=== PATIENT | female | born 1950 ===

== ENCOUNTER 2017-03-12 06:38 | Day surgery (SDC) | payer MEDICARE, MEDICAID ==
[2016-10-13 14:06] VITALS: BMI 306488.7
[2017-03-12 07:22] LABS: BASO # 0.05 K/mm3 (0.0-2.0); BASO % 0.6 % (0.0-3.0); EOS # 0.8 (0.0-0.7); EOS % 9.9 % (1.5-5.0); GRAN # 4.36 (1.4-6.5); GRAN % 56.7 % (50.0-68.0); HEMOGLOBIN 12.5 gm/dL (12.0-16.0); LYMPH # 2.1 (1.2-3.4); LYMPH % 26.6 % (22.0-35.0); MEAN CELL VOLUME 103.6 fL (80.0-105.0); MEAN CORPUSCULAR HEMOGLOBIN 32.1 pg (25.0-35.0); MEAN CORPUSCULAR HGB CONC 30.9 g/dl (31.0-37.0); MEAN PLATELET VOLUME 9.7 fl (7.0-11.0); MONO # 0.5 (0.1-0.6); MONO % 6.2 % (1.0-6.0); PLATELET COUNT 165 10^3/uL (120.0-450.0); RED CELL DISTRIBUTION WIDTH 14.5 % (11.5-14.5); WHITE BLOOD COUNT 7.7 10^3/ul (4.5-11.0)
[2017-03-12 07:32] LABS: INR 0.94 (0.93-1.08); PROTHROMBIN TIME 10.1 Seconds (9.9-11.8)
[2017-03-12 07:37] LABS: CALCIUM 9.8 mg/dL (8.4-10.5)
[2017-03-12] MEDS ORDERED: Midazolam 2 MG/2 ML VIAL ONE ×2 (08:19→08:53)
[2017-03-12] MEDS ORDERED: Lidocaine 2% Inj (20ml) ONE (08:19)
--- NOTE | 2017-03-12 08:28 | CP.SDSHP ---
Same Day Surgery H & P - History Proposed Procedure: Fistulogram Pre-Op Diagnosis: ESRD - Previous Medical/Surgical History Cardiac: Hypertension Pulmonary: Emphysema/COPD Endocrine/Metabolic: Diabetes, Renal Disease (On HD) Neuro: TIA/CVA (CVA resulted in residual R leg weakness) Misc: Other (has numbness of both feet,,anxiety,hyperlipidemia,arthritis) Pain: 0. No Pain Comments: AV fistula in L arm is not working well Previous Surgical History: Permacath placement in R side of the neck and removal of the same. Creation of L arm AV shunt. Fistulogram. Colonoscopy. Excision R breast cyst - Allergies Allergies: Allergies No Known Allergies Allergy (Verified 12/05/14 21:35) - Physical Exam General Appearance: Well nourished female Mental Status: Alert & Oriented x3 Neuro: Other (Minimal weakness of the R lower extremity noted.) Heart: WNL Lungs: Other (Breath sounds appear distant) - {Optional Preform as Required} Abdomen: Other (abdomen is obese) Other Pertinent Findings: AV shunt noted on the L arm.Bruit+,Thrill felt but diminished. - Impression Impression: ESRD - Date & Time Date: 03/12/17 Time: 08:28 Short Stay Discharge - Short Stay Discharge Admitting Diagnosis/Reason for Visit: ESRD N18.6 Disposition: HOME/ ROUTINE Referrals: Yeison Mancuso MD [Primary Care Provider] -
[2017-03-12] MEDS ORDERED: Iodixanol 320 MG/ML 100 ML BOTTLE IV ONE (09:18)
[2017-03-12 10:54] VITALS: PULSE 59; RESP 18; TEMP 97.7
[2017-03-12 11:43] VITALS: BP 140/71; O2SAT 96
--- NOTE | 2017-03-12 19:17 | VASCULAR ---
PROCEDURE: 1. Left upper extremity AV graft angiogram 2. Left basilic vein angioplasty HISTORY: End-stage renal disease. Malfunctioning AV access PHYSICIAN(S): Alexandr Ayala MD. TECHNIQUE: The relative risks and indications of the procedure were explained to the patient and consent obtained. The patient was placed supine on the angiography table and the left arm prepped and draped in usual sterile fashion. Conscious sedation and monitoring provided throughout the procedure by a nurse. The left arm AV graft was punctured on the arterial side of the loop graft with ultrasound guidance and with a micropuncture set. A 5 Slovak catheter was placed. An overlapping left upper extremity AV graft angiogram was performed. Central venous imaging was obtained. Critical stenosis of the left median antecubital vein was crossed with 5 Slovak catheter and angled Glidewire. A 0.035 support wire was placed in the IVC. A 7 Slovak sheath was placed. The left median antecubital vein was dilated with 8 and 9 mm balloons. An excellent angiographic result was obtained with brisk flow. Unfortunately, the web-like stenoses in the left innominate vein could not be reached with 80 cm balloon catheters. The stenoses will be addressed with a future procedure. The AV graft was patent with strong diastolic flow. The catheter was removed and hemostasis obtained with a purse-string suture. FINDINGS: The loop graft in the left forearm is patent. There is a self expanding stent at the venous anastomosis. There is a critical stenosis of the left median antecubital vein. This was successfully dilated with 8 and 9 mm balloons. The left basilic vein is well developed. The left axillary and subclavian veins are patent. The left innominate vein demonstrates web-like severe stenoses with collateral vessels seen. The superior vena cava appears patent. IMPRESSION: 1. 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 This was successfully dilated with 8 and 9 mm balloons. 2. Patent left forearm AV loop graft 3. Web-like stenoses in the left innominate vein. These will be dilated on a separate procedure.
== END 2017-03-12 11:35 | disposition home or self-care (01) ==
LOC: SDSVAS 06:38
PROVIDERS: ATTEND Radiology Vascular & Interventional Radiology
DX: T82.858A Stenosis of other vascular prosthetic devices, implants and grafts, initial encounter (principal); I12.0 Hypertensive chronic kidney disease with stage 5 chronic kidney disease or end stage renal disease; N18.6 End stage renal disease; E11.22 Type 2 diabetes mellitus with diabetic chronic kidney disease; I69.351 Hemiplegia and hemiparesis following cerebral infarction affecting right dominant side; E78.5 Hyperlipidemia, unspecified; J44.9 Chronic obstructive pulmonary disease, unspecified; Y83.2 Surgical operation with anastomosis, bypass or graft as the cause of abnormal reaction of the patient, or of later complication, without mention of misadventure at the time of the procedure
CPT/HCPCS: 36415; 36902; 80048; 85025; 85610; 85730; 99152; C1725 ×3; C1760; C1769 ×2; C1894 ×2; J1644; J2250; J3010; Q9967

== ENCOUNTER 2017-03-28 06:17 | Day surgery (SDC) | payer MEDICARE, MEDICAID ==
[2017-03-15 11:55] VITALS: BMI 32.2
[2017-03-28] MEDS ORDERED: Lidocaine 2% Inj (20ml) ONE (06:59)
[2017-03-28] MEDS ORDERED: Iodixanol 320 mg/ml 150 ml Bottle IV ONE (06:59)
[2017-03-28 07:10] LABS: BASO # 0.05 K/mm3 (0.0-2.0); BASO % 0.5 % (0.0-3.0); EOS # 0.8 (0.0-0.7); EOS % 8.5 % (1.5-5.0); GRAN # 5.41 (1.4-6.5); GRAN % 58.3 % (50.0-68.0); HEMATOCRIT 38.2 % (36.0-48.0); LYMPH # 2.5 (1.2-3.4); LYMPH % 27.4 % (22.0-35.0); MEAN CORPUSCULAR HEMOGLOBIN 31.5 pg (25.0-35.0); MEAN CORPUSCULAR HGB CONC 30.6 g/dl (31.0-37.0); MEAN PLATELET VOLUME 10.1 fl (7.0-11.0); MONO # 0.5 (0.1-0.6); MONO % 5.3 % (1.0-6.0); RED CELL DISTRIBUTION WIDTH 13.5 % (11.5-14.5); WHITE BLOOD COUNT 9.3 10^3/ul (4.5-11.0)
[2017-03-28 07:16] LABS: INR 0.93 (0.93-1.08); PARTIAL THROMBOPLASTIN TIME 26.6 Seconds (23.7-30.8)
[2017-03-28 07:26] LABS: CALCIUM 9.8 mg/dL (8.4-10.5); POTASSIUM 4.7 mmol/L (3.6-5.0)
[2017-03-28] MEDS ORDERED: Midazolam 2 MG/2 ML VIAL ONE (07:58)
[2017-03-28 09:39] VITALS: TEMP 98.6; O2SAT 98
[2017-03-28 10:16] VITALS: BP 132/77; PULSE 83; RESP 18
--- NOTE | 2017-03-28 15:09 | VASCULAR ---
PROCEDURE: 1. Left upper extremity AV graft angiogram 2. Left innominate vein angioplasty 3. Left median antecubital vein angioplasty HISTORY: End-stage renal disease. Recent venous intervention. Critical left innominate vein stenosis which was not treated. PHYSICIAN(S): Alexandr Ayala MD. TECHNIQUE: The relative risks and indications of the procedure were explained to the patient and consent obtained. The patient was placed supine on the angiography table and the left arm prepped and draped in usual sterile fashion. Conscious sedation and monitoring provided throughout the procedure by a nurse. The left arm AV graft was punctured in the venous limb in an antegrade direction with a micropuncture set. A 5 Arabic catheter was placed. An overlapping left upper extremity the graft angiogram was performed. Central venous imaging was obtained. 65 cm catheter was placed at the left innominate vein. Imaging of the left innominate vein stenosis was performed. Eft innominate vein stenosis was crossed with the glidewire. A 0.035 support wire was placed the IVC. A 7 Arabic sheath was placed at the puncture site. The left innominate vein was dilated with 12 and 14 mm balloon. A much improved angiographic result was obtained. The stenosis at the distal end of the stent in the left median antecubital vein was dilated with an 8 mm balloon. A good angiographic result was obtained. The sheath was removed and hemostasis obtained with a purse string suture. FINDINGS: The patient's left upper extremity loop graft is patent. Overlapping stents are seen at the venous anastomosis. A moderate residual stenosis at the distal end of the stent. This was successfully dilated with an 8 mm balloon. There is a critical stenosis of the left innominate vein. This was successfully dilated with 12 and 14 mm balloons. IMPRESSION: 1. Critical left innominate vein stenosis. 2. Successful left innominate vein angioplasty with 12 and 14 mm balloons. 3. Left median antecubital vein angioplasty with an 8 mm balloon. 4. Patent loop graft in the left forearm
== END 2017-03-28 10:10 | disposition home or self-care (01) ==
LOC: SDSVAS 06:17
PROVIDERS: ATTEND Radiology Vascular & Interventional Radiology
DX: T82.858A Stenosis of other vascular prosthetic devices, implants and grafts, initial encounter (principal); N18.6 End stage renal disease; I12.0 Hypertensive chronic kidney disease with stage 5 chronic kidney disease or end stage renal disease; E11.22 Type 2 diabetes mellitus with diabetic chronic kidney disease; E78.5 Hyperlipidemia, unspecified; Z99.2 Dependence on renal dialysis; Z79.4 Long term (current) use of insulin; J44.9 Chronic obstructive pulmonary disease, unspecified; Y83.8 Other surgical procedures as the cause of abnormal reaction of the patient, or of later complication, without mention of misadventure at the time of the procedure
CPT/HCPCS: 36415; 36902; 36907; 80048; 85025; 85610; 85730; 99152; C1725 ×3; C1769 ×2; C1887; C1894; J1644; J2250; J2405; J3010

== ENCOUNTER 2017-11-16 01:44 | Inpatient (IN) | payer MEDICARE, MEDICAID ==
[2017-11-16] MEDS ORDERED: Sodium Chloride 0.9% 1,000 ML IV STA ×3 (03:00→06:14)
--- NOTE | 2017-11-16 03:00 | ED PDOC ---
Arrival/HPI - General Chief Complaint: Medical Clearance Time Seen by Provider: 11/16/17 01:51 Historian: Patient, Family (Son) - History of Present Illness Narrative History of Present Illness (Text): 11/16/17 02:57 A 67 year old female, whose past medical history includes diabetes, asthma, and End Stage Renal Disease on Hemodialysis (MWF), presents to the emergency department complaining of bleeding from dialysis arm fistula.. Patient is scheduled for declotting/ revision tomorrow. The son notes that she accidentally hit her arm causing it to bleed. As per the son, it appeared to be excessive bleeding at time which has been controlled now with pressure applied by ambulance crew. Pressure dressing was also applied by ambulance crew. The patient states she does not feel well. She denies any chest pain or shortness of breath. Patient notes that she ate a large meal late this evening. Patient vomited once in the emergency department. Patient denies fevers, chills , headache, dizziness, chest pain, shortness of breath, dyspnea on exertion, cough, abdominal pain, diarrhea, back pain, neck pain, urinary/bowel changes, or any other complaint. PMD: Dr. Mancuso Time/Duration: Prior to Arrival Symptom Onset: Sudden Symptom Course: Unchanged Activities at Onset: Rest, Light Context: Home Past Medical History - Provider Review Nursing Documentation Reviewed: Yes - Infectious Disease Hx of Infectious Diseases: None - Tetanus Immunization Tetanus Immunization: Up to Date - Reproductive Menopause: Yes - Cardiac Hx Pacemaker: No - Pulmonary Hx Asthma: Yes - Neurological HX Cerebrovascular Accident: Yes Hx Paralysis: No Other/Comment: jacqueline lower limbs weak uses walker - HEENT Hx HEENT Disorder: No - Renal Hx Renal Disorder: Yes Hx Dialysis: Yes (Sun) Hx Renal Failure: Yes - Endocrine/Metabolic Hx Diabetes Mellitus Type 2: Yes (uses insulin) Hx Hypothyroidism: Yes - Hematological/Oncological Hx Blood Transfusions: Yes (2010) Hx Blood Transfusion Reaction: No - Integumentary Hx Dermatological Disorder: No - Musculoskeletal/Rheumatological Hx Musculoskeletal Disorders: Yes - Gastrointestinal Hx Gastrointestinal Disorders: Yes Other/Comment: diverticulosis/hemorroids - Genitourinary/Gynecological Hx Genitourinary Disorders: Yes (voids "a little") Other/Comment: dialysis patient. left limb alert - Psychiatric Hx Psychophysiologic Disorder: No Hx Emotional Abuse: No Hx Physical Abuse: No Hx Substance Use: No - Surgical History Other/Comment: shunt left arm - Anesthesia Hx Anesthesia Reactions: No Hx Malignant Hyperthermia: No - Suicidal Assessment Feels Threatened In Home Enviroment: No Family/Social History - Physician Review Nursing Documentation Reviewed: Yes Family/Social History: No Known Family HX Smoking Status: Never Smoked Hx Alcohol Use: No Hx Substance Use: No Hx Substance Use Treatment: No Allergies/Home Meds Allergies/Adverse Reactions: Allergies No Known Allergies Allergy (Verified 11/16/17 01:56) Home Medications: Home Meds Medication Instructions Recorded Confirmed Montelukast [Singulair] 10 mg PO DAILY 01/21/12 11/14/17 Cinacalcet [Sensipar] 30 mg PO ACL 03/20/16 11/14/17 Gabapentin [Neurontin] 100 mg PO BID 03/20/16 11/14/17 Sevelamer Carbonate [Renvela] 2 tab PO TID 03/20/16 11/14/17 Simvastatin 20 mg PO HS 03/20/16 11/14/17 Insulin Aspart [Novolog FLEXPEN] 2 units SC BID 03/08/17 11/14/17 Midodrine [Proamatine] 5 mg PO MWF PRN 03/08/17 11/14/17 Aspirin [Ecotrin] 81 mg PO DAILY 06/14/17 11/14/17 amLODIPine [Norvasc] 2.5 mg PO DAILY 06/14/17 11/14/17 Review of Systems - Physician Review All systems were reviewed & negative as marked: Yes - Review of Systems Constitutional: absent: Fevers, Night Sweats Respiratory: absent: SOB, Cough Cardiovascular: absent: Chest Pain, MENDOSA Gastrointestinal: absent: Abdominal Pain, Stool Changes, Diarrhea, Nausea, Vomiting Genitourinary Female: absent: Urine Output Changes Musculoskeletal: Other (Bleeding from av fistula site on left forearm.). absent : Back Pain, Neck Pain Neurological: absent: Headache, Dizziness Physical Exam Vital Signs Reviewed: Yes Vital Signs Temp Pulse Resp BP Pulse Ox 11/16/17 07:49 116 H 16 93/51 L 11/16/17 07:23 110 H 16 108/63 100 11/16/17 05:50 98.3 F 109 H 18 108/63 95 11/16/17 04:15 74 20 100 11/16/17 02:02 97.7 F 98 H 20 149/66 100 Temperature: Afebrile Blood Pressure: Normal Pulse: Tachycardic Respiratory Rate: Normal Appearance: Positive for: Well-Appearing, Non-Toxic Pain Distress: None Mental Status: Positive for: Alert and Oriented X 3 - Systems Exam Head: Present: Atraumatic, Normocephalic Pupils: Present: PERRL Extroacular Muscles: Present: EOMI Conjunctiva: Present: Normal Mouth: Present: Moist Mucous Membranes Neck: Present: Normal Range of Motion Respiratory/Chest: Present: Clear to Auscultation, Good Air Exchange. No: Respiratory Distress, Accessory Muscle Use Cardiovascular: Present: Regular Rate and Rhythm, Normal S1, S2. No: Murmurs Abdomen: No: Tenderness, Distention, Peritoneal Signs Back: Present: Normal Inspection Upper Extremity: Present: Other (Slight minimal ooze of blood noted at av fistula site of left forearm. No excessive bleeding. ) Lower Extremity: Present: Normal Inspection. No: Edema Neurological: Present: GCS=15, CN II-XII Intact, Speech Normal Skin: Present: Warm, Dry, Normal Color. No: Rashes Psychiatric: Present: Alert, Oriented x 3, Normal Insight, Normal Concentration Medical Decision Making ED Course and Treatment: 11/16/17 03:02 Impression: A 67 year old female presents to the emergency department complaining of bleeding from her av fistula. Plan: -- EKG -- Chest X-ray -- Labs -- Reassess and disposition Progress Notes: 11/16/17 03:05: Treatment here in emergency department. Patient had labs drawn. Surgicel was applied for hemostat control to affected site with dressing applied with good results. 11/16/17 04:40: Patient began to rebleed.Pressure dressing reapplied.Bleeding controlled.president & founder paged to the emergency department to evaluate patient. 11/16/17 04:57: Patient noted to have low hemoglobin 7.5 Pt. previously T & S.Blood was ordered for transfusion. 11/16/17 05:16: Case discussed in detail with Dr. Rosas. Patient placed on dopamine drip. 11/16/17 05:23: Case discussed in detail with Dr. De Leon. 11/16/17 05:39: president & founder placed central line. EKG: Ordered, reviewed, and independently interpreted the EKG. Rate : 82 BPM Rhythm : NSR 11/16/17 05:40: Case discussed with Java Software Engineer, Dr. Rosas, who states he will come evaluate patient and determine need for ICU. 11/16/17 06:25 Pt. admitted to ICU.Currently being transfused.Meds ordered to stabilize.Case had been d/w who accepted to his service. - Lab Interpretations Lab Results: 11/16/17 03:55 11/16/17 03:55 Lab Results 11/16/17 06:00: Procalcitonin 0.22 11/16/17 05:55: pCO2 38, pO2 139.0 H, HCO3 18.7 L, ABG pH 7.30 L, ABG Total CO2 19.9 L, ABG O2 Saturation 98.4 H, ABG Base Excess -7.1 L, ABG Potassium 4.6, Glucose 252 H, Lactate 8.3 H*, FiO2 28.0, Sodium 139.0, Chloride 105.0, Arterial Blood Potassium 4.6 11/16/17 03:55: Blood Type O POSITIVE, Antibody Screen Negative, Crossmatch See Detail, BBK History Checked Patient has bt 11/16/17 03:55: WBC 16.2 H D, RBC 2.47 L, Hgb 7.5 L D, Hct 24.2 L, MCV 98.0 D, MCH 30.4, MCHC 31.0, RDW 13.8, Plt Count 173, MPV 9.9 11/16/17 03:55: Sodium 140, Potassium 4.9, Chloride 101, Carbon Dioxide 20 L, Anion Gap 24 H, BUN 49 H, Creatinine 7.4 H*, Est GFR ( Amer) 7, Est GFR ( Non-Af Amer) 5, Random Glucose 172 H, Calcium 9.1, Total Bilirubin 0.2, AST 40 H , ALT 38, Alkaline Phosphatase 90, Lactate Dehydrogenase 582, Total Creatine Kinase 156, Troponin I 0.09, Total Protein 5.6 L, Albumin 3.1, Globulin 2.5, Albumin/Globulin Ratio 1.2, Lipase 586 H 11/16/17 03:55: PT 10.8, INR 0.95, APTT 26.1 I have reviewed the lab results: Yes - RAD Interpretation Radiology Orders: 11/16/17 02:32 CHEST PORTABLE [RAD] Stat - EKG Interpretation Interpreted by ED Physician: Yes Type: 12 lead EKG - Medication Orders Current Medication Orders: NOREPINEPHRINE BIT/0.9 % NACL (Levophed 4 Mg/ 250 Ml Ns Premixed) 4 mg in 250 mls @ 15 mls/hr IV .I40R33T PRN; Protocol; 4 MCG/MIN PRN Reason: TITRATE PER MD ORDER Last Admin: 11/16/17 18:30 Dose: 24 mcg/min, 90 mls/hr eMAR Start Stop Document 11/16/17 18:30 RAMOM (Rec: 11/16/17 19:40 RAMOM [id number] ) Intravenous Solution Start Date 11/16/17 Start Time 18:30 Titration Intervention Document 11/16/17 18:30 RAMOM (Rec: 11/16/17 19:40 RAMOM [id number] ) Titration Intake Cumulative Intake (Rx) 750 Waste Amount 0 Container Volume 250 Titration Dosing Titration Dose 24 IV Rate 90 Intake/Decrease Started/Running Cumulative Dose 12 Phenylephrine HCl 40 mg/ (Sodium Chloride) 254 mls @ 38.1 mls/hr IV .Q6H40M PRN ; Protocol; 100 MCG/MIN PRN Reason: TITRATE PER MD ORDER Vasopressin 20 units/ Sodium (Chloride) 101 mls @ 9.09 mls/hr IV .Q11H7M WILIAN; 0.03 U/MIN PRN Reason: Protocol Last Admin: 11/16/17 10:20 Dose: 9.09 mls/hr eMAR Start Stop Document 11/16/17 10:20 RAMOM (Rec: 11/16/17 10:28 [place] [place] [facility] [facility] Intravenous Solution Start Date 11/16/17 Start Time 10:20 End Date 11/16/17 End time 11:30 Total Infusion Time 70 MAR Blood Pressure Document 11/16/17 10:20 RAMOM (Rec: 11/16/17 10:28 RAMOM [facility]) Blood Pressure Blood Pressure (100/60-150/90 mm Hg) 85/45 Meropenem 500 mg/ Sodium (Chloride) 50 mls @ 100 mls/hr IVPB 1400 WILIAN PRN Reason: Protocol Stop: 11/23/17 14:01 Dextrose (Dextrose 10% In Water) 500 mls @ 60 mls/hr IV .Q8H20M [facility] Last Admin: 11/16/17 19:15 Dose: 60 mls/hr eMAR Start Stop Document 11/16/17 19:15 RAMOM (Rec: 11/16/17 19:38 RAMOM [id number] ) Intravenous Solution Start Date 11/16/17 Start Time 19:15 Insulin Human Regular (Humulin R Low) 0 units SC Q6H WILIAN PRN Reason: Protocol Last Admin: 11/16/17 13:00 Dose: Not Given Non-Admin Reason: NPO MAR Blood Glucose Document 11/16/17 13:00 RAMOM (Rec: 11/16/17 14:49 RAMOM [facility] [place] [facility] Blood Glucose Finger Stick Blood Glucose (70-120) 182 Pantoprazole Sodium (Protonix Inj) 40 mg IVP Q12 [facility] Last Admin: 11/16/17 09:31 Dose: 40 mg IVP Administration Document 11/16/17 09:31 RAMOM (Rec: 11/16/17 09:31 RAMOM [facility] [place] [facility] Charges for Administration # of IVP Administrations 1 Discontinued Medications Dextrose (Dextrose 50% Inj) 50 ml IVP ONCE STA Stop: 11/16/17 10:59 Last Admin: 11/16/17 11:00 Dose: 50 ml IVP Administration Document 11/16/17 11:00 RAMOM (Rec: 11/16/17 11:14 RAMOM [facility] [place] [facility] Charges for Administration # of IVP Administrations 1 Dextrose (Dextrose 50% Inj) 50 ml IVP ONCE STA Stop: 11/16/17 11:20 Last Admin: 11/16/17 11:24 Dose: 50 ml IVP Administration Document 11/16/17 11:24 RAMOM (Rec: 11/16/17 11:24 RAMOM [facility] [place] [facility] Charges for Administration # of IVP Administrations 1 Dopamine HCl/Dextrose (Dopamine 400mg/250ml D5w) 400 mg in 250 mls @ 15.638 mls /hr IV .Q16H PRN; Protocol; 5 MCG/KG/MIN PRN Reason: TITRATE PER MD ORDER Last Admin: 11/16/17 05:01 Dose: 5 mcg/kg/min, 15.638 mls/hr eMAR Start Stop Document 11/16/17 05:01 RG (Rec: 11/16/17 07:18 [id number]) Intravenous Solution Start Date 11/16/17 Start Time 05:01 End Date 11/16/17 End time 06:20 Total Infusion Time 79 Titration Intervention Document 11/16/17 05:01 RG (Rec: 11/16/17 07:18 [id number]) Titration Intake Waste Amount 0 Container Volume 250 Titration Dosing Titration Dose 5 IV Rate 15.638 Intake/Decrease Started Sodium Chloride (Sodium Chloride 0.9%) 1,000 mls @ 999 mls/hr IV .Q1H1M STA Stop: 11/16/17 04:00 Last Admin: 11/16/17 06:33 Dose: 999 mls/hr eMAR Start Stop Document 11/16/17 06:33 RG (Rec: 11/16/17 06:33 [id number] Intravenous Solution Start Date 11/16/17 Start Time 03:00 Sodium Chloride (Sodium Chloride 0.9%) 1,000 mls @ 999 mls/hr IV .Q1H1M STA Stop: 11/16/17 07:13 Last Admin: 11/16/17 06:13 Dose: 999 mls/hr eMAR Start Stop Document 11/16/17 06:13 RG (Rec: 11/16/17 06:51 [id number]) Intravenous Solution Start Date 11/16/17 Start Time 06:13 Sodium Chloride (Sodium Chloride 0.9%) 1,000 mls @ 999 mls/hr IV .Q1H1M STA Stop: 11/16/17 07:14 Last Admin: 11/16/17 06:15 Dose: 999 mls/hr eMAR Start Stop Document 11/16/17 06:15 RG (Rec: 11/16/17 07:09 [id number]) Intravenous Solution Start Date 11/16/17 Start Time 06:15 Cefepime HCl (Maxipime 2gm) 2 gm in 100 mls @ 100 mls/hr IVPB DAILY WILIAN PRN Reason: Protocol Stop: 11/21/17 10:01 Vancomycin HCl 2 gm/ Sodium (Chloride) 500 mls @ 170 mls/hr IVPB ONCE ONE PRN Reason: Protocol Stop: 11/16/17 11:25 Last Admin: 11/16/17 09:30 Dose: 170 mls/hr eMAR Start Stop Document 11/16/17 09:30 RAMOM (Rec: 11/16/17 09:31 [facility] [place] [facility] Intravenous Solution Start Date 11/16/17 Start Time 09:30 End Date 11/16/17 End time 12:30 Total Infusion Time 180 Cefepime HCl (Maxipime 1gm) 1 gm in 100 mls @ 100 mls/hr IVPB DAILY WILIAN PRN Reason: Protocol Stop: 11/21/17 10:01 Last Admin: 11/16/17 10:10 Dose: 100 mls/hr eMAR Start Stop Document 11/16/17 10:10 RAMOM (Rec: 11/16/17 10:29 [facility]OM [facility] [place] [facility] Intravenous Solution Start Date 11/16/17 Start Time 10:10 End Date 11/16/17 End time 11:10 Total Infusion Time 60 Meropenem 500 mg/ Sodium (Chloride) 50 mls @ 100 mls/hr IVPB Q12 WILIAN PRN Reason: Protocol Stop: 11/23/17 11:01 Last Admin: 11/16/17 11:16 Dose: 100 mls/hr eMAR Start Stop Document 11/16/17 11:16 RAMOM (Rec: 11/16/17 11:17 [facility]OM [facility] [place] [facility] Intravenous Solution Start Date 11/16/17 Start Time 11:15 End Date 11/16/17 End time 11:45 Total Infusion Time 30 Dextrose (Dextrose 10% In Water) 500 mls @ 60 mls/hr IV .Q8H20M [facility] Last Admin: 11/16/17 11:37 Dose: 60 mls/hr eMAR Start Stop Document 11/16/17 11:37 RAMOM (Rec: 11/16/17 11:37 RAMOM [facility] [place] [facility] Intravenous Solution Start Date 11/16/17 Start Time 11:35 Ondansetron HCl (Zofran Inj) 4 mg IVP STAT STA Stop: 11/16/17 02:41 Last Admin: 11/16/17 02:41 Dose: 4 mg IVP Administration Document 11/16/17 02:41 RG (Rec: 11/16/17 07:09 RG [facility] [id number] Charges for Administration # of IVP Administrations 1 - Scribe Statement The provider has reviewed the documentation as recorded by the Scribe Jenna Guzman Provider Scribe Attestation: All medical record entries made by the Scribe were at my direction and personally dictated by me. I have reviewed the chart and agree that the record accurately reflects my personal performance of the history, physical exam, medical decision making, and the department course for this patient. I have also personally directed, reviewed, and agree with the discharge instructions and disposition. Disposition/Present on Arrival - Present on Arrival Any Indicators Present on Arrival: No History of DVT/PE: No History of Uncontrolled Diabetes: Yes Urinary Catheter: No History of Decub. Ulcer: No History Surgical Site Infection Following: None - Disposition Have Diagnosis and Disposition been Completed?: Yes Diagnosis: Hemorrhage of arteriovenous fistula, Hemorrhagic shock Disposition: HOSPITALIZED Disposition Time: 06:30 Patient Plan: Admission Patient Problems: Current Active Problems Problem Status Onset Hemorrhage of arteriovenous fistula Acute Hemorrhagic shock Acute Condition: GUARDED
[2017-11-16 04:16] LABS: MEAN CORPUSCULAR HEMOGLOBIN 30.4 pg (25.0-35.0); MEAN PLATELET VOLUME 9.9 fl (7.0-11.0); RBC 2.47 10^6/uL (3.5-6.1); RED CELL DISTRIBUTION WIDTH 13.8 % (11.5-14.5); WHITE BLOOD COUNT 16.2 10^3/ul (4.5-11.0)
[2017-11-16 04:18] LABS: ALB/GLOB RATIO 1.2 (1.1-1.8); ALBUMIN 3.1 g/dL (3.0-4.8); CALCIUM 9.1 mg/dL (8.4-10.5)
[2017-11-16 04:28] LABS: TROPONIN I 0.09 ng/mL
[2017-11-16 04:39] LABS: HEMOGLOBIN 7.5 g/dL (12.0-16.0)
[2017-11-16 04:47] LABS: INR 0.95 (0.93-1.08); PARTIAL THROMBOPLASTIN TIME 26.1 Seconds (25.1-36.5); PROTHROMBIN TIME 10.8 SECONDS (9.4-12.5)
[2017-11-16] MEDS ORDERED: DOPamine 400mg/250ml D5W 400 MG/250 ML BAG IV ONE (04:52)
[2017-11-16] MEDS ORDERED: DOPamine 400mg/250ml D5W 400 MG/250 ML BAG IV PRN (04:59)
--- NOTE | 2017-11-16 05:59 | PCM.PROC ---
Procedures Attestation:: I certify that I have explained the specified Operation(s) or Procedure(s), risks, benefits and reasonable alternatives to the Patient and/or other person responsible. The opportunity was given to ask questions and all questions answered - Central Line Placement Right Femoral Triple Lumen Catheter Aseptic technique was employed throughout the procedure: Hand Hygiene done prior to procedure, Full sterile barriers (mask, hair cover, sterile gown, sterile gloves), Full body sterile drape, Chloraprep Antiseptic: 2 minute prep for Femoral CVP Time Out Performed: Yes Pt. Placed on Pulse Ox Monitor: Yes Central Line Prep: Chlorhexidine-Alcohol Combination Local Anesthesia Used: Lidocaine 1% Amount of Anesthesia Used (mls): 5 Ultrasound Used for Placement: Yes Central Line Lumen Inserted: triple Central Line Length: 16 cm Post Procedure: Sutured in Place, Good Blood Return, All Ports Aspirated, Flushed, Capped, Sterile Dressing Applied Secured by: Suture Post procedure dressing: Clear vapor permeable, Chlorhexidine disc (Biopatch) Post Procedure X-Ray: No Patient Tolerated Procedure: Well, No Complications Immediate Complications: None Additional Comments: Informed consent obtained from daughter at bedside. Risk, benefits and indications were discussed briefly due to acuity of the situation. Procedure: Right femoral TLC insertion Indication: hypotension, refractory due to severe acute blood loss. poor access , need for rapid transfusion and possible initiation of vasopressors Procedure in detail: right femoral vein was identified with ultrasound prior to procedure. Patient supine and Right leg placed in frog-legged position. After identification of the right femoral vein via ultrasound the right groin was prepped x2 with chlorahexadine then draped in the usual sterile fashion. Under ultrasound guidance the femoral vein was accessed with the guidance needle successfully with dark venous blood return. Guide-wire was advanced smoothly into vein. Seldinger technique was used to place triple lumen catheter. Guide- wire was removed and all three ports were aspirated and flushed without difficulty. Bio-patch placed at insertion site and two tegaderms were used as sterile dressing. No evidence of hematoma immediately post procedure. Patient tolerated procedure well. Complications: none Blood loss: 5 cc Ok to use catheter further recs per Dr. Haley [id number]
[2017-11-16 06:08] LABS: ARTERIAL BLOOD GAS HCO3 18.7 mmol/L (21-28); ARTERIAL BLOOD GAS O2 SAT 98.4 % (95-98); ARTERIAL BLOOD GAS PCO2 38 mm/Hg (35-45); ARTERIAL BLOOD GAS TCO2 19.9 mmol.L (22-28)
[2017-11-16] MEDS: NOREPINEPHRINE BIT/0.9 % NACL 4 MG/250 ML BAG IV PRN ×5 (06:22→20:00)
--- NOTE | 2017-11-16 06:24 | CP.PCM.CON ---
<Kimberly Miller - Last Filed: 11/16/17 07:45> History of Present Illness - History of Present Illness History of Present Illness: ICU Consult Note, Eric Miller PGY2 This is a 67yo female with past medical history of ESRD on HD (MWF), DM, CVA, HTN, asthma who came to ED for bleeding AV fistula. As per family, patient accidentally hit her arm onto a doorknob and her fistula started bleeding profusely. Family tried to control the bleeding and hold pressure, but her fistula continued to bleed and they brought her to the ED. In ED, patient was awake and alert upon arrival. Patient was also nauseous and threw up a large amount. According to family, she did have a large dinner. Her bleeding from the AV fistula was stabilized, but was found to be anemic and hypotensive. Central line was placed as per surgery. 4U PRBC were ordered and patient was given IV fluid bolus. Upon examination, patient is lethargic and agitated but arousable. Family is at bedside. ROS could not be obtained. Patient noted to have large BM mixed with blood as well. Patient is on ASA 81mg at home. Past medical history: ESRD on HD (MWF), DM, CVA, HTN, asthma Past surgical history: AV fistula Home meds: As per MAR Allergies: NKDA SH: Denies EtOH, drug or tobacco use. Lives with family. Hx of CVA- has chronic leg weakness PMD: Dr. Bartolome Talbert: Dr. Felton Review of Systems - Review of Systems Systems not reviewed;Unavailable: Altered Mental Status Past Patient History - Infectious Disease Hx of Infectious Diseases: None - Tetanus Immunizations Tetanus Immunization: Up to Date - Past Social History Smoking Status: Never Smoked Alcohol: None Drugs: Denies Home Situation {Lives}: With Family - CARDIAC Hx Pacemaker: No - PULMONARY Hx Asthma: Yes - NEUROLOGICAL HX Cerebrovascular Accident: Yes Hx Paralysis: No Other/Comment: jacqueline lower limbs weak uses walker - HEENT Hx HEENT Problems: No - RENAL Hx Chronic Kidney Disease: Yes Hx Dialysis: Yes (Sun) Hx Renal Failure: Yes - ENDOCRINE/METABOLIC Hx Diabetes Mellitus Type 2: Yes (uses insulin) Hx Hypothyroidism: Yes - HEMATOLOGICAL/ONCOLOGICAL Hx Blood Transfusions: Yes (2010) Hx Blood Transfusion Reaction: No - INTEGUMENTARY Hx Dermatological Problems: No - MUSCULOSKELETAL/RHEUMATOLOGICAL Hx Musculoskeletal Disorders: Yes - GASTROINTESTINAL Hx Gastrointestinal Disorders: Yes Other/Comment: diverticulosis/hemorroids - GENITOURINARY/GYNECOLOGICAL Hx Genitourinary Disorders: Yes (voids "a little") Other/Comment: dialysis patient. left limb alert - PSYCHIATRIC Hx Psychophysiologic Disorder: No Hx Emotional Abuse: No Hx Physical Abuse: No Hx Substance Use: No - SURGICAL HISTORY Other/Comment: shunt left arm - ANESTHESIA Hx Anesthesia Reactions: No Hx Malignant Hyperthermia: No Meds Allergies/Adverse Reactions: Allergies Allergy/AdvReac Type Severity Reaction Status Date / Time No Known Allergies Allergy Verified 11/16/17 01:56 - Medications Medications: Current Medications Dopamine HCl/Dextrose (Dopamine 400mg/250ml D5w) 400 mg in 250 mls @ 14.368 mls /hr IV .[id number] PRN; Protocol; 5 MCG/KG/MIN PRN Reason: TITRATE PER MD ORDER NOREPINEPHRINE BIT/0.9 % NACL (Levophed 4 Mg/ 250 Ml Ns Premixed) 4 mg in 250 mls @ 15 mls/hr IV .[id number] PRN; Protocol; 4 MCG/MIN PRN Reason: TITRATE PER MD ORDER Sodium Chloride (Sodium Chloride 0.9%) 1,000 mls @ 999 mls/hr IV .Q1H1M STA Stop: 11/16/17 07:13 Sodium Chloride (Sodium Chloride 0.9%) 1,000 mls @ 999 mls/hr IV .Q1H1M STA Stop: 11/16/17 07:14 Physical Exam - Constitutional Appears: Agitated, Confused - Head Exam Head Exam: ATRAUMATIC, NORMAL INSPECTION, NORMOCEPHALIC - Eye Exam Eye Exam: EOMI Additional comments: pupils are sluggish bilaterally - Respiratory Exam Respiratory Exam: Rhonchi, NORMAL BREATHING PATTERN. absent: Rales, Wheezes - Cardiovascular Exam Cardiovascular Exam: Tachycardia, REGULAR RHYTHM, +S1, +S2. absent: Gallop, Rubs, Systolic Murmur - GI/Abdominal Exam GI & Abdominal Exam: Normal Bowel Sounds, Soft. absent: Mass, Rebound, Rigid, Tenderness - Extremities Exam Extremities exam: Positive for: normal inspection. Negative for: calf tenderness, pedal edema - Neurological Exam Neurological exam: Altered, CN II-XII Intact Additional comments: Moving all 4 extremities- withdraws to pain - Expanded Neurological Exam Expanded Coma Scale Eye Opening: To Voice Coma Scale Motor Response: Withdraws to Pain Coma Scale Verbal: Confused Coma Scale Total: 11 - Skin Skin Exam: Dry Additional comments: Cold extremities Results - Vital Signs Recent Vital Signs: Last Vital Signs Temp 97.7 F 11/16/17 02:02 Pulse 74 11/16/17 04:15 Resp 20 11/16/17 04:15 BP 149/66 11/16/17 02:02 Pulse Ox 100 11/16/17 04:15 - Labs Result Diagrams: 11/16/17 03:55 11/16/17 03:55 Labs: Laboratory Results - last 24 hr 11/16/17 11/16/17 11/16/17 03:55 03:55 03:55 WBC 16.2 H D RBC 2.47 L Hgb 7.5 L D Hct 24.2 L MCV 98.0 D MCH 30.4 MCHC 31.0 RDW 13.8 Plt Count 173 MPV 9.9 PT 10.8 INR 0.95 APTT 26.1 pCO2 pO2 HCO3 ABG pH ABG Total CO2 ABG O2 Saturation ABG Base Excess ABG Potassium Glucose Lactate FiO2 Sodium 140 Potassium 4.9 Chloride 101 Carbon Dioxide 20 L Anion Gap 24 H BUN 49 H Creatinine 7.4 H* Est GFR ( Amer) 7 Est GFR (Non-Af Amer) 5 Random Glucose 172 H Calcium 9.1 Total Bilirubin 0.2 AST 40 H ALT 38 Alkaline Phosphatase 90 Lactate Dehydrogenase 582 Total Creatine Kinase 156 Troponin I 0.09 Total Protein 5.6 L Albumin 3.1 Globulin 2.5 Albumin/Globulin Ratio 1.2 Lipase 586 H Arterial Blood Potassium Blood Type Antibody Screen Crossmatch BBK History Checked 11/16/17 11/16/17 03:55 05:55 WBC RBC Hgb Hct MCV MCH MCHC RDW Plt Count MPV PT INR APTT pCO2 38 pO2 139.0 H HCO3 18.7 L ABG pH 7.30 L ABG Total CO2 19.9 L ABG O2 Saturation 98.4 H ABG Base Excess -7.1 L ABG Potassium 4.6 Glucose 252 H Lactate 8.3 H* FiO2 28.0 Sodium 139.0 Potassium Chloride 105.0 Carbon Dioxide Anion Gap BUN Creatinine Est GFR ( Amer) Est GFR (Non-Af Amer) Random Glucose Calcium Total Bilirubin AST ALT Alkaline Phosphatase Lactate Dehydrogenase Total Creatine Kinase Troponin I Total Protein Albumin Globulin Albumin/Globulin Ratio Lipase Arterial Blood Potassium 4.6 Blood Type O POSITIVE Antibody Screen Negative Crossmatch See Detail BBK History Checked Patient has bt Assessment & Plan - Assessment and Plan (Free Text) Assessment: This is a 67yo female with past medical history of ESRD on HD (MWF), DM, CVA, HTN, asthma who is admitted to ICU for hemorrhagic shock secondary to bleeding AV fistula. Plan: Neuro: Hx of CVA Lethargic, GCS: 11 Neuro check Will obtain head CT once stabilized Maintain normothermia CV: Hemorrhagic shock Tachycardic, hypotensive Lactate 8 4U PRBC ordered- 1U transfusing now NS 3L bolus Levophed Maintain MAP>65 Monitor I&O Pulm: ABG done. pH: 7.3. Anion gap Metabolic acidosis- secondary to shock Pt will need intubtation for airway protection after stabilization Maintain spO2>90% CXR preliminary was negative for pneumonia GI: 1 episode on hemotochezia NPO Protonix 40q12 Gi consulted Heme: Hemorrhagic shock secondary to fistula bleed with possible GI bleed Transfuse 4U PRBC Hold anticoagulants Surgery consulted for bleeding fistula Nephro: ESRD on HD M, W,F Nephrology, Dr. Felton consulted Pt does not make urine Maintain euvolemia ID: Leukocytosis, afebrile Lactate elevated- can be secondary to shock Aspiration pneumonia possibility since patient vomited a large amount CXR after emesis did not show overt sign of pneumonia Consider empiric antibiotics Septic work up pending Endo: Hx of DM Will put pt on ISS Maintain euglycemia 140-180s GI ppx: Protonix DVT: Hold anticoagulants due to active bleeding Case seen, discussed and reviewed with attending. Eric Miller PGY2 - Date & Time Date: 11/16/17 Time: 06:46 <Teodoro Walker - Last Filed: 11/16/17 10:08> Meds - Medications Medications: Current Medications NOREPINEPHRINE BIT/0.9 % NACL (Levophed 4 Mg/ 250 Ml Ns Premixed) 4 mg in 250 mls @ 15 mls/hr IV .[id number] PRN; Protocol; 4 MCG/MIN PRN Reason: TITRATE PER MD ORDER Last Titration: 11/16/17 09:46 Dose: 30 mcg/min, 112.5 mls/hr Vancomycin HCl 2 gm/ Sodium (Chloride) 500 mls @ 170 mls/hr IVPB ONCE ONE PRN Reason: Protocol Stop: 11/16/17 11:25 Last Admin: 11/16/17 09:30 Dose: 170 mls/hr Cefepime HCl (Maxipime 1gm) 1 gm in 100 mls @ 100 mls/hr IVPB DAILY WILIAN PRN Reason: Protocol Stop: 11/21/17 10:01 Phenylephrine HCl 40 mg/ (Sodium Chloride) 254 mls @ 38.1 mls/hr IV .Q6H40M PRN ; Protocol; 100 MCG/MIN PRN Reason: TITRATE PER MD ORDER Vasopressin 20 units/ Sodium (Chloride) 101 mls @ 9.09 mls/hr IV .Q11H7M WILIAN; 0.03 U/MIN PRN Reason: Protocol Insulin Human Regular (Humulin R Low) 0 units SC Q6H WILIAN PRN Reason: Protocol Last Admin: 11/16/17 07:35 Dose: Not Given Pantoprazole Sodium (Protonix Inj) 40 mg IVP Q12 WILIAN Last Admin: 11/16/17 09:31 Dose: 40 mg Results - Vital Signs Recent Vital Signs: Last Vital Signs Temp 99.3 F 11/16/17 09:18 Pulse 112 H 11/16/17 09:18 Resp 24 11/16/17 09:18 BP 69/40 L 11/16/17 09:18 Pulse Ox 100 11/16/17 08:01 - Labs Result Diagrams: 11/16/17 03:55 11/16/17 03:55 Labs: Laboratory Results - last 24 hr 11/16/17 07:32 POC Glucose (mg/dL) 88 Attending/Attestation - Attestation I have personally seen and examined this patient.: Yes I have fully participated in the care of the patient.: Yes I have reviewed all pertinent clinical information: Yes Notes (Text): 11/16/17 10:02 The patient was seen and examined at the bedside. Patient care was discussed with resident Medical records, lab studies, and imaging were reviewed and management issues were discussed and formulated. Agree with above treatment plans as outlined in 's note with addition of the following: Hypovolemic hemorrhagic shock \\ Blood Loss Anemia \\ AVF bleed \\ GI Bleed \\ ESRD on HD \\ Sepsis \\ -hemodynamic monitoring to maintain MAP>65; continue vasopressor support with levophed and add phenylephrine and vasopressin -o2 supplementation to maintain Spo2>90 Pao2>60; currently comfortable on NC -monitor airway closely for intubation; at this time pt is able to protect her airway -CXR and ABG reviewed -continue broad spectrum empiric ABX, f\\u cultures; ID team eval appreciated -f\\u Bun\\Cr and U\\o; HD as per renal team when pt is more stable -s\\p Surgical and IR team eval for AVf bleed -GI team eval -continue PPi IV -f\\u serial H\\H; transfuse 3 PRBC at this time -f\\u Bleeding scan when stable -CT A\\P for ro Pancreatitis when more stable -NPO diet and aspiration precautions -DVT prophylaxis with SCD CCM time 42min
--- NOTE | 2017-11-16 06:46 | CP.PCM.PN ---
Subjective - Date & Time of Evaluation Date of Evaluation: 11/16/17 Time of Evaluation: 06:45 - Subjective Subjective: # 22 angiocath was inserted in right hand dorsum. Dx: Poor venous access. Objective - Vital Signs/Intake and Output Vital Signs (last 24 hours): Temp Pulse Resp BP Pulse Ox 97.7 F 100 H 20 51/32 L 100 11/16/17 02:02 11/16/17 06:23 11/16/17 04:15 11/16/17 06:23 11/16/17 04:15 - Medications Medications: Current Medications Dopamine HCl/Dextrose (Dopamine 400mg/250ml D5w) 400 mg in 250 mls @ 14.368 mls /hr IV .[id number] PRN; Protocol; 5 MCG/KG/MIN PRN Reason: TITRATE PER MD ORDER Last Admin: 11/16/17 06:23 Dose: 14.368 mls/hr NOREPINEPHRINE BIT/0.9 % NACL (Levophed 4 Mg/ 250 Ml Ns Premixed) 4 mg in 250 mls @ 15 mls/hr IV .[id number] PRN; Protocol; 4 MCG/MIN PRN Reason: TITRATE PER MD ORDER Sodium Chloride (Sodium Chloride 0.9%) 1,000 mls @ 999 mls/hr IV .Q1H1M STA Stop: 11/16/17 07:13 Sodium Chloride (Sodium Chloride 0.9%) 1,000 mls @ 999 mls/hr IV .Q1H1M STA Stop: 11/16/17 07:14 Pantoprazole Sodium (Protonix Inj) 40 mg IVP Q12 WILIAN - Labs Labs: PT 10.8 SECONDS (9.4-12.5) 11/16/17 03:55 INR 0.95 (0.93-1.08) 11/16/17 03:55 APTT 26.1 Seconds (25.1-36.5) 11/16/17 03:55
[2017-11-16] MEDS: Insulin Reg-LOW-Coverage SC SCH ×2 (07:35→13:00)
--- NOTE | 2017-11-16 07:36 | CP.PCM.CON ---
History of Present Illness - History of Present Illness History of Present Illness: Surgery Consult: Dr. 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 History obtained from family at bedside due to patient's lethargy and confusion. They states she accidentally hit her arm at home and immediately the graft started bleeding. Amount of blood was not able to be determined however the family reports significant blood loss. EMS arrived to seen and placed pressure dressing around AV graft which stopped the bleeding. Patient was then brought to ER where she became hypotensive and lethargic. Patient also started vomiting and has had 2 episodes of bilious emesis. Patient unable to answer any questioning at this time due to acuity of situation and overall mental status. Per family, patient was actually schedule for AV graft revision today with IR, Dr. Ayala and last revision, angioplasty was in June 2017. PMH: ESRD MWF, DMII, HTN, COPD, hemorrhoids, diverticulosis/itis, CVA PSH: left arm av graft, lumpectomy, multiple IR attempts at venoplasty for CV stenosis for malfunctioning AV graft Social: no history of tobacco, ETOH, or drug abuse. Lives with family Family: noncontributory Review of Systems - Review of Systems Systems not reviewed;Unavailable: Unstable Vital Signs, Altered Mental Status, Uncooperative Review of Systems: secondary to acuity of situation 12 point ROS unable to be obtained Past Patient History - Infectious Disease Hx of Infectious Diseases: None - Tetanus Immunizations Tetanus Immunization: Up to Date - Past Social History Smoking Status: Never Smoked Alcohol: None Drugs: Denies Home Situation {Lives}: With Family - CARDIAC Hx Pacemaker: No - PULMONARY Hx Asthma: Yes - NEUROLOGICAL HX Cerebrovascular Accident: Yes Hx Paralysis: No Other/Comment: jacqueline lower limbs weak uses walker - HEENT Hx HEENT Problems: No - RENAL Hx Chronic Kidney Disease: Yes Hx Dialysis: Yes (Sun) Hx Renal Failure: Yes - ENDOCRINE/METABOLIC Hx Diabetes Mellitus Type 2: Yes (uses insulin) Hx Hypothyroidism: Yes - HEMATOLOGICAL/ONCOLOGICAL Hx Blood Transfusions: Yes (2010) Hx Blood Transfusion Reaction: No - INTEGUMENTARY Hx Dermatological Problems: No - MUSCULOSKELETAL/RHEUMATOLOGICAL Hx Musculoskeletal Disorders: Yes - GASTROINTESTINAL Hx Gastrointestinal Disorders: Yes Other/Comment: diverticulosis/hemorroids - GENITOURINARY/GYNECOLOGICAL Hx Genitourinary Disorders: Yes (voids "a little") Other/Comment: dialysis patient. left limb alert - PSYCHIATRIC Hx Psychophysiologic Disorder: No Hx Emotional Abuse: No Hx Physical Abuse: No Hx Substance Use: No - SURGICAL HISTORY Other/Comment: shunt left arm - ANESTHESIA Hx Anesthesia Reactions: No Hx Malignant Hyperthermia: No Meds Allergies/Adverse Reactions: Allergies Allergy/AdvReac Type Severity Reaction Status Date / Time No Known Allergies Allergy Verified 11/16/17 01:56 - Medications Medications: Current Medications Dopamine HCl/Dextrose (Dopamine 400mg/250ml D5w) 400 mg in 250 mls @ 14.368 mls /hr IV .[id number] PRN; Protocol; 5 MCG/KG/MIN PRN Reason: TITRATE PER MD ORDER NOREPINEPHRINE BIT/0.9 % NACL (Levophed 4 Mg/ 250 Ml Ns Premixed) 4 mg in 250 mls @ 15 mls/hr IV .[id number] PRN; Protocol; 4 MCG/MIN PRN Reason: TITRATE PER MD ORDER Insulin Human Regular (Humulin R Low) 0 units SC Q6H WILIAN PRN Reason: Protocol Pantoprazole Sodium (Protonix Inj) 40 mg IVP Q12 WILIAN Physical Exam - Constitutional Appears: Toxic, Agitated, Confused - Head Exam Head Exam: ATRAUMATIC, NORMOCEPHALIC - Eye Exam Eye Exam: Normal appearance - ENT Exam ENT Exam: Mucous Membranes Dry - Respiratory Exam Respiratory Exam: Respiratory Distress Additional comments: on ventimask - Cardiovascular Exam Cardiovascular Exam: Tachycardia Additional comments: hypotensive - GI/Abdominal Exam GI & Abdominal Exam: Soft. absent: Distended, Guarding, Tenderness - Extremities Exam Extremities exam: Negative for: calf tenderness, pedal edema Additional comments: Left arm AV graft site wrapped with gauze and PIERRE wrap. No bleeding noted through dressing. Distal pulses palpable. - Neurological Exam Neurological exam: Altered Additional comments: lethargic, occasionally combative - Psychiatric Exam Psychiatric exam: Agitated - Skin Skin Exam: Normal Color, Pallor, Warm Results - Vital Signs Recent Vital Signs: Last Vital Signs Temp 98.3 F 11/16/17 05:50 Pulse 109 H 11/16/17 05:50 Resp 18 11/16/17 05:50 BP 108/63 11/16/17 05:50 Pulse Ox 95 11/16/17 05:50 - Labs Result Diagrams: 11/16/17 03:55 11/16/17 03:55 Labs: Laboratory Results - last 24 hr 11/16/17 11/16/17 11/16/17 03:55 03:55 03:55 WBC 16.2 H D RBC 2.47 L Hgb 7.5 L D Hct 24.2 L MCV 98.0 D MCH 30.4 MCHC 31.0 RDW 13.8 Plt Count 173 MPV 9.9 PT 10.8 INR 0.95 APTT 26.1 pCO2 pO2 HCO3 ABG pH ABG Total CO2 ABG O2 Saturation ABG Base Excess ABG Potassium Glucose Lactate FiO2 Sodium 140 Potassium 4.9 Chloride 101 Carbon Dioxide 20 L Anion Gap 24 H BUN 49 H Creatinine 7.4 H* Est GFR ( Amer) 7 Est GFR (Non-Af Amer) 5 Random Glucose 172 H Calcium 9.1 Total Bilirubin 0.2 AST 40 H ALT 38 Alkaline Phosphatase 90 Lactate Dehydrogenase 582 Total Creatine Kinase 156 Troponin I 0.09 Total Protein 5.6 L Albumin 3.1 Globulin 2.5 Albumin/Globulin Ratio 1.2 Lipase 586 H Arterial Blood Potassium Blood Type Antibody Screen Crossmatch BBK History Checked 11/16/17 11/16/17 03:55 05:55 WBC RBC Hgb Hct MCV MCH MCHC RDW Plt Count MPV PT INR APTT pCO2 38 pO2 139.0 H HCO3 18.7 L ABG pH 7.30 L ABG Total CO2 19.9 L ABG O2 Saturation 98.4 H ABG Base Excess -7.1 L ABG Potassium 4.6 Glucose 252 H Lactate 8.3 H* FiO2 28.0 Sodium 139.0 Potassium Chloride 105.0 Carbon Dioxide Anion Gap BUN Creatinine Est GFR ( Amer) Est GFR (Non-Af Amer) Random Glucose Calcium Total Bilirubin AST ALT Alkaline Phosphatase Lactate Dehydrogenase Total Creatine Kinase Troponin I Total Protein Albumin Globulin Albumin/Globulin Ratio Lipase Arterial Blood Potassium 4.6 Blood Type O POSITIVE Antibody Screen Negative Crossmatch See Detail BBK History Checked Patient has bt Assessment & Plan - Assessment and Plan (Free Text) Assessment: 67 y/o female with bleeding from left arm AV graft Plan: -patient unstable, recommend ICU care -leave occlusive dressing in place, once patient more stable will evaluate damage to graft -transfuse PRBC to hct/hgb of 30/10 -NPO -gentle IVF hydration -nephrology consult -central line placement to right groin/femoral vein for access and hemodynamic instability- preserve right neck veins for possible need of HD access. see full procedure note -IR consult for AV graft evaluation -may need surgical revision/new AVF/graft placement in near future -d/w Dr. De Leon [facility] PGY3 - Date & Time Date: 11/16/17 Time: 05:00
[2017-11-16] MEDS ORDERED: Vancomycin 2 GM in Sodium Chloride 0.9% 500 ML IVPB ONE (08:29)
--- NOTE | 2017-11-16 09:16 | CT ---
PROCEDURE: CT HEAD WITHOUT CONTRAST. HISTORY: AMS COMPARISON: 03/20/2016 TECHNIQUE: Axial computed tomography images were obtained through the head/brain without intravenous contrast. Radiation dose: Total exam DLP = 818 mGy-cm. This CT exam was performed using one or more of the following dose reduction techniques: Automated exposure control, adjustment of the mA and/or kV according to patient size, and/or use of iterative reconstruction technique. FINDINGS: HEMORRHAGE: No intracranial hemorrhage. BRAIN: No mass effect or edema. Chronic encephalomalacia is seen in the left frontal lobe. There are no acute findings VENTRICLES: Unremarkable. No hydrocephalus. CALVARIUM: Unremarkable. PARANASAL SINUSES: Unremarkable as visualized. No significant inflammatory changes. MASTOID AIR CELLS: Unremarkable as visualized. No inflammatory changes. OTHER FINDINGS: None. IMPRESSION: No acute findings
--- NOTE | 2017-11-16 09:22 | RAD ---
HISTORY: medical clearance COMPARISON: 08/09/2016 FINDINGS: LUNGS: No active pulmonary disease. PLEURA: No significant pleural effusion identified, no pneumothorax apparent. CARDIOVASCULAR: Mild cardiomegaly OSSEOUS STRUCTURES: No significant abnormalities. VISUALIZED UPPER ABDOMEN: Normal. OTHER FINDINGS: None. IMPRESSION: No active disease.
--- NOTE | 2017-11-16 09:45 | CARD ---
APPROVED REPORT EKG Measurement Heart [id number] <Conclusion> Normal sinus rhythm Normal ECG
[2017-11-16] MEDS ORDERED: Cefepime IV 2 gm in NS 2 GM/100 ML BAG IVPB SCH (10:00)
[2017-11-16] MEDS ORDERED: Cefepime 1gm in NS 100ml 1 GM/100 ML BAG IVPB SCH (10:00)
[2017-11-16 10:08] LABS: VENOUS BLOOD GAS BASE EXCESS -9.5 mmol/L (0.0-2.0); VENOUS BLOOD GAS PO2 39 mm/Hg (30-55)
--- NOTE | 2017-11-16 10:12 | CP.PCM.CON ---
History of Present Illness - History of Present Illness History of Present Illness: 67 year old female with PMH of ESRD on HD, DM, HTN, obesity with BMI 30, asthma , history of CVA was brought in to [facility] because of bleeding left arm fistula. She was already having problems with the AV fistula the day prior to admission and was told that she will need AV fistula revision. She went home and accidently banged her left arm on a hard surface and she started having bleeding from the AV fistula. This happened in the afternoon and they were trying to control the bleeding. In the evening the patient ate dinner (nothing out of the ordinary, ate chicken in soup) but the patient was already starting to get weaker. She then vomited and was then brought to the ED. She continued to have episodes of bilious vomiting, and also having loose bowel movements with possible blood mixed with the stool. There was no note of fever, no SOB at rest initially but the patient progressively became weaker and was found to be hypotensive. She is now in the ICU for closer observation and monitoring. Infectious Diseases consult is requested to further evaluate and manage. Review of Systems - Review of Systems All systems: reviewed and no additional remarkable complaints except (as per HPI ) Past Patient History - Infectious Disease Hx of Infectious Diseases: None - Tetanus Immunizations Tetanus Immunization: Up to Date - Past Social History Smoking Status: Never Smoked Alcohol: None Drugs: Denies Home Situation {Lives}: With Family - CARDIAC Hx Pacemaker: No - PULMONARY Hx Asthma: Yes - NEUROLOGICAL HX Cerebrovascular Accident: Yes Hx Paralysis: No Other/Comment: jacqueline lower limbs weak uses walker - HEENT Hx HEENT Problems: No - RENAL Hx Chronic Kidney Disease: Yes Hx Dialysis: Yes (Sun) Hx Renal Failure: Yes - ENDOCRINE/METABOLIC Hx Diabetes Mellitus Type 2: Yes (uses insulin) Hx Hypothyroidism: Yes - HEMATOLOGICAL/ONCOLOGICAL Hx Blood Transfusions: Yes (2010) Hx Blood Transfusion Reaction: No - INTEGUMENTARY Hx Dermatological Problems: No - MUSCULOSKELETAL/RHEUMATOLOGICAL Hx Musculoskeletal Disorders: Yes - GASTROINTESTINAL Hx Gastrointestinal Disorders: Yes Other/Comment: diverticulosis/hemorroids - GENITOURINARY/GYNECOLOGICAL Hx Genitourinary Disorders: Yes (voids "a little") Other/Comment: dialysis patient. left limb alert - PSYCHIATRIC Hx Psychophysiologic Disorder: No Hx Emotional Abuse: No Hx Physical Abuse: No Hx Substance Use: No - SURGICAL HISTORY Other/Comment: shunt left arm - ANESTHESIA Hx Anesthesia Reactions: No Hx Malignant Hyperthermia: No Meds Allergies/Adverse Reactions: Allergies Allergy/AdvReac Type Severity Reaction Status Date / Time No Known Allergies Allergy Verified 11/16/17 01:56 - Medications Medications: Current Medications NOREPINEPHRINE BIT/0.9 % NACL (Levophed 4 Mg/ 250 Ml Ns Premixed) 4 mg in 250 mls @ 15 mls/hr IV .[id number] PRN; Protocol; 4 MCG/MIN PRN Reason: TITRATE PER MD ORDER Last Admin: 11/16/17 06:22 Dose: 4 mcg/min, 15 mls/hr Insulin Human Regular (Humulin R Low) 0 units SC Q6H WILIAN PRN Reason: Protocol Last Admin: 11/16/17 07:35 Dose: Not Given Pantoprazole Sodium (Protonix Inj) 40 mg IVP Q12 WILIAN Physical Exam - Constitutional Appears: Chronically Ill, Other (lethargic but arousable) - Head Exam Head Exam: NORMAL INSPECTION - Neck Exam Neck exam: Negative for: Lymphadenopathy, Meningismus - Respiratory Exam Respiratory Exam: Decreased Breath Sounds, Rales (some crackles noted) - Cardiovascular Exam Cardiovascular Exam: +S1, +S2 - GI/Abdominal Exam GI & Abdominal Exam: Soft. absent: Distended, Firm, Rigid, Tenderness - Extremities Exam Extremities exam: Positive for: pedal edema Results - Vital Signs Recent Vital Signs: Last Vital Signs Temp 98.3 F 11/16/17 05:50 Pulse 112 H 11/16/17 08:01 Resp 20 11/16/17 08:01 BP 94/35 L 11/16/17 08:01 Pulse Ox 100 11/16/17 08:01 - Labs Result Diagrams: 11/16/17 03:55 11/16/17 03:55 Labs: Laboratory Results - last 24 hr 11/16/17 07:32 POC Glucose (mg/dL) 88 Assessment & Plan - Assessment and Plan (Free Text) Plan: Assessment systemic inflammatory response syndrome probably from hypovolemic shock from AV fistula bleeding R/O sepsis R/O intra-abdominal infection in this patient also with GI bleeding and diarrhea ESRD on HD DM HTN obesity with BMI 30 asthma history of CVA Plan Started with a STAT dose of IV Vancomycin, has been started on Cefepime but will change to Merrem pending blood cx; will also check stool cx, stool for fecal leukocytes, stool for C. diff.; patient is supposed to get CT A/P but patient is unstable currently - will order ultrasound of the abdomen will monitor clinically patient is on vasopressor support and getting blood transfusions overall prognosis is guarded at best
--- NOTE | 2017-11-16 10:20 | CP.PCM.CON ---
History of Present Illness - History of Present Illness History of Present Illness: Seen and examined at the bedside earlier today, chart reviewed. Request for GI consult is for hematochezia. HPI: This is a 67-year-old female with a past medical history of end-stage renal disease on dialysis, 3 days a week, CVA, hypertension was brought to the emergency room by her family for bleeding, the patient incidentally hit her arm on the doorknob and her AV fistula started bleeding. The family applied pressure but her arm continuously bleeding. In the ER the patient was awake and alert. Patient did have an episode of nausea and vomited a large amount but no reports of hematemesis. The family is currently at the bedside and history obtained from daughter, medical chart and nursing staff. The patient is lethargic and currently hypotensive. The patient was reported to have a large bowel movement mixed with blood. The patient denies any episodes of melena or bright red blood per rectum prior to this. The patient does experience constipation. No reports of nausea, vomiting, or abdominal pain at home occasional dyspepsia as per daughter when the patient consumes her foods quickly. Patient came hypotensive and was reported to be anemic in the ER and currently has central line. In review of her records the patient had a colonoscopy in September 2014 found to have diverticula in cecal tics and hemorrhoids. Ct scan of the head is negative for infarct or bleeding. Past medical history: End-stage renal disease on dialysis 3 days a week, Diverticulosis, CVA, hypertension, asthma Past surgical history: AV fistula, colonoscopy 09/10/2014 Allergies: No known drug allergies. Family history: Noncontributory this time Social history: No history of tobacco use, EtOH or illicit drugs Medications: Reviewed as per MAR ROS: Unable to use with patient is lethargic, see HPI Past Patient History - Infectious Disease Hx of Infectious Diseases: None - Tetanus Immunizations Tetanus Immunization: Up to Date - Past Social History Smoking Status: Never Smoked Alcohol: None Drugs: Denies Home Situation {Lives}: With Family - CARDIAC Hx Pacemaker: No - PULMONARY Hx Asthma: Yes - NEUROLOGICAL HX Cerebrovascular Accident: Yes Hx Paralysis: No Other/Comment: jacqueline lower limbs weak uses walker - HEENT Hx HEENT Problems: No - RENAL Hx Chronic Kidney Disease: Yes Hx Dialysis: Yes (Sun Wed Sun) Hx Renal Failure: Yes - ENDOCRINE/METABOLIC Hx Diabetes Mellitus Type 2: Yes (uses insulin) Hx Hypothyroidism: Yes - HEMATOLOGICAL/ONCOLOGICAL Hx Blood Transfusions: Yes (2010) Hx Blood Transfusion Reaction: No - INTEGUMENTARY Hx Dermatological Problems: No - MUSCULOSKELETAL/RHEUMATOLOGICAL Hx Musculoskeletal Disorders: Yes - GASTROINTESTINAL Hx Gastrointestinal Disorders: Yes Other/Comment: diverticulosis/hemorroids - GENITOURINARY/GYNECOLOGICAL Hx Genitourinary Disorders: Yes (voids "a little") Other/Comment: dialysis patient. left limb alert - PSYCHIATRIC Hx Psychophysiologic Disorder: No Hx Emotional Abuse: No Hx Physical Abuse: No Hx Substance Use: No - SURGICAL HISTORY Other/Comment: shunt left arm - ANESTHESIA Hx Anesthesia Reactions: No Hx Malignant Hyperthermia: No Meds Allergies/Adverse Reactions: Allergies Allergy/AdvReac Type Severity Reaction Status Date / Time No Known Allergies Allergy Verified 11/16/17 01:56 - Medications Medications: Current Medications NOREPINEPHRINE BIT/0.9 % NACL (Levophed 4 Mg/ 250 Ml Ns Premixed) 4 mg in 250 mls @ 15 mls/hr IV .[id number] PRN; Protocol; 4 MCG/MIN PRN Reason: TITRATE PER MD ORDER Last Titration: 11/16/17 09:40 Dose: 18 mcg/min, 67.5 mls/hr Vancomycin HCl 2 gm/ Sodium (Chloride) 500 mls @ 170 mls/hr IVPB ONCE ONE PRN Reason: Protocol Stop: 11/16/17 11:25 Last Admin: 11/16/17 09:30 Dose: 170 mls/hr Cefepime HCl (Maxipime 1gm) 1 gm in 100 mls @ 100 mls/hr IVPB DAILY WILIAN PRN Reason: Protocol Stop: 11/21/17 10:01 Insulin Human Regular (Humulin R Low) 0 units SC Q6H WILIAN PRN Reason: Protocol Last Admin: 11/16/17 07:35 Dose: Not Given Pantoprazole Sodium (Protonix Inj) 40 mg IVP Q12 WILIAN Last Admin: 11/16/17 09:31 Dose: 40 mg Physical Exam - Constitutional Appears: Other (lethargic) - Head Exam Head Exam: NORMOCEPHALIC - Eye Exam Eye Exam: Normal appearance. absent: Scleral icterus - ENT Exam ENT Exam: Mucous Membranes Moist - Neck Exam Neck exam: Positive for: Normal Inspection - Respiratory Exam Respiratory Exam: Decreased Breath Sounds, Rhonchi, NORMAL BREATHING PATTERN. absent: Rales, Wheezes, Respiratory Distress - Cardiovascular Exam Cardiovascular Exam: +S1, +S2 - GI/Abdominal Exam GI & Abdominal Exam: Normal Bowel Sounds, Soft. absent: Guarding, Organomegaly , Rebound, Tenderness - Extremities Exam Extremities exam: Positive for: pedal pulses present. Negative for: pedal edema Additional comments: left arm pressure dressing in place no blood noted right femoral-TLC - Neurological Exam Neurological exam: Altered (lethargic) - Skin Skin Exam: Dry, Pallor, Warm Results - Vital Signs Recent Vital Signs: Last Vital Signs Temp 99.3 F 11/16/17 09:18 Pulse 112 H 11/16/17 09:18 Resp 24 11/16/17 09:18 BP 69/40 L 11/16/17 09:18 Pulse Ox 100 11/16/17 08:01 - Labs Result Diagrams: 11/16/17 03:55 11/16/17 03:55 Labs: Laboratory Results - last 24 hr 11/16/17 07:32 POC Glucose (mg/dL) 88 Assessment & Plan - Assessment and Plan (Free Text) Assessment: Assessment: GI bleed, rule out diverticular bleed, angiodysplasia, Ulcer disease Hypotension, hemorrahgic shock Left arm AV fistula bleeding End-stage renal disease on dialysis Leukocytosis, CXR negative H/O CVA H/O Diverticulosis PLAN: NPO Protonix 40 mg BOD On Levophed Monitor h/h and monitor overt GI bleed/transfuse as needed pending blood transfusion due for dialysis today obtained STAT Bleeding scan on IV antibiotics Thank you for this consult and follow to participate in your patient's care, further recommendations based upon clinical course. Seen and discussed with Dr. Romero.
[2017-11-16 10:24] LABS: VENOUS BLOOD PH 7.18 (7.32-7.43)
[2017-11-16] MEDS ORDERED: Dextrose 50% SYRINGE Inj (50 ml) IVP STA ×2 (10:58→11:19)
[2017-11-16] MEDS ORDERED: Meropenem 500 MG in Sodium Chloride 0.9% 50 ML IVPB SCH (11:00)
--- NOTE | 2017-11-16 11:32 | US ---
HISTORY: rule out biliary tract disease COMPARISON: None. TECHNIQUE: Sonographic evaluation of the abdomen. FINDINGS: LIVER: Measures 13.4 cm. Patent portal vein. Portal venous flow: Hepatopetal. Unremarkable echogenicity of the liver parenchyma. No mass. No intrahepatic bile duct dilatation. GALLBLADDER: Cholelithiasis. Negative study for gallbladder wall thickening, or sonographic Saxena's sign. Pericholecystic fluid identified. COMMON BILE DUCT: Measures 4.2 mm. No stones. No dilatation. PANCREAS: Unremarkable as visualized. No mass. No ductal dilatation. RIGHT KIDNEY: Measures 2.7 x 5.5cm. Normal echogenicity. No calculus, mass, or hydronephrosis. LEFT KIDNEY: Measures 2.2 x 5 0cm. Normal echogenicity. No calculus, mass, or hydronephrosis. SPLEEN: Normal in size and contour. No mass. AORTA: No aneurysmal dilatation. IVC: Obscured by overlying bowel gas. Non diagnostic assessment of the IVC OTHER FINDINGS: None. IMPRESSION: Cholelithiasis pericholecystic fluid. Bilateral renal atrophy.
[2017-11-16] MEDS ORDERED: Lidocaine 2% Inj (20ml) ONE (13:35)
[2017-11-16 15:21] LABS: MEAN CELL VOLUME 86.7 fl (80.0-105.0); MEAN CORPUSCULAR HEMOGLOBIN 28.6 pg (25.0-35.0); MEAN CORPUSCULAR HGB CONC 32.9 g/dl (31.0-37.0); MEAN PLATELET VOLUME 9.1 fl (7.0-11.0); RBC 3.99 10^6/uL (3.5-6.1); RED CELL DISTRIBUTION WIDTH 20.4 % (11.5-14.5); WHITE BLOOD COUNT 15.5 10^3/ul (4.5-11.0)
[2017-11-16 15:32] LABS: HEMOGLOBIN 11.4 g/dL (12.0-16.0)
--- NOTE | 2017-11-16 15:33 | VASCULAR ---
PROCEDURE: Ultrasound and fluoroscopic tunneled right IJ dialysis catheter. CLINICAL HISTORY: End-stage renal disease. Recent left graft hemorrhage, now occluded. Needs dialysis CT PHYSICIAN(S): Alexandr Ayala M.D. TECHNIQUE: The relative risks and indications for the procedure were explained to the patient and informed written consent obtained. The patient was placed supine on the arteriography table and the right neck/chest was prepped and draped in the usual sterile fashion. 1% Xylocaine was used to anesthetize the skin and soft tissues at the puncture site. Under direct ultrasound guidance, the rightinternal jugular vein was punctured with a micropuncture set. A 0.035 Glidewire was advanced into the IVC. Sequential dilatation was performed with subsequent placement of a 24 cmCannon II catheter with its tip in the right atrium. A retrograde tunnel below the right clavicle was performed. The catheter was trimmed and the hub attached. Both ports aspirate and inject easily. The catheter was secured and a dressing applied. The patient tolerated the procedure well. IMPRESSION: 1. Ultrasound and fluoroscopically placed right IJ tunneled dialysis catheter.
--- NOTE | 2017-11-16 15:49 | CON ---
DATE: 11/16/2017 REASON FOR CONSULTATION: Severe anemia, injury to AV fistula, ESRD. HISTORY OF PRESENTING ILLNESS: A 67-year-old lady, known to me from outpatient hemodialysis. The patient was brought in this morning. According to the patient and nursing staff, she hit her arm on the doorknob. This was her access arm and suddenly started to bleed profusely. Was brought to the emergency room. Was found to have a hemoglobin of 7.5. Currently, the patient is seen in the ICU. She has received 4 units of PRBC. At present, she seems to be having some melanotic stools also. The patient is arousable. She is complaining of pain in her lower abdomen. She denies any chest pain. She denies any palpitations. She denies any shortness of breath at present. PAST MEDICAL AND SURGICAL HISTORY: NIDDM, hypertension, ESRD, chronic anemia, secondary hyperparathyroidism, clotted AV fistula for which she was supposed to go for declotting today. FAMILY HISTORY: Noncontributory. SOCIAL HISTORY: No smoking, no alcohol use, no IV drug abuse. ALLERGIES: NO KNOWN DRUG ALLERGIES. MEDICATIONS AT HOME: Included amlodipine 2.5 mg daily, simvastatin 20, Renvela 2 tablets three times a day, Singulair, ProAmatine, insulin, gabapentin, Cinacalcet 30, aspirin. REVIEW OF SYSTEMS: All systems are reviewed, pertinent positives as mentioned in the history of presenting illness, rest unremarkable. PHYSICAL EXAMINATION: GENERAL: Elderly lady, lying in bed in the ICU, groggy, but arousable. VITAL SIGNS: Blood pressure 85/45, heart rate 112, respiratory rate 24, temperature 99.3, T-max is 99.3. HEENT: Normocephalic, atraumatic, positive pallor. NECK: Supple, no JVD. LUNGS: Bilateral equal air entry, bilateral equal expansion, no rales appreciated anteriorly. CARDIAC: S1 and S2, regular rate and rhythm, no murmur, no rub. ABDOMEN: Obese, distended, soft, tenderness in the lower abdomen, bowel sounds present. EXTREMITIES: No lower extremity edema. INTAKE AND OUTPUT: Not charted. LABORATORY DATA: WBC 16, hemoglobin 7.5, hematocrit 24, platelets 173. Sodium 140, potassium 4.9, chloride 101, CO2 of 20, BUN 49, creatinine 7.4, glucose 172, calcium 9.1, AST 40, ALT 38, albumin 3.1, lipase 586. ABDOMINAL ULTRASOUND: Cholelithiasis with pericholecystic fluid, bilateral renal atrophy. CURRENT MEDICATIONS: D10 at 60 mL per hour, Levophed at 4 mcg per minute, meropenem 500 daily, vasopressin 20 units, 1 unit of PRBC given this morning. ASSESSMENT: 1. Severe anemia, secondary to injury to left arm arteriovenous fistula, bleeding. 2. Gastrointestinal bleed? 3. Circulatory shock, hypotension. 4. Ooh-jezlutr-gnjpairwc diabetes mellitus. 5. History of hypertension. 6. End-stage renal disease. 7. Secondary hyperparathyroidism. 8. ? pancreatitis. PLAN: 1. Repeat CBC. Monitor H&H closely. 2. Check stool occults. 3. Panculture. 4. Agree with placement of PermCath. 5. Dialysis dated today. 6. Check amylase and lipase again. 7. Close monitoring in the ICU. 8. Continue inotropic support. 9. Case discussed with ICU staff at bedside at length. 10. Case discussed with the patient at length. 11. Case discussed with dialysis staff. More than 35 minutes was spent in the care of this critically ill patient. Gabbi Felton MD
--- NOTE | 2017-11-16 19:49 | HP ---
CHIEF COMPLAINT AND HISTORY OF PRESENT ILLNESS: This is a 67-year-old female who is coming into the hospital with the past medical history of hypertension, diabetes type 2, CVA, asthma, and end-stage renal disease, on hemodialysis, with a bleeding left AV fistula. The patient's family stated that she had hit her fistula against a door knob and started bleeding. She called her son who called 911 to bring them to the ER. In the ER, the patient was actively bleeding from the fistula. She was also having vomiting. She also has been having rectal bleeding according to family. The patient was in the ER and was found to be hypotensive. Surgery was called to help control the bleeding. The patient also was started on IV fluids and was given a transfusion. The patient's blood pressure was low but has improved. The patient's family is at the bedside. I did speak to them to get information. The patient is not able to give information. REVIEW OF SYSTEMS: Limited. ALLERGIES: NO KNOWN DRUG ALLERGIES. PAST MEDICAL HISTORY: As above. PAST SURGICAL HISTORY: AV fistula. HOME MEDICATIONS: Have been reviewed on the [facility]. She is on Singulair, Sensipar, Neurontin, Renvela, NovoLog, ProAmatine, aspirin, Norvasc. SOCIAL HISTORY: She does not smoke or drink. She lives with her family. She is . PHYSICAL EXAMINATION: VITAL SIGNS: She has a temperature of 98.3, pulse of 109, blood pressure 108/63, respirations 18, O2 saturation 95%. GENERAL: The patient lying in bed, uncomfortable, and in no acute distress. HEENT: Atraumatic and normocephalic. Anicteric sclerae. Moist mucosa. [place] conjunctivae. No oral lesions. NECK: No JVD, anterior and posterior adenopathy, thyromegaly, or bruits. CARDIOVASCULAR: S1 and S2 regular. No murmur, rubs, or gallop. LUNGS: Clear to auscultation bilaterally. No wheezes, rales, or rhonchi. ABDOMEN: Bowel sounds are positive. Soft, nontender and nondistended. No hepatosplenomegaly. No rebound and no guarding EXTREMITIES: No cyanosis, clubbing, or edema. In the left arm, there is AV fistula that is wrapped with no bleeding that can be seen. NEUROLOGIC: Unable to assess. PSYCHIATRIC: Unable to assess. GENITOURINARY: No CVA tenderness. VASCULAR: 2+ pulses in the carotid pulses and pedal pulses. SKIN: No erythema or nodules. SPINE: Shows normal curvature. LABORATORY DATA: White count of 16.2, hemoglobin 7.5, platelet count is 173. Chemistry shows sodium is 140, creatinine is 7.4. ABG done shows pH of 7.3 with pCO2 of 38. INR is 0.95. Chest x-ray done shows no infiltrates. EKG shows sinus rhythm at 82, nonspecific ST changes. ASSESSMENT: 1. Left arteriovenous fistula bleeding. 2. Acute anemia secondary to blood loss. 3. Rectal bleeding. 4. End-stage renal disease, on hemodialysis. 5. Diabetes type 2. 6. Secondary hyperparathyroidism. 7. History of hypertension. PLAN: The patient is admitted to the hospital. She is going to be in the ICU. She was seen by Surgery and the patient's bleeding is under better control. She just started on Levophed for blood pressure control. She was given 1 unit of transfusion. She will most likely need further transfusions. She is awaiting to get 3 more units of blood. The patient is full code. The patient had a CT scan of the head that has been ordered. She is going to be seen by Dr. Felton from Nephrology who is her hydraulic rockbreaker operator. The patient's left fistula cannot be used at this point. There is a central line that was placed in the right groin. She will most likely need a dialysis catheter placed if she is going to need dialysis. She is due for dialysis today. We will defer dialysis management to the patient's hydraulic rockbreaker operator. The patient's white count is elevated. The patient may have aspirated. We will get Infectious Disease to follow the patient. The patient remains critically ill. Melchor Jordan MD
[2017-11-16] MEDS ORDERED: Propofol 10 mg/ml 1,000 MG/100 ML VIAL ONE (20:13)
[2017-11-16] MEDS ORDERED: Etomidate 20 mg/10ml Inj IV ONE (20:18)
[2017-11-16] MEDS ORDERED: Propofol 10 mg/ml Inj (20 ML) IVP ONE (20:23)
[2017-11-16] MEDS ORDERED: Propofol 10 mg/ml 1,000 MG/100 ML VIAL IV PRN (20:24)
[2017-11-16 20:37] LABS: BASO # 0.02 K/mm3 (0.0-2.0); BASO % 0.1 % (0.0-3.0); EOS % 0.2 % (1.5-5.0); GRAN # 15.75 (1.4-6.5); GRAN % 84.6 % (50.0-68.0); LYMPH # 2.6 (1.2-3.4); MEAN CELL VOLUME 87.1 fl (80.0-105.0); MEAN CORPUSCULAR HGB CONC 33.3 g/dl (31.0-37.0); MEAN PLATELET VOLUME 10.1 fl (7.0-11.0); MONO # 0.2 (0.1-0.6); MONO % 1.1 % (1.0-6.0); RBC 3.1 10^6/uL (3.5-6.1); RED CELL DISTRIBUTION WIDTH 21.1 % (11.5-14.5); WHITE BLOOD COUNT 18.6 10^3/ul (4.5-11.0)
[2017-11-16 20:54] LABS: ALBUMIN 1.7 g/dL (3.0-4.8); CALCIUM 6.6 mg/dL (8.4-10.5)
[2017-11-16 20:55] LABS: INR 1.44 (0.93-1.08); PARTIAL THROMBOPLASTIN TIME 42.5 Seconds (25.1-36.5); PROTHROMBIN TIME 16.5 SECONDS (9.4-12.5)
--- NOTE | 2017-11-16 20:56 | PCM.RRT ---
<Radha Barba - Last Filed: 11/16/17 21:29> DIRECTOR ACUTE Nurse Assessment - Situation Date: 11/16/17 Time DIRECTOR ACUTE was called: 20:00 (Code Blue) DIRECTOR ACUTE Responder Arrival Time: 20:02 DIRECTOR ACUTE Location:: Critical Care Unit Room Number: 129-01 - Respiratory Oxygen Delivery Method: Intubated Was the Patient Ventilated with Bag/Mask 100% O2?: Yes Secretions Suctioned?: Yes Was the Patient Intubated?: Yes Was the Patient Placed on a Ventilator?: Yes - Ventilator Settings Mode: PRVC Ventilator Respiratory Rate Settin Ventilator Tidal Volume Settin PEEP: 5 Fraction of Inspired Oxygen (FIO2): 100 - Medication Medications Administered During DIRECTOR ACUTE: epinephrine with chest compressions as per ACLS protocol - Diagnostic Test Ordered Chest X-Ray: Yes Other Diagnostic Test Ordered: GI bleeding scan, CBC, CMP trops, coags, mg, phosph - Stat Labs Ordered DIRECTOR ACUTE Stat Labs Ordered: CBC, BMP, PT/PTT, TROPONIN, ABG (with lactate) CPR started during DIRECTOR ACUTE?: Yes - Vital Signs Vital Sign: HR 30 ROSC: HR 99, BP 106/47, RR 21, 100% - Finger Stick Blood Glucose Finger Stick Blood Glucose: 47 (D50 amp given) - [place] Coma Scale Coma Scale Eye Opening: To pain Coma Scale Motor: Withdraw response to pain - Time DIRECTOR ACUTE Ended Time DIRECTOR ACUTE Ended: 20:04 - Vital Signs at end of DIRECTOR ACUTE Vital Signs at end of DIRECTOR ACUTE: See ROSC data - Recommendations 5) DIRECTOR ACUTE Level of Care Recommendations: Remain in current setting Notifications: Consultations I.Reason for DIRECTOR ACUTE - A) Acute Change in Patient: (Select all that apply): Acute change in heart rate less than 50 or greater than 120 (and no palpable pulse) - Constitutional Appears: Toxic, In Acute Distress - Head Head Exam: ATRAUMATIC, NORMOCEPHALIC - Eyes Eye Exam: absent: Nystagmus, Scleral icterus - GI/Abdominal Exam Additional comments: + jojo melena noted Plan - Assessment of Findings&Treatment Plan 67 year old female with PMH ESRD, GI bleed, found to have HR 30s with no palpable pulse during dialysis session. BS 47, 1 amp D50 give and epinephrine given once. Pt intubated for airway protection. Pt ROSC after 4 minutes, found to have melena: - Scot Blue called, ACLS protocol started lasting 4 minutes - CBC, cmp, mg, phosph, coags, trops - OGT placed. - CXR - GI bleeding scan -Stress dose steroid 125 mg IV given. started 80 mg q8h tomorrow - protonix drip started - notified Dr Romero and family - Will notify PMD <Jesús Rosas Q - Last Filed: 11/16/17 23:31> Attending/Attestation - Attestation I have personally seen and examined this patient.: Yes I have fully participated in the care of the patient.: Yes I have reviewed all pertinent clinical information, including history, physical exam and plan: Yes Notes (Text): 11/16/17 23:28 I agree with the above mentioned note with the addition of the followin67 y/o female underwent ACLS protocol due to loss of pulse during HD; less than 4 minutes until ROSC; patient was alert and moving her extremities upon ROSC so therapeutic hypothermia was not indicated. Patient also intubated to protect her airway; 1 episode of melana noted. Patient is on levophed, vasopressin and phenylephrine. Also started a protonix drip and discussed the case with Dr. Romero at bedside. No EGD planned at this time; will continue to provide supportive care and transfuse additional 2 units of PRBC due to the patient's drop. Once stabilized, she will be sent to nuclear medicine for a stat Bleeding Scan. Surgery has been consulted as well.
[2017-11-16 20:57] LABS: CK MB% 3.9 % (2.5-3.0); CK-MB 15.8 ng/mL (0.0-3.6)
[2017-11-16 20:58] LABS: ARTERIAL BLOOD GAS HCO3 17.1 mmol/L (21-28); ARTERIAL BLOOD GAS O2 SAT 98.3 % (95-98); ARTERIAL BLOOD GAS PCO2 47 mm/Hg (35-45); ARTERIAL BLOOD GAS TCO2 18.5 mmol.L (22-28)
[2017-11-16 21:00] LABS: ARTERIAL BLOOD GAS PH 7.17 (7.35-7.45)
--- NOTE | 2017-11-16 21:00 | CP.PCM.PN ---
Subjective - Date & Time of Evaluation Date of Evaluation: 11/16/17 Time of Evaluation: 20:59 - Subjective Subjective: Code Blue at 8:06 pm Patient was receiving Hemodialysis when she became bradicardic with heart rate in the 30s, she then became pulseless. Chest compressions were started. Patient received 1 mg epi. Patient was on levophed before starting dialysis, it was titrated up. Patient was give second epi. Pulse return Objective - Vital Signs/Intake and Output Vital Signs (last 24 hours): Temp Pulse Resp BP Pulse Ox 99.3 F 106 H 14 81/60 L 100 11/16/17 09:18 11/16/17 18:00 11/16/17 15:15 11/16/17 15:15 11/16/17 15:15 Intake and Output: 11/16/17 11/17/17 18:59 06:59 Intake Total 3500 Output Total 500 Balance 3000 - Medications Medications: Current Medications NOREPINEPHRINE BIT/0.9 % NACL (Levophed 4 Mg/ 250 Ml Ns Premixed) 4 mg in 250 mls @ 15 mls/hr IV .[id number] PRN; Protocol; 4 MCG/MIN PRN Reason: TITRATE PER MD ORDER Last Admin: 11/16/17 18:30 Dose: 24 mcg/min, 90 mls/hr Phenylephrine HCl 40 mg/ (Sodium Chloride) 254 mls @ 38.1 mls/hr IV .Q6H40M PRN ; Protocol; 100 MCG/MIN PRN Reason: TITRATE PER MD ORDER Vasopressin 20 units/ Sodium (Chloride) 101 mls @ 9.09 mls/hr IV .Q11H7M [facility]; 0.03 U/MIN PRN Reason: Protocol Last Admin: 11/16/17 10:20 Dose: 9.09 mls/hr Meropenem 500 mg/ Sodium (Chloride) 50 mls @ 100 mls/hr IVPB 1400 [facility] PRN Reason: Protocol Stop: 11/23/17 14:01 Dextrose (Dextrose 10% In Water) 500 mls @ 60 mls/hr IV .Q8H20M [facility] Last Admin: 11/16/17 19:15 Dose: 60 mls/hr Propofol (Diprivan) 1,000 mg in 100 mls @ 2.299 mls/hr IV .Q24H PRN; Protocol; 5 MCG/KG/MIN PRN Reason: TITRATE PER MD ORDER Pantoprazole Sodium (Protonix 40mg Ivpb) 40 mg in 100 mls @ 20 mls/hr IVPB .Q5H [facility] Potassium Chloride (Potassium Chloride 20 Meq/100 Ml) 20 meq in 100 mls @ 50 mls/hr IVPB ONCE ONE Stop: 11/16/17 22:55 Insulin Human Regular (Humulin R Low) 0 units SC Q6H [facility] PRN Reason: Protocol Last Admin: 11/16/17 13:00 Dose: Not Given Methylprednisolone (Solu-Medrol) 80 mg IVP Q8 [facility] Pantoprazole Sodium (Protonix Inj) 40 mg IVP Q12 [facility] Last Admin: 11/16/17 09:31 Dose: 40 mg - Labs Labs: 11/16/17 20:19 11/16/17 20:19 PT 16.5 SECONDS (9.4-12.5) H 11/16/17 20:19 INR 1.44 (0.93-1.08) H 11/16/17 20:19 APTT 42.5 Seconds (25.1-36.5) H 11/16/17 20:19
[2017-11-16 21:14] LABS: TROPONIN I 4.81 ng/mL
[2017-11-16] MEDS: Pantoprazole 40mg/100mL NS 40 MG/100 ML BAG IVPB SCH (21:30)
[2017-11-16] MEDS ORDERED: Sodium Bicarbonate (8.4%) 50 Meq Syringe IVP ONE (21:49)
[2017-11-16 22:04] LABS: ARTERIAL BLOOD GAS HCO3 19.2 mmol/L (21-28); ARTERIAL BLOOD GAS HEMOGLOBIN 10.8 g/dL (11.7-17.4); ARTERIAL BLOOD GAS O2 CAPACITY 15.1 mL/dl (16-24); ARTERIAL BLOOD GAS O2 CONTENT 14.8 ML/dl (15-23); ARTERIAL BLOOD GAS O2 SAT 97.9 % (95-98); ARTERIAL BLOOD GAS PCO2 47 mm/Hg (35-45); ARTERIAL BLOOD GAS PH 7.22 (7.35-7.45); ARTERIAL BLOOD GAS TCO2 20.6 mmol.L (22-28)
--- NOTE | 2017-11-16 23:06 | PCM.PROC ---
Procedures Attestation:: I certify that I have explained the specified Operation(s) or Procedure(s), risks, benefits and reasonable alternatives to the Patient and/or other person responsible. The opportunity was given to ask questions and all questions answered - Arterial Line Right Radial Aseptic technique was employed throughout the procedure: Hand Hygiene done prior to procedure, Full sterile barriers (mask, hair cover, sterile gown, sterile gloves), Chloraprep Antiseptic: 30 second prep for IJ or SC sites Time Out Performed: Yes Pt. placed on Pulse Ox Monitor: Yes Ultrasound Used for Placement: Yes Gauge (Size): 20 gauge Technique Used: Guide Wire Technique Patient Tolerated Procedure: other (multiple attempts utilizing U/S guidance were unsucessful) Additional Comments: 67F w. hemorrhagic shock 2/2 GI bleed and bleed from LUE AVF s/p code blue on pressors x3
[2017-11-17 00:51] LABS: BASO # 0.04 K/mm3 (0.0-2.0); BASO % 0.2 % (0.0-3.0); EOS % 0.2 % (1.5-5.0); GRAN # 18.16 (1.4-6.5); GRAN % 91.4 % (50.0-68.0); HEMOGLOBIN 12.2 g/dL (12.0-16.0); LYMPH # 1.3 (1.2-3.4); LYMPH % 6.3 % (22.0-35.0); MEAN CELL VOLUME 85.3 fl (80.0-105.0); MEAN CORPUSCULAR HEMOGLOBIN 28.4 pg (25.0-35.0); MEAN CORPUSCULAR HGB CONC 33.2 g/dl (31.0-37.0); MEAN PLATELET VOLUME 9.7 fl (7.0-11.0); MONO # 0.4 (0.1-0.6); MONO % 1.9 % (1.0-6.0); PLATELET COUNT 51 10^3/uL (120.0-450.0); WHITE BLOOD COUNT 19.9 10^3/ul (4.5-11.0)
[2017-11-17 01:22] LABS: VENOUS BLOOD GAS BASE EXCESS -2.8 mmol/L (0.0-2.0); VENOUS BLOOD GAS PO2 38 mm/Hg (30-55); VENOUS BLOOD PH 7.24 (7.32-7.43)
[2017-11-17] MEDS: Pantoprazole 40mg/100mL NS 40 MG/100 ML BAG IVPB SCH ×5 (01:55→22:30)
--- NOTE | 2017-11-17 02:25 | CT ---
EXAM: CT Abdomen and Pelvis Without Intravenous Contrast CLINICAL HISTORY: 67 years old, female; Pain; Abdominal pain; Generalized; Additional info: Melena, abdominal pain x few weeks TECHNIQUE: Axial computed tomography images of the abdomen and pelvis without intravenous contrast. All CT scans at this facility use one or more dose reduction techniques, viz.: automated exposure control; ma/kV adjustment per patient size (including targeted exams where dose is matched to indication; i.e. head); or iterative reconstruction technique. Coronal and sagittal reformatted images were created and reviewed. COMPARISON: CT - CHEST,ABDOMEN,PELVIS W/O CONT 2012-01-24 15:56 FINDINGS: Lung bases: Unremarkable. No mass. No consolidation. Heart: Mild cardiomegaly. Coronary artery calcifications. ABDOMEN: Liver: Unremarkable. Gallbladder and bile ducts: Cholelithiasis. No ductal dilation. Pancreas: Unremarkable. No ductal dilation. Spleen: Unremarkable. No splenomegaly. Adrenals: Unremarkable. No mass. Kidneys and ureters: Small [place] kidneys. Left renal cysts. Largest projects from the lower pole and measures 4.2 CM. No obstructing stones. Stomach and bowel: Mildly distended small bowel loops with air-fluid levels. Fluid in the left colon and fluid in rectum. Left-sided colonic diverticulosis. Appendix: No findings to suggest acute appendicitis. PELVIS: Bladder: Unremarkable. No stones. Reproductive: Unremarkable as visualized. ABDOMEN and PELVIS: Intraperitoneal space: Unremarkable. No free air. No significant fluid collection. Bones/joints: No acute fracture. No dislocation. Soft tissues: Unremarkable. Vasculature: Atherosclerotic vascular disease. No abdominal aortic aneurysm. Lymph nodes: Unremarkable. No enlarged lymph nodes. Tubes, lines and devices: Nasogastric tube in place. Tip in stomach. Hemodialysis catheter at cavoatrial junction. IMPRESSION: 1. Nasogastric tube in stomach. 2. Small bowel ileus versus enteritis type pattern. 3. Fluid-filled rectum, consistent with GI bleed/melena. 4. Cholelithiasis. 5. Remainder of findings as above.
[2017-11-17 03:14] LABS: NEUTROPHIL 50 % (50.0-70.0)
[2017-11-17 03:15] LABS: BAND 31 % (0-2); LYMPHOCYTE 9 % (22.0-35.0); METAMYELOCYTE 7 %; MONOCYTE 0 % (1.0-6.0); MYELOCYTE 3 %; PLATELET ESTIMATE LOW (NORMAL)
[2017-11-17 06:14] LABS: BASO # 0.02 K/mm3 (0.0-2.0); BASO % 0.1 % (0.0-3.0); GRAN # 16.54 (1.4-6.5); GRAN % 93.1 % (50.0-68.0); HEMOGLOBIN 10.5 g/dL (12.0-16.0); LYMPH # 0.8 (1.2-3.4); LYMPH % 4.7 % (22.0-35.0); MEAN CELL VOLUME 84.6 fl (80.0-105.0); MEAN CORPUSCULAR HEMOGLOBIN 28.5 pg (25.0-35.0); MEAN CORPUSCULAR HGB CONC 33.7 g/dl (31.0-37.0); MEAN PLATELET VOLUME 10.9 fl (7.0-11.0); MONO # 0.4 (0.1-0.6); MONO % 2.1 % (1.0-6.0); RBC 3.69 10^6/uL (3.5-6.1); RED CELL DISTRIBUTION WIDTH 19.3 % (11.5-14.5); WHITE BLOOD COUNT 17.8 10^3/ul (4.5-11.0)
[2017-11-17 06:22] LABS: INR 1.26 (0.93-1.08); PARTIAL THROMBOPLASTIN TIME 32.4 Seconds (25.1-36.5); PROTHROMBIN TIME 14.6 SECONDS (9.4-12.5)
[2017-11-17 06:32] LABS: ARTERIAL BLOOD GAS HCO3 23.2 mmol/L (21-28); ARTERIAL BLOOD GAS O2 SAT 97.9 % (95-98); ARTERIAL BLOOD GAS PCO2 44 mm/Hg (35-45); ARTERIAL BLOOD GAS PH 7.33 (7.35-7.45); ARTERIAL BLOOD GAS TCO2 24.6 mmol.L (22-28)
[2017-11-17 07:02] LABS: ALB/GLOB RATIO 1.1 (1.1-1.8); ALBUMIN 2.6 g/dL (3.0-4.8); CALCIUM 7.3 mg/dL (8.4-10.5)
[2017-11-17 07:40] LABS: CK MB% 4.5 % (2.5-3.0); CK-MB 53.5 ng/mL (0.0-3.6)
--- NOTE | 2017-11-17 08:02 | PN ---
DATE: 11/17/2017 SUBJECTIVE: The patient is seen earlier this morning. The patient is in room 129, bed 1. Last night events were noted and the rapid response report is reviewed. The patient is intubated, on a ventilator, unresponsive and the patient did have fevers. OBJECTIVE VITAL SIGNS: On exam, temperature is 100.4; pulse of 89; respiratory rate, on a vent and blood pressure is 88/59. HEENT: Examination reveals ET tube to be in place. NECK: Supple. LUNGS: Have decreased breath sounds. HEART: Normal S1, S2. ABDOMEN: Soft, nontender. No rebound. DATA: Laboratory examination reveals the patient's white count of 17,000, hemoglobin of 10, platelets of 61. Chemistries: BUN of 20, creatinine of 2.9, procalcitonin of 0.22 on the , which was yesterday. Stool occult blood is positive. Microbiology is pending. Chest x-ray from this morning is pending. The patient had a CT scan of the abdomen yesterday; had a GI bleed scan yesterday. ASSESSMENT AND PLAN: This is a 67-year-old female seen earlier this morning in room 129, bed 1 with a history of end-stage renal disease, on hemodialysis; diabetes; hypertension; obesity; asthma; history of cerebrovascular accident. The patient has a bleeding left arm fistula and had a rapid response yesterday and with SIRS, systemic inflammatory response syndrome with hypovolemic shock from gastrointestinal bleed and an arteriovenous fistula bleeding with end-stage renal disease, on hemodialysis; diabetes; hypertension; obesity, currently on vancomycin and meropenem pending panculture results and clinical response. Overall prognosis quite poor for this patient. We will follow closely with you. Kevin Rome MD
[2017-11-17] MEDS: NOREPINEPHRINE BIT/0.9 % NACL 4 MG/250 ML BAG IV PRN ×2 (08:29)
--- NOTE | 2017-11-17 08:30 | CP.PCM.PN ---
Subjective - Date & Time of Evaluation Date of Evaluation: 11/17/17 Time of Evaluation: 08:26 - Subjective Subjective: Surgery: Dr. De Leon Pt seen and examined. S/P code blue overnight. Currently intubated on pressors x3. Pt has received 2U PRBC 2u FFP and 1U Plts since code, and is ordered for an additional unit of plts. Pt is arousable to painful stimuli. She had gastric lavage done last night which was negative, and she went for CT A/P and had bleeding scan done, the results are pending. She continue to have bloody BM. Objective - Vital Signs/Intake and Output Vital Signs (last 24 hours): Temp Pulse Resp BP Pulse Ox 100.8 F H 85 16 149/72 98 11/17/17 08:03 11/17/17 08:03 11/17/17 08:03 11/17/17 08:03 11/17/17 06:15 Intake and Output: 11/17/17 11/17/17 06:59 18:59 Intake Total 4293.7 38 Output Total 0 Balance 4293.7 38 - Medications Medications: Current Medications NOREPINEPHRINE BIT/0.9 % NACL (Levophed 4 Mg/ 250 Ml Ns Premixed) 4 mg in 250 mls @ 15 mls/hr IV .[id number] PRN; Protocol; 4 MCG/MIN PRN Reason: TITRATE PER MD ORDER Last Titration: 11/17/17 00:00 Dose: 15 mcg/min, 56.25 mls/hr Phenylephrine HCl 40 mg/ (Sodium Chloride) 254 mls @ 38.1 mls/hr IV .Q6H40M PRN ; Protocol; 100 MCG/MIN PRN Reason: TITRATE PER MD ORDER Last Titration: 11/17/17 08:22 Dose: 30 mcg/min, 11.43 mls/hr Vasopressin 20 units/ Sodium (Chloride) 101 mls @ 9.09 mls/hr IV .Q11H7M [facility]; 0.03 U/MIN PRN Reason: Protocol Last Admin: 11/16/17 21:15 Dose: 9.09 mls/hr Meropenem 500 mg/ Sodium (Chloride) 50 mls @ 100 mls/hr IVPB 1400 [facility]IAN PRN Reason: Protocol Stop: 11/23/17 14:01 Dextrose (Dextrose 10% In Water) 500 mls @ 60 mls/hr IV .Q8H20M [facility] Last Admin: 11/17/17 04:45 Dose: 60 mls/hr Propofol (Diprivan) 1,000 mg in 100 mls @ 2.299 mls/hr IV .Q24H PRN; Protocol; 5 MCG/KG/MIN PRN Reason: TITRATE PER MD ORDER Pantoprazole Sodium (Protonix 40mg Ivpb) 40 mg in 100 mls @ 20 mls/hr IVPB .Q5H [facility] Last Admin: 11/17/17 06:34 Dose: 20 mls/hr Insulin Human Regular (Humulin R Low) 0 units SC Q6H [facility] PRN Reason: Protocol Last Admin: 11/16/17 13:00 Dose: Not Given Methylprednisolone (Solu-Medrol) 80 mg IVP Q8 [facility] Last Admin: 11/17/17 05:52 Dose: 80 mg - Labs Labs: 11/17/17 06:00 11/17/17 06:00 PT 14.6 SECONDS (9.4-12.5) H 11/17/17 06:00 INR 1.26 (0.93-1.08) H 11/17/17 06:00 APTT 32.4 Seconds (25.1-36.5) 11/17/17 06:00 - Constitutional Appears: No Acute Distress, Chronically Ill - ENT Exam ENT Exam: Mucous Membranes Moist - Respiratory Exam Additional comments: intubated - GI/Abdominal Exam GI & Abdominal Exam: Soft. absent: Distended, Firm, Guarding, Rigid, Tenderness , Rebound - Rectal Exam Rectal Exam: Bloody Stool - Extremities Exam Extremities Exam: absent: Calf Tenderness, Pedal Edema Additional comments: LUE, dressing in place, C/D/I - Neurological Exam Neurological Exam: absent: Alert, Awake, Oriented x3 Assessment and Plan - Assessment and Plan (Free Text) Assessment: 67F w. hemorrhagic shock 2/2 bleeding AVF and lower GI bleed, s/p code blue Plan: -continue to resuscitate w. blood products, keep hgb>9 -Serial H/H q4h -Wean pressors, target MAP>65 -F/U official read of bleeding scan -recommend colonoscopy -will follow closely -d/w attending Pascualitis PGY3
--- NOTE | 2017-11-17 08:37 | PCM.PROC ---
Procedures Attestation:: I certify that I have explained the specified Operation(s) or Procedure(s), risks, benefits and reasonable alternatives to the Patient and/or other person responsible. The opportunity was given to ask questions and all questions answered - Arterial Line Left Femoral Aseptic technique was employed throughout the procedure: Hand Hygiene done prior to procedure, Full sterile barriers (mask, hair cover, sterile gown, sterile gloves), Full body sterile drape, Chloraprep Antiseptic: 2 minute prep for Femoral Time Out Performed: Yes Pt. placed on Pulse Ox Monitor: Yes Local Anesthesia Used: Lidocaine 1% Amount of Anesthesia Used (mls): 5 Ultrasound Used for Placement: No Gauge (Size): 20 gauge Technique Used: Direct Puncture Technique Secured by: Suture Post procedure dressing: Clear vapor permeable Patient Tolerated Procedure: no complications Immediate Complications: none
[2017-11-17] MEDS: Dextrose 5%/0.9% NS 1,000 ML IV SCH ×2 (08:44→21:30)
--- NOTE | 2017-11-17 08:49 | RAD ---
HISTORY: Intubated COMPARISON: 11/16/2017 FINDINGS: LUNGS: No active pulmonary disease. PLEURA: No significant pleural effusion identified, no pneumothorax apparent. CARDIOVASCULAR: Normal heart size. Central venous dialysis catheter unchanged. ET tube and NG tube noted. NG tube is new since prior examination extends to left mid abdomen. OSSEOUS STRUCTURES: No significant abnormalities. VISUALIZED UPPER ABDOMEN: Normal. OTHER FINDINGS: None. IMPRESSION: New NG tube. No infiltrate.
--- NOTE | 2017-11-17 09:08 | CP.CCUPN ---
<Gabe Torres - Last Filed: 11/17/17 10:40> CCU Subjective - Physician Review Subjective (Free Text): Critical care progress note: Pt seen and examine at bedside. Pt had a cardiac arrest with 4 minutes of CPR and 2 rounds of epinephrine. Patient is currently intubated and not sedated. She is off of levophed, vasopressin, and phenylephrine. 12 Point ROS limited due to intubation 11/17/17 10:40 CCU Objective - Vital Signs / Intake & Output Vital Signs (Last 4 hours): Vital Signs Temp Pulse Resp BP Pulse Ox 11/17/17 08:03 100.8 F H 85 16 149/72 11/17/17 06:15 100.4 F H 89 88/59 L 98 11/17/17 06:10 100.4 F H 89 98 11/17/17 06:05 100.4 F H 89 99 11/17/17 06:00 100.4 F H 89 106/46 L 99 11/17/17 05:55 100.4 F H 90 99 11/17/17 05:50 100.4 F H 90 99 11/17/17 05:45 100.4 F H 88 99 11/17/17 05:40 100.6 F H 90 99 11/17/17 05:38 100.6 F H 88 97/45 L 99 11/17/17 05:35 100.6 F H 89 99 11/17/17 05:30 100.6 F H 89 93/48 L 99 11/17/17 05:25 100.6 F H 89 99 11/17/17 05:20 100.6 F H 87 98 11/17/17 05:15 100.6 F H 87 99 11/17/17 05:10 100.6 F H 89 98 11/17/17 05:05 100.6 F H 87 98 Intake and Output (Last 8hrs): Intake & Output 11/16/17 11/17/17 11/17/17 22:59 06:59 14:59 Intake Total 3320 4043.7 301 Output Total 500 0 Balance 2820 4043.7 301 Weight 182 lb 9 oz Intake: IV 2019 2682.7 301 D10 600 Right Femoral 750 Right Hand 200 Right Wrist 500 levophed 750 clementina 600 protonix 200 Blood Product 1300 1361 0 Apheresis Plts Acda Lr 0 Irr Unit [id number] Output: Urine 0 Urine, Voided 0 Stool 500 Other: # Bowel Movements 5 1 - Physical Exam Head: Positive for: Atraumatic, Normocephalic Pupils: Positive for: PERRL Extroacular Muscles: Positive for: EOMI Conjunctiva: Positive for: Normal Mouth: Positive for: Moist Mucous Membranes Neck: Positive for: Normal Range of Motion Respiratory/Chest: Positive for: Clear to Auscultation, Good Air Exchange. Negative for: Respiratory Distress, Accessory Muscle Use Cardiovascular: Positive for: Regular Rate and Rhythm, Normal S1, S2. Negative for: Murmurs Abdomen: Negative for: Tenderness, Distention, Peritoneal Signs Back: Positive for: Normal Inspection Upper Extremity: Positive for: Other (Slight minimal ooze of blood noted at av fistula site of left forearm. No excessive bleeding. ) Lower Extremity: Positive for: Normal Inspection. Negative for: Edema Neurological: Positive for: GCS=15, CN II-XII Intact, Speech Normal Skin: Positive for: Warm, Dry, Normal Color. Negative for: Rashes Psychiatric: Positive for: Alert, Oriented x 3, Normal Insight, Normal Concentration - Medications Active Medications: Active Medications Generic Name Dose Route Start Last Admin Trade Name Freq PRN Reason Stop Dose Admin NOREPINEPHRINE BIT/0.9 % NACL 4 mg in 250 mls @ 15 mls/hr 11/16/17 06:13 08:50 Levophed 4 Mg/ 250 Ml Ns Premixed IV 7 mcg/min .[id number] PRN 26.25 mls/hr TITRATE PER MD ORDER Titration Protocol 4 MCG/MIN Phenylephrine HCl 40 mg/ 254 mls @ 38.1 mls/hr 11/16/17 09:49 11/17/17 08:30 Sodium Chloride IV 0 mcg/min .[id number] PRN 0 mls/hr TITRATE PER MD ORDER Titration Protocol 100 MCG/MIN Vasopressin 20 units/ Sodium 101 mls @ 9.09 mls/hr 11/16/17 10:00 11/16/17 21 :15 Chloride IV 9.09 mls/hr .[id number] WILIAN Administration Protocol 0.03 U/MIN Meropenem 500 mg/ Sodium 50 mls @ 100 mls/hr 11/17/17 14:00 Chloride IVPB 11/23/17 14:01 1400 WILIAN Protocol Propofol 1,000 mg in 100 mls @ 2.299 mls/hr 11/16/17 20:24 Diprivan IV .Q24H PRN TITRATE PER MD ORDER Protocol 5 MCG/KG/MIN Pantoprazole Sodium 40 mg in 100 mls @ 20 mls/hr 11/16/17 20:30 11/17/17 06: 34 Protonix 40mg Ivpb IVPB 20 mls/hr .Q5H WILIAN Administration Dextrose/Sodium Chloride 1,000 mls @ 75 mls/hr 11/17/17 08:45 11/17/17 08:44 Dextrose 5%/0.9% Ns 1000 Ml IV 75 mls/hr .[id number] WILIAN Administration Insulin Human Regular 0 units 11/16/17 07:00 11/16/17 13:00 Humulin R Low SC Not Given Q6H WILIAN Protocol Methylprednisolone 80 mg 11/16/17 22:00 11/17/17 05:52 Solu-Medrol IVP 80 mg Q8 WILIAN Administration - Patient Studies Lab Studies: Lab Studies 11/17/17 11/17/17 11/17/17 Range/Units 08:05 06:00 06:00 WBC (4.5-11.0) 10^3/ul RBC (3.5-6.1) 10^6/uL Hgb (12.0-16.0) g/dL Hct (36.0-48.0) % MCV (80.0-105.0) fl MCH (25.0-35.0) pg MCHC (31.0-37.0) g/dl RDW (11.5-14.5) % Plt Count (120.0-450.0) 10^3/uL MPV (7.0-11.0) fl Gran % (50.0-68.0) % Lymph % (Auto) (22.0-35.0) % [place] % (Auto) (1.0-6.0) % Eos % (Auto) (1.5-5.0) % Baso % (Auto) (0.0-3.0) % Gran # (1.4-6.5) Lymph # (Auto) (1.2-3.4) [place] # (Auto) (0.1-0.6) Eos # (Auto) (0.0-0.7) Baso # (Auto) (0.0-2.0) K/mm3 Neutrophils % (Manual) (50.0-70.0) % Band Neutrophils % (0-2) % Lymphocytes % (Manual) (22.0-35.0) % Monocytes % (Manual) (1.0-6.0) % Metamyelocytes % % Myelocytes % % Platelet Evaluation (NORMAL) PT 14.6 H (9.4-12.5) SECONDS INR 1.26 H (0.93-1.08) APTT 32.4 (25.1-36.5) Seconds pCO2 44 (35-45) mm/Hg pO2 102.0 H (30-55) mm/Hg HCO3 23.2 (21-28) mmol/L ABG pH 7.33 L (7.35-7.45) ABG Total CO2 24.6 (22-28) mmol.L ABG O2 Saturation 97.9 (95-98) % ABG O2 Content (15-23) ML/dl ABG Base Excess -2.8 L (-2.0-3.0) mmol/L ABG Hemoglobin (11.7-17.4) g/dL ABG Carboxyhemoglobin (0.5-1.5) % POC ABG HHb (Measured) (0-5) % ABG Methemoglobin (0.0-3.0) % ABG O2 Capacity (16-24) mL/dl ABG Potassium 3.7 (3.6-5.2) mmol/L VBG pH (7.32-7.43) VBG pCO2 (40-60) VBG HCO3 (21-28) mmol/l VBG Total CO2 (22-28) mmol.L VBG O2 Sat (Calc) (40-65) % VBG Base Excess (0.0-2.0) mmol/L VBG Potassium (3.6-5.2) mmol/L Hgb O2 Saturation (95.0-98.0) % Sodium 137.0 (132-148) mmol/L Chloride 105.0 (98-107) mmol/L Glucose 180 H (65-105) mg/dl Lactate 3.5 H (0.7-2.1) mmol/L FiO2 50.0 % Potassium (3.6-5.0) mmol/L Carbon Dioxide (21-33) mmol/L Anion Gap (10-20) BUN (7-21) mg/dL Creatinine (0.7-1.2) mg/dl Est GFR ( Amer) Est GFR (Non-Af Amer) POC Glucose (mg/dL) 191 H (65-110) mg/dL Random Glucose (70-110) mg/dL Calcium (8.4-10.5) mg/dL Phosphorus (2.5-4.5) mg/dL Magnesium (1.7-2.2) mg/dL Total Bilirubin (0.2-1.3) mg/dL AST (14-36) U/L ALT (7-56) U/L Alkaline Phosphatase (38-126) U/L Lactate Dehydrogenase (333-699) U/L Total Creatine Kinase (35-230) U/L CK-MB (CK-2) (0.0-3.6) ng/mL CK-MB (CK-2) % (2.5-3.0) % Troponin I ng/mL Total Protein (5.8-8.3) g/dL Albumin (3.0-4.8) g/dL Globulin gm/dL Albumin/Globulin Ratio (1.1-1.8) Arterial Blood Potassium 3.7 (3.6-5.2) mmol/L Venous Blood Potassium (3.6-5.2) mmol/L Stool Occult Blood (NEGATIVE) 11/17/17 11/17/17 11/17/17 Range/Units 06:00 06:00 05:49 WBC 17.8 H (4.5-11.0) 10^3/ul RBC 3.69 (3.5-6.1) 10^6/uL Hgb 10.5 L (12.0-16.0) g/dL Hct 31.2 L (36.0-48.0) % MCV 84.6 (80.0-105.0) fl MCH 28.5 (25.0-35.0) pg MCHC 33.7 (31.0-37.0) g/dl RDW 19.3 H (11.5-14.5) % Plt Count 61 L (120.0-450.0) 10^3/uL MPV 10.9 (7.0-11.0) fl Gran % 93.1 H (50.0-68.0) % Lymph % (Auto) 4.7 L (22.0-35.0) % [place] % (Auto) 2.1 (1.0-6.0) % Eos % (Auto) 0.0 L (1.5-5.0) % Baso % (Auto) 0.1 (0.0-3.0) % Gran # 16.54 H (1.4-6.5) Lymph # (Auto) 0.8 L (1.2-3.4) [place] # (Auto) 0.4 (0.1-0.6) Eos # (Auto) 0.0 (0.0-0.7) Baso # (Auto) 0.02 (0.0-2.0) K/mm3 Neutrophils % (Manual) (50.0-70.0) % Band Neutrophils % (0-2) % Lymphocytes % (Manual) (22.0-35.0) % Monocytes % (Manual) (1.0-6.0) % Metamyelocytes % % Myelocytes % % Platelet Evaluation (NORMAL) PT (9.4-12.5) SECONDS INR (0.93-1.08) APTT (25.1-36.5) Seconds pCO2 (35-45) mm/Hg pO2 (30-55) mm/Hg HCO3 (21-28) mmol/L ABG pH (7.35-7.45) ABG Total CO2 (22-28) mmol.L ABG O2 Saturation (95-98) % ABG O2 Content (15-23) ML/dl ABG Base Excess (-2.0-3.0) mmol/L ABG Hemoglobin (11.7-17.4) g/dL ABG Carboxyhemoglobin (0.5-1.5) % POC ABG HHb (Measured) (0-5) % ABG Methemoglobin (0.0-3.0) % ABG O2 Capacity (16-24) mL/dl ABG Potassium (3.6-5.2) mmol/L VBG pH (7.32-7.43) VBG pCO2 (40-60) VBG HCO3 (21-28) mmol/l VBG Total CO2 (22-28) mmol.L VBG O2 Sat (Calc) (40-65) % VBG Base Excess (0.0-2.0) mmol/L VBG Potassium (3.6-5.2) mmol/L Hgb O2 Saturation (95.0-98.0) % Sodium 137 (132-148) mmol/L Chloride 100 (98-107) mmol/L Glucose (65-105) mg/dl Lactate (0.7-2.1) mmol/L FiO2 % Potassium 4.1 (3.6-5.0) mmol/L Carbon Dioxide 25 (21-33) mmol/L Anion Gap 16 (10-20) BUN 30 H (7-21) mg/dL Creatinine 4.4 H (0.7-1.2) mg/dl Est GFR ( Amer) 12 Est GFR (Non-Af Amer) 10 POC Glucose (mg/dL) 167 H (65-110) mg/dL Random Glucose 188 H (70-110) mg/dL Calcium 7.3 L (8.4-10.5) mg/dL Phosphorus (2.5-4.5) mg/dL Magnesium (1.7-2.2) mg/dL Total Bilirubin 0.5 (0.2-1.3) mg/dL AST 1118 H (14-36) U/L ALT 849 H (7-56) U/L Alkaline Phosphatase 64 (38-126) U/L Lactate Dehydrogenase 3559 H (333-699) U/L Total Creatine Kinase 1176 H (35-230) U/L CK-MB (CK-2) 53.5 H (0.0-3.6) ng/mL CK-MB (CK-2) % 4.5 H (2.5-3.0) % Troponin I 12.00 H* D ng/mL Total Protein 4.9 L (5.8-8.3) g/dL Albumin 2.6 L (3.0-4.8) g/dL Globulin 2.3 gm/dL Albumin/Globulin Ratio 1.1 (1.1-1.8) Arterial Blood Potassium (3.6-5.2) mmol/L Venous Blood Potassium (3.6-5.2) mmol/L Stool Occult Blood (NEGATIVE) 11/17/17 11/17/17 11/17/17 Range/Units 03:55 01:48 00:35 WBC 19.9 H (4.5-11.0) 10^3/ul RBC 4.30 (3.5-6.1) 10^6/uL Hgb 12.2 D (12.0-16.0) g/dL Hct 36.7 (36.0-48.0) % MCV 85.3 (80.0-105.0) fl MCH 28.4 (25.0-35.0) pg MCHC 33.2 (31.0-37.0) g/dl RDW 19.0 H (11.5-14.5) % Plt Count 51 L (120.0-450.0) 10^3/uL MPV 9.7 (7.0-11.0) fl Gran % 91.4 H (50.0-68.0) % Lymph % (Auto) 6.3 L (22.0-35.0) % [place] % (Auto) 1.9 (1.0-6.0) % Eos % (Auto) 0.2 L (1.5-5.0) % Baso % (Auto) 0.2 (0.0-3.0) % Gran # 18.16 H (1.4-6.5) Lymph # (Auto) 1.3 (1.2-3.4) [place] # (Auto) 0.4 (0.1-0.6) Eos # (Auto) 0.0 (0.0-0.7) Baso # (Auto) 0.04 (0.0-2.0) K/mm3 Neutrophils % (Manual) 50 (50.0-70.0) % Band Neutrophils % 31 H* (0-2) % Lymphocytes % (Manual) 9 L (22.0-35.0) % Monocytes % (Manual) 0 L (1.0-6.0) % Metamyelocytes % 7 % Myelocytes % 3 % Platelet Evaluation Low (NORMAL) PT (9.4-12.5) SECONDS INR (0.93-1.08) APTT (25.1-36.5) Seconds pCO2 (35-45) mm/Hg pO2 (30-55) mm/Hg HCO3 (21-28) mmol/L ABG pH (7.35-7.45) ABG Total CO2 (22-28) mmol.L ABG O2 Saturation (95-98) % ABG O2 Content (15-23) ML/dl ABG Base Excess (-2.0-3.0) mmol/L ABG Hemoglobin (11.7-17.4) g/dL ABG Carboxyhemoglobin (0.5-1.5) % POC ABG HHb (Measured) (0-5) % ABG Methemoglobin (0.0-3.0) % ABG O2 Capacity (16-24) mL/dl ABG Potassium (3.6-5.2) mmol/L VBG pH (7.32-7.43) VBG pCO2 (40-60) VBG HCO3 (21-28) mmol/l VBG Total CO2 (22-28) mmol.L VBG O2 Sat (Calc) (40-65) % VBG Base Excess (0.0-2.0) mmol/L VBG Potassium (3.6-5.2) mmol/L Hgb O2 Saturation (95.0-98.0) % Sodium (132-148) mmol/L Chloride (98-107) mmol/L Glucose (65-105) mg/dl Lactate (0.7-2.1) mmol/L FiO2 % Potassium (3.6-5.0) mmol/L Carbon Dioxide (21-33) mmol/L Anion Gap (10-20) BUN (7-21) mg/dL Creatinine (0.7-1.2) mg/dl Est GFR ( Amer) Est GFR (Non-Af Amer) POC Glucose (mg/dL) 163 H 162 H (65-110) mg/dL Random Glucose (70-110) mg/dL Calcium (8.4-10.5) mg/dL Phosphorus (2.5-4.5) mg/dL Magnesium (1.7-2.2) mg/dL Total Bilirubin (0.2-1.3) mg/dL AST (14-36) U/L ALT (7-56) U/L Alkaline Phosphatase (38-126) U/L Lactate Dehydrogenase (333-699) U/L Total Creatine Kinase (35-230) U/L CK-MB (CK-2) (0.0-3.6) ng/mL CK-MB (CK-2) % (2.5-3.0) % Troponin I ng/mL Total Protein (5.8-8.3) g/dL Albumin (3.0-4.8) g/dL Globulin gm/dL Albumin/Globulin Ratio (1.1-1.8) Arterial Blood Potassium (3.6-5.2) mmol/L Venous Blood Potassium (3.6-5.2) mmol/L Stool Occult Blood (NEGATIVE) 11/17/17 11/16/17 11/16/17 Range/Units 00:35 23:10 22:00 WBC (4.5-11.0) 10^3/ul RBC (3.5-6.1) 10^6/uL Hgb (12.0-16.0) g/dL Hct (36.0-48.0) % MCV (80.0-105.0) fl MCH (25.0-35.0) pg MCHC (31.0-37.0) g/dl RDW (11.5-14.5) % Plt Count (120.0-450.0) 10^3/uL MPV (7.0-11.0) fl Gran % (50.0-68.0) % Lymph % (Auto) (22.0-35.0) % [place] % (Auto) (1.0-6.0) % Eos % (Auto) (1.5-5.0) % Baso % (Auto) (0.0-3.0) % Gran # (1.4-6.5) Lymph # (Auto) (1.2-3.4) [place] # (Auto) (0.1-0.6) Eos # (Auto) (0.0-0.7) Baso # (Auto) (0.0-2.0) K/mm3 Neutrophils % (Manual) (50.0-70.0) % Band Neutrophils % (0-2) % Lymphocytes % (Manual) (22.0-35.0) % Monocytes % (Manual) (1.0-6.0) % Metamyelocytes % % Myelocytes % % Platelet Evaluation (NORMAL) PT (9.4-12.5) SECONDS INR (0.93-1.08) APTT (25.1-36.5) Seconds pCO2 47 H (35-45) mm/Hg pO2 38 156.0 H (30-55) mm/Hg HCO3 19.2 L (21-28) mmol/L ABG pH 7.22 L (7.35-7.45) ABG Total CO2 20.6 L (22-28) mmol.L ABG O2 Saturation 97.9 (95-98) % ABG O2 Content 14.8 L (15-23) ML/dl ABG Base Excess -8.3 L (-2.0-3.0) mmol/L ABG Hemoglobin 10.8 L (11.7-17.4) g/dL ABG Carboxyhemoglobin 0.5 (0.5-1.5) % POC ABG HHb (Measured) 2.1 (0-5) % ABG Methemoglobin 1.9 (0.0-3.0) % ABG O2 Capacity 15.1 L (16-24) mL/dl ABG Potassium (3.6-5.2) mmol/L VBG pH 7.24 L (7.32-7.43) VBG pCO2 60.0 (40-60) VBG HCO3 25.7 (21-28) mmol/l VBG Total CO2 27.5 (22-28) mmol.L VBG O2 Sat (Calc) 77.4 H (40-65) % VBG Base Excess -2.8 L (0.0-2.0) mmol/L VBG Potassium 3.9 (3.6-5.2) mmol/L Hgb O2 Saturation 95.6 (95.0-98.0) % Sodium 136.0 (132-148) mmol/L Chloride 103.0 (98-107) mmol/L Glucose 175 H (65-105) mg/dl Lactate 4.1 H* (0.7-2.1) mmol/L FiO2 21.0 50.0 % Potassium (3.6-5.0) mmol/L Carbon Dioxide (21-33) mmol/L Anion Gap (10-20) BUN (7-21) mg/dL Creatinine (0.7-1.2) mg/dl Est GFR ( Amer) Est GFR (Non-Af Amer) POC Glucose (mg/dL) 152 H (65-110) mg/dL Random Glucose (70-110) mg/dL Calcium (8.4-10.5) mg/dL Phosphorus (2.5-4.5) mg/dL Magnesium (1.7-2.2) mg/dL Total Bilirubin (0.2-1.3) mg/dL AST (14-36) U/L ALT (7-56) U/L Alkaline Phosphatase (38-126) U/L Lactate Dehydrogenase (333-699) U/L Total Creatine Kinase (35-230) U/L CK-MB (CK-2) (0.0-3.6) ng/mL CK-MB (CK-2) % (2.5-3.0) % Troponin I ng/mL Total Protein (5.8-8.3) g/dL Albumin (3.0-4.8) g/dL Globulin gm/dL Albumin/Globulin Ratio (1.1-1.8) Arterial Blood Potassium (3.6-5.2) mmol/L Venous Blood Potassium 3.9 (3.6-5.2) mmol/L Stool Occult Blood (NEGATIVE) 11/16/17 11/16/17 11/16/17 Range/Units 20:50 20:43 20:19 WBC (4.5-11.0) 10^3/ul RBC (3.5-6.1) 10^6/uL Hgb (12.0-16.0) g/dL Hct (36.0-48.0) % MCV (80.0-105.0) fl MCH (25.0-35.0) pg MCHC (31.0-37.0) g/dl RDW (11.5-14.5) % Plt Count (120.0-450.0) 10^3/uL MPV (7.0-11.0) fl Gran % (50.0-68.0) % Lymph % (Auto) (22.0-35.0) % [place] % (Auto) (1.0-6.0) % Eos % (Auto) (1.5-5.0) % Baso % (Auto) (0.0-3.0) % Gran # (1.4-6.5) Lymph # (Auto) (1.2-3.4) [place] # (Auto) (0.1-0.6) Eos # (Auto) (0.0-0.7) Baso # (Auto) (0.0-2.0) K/mm3 Neutrophils % (Manual) (50.0-70.0) % Band Neutrophils % (0-2) % Lymphocytes % (Manual) (22.0-35.0) % Monocytes % (Manual) (1.0-6.0) % Metamyelocytes % % Myelocytes % % Platelet Evaluation (NORMAL) PT (9.4-12.5) SECONDS INR (0.93-1.08) APTT (25.1-36.5) Seconds pCO2 47 H (35-45) mm/Hg pO2 366.0 H (30-55) mm/Hg HCO3 17.1 L (21-28) mmol/L ABG pH 7.17 L* (7.35-7.45) ABG Total CO2 18.5 L (22-28) mmol.L ABG O2 Saturation 98.3 H (95-98) % ABG O2 Content (15-23) ML/dl ABG Base Excess -11.3 L (-2.0-3.0) mmol/L ABG Hemoglobin (11.7-17.4) g/dL ABG Carboxyhemoglobin (0.5-1.5) % POC ABG HHb (Measured) (0-5) % ABG Methemoglobin (0.0-3.0) % ABG O2 Capacity (16-24) mL/dl ABG Potassium 3.0 L (3.6-5.2) mmol/L VBG pH (7.32-7.43) VBG pCO2 (40-60) VBG HCO3 (21-28) mmol/l VBG Total CO2 (22-28) mmol.L VBG O2 Sat (Calc) (40-65) % VBG Base Excess (0.0-2.0) mmol/L VBG Potassium (3.6-5.2) mmol/L Hgb O2 Saturation (95.0-98.0) % Sodium 137.0 134 (132-148) mmol/L Chloride 104.0 102 (98-107) mmol/L Glucose 193 H (65-105) mg/dl Lactate 8.3 H* (0.7-2.1) mmol/L FiO2 100.0 % Potassium 3.2 L (3.6-5.0) mmol/L Carbon Dioxide 20 L (21-33) mmol/L Anion Gap 15 (10-20) BUN 20 (7-21) mg/dL Creatinine 2.9 H (0.7-1.2) mg/dl Est GFR ( Amer) 19 Est GFR (Non-Af Amer) 16 POC Glucose (mg/dL) 166 H (65-110) mg/dL Random Glucose 262 H (70-110) mg/dL Calcium 6.6 L* (8.4-10.5) mg/dL Phosphorus 4.8 H (2.5-4.5) mg/dL Magnesium 1.9 (1.7-2.2) mg/dL Total Bilirubin 0.3 (0.2-1.3) mg/dL AST 314 H D (14-36) U/L ALT 372 H (7-56) U/L Alkaline Phosphatase 61 (38-126) U/L Lactate Dehydrogenase 2087 H (333-699) U/L Total Creatine Kinase 407 H (35-230) U/L CK-MB (CK-2) 15.8 H (0.0-3.6) ng/mL CK-MB (CK-2) % 3.9 H (2.5-3.0) % Troponin I 4.81 H* D ng/mL Total Protein 3.4 L (5.8-8.3) g/dL Albumin 1.7 L (3.0-4.8) g/dL Globulin 1.8 gm/dL Albumin/Globulin Ratio 1.0 L (1.1-1.8) Arterial Blood Potassium 3.0 L (3.6-5.2) mmol/L Venous Blood Potassium (3.6-5.2) mmol/L Stool Occult Blood (NEGATIVE) 11/16/17 11/16/17 11/16/17 Range/Units 20:19 20:19 20:10 WBC 18.6 H (4.5-11.0) 10^3/ul RBC 3.10 L (3.5-6.1) 10^6/uL Hgb 9.0 L D (12.0-16.0) g/dL Hct 27.0 L (36.0-48.0) % MCV 87.1 (80.0-105.0) fl MCH 29.0 (25.0-35.0) pg MCHC 33.3 (31.0-37.0) g/dl RDW 21.1 H (11.5-14.5) % Plt Count 58 L (120.0-450.0) 10^3/uL MPV 10.1 (7.0-11.0) fl Gran % 84.6 H (50.0-68.0) % Lymph % (Auto) 14.0 L (22.0-35.0) % [place] % (Auto) 1.1 (1.0-6.0) % Eos % (Auto) 0.2 L (1.5-5.0) % Baso % (Auto) 0.1 (0.0-3.0) % Gran # 15.75 H (1.4-6.5) Lymph # (Auto) 2.6 (1.2-3.4) [place] # (Auto) 0.2 (0.1-0.6) Eos # (Auto) 0.0 (0.0-0.7) Baso # (Auto) 0.02 (0.0-2.0) K/mm3 Neutrophils % (Manual) (50.0-70.0) % Band Neutrophils % (0-2) % Lymphocytes % (Manual) (22.0-35.0) % Monocytes % (Manual) (1.0-6.0) % Metamyelocytes % % Myelocytes % % Platelet Evaluation (NORMAL) PT 16.5 H (9.4-12.5) SECONDS INR 1.44 H (0.93-1.08) APTT 42.5 H (25.1-36.5) Seconds pCO2 (35-45) mm/Hg pO2 (30-55) mm/Hg HCO3 (21-28) mmol/L ABG pH (7.35-7.45) ABG Total CO2 (22-28) mmol.L ABG O2 Saturation (95-98) % ABG O2 Content (15-23) ML/dl ABG Base Excess (-2.0-3.0) mmol/L ABG Hemoglobin (11.7-17.4) g/dL ABG Carboxyhemoglobin (0.5-1.5) % POC ABG HHb (Measured) (0-5) % ABG Methemoglobin (0.0-3.0) % ABG O2 Capacity (16-24) mL/dl ABG Potassium (3.6-5.2) mmol/L VBG pH (7.32-7.43) VBG pCO2 (40-60) VBG HCO3 (21-28) mmol/l VBG Total CO2 (22-28) mmol.L VBG O2 Sat (Calc) (40-65) % VBG Base Excess (0.0-2.0) mmol/L VBG Potassium (3.6-5.2) mmol/L Hgb O2 Saturation (95.0-98.0) % Sodium (132-148) mmol/L Chloride (98-107) mmol/L Glucose (65-105) mg/dl Lactate (0.7-2.1) mmol/L FiO2 % Potassium (3.6-5.0) mmol/L Carbon Dioxide (21-33) mmol/L Anion Gap (10-20) BUN (7-21) mg/dL Creatinine (0.7-1.2) mg/dl Est GFR ( Amer) Est GFR (Non-Af Amer) POC Glucose (mg/dL) 47 L (65-110) mg/dL Random Glucose (70-110) mg/dL Calcium (8.4-10.5) mg/dL Phosphorus (2.5-4.5) mg/dL Magnesium (1.7-2.2) mg/dL Total Bilirubin (0.2-1.3) mg/dL AST (14-36) U/L ALT (7-56) U/L Alkaline Phosphatase (38-126) U/L Lactate Dehydrogenase (333-699) U/L Total Creatine Kinase (35-230) U/L CK-MB (CK-2) (0.0-3.6) ng/mL CK-MB (CK-2) % (2.5-3.0) % Troponin I ng/mL Total Protein (5.8-8.3) g/dL Albumin (3.0-4.8) g/dL Globulin gm/dL Albumin/Globulin Ratio (1.1-1.8) Arterial Blood Potassium (3.6-5.2) mmol/L Venous Blood Potassium (3.6-5.2) mmol/L Stool Occult Blood (NEGATIVE) 11/16/17 11/16/17 11/16/17 Range/Units 19:15 18:51 18:08 WBC (4.5-11.0) 10^3/ul RBC (3.5-6.1) 10^6/uL Hgb (12.0-16.0) g/dL Hct (36.0-48.0) % MCV (80.0-105.0) fl MCH (25.0-35.0) pg MCHC (31.0-37.0) g/dl RDW (11.5-14.5) % Plt Count (120.0-450.0) 10^3/uL MPV (7.0-11.0) fl Gran % (50.0-68.0) % Lymph % (Auto) (22.0-35.0) % [place] % (Auto) (1.0-6.0) % Eos % (Auto) (1.5-5.0) % Baso % (Auto) (0.0-3.0) % Gran # (1.4-6.5) Lymph # (Auto) (1.2-3.4) [place] # (Auto) (0.1-0.6) Eos # (Auto) (0.0-0.7) Baso # (Auto) (0.0-2.0) K/mm3 Neutrophils % (Manual) (50.0-70.0) % Band Neutrophils % (0-2) % Lymphocytes % (Manual) (22.0-35.0) % Monocytes % (Manual) (1.0-6.0) % Metamyelocytes % % Myelocytes % % Platelet Evaluation (NORMAL) PT (9.4-12.5) SECONDS INR (0.93-1.08) APTT (25.1-36.5) Seconds pCO2 (35-45) mm/Hg pO2 (30-55) mm/Hg HCO3 (21-28) mmol/L ABG pH (7.35-7.45) ABG Total CO2 (22-28) mmol.L ABG O2 Saturation (95-98) % ABG O2 Content (15-23) ML/dl ABG Base Excess (-2.0-3.0) mmol/L ABG Hemoglobin (11.7-17.4) g/dL ABG Carboxyhemoglobin (0.5-1.5) % POC ABG HHb (Measured) (0-5) % ABG Methemoglobin (0.0-3.0) % ABG O2 Capacity (16-24) mL/dl ABG Potassium (3.6-5.2) mmol/L VBG pH (7.32-7.43) VBG pCO2 (40-60) VBG HCO3 (21-28) mmol/l VBG Total CO2 (22-28) mmol.L VBG O2 Sat (Calc) (40-65) % VBG Base Excess (0.0-2.0) mmol/L VBG Potassium (3.6-5.2) mmol/L Hgb O2 Saturation (95.0-98.0) % Sodium (132-148) mmol/L Chloride (98-107) mmol/L Glucose (65-105) mg/dl Lactate (0.7-2.1) mmol/L FiO2 % Potassium (3.6-5.0) mmol/L Carbon Dioxide (21-33) mmol/L Anion Gap (10-20) BUN (7-21) mg/dL Creatinine (0.7-1.2) mg/dl Est GFR ( Amer) Est GFR (Non-Af Amer) POC Glucose (mg/dL) 58 L 80 (65-110) mg/dL Random Glucose (70-110) mg/dL Calcium (8.4-10.5) mg/dL Phosphorus (2.5-4.5) mg/dL Magnesium (1.7-2.2) mg/dL Total Bilirubin (0.2-1.3) mg/dL AST (14-36) U/L ALT (7-56) U/L Alkaline Phosphatase (38-126) U/L Lactate Dehydrogenase (333-699) U/L Total Creatine Kinase (35-230) U/L CK-MB (CK-2) (0.0-3.6) ng/mL CK-MB (CK-2) % (2.5-3.0) % Troponin I ng/mL Total Protein (5.8-8.3) g/dL Albumin (3.0-4.8) g/dL Globulin gm/dL Albumin/Globulin Ratio (1.1-1.8) Arterial Blood Potassium (3.6-5.2) mmol/L Venous Blood Potassium (3.6-5.2) mmol/L Stool Occult Blood Positive H (NEGATIVE) 11/16/17 11/16/17 11/16/17 Range/Units 16:56 16:11 15:12 WBC 15.5 H (4.5-11.0) 10^3/ul RBC 3.99 (3.5-6.1) 10^6/uL Hgb 11.4 L D (12.0-16.0) g/dL Hct 34.6 L (36.0-48.0) % MCV 86.7 D (80.0-105.0) fl MCH 28.6 (25.0-35.0) pg MCHC 32.9 (31.0-37.0) g/dl RDW 20.4 H (11.5-14.5) % Plt Count 79 L (120.0-450.0) 10^3/uL MPV 9.1 (7.0-11.0) fl Gran % (50.0-68.0) % Lymph % (Auto) (22.0-35.0) % [place] % (Auto) (1.0-6.0) % Eos % (Auto) (1.5-5.0) % Baso % (Auto) (0.0-3.0) % Gran # (1.4-6.5) Lymph # (Auto) (1.2-3.4) [place] # (Auto) (0.1-0.6) Eos # (Auto) (0.0-0.7) Baso # (Auto) (0.0-2.0) K/mm3 Neutrophils % (Manual) (50.0-70.0) % Band Neutrophils % (0-2) % Lymphocytes % (Manual) (22.0-35.0) % Monocytes % (Manual) (1.0-6.0) % Metamyelocytes % % Myelocytes % % Platelet Evaluation (NORMAL) PT (9.4-12.5) SECONDS INR (0.93-1.08) APTT (25.1-36.5) Seconds pCO2 (35-45) mm/Hg pO2 (30-55) mm/Hg HCO3 (21-28) mmol/L ABG pH (7.35-7.45) ABG Total CO2 (22-28) mmol.L ABG O2 Saturation (95-98) % ABG O2 Content (15-23) ML/dl ABG Base Excess (-2.0-3.0) mmol/L ABG Hemoglobin (11.7-17.4) g/dL ABG Carboxyhemoglobin (0.5-1.5) % POC ABG HHb (Measured) (0-5) % ABG Methemoglobin (0.0-3.0) % ABG O2 Capacity (16-24) mL/dl ABG Potassium (3.6-5.2) mmol/L VBG pH (7.32-7.43) VBG pCO2 (40-60) VBG HCO3 (21-28) mmol/l VBG Total CO2 (22-28) mmol.L VBG O2 Sat (Calc) (40-65) % VBG Base Excess (0.0-2.0) mmol/L VBG Potassium (3.6-5.2) mmol/L Hgb O2 Saturation (95.0-98.0) % Sodium (132-148) mmol/L Chloride (98-107) mmol/L Glucose (65-105) mg/dl Lactate (0.7-2.1) mmol/L FiO2 % Potassium (3.6-5.0) mmol/L Carbon Dioxide (21-33) mmol/L Anion Gap (10-20) BUN (7-21) mg/dL Creatinine (0.7-1.2) mg/dl Est GFR ( Amer) Est GFR (Non-Af Amer) POC Glucose (mg/dL) 119 H 133 H (65-110) mg/dL Random Glucose (70-110) mg/dL Calcium (8.4-10.5) mg/dL Phosphorus (2.5-4.5) mg/dL Magnesium (1.7-2.2) mg/dL Total Bilirubin (0.2-1.3) mg/dL AST (14-36) U/L ALT (7-56) U/L Alkaline Phosphatase (38-126) U/L Lactate Dehydrogenase (333-699) U/L Total Creatine Kinase (35-230) U/L CK-MB (CK-2) (0.0-3.6) ng/mL CK-MB (CK-2) % (2.5-3.0) % Troponin I ng/mL Total Protein (5.8-8.3) g/dL Albumin (3.0-4.8) g/dL Globulin gm/dL Albumin/Globulin Ratio (1.1-1.8) Arterial Blood Potassium (3.6-5.2) mmol/L Venous Blood Potassium (3.6-5.2) mmol/L Stool Occult Blood (NEGATIVE) 11/16/17 11/16/17 11/16/17 Range/Units 15:00 13:10 13:00 WBC (4.5-11.0) 10^3/ul RBC (3.5-6.1) 10^6/uL Hgb (12.0-16.0) g/dL Hct (36.0-48.0) % MCV (80.0-105.0) fl MCH (25.0-35.0) pg MCHC (31.0-37.0) g/dl RDW (11.5-14.5) % Plt Count (120.0-450.0) 10^3/uL MPV (7.0-11.0) fl Gran % (50.0-68.0) % Lymph % (Auto) (22.0-35.0) % [place] % (Auto) (1.0-6.0) % Eos % (Auto) (1.5-5.0) % Baso % (Auto) (0.0-3.0) % Gran # (1.4-6.5) Lymph # (Auto) (1.2-3.4) [place] # (Auto) (0.1-0.6) Eos # (Auto) (0.0-0.7) Baso # (Auto) (0.0-2.0) K/mm3 Neutrophils % (Manual) (50.0-70.0) % Band Neutrophils % (0-2) % Lymphocytes % (Manual) (22.0-35.0) % Monocytes % (Manual) (1.0-6.0) % Metamyelocytes % % Myelocytes % % Platelet Evaluation (NORMAL) PT (9.4-12.5) SECONDS INR (0.93-1.08) APTT (25.1-36.5) Seconds pCO2 (35-45) mm/Hg pO2 (30-55) mm/Hg HCO3 (21-28) mmol/L ABG pH (7.35-7.45) ABG Total CO2 (22-28) mmol.L ABG O2 Saturation (95-98) % ABG O2 Content (15-23) ML/dl ABG Base Excess (-2.0-3.0) mmol/L ABG Hemoglobin (11.7-17.4) g/dL ABG Carboxyhemoglobin (0.5-1.5) % POC ABG HHb (Measured) (0-5) % ABG Methemoglobin (0.0-3.0) % ABG O2 Capacity (16-24) mL/dl ABG Potassium (3.6-5.2) mmol/L VBG pH (7.32-7.43) VBG pCO2 (40-60) VBG HCO3 (21-28) mmol/l VBG Total CO2 (22-28) mmol.L VBG O2 Sat (Calc) (40-65) % VBG Base Excess (0.0-2.0) mmol/L VBG Potassium (3.6-5.2) mmol/L Hgb O2 Saturation (95.0-98.0) % Sodium (132-148) mmol/L Chloride (98-107) mmol/L Glucose (65-105) mg/dl Lactate (0.7-2.1) mmol/L FiO2 % Potassium (3.6-5.0) mmol/L Carbon Dioxide (21-33) mmol/L Anion Gap (10-20) BUN (7-21) mg/dL Creatinine (0.7-1.2) mg/dl Est GFR ( Amer) Est GFR (Non-Af Amer) POC Glucose (mg/dL) 167 H 205 H 182 H (65-110) mg/dL Random Glucose (70-110) mg/dL Calcium (8.4-10.5) mg/dL Phosphorus (2.5-4.5) mg/dL Magnesium (1.7-2.2) mg/dL Total Bilirubin (0.2-1.3) mg/dL AST (14-36) U/L ALT (7-56) U/L Alkaline Phosphatase (38-126) U/L Lactate Dehydrogenase (333-699) U/L Total Creatine Kinase (35-230) U/L CK-MB (CK-2) (0.0-3.6) ng/mL CK-MB (CK-2) % (2.5-3.0) % Troponin I ng/mL Total Protein (5.8-8.3) g/dL Albumin (3.0-4.8) g/dL Globulin gm/dL Albumin/Globulin Ratio (1.1-1.8) Arterial Blood Potassium (3.6-5.2) mmol/L Venous Blood Potassium (3.6-5.2) mmol/L Stool Occult Blood (NEGATIVE) 11/16/17 11/16/17 11/16/17 Range/Units 12:15 11:01 10:57 WBC (4.5-11.0) 10^3/ul RBC (3.5-6.1) 10^6/uL Hgb (12.0-16.0) g/dL Hct (36.0-48.0) % MCV (80.0-105.0) fl MCH (25.0-35.0) pg MCHC (31.0-37.0) g/dl RDW (11.5-14.5) % Plt Count (120.0-450.0) 10^3/uL MPV (7.0-11.0) fl Gran % (50.0-68.0) % Lymph % (Auto) (22.0-35.0) % [place] % (Auto) (1.0-6.0) % Eos % (Auto) (1.5-5.0) % Baso % (Auto) (0.0-3.0) % Gran # (1.4-6.5) Lymph # (Auto) (1.2-3.4) [place] # (Auto) (0.1-0.6) Eos # (Auto) (0.0-0.7) Baso # (Auto) (0.0-2.0) K/mm3 Neutrophils % (Manual) (50.0-70.0) % Band Neutrophils % (0-2) % Lymphocytes % (Manual) (22.0-35.0) % Monocytes % (Manual) (1.0-6.0) % Metamyelocytes % % Myelocytes % % Platelet Evaluation (NORMAL) PT (9.4-12.5) SECONDS INR (0.93-1.08) APTT (25.1-36.5) Seconds pCO2 (35-45) mm/Hg pO2 (30-55) mm/Hg HCO3 (21-28) mmol/L ABG pH (7.35-7.45) ABG Total CO2 (22-28) mmol.L ABG O2 Saturation (95-98) % ABG O2 Content (15-23) ML/dl ABG Base Excess (-2.0-3.0) mmol/L ABG Hemoglobin (11.7-17.4) g/dL ABG Carboxyhemoglobin (0.5-1.5) % POC ABG HHb (Measured) (0-5) % ABG Methemoglobin (0.0-3.0) % ABG O2 Capacity (16-24) mL/dl ABG Potassium (3.6-5.2) mmol/L VBG pH (7.32-7.43) VBG pCO2 (40-60) VBG HCO3 (21-28) mmol/l VBG Total CO2 (22-28) mmol.L VBG O2 Sat (Calc) (40-65) % VBG Base Excess (0.0-2.0) mmol/L VBG Potassium (3.6-5.2) mmol/L Hgb O2 Saturation (95.0-98.0) % Sodium (132-148) mmol/L Chloride (98-107) mmol/L Glucose (65-105) mg/dl Lactate (0.7-2.1) mmol/L FiO2 % Potassium (3.6-5.0) mmol/L Carbon Dioxide (21-33) mmol/L Anion Gap (10-20) BUN (7-21) mg/dL Creatinine (0.7-1.2) mg/dl Est GFR ( Amer) Est GFR (Non-Af Amer) POC Glucose (mg/dL) 250 H 44 L 46 L (65-110) mg/dL Random Glucose (70-110) mg/dL Calcium (8.4-10.5) mg/dL Phosphorus (2.5-4.5) mg/dL Magnesium (1.7-2.2) mg/dL Total Bilirubin (0.2-1.3) mg/dL AST (14-36) U/L ALT (7-56) U/L Alkaline Phosphatase (38-126) U/L Lactate Dehydrogenase (333-699) U/L Total Creatine Kinase (35-230) U/L CK-MB (CK-2) (0.0-3.6) ng/mL CK-MB (CK-2) % (2.5-3.0) % Troponin I ng/mL Total Protein (5.8-8.3) g/dL Albumin (3.0-4.8) g/dL Globulin gm/dL Albumin/Globulin Ratio (1.1-1.8) Arterial Blood Potassium (3.6-5.2) mmol/L Venous Blood Potassium (3.6-5.2) mmol/L Stool Occult Blood (NEGATIVE) 11/16/17 Range/Units 09:30 WBC (4.5-11.0) 10^3/ul RBC (3.5-6.1) 10^6/uL Hgb (12.0-16.0) g/dL Hct (36.0-48.0) % MCV (80.0-105.0) fl MCH (25.0-35.0) pg MCHC (31.0-37.0) g/dl RDW (11.5-14.5) % Plt Count (120.0-450.0) 10^3/uL MPV (7.0-11.0) fl Gran % (50.0-68.0) % Lymph % (Auto) (22.0-35.0) % [place] % (Auto) (1.0-6.0) % Eos % (Auto) (1.5-5.0) % Baso % (Auto) (0.0-3.0) % Gran # (1.4-6.5) Lymph # (Auto) (1.2-3.4) [place] # (Auto) (0.1-0.6) Eos # (Auto) (0.0-0.7) Baso # (Auto) (0.0-2.0) K/mm3 Neutrophils % (Manual) (50.0-70.0) % Band Neutrophils % (0-2) % Lymphocytes % (Manual) (22.0-35.0) % Monocytes % (Manual) (1.0-6.0) % Metamyelocytes % % Myelocytes % % Platelet Evaluation (NORMAL) PT (9.4-12.5) SECONDS INR (0.93-1.08) APTT (25.1-36.5) Seconds pCO2 (35-45) mm/Hg pO2 39 (30-55) mm/Hg HCO3 (21-28) mmol/L ABG pH (7.35-7.45) ABG Total CO2 (22-28) mmol.L ABG O2 Saturation (95-98) % ABG O2 Content (15-23) ML/dl ABG Base Excess (-2.0-3.0) mmol/L ABG Hemoglobin (11.7-17.4) g/dL ABG Carboxyhemoglobin (0.5-1.5) % POC ABG HHb (Measured) (0-5) % ABG Methemoglobin (0.0-3.0) % ABG O2 Capacity (16-24) mL/dl ABG Potassium (3.6-5.2) mmol/L VBG pH 7.18 L* (7.32-7.43) VBG pCO2 51.0 (40-60) VBG HCO3 19.0 L (21-28) mmol/l VBG Total CO2 20.6 L (22-28) mmol.L VBG O2 Sat (Calc) 70.5 H (40-65) % VBG Base Excess -9.5 L (0.0-2.0) mmol/L VBG Potassium 3.1 L (3.6-5.2) mmol/L Hgb O2 Saturation (95.0-98.0) % Sodium 141.0 (132-148) mmol/L Chloride 112.0 H (98-107) mmol/L Glucose 41 L (65-105) mg/dl Lactate 5.3 H* (0.7-2.1) mmol/L FiO2 21.0 % Potassium (3.6-5.0) mmol/L Carbon Dioxide (21-33) mmol/L Anion Gap (10-20) BUN (7-21) mg/dL Creatinine (0.7-1.2) mg/dl Est GFR ( Amer) Est GFR (Non-Af Amer) POC Glucose (mg/dL) (65-110) mg/dL Random Glucose (70-110) mg/dL Calcium (8.4-10.5) mg/dL Phosphorus (2.5-4.5) mg/dL Magnesium (1.7-2.2) mg/dL Total Bilirubin (0.2-1.3) mg/dL AST (14-36) U/L ALT (7-56) U/L Alkaline Phosphatase (38-126) U/L Lactate Dehydrogenase (333-699) U/L Total Creatine Kinase (35-230) U/L CK-MB (CK-2) (0.0-3.6) ng/mL CK-MB (CK-2) % (2.5-3.0) % Troponin I ng/mL Total Protein (5.8-8.3) g/dL Albumin (3.0-4.8) g/dL Globulin gm/dL Albumin/Globulin Ratio (1.1-1.8) Arterial Blood Potassium (3.6-5.2) mmol/L Venous Blood Potassium 3.1 L (3.6-5.2) mmol/L Stool Occult Blood (NEGATIVE) Laboratory Results - last 24 hr 11/16/17 11/16/17 11/16/17 09:30 10:57 11:01 WBC RBC Hgb Hct MCV MCH MCHC RDW Plt Count MPV Gran % Lymph % (Auto) [place] % (Auto) Eos % (Auto) Baso % (Auto) Gran # Lymph # (Auto) [place] # (Auto) Eos # (Auto) Baso # (Auto) Neutrophils % (Manual) Band Neutrophils % Lymphocytes % (Manual) Monocytes % (Manual) Metamyelocytes % Myelocytes % Platelet Evaluation PT INR APTT pCO2 pO2 39 HCO3 ABG pH ABG Total CO2 ABG O2 Saturation ABG O2 Content ABG Base Excess ABG Hemoglobin ABG Carboxyhemoglobin POC ABG HHb (Measured) ABG Methemoglobin ABG O2 Capacity ABG Potassium VBG pH 7.18 L* VBG pCO2 51.0 VBG HCO3 19.0 L VBG Total CO2 20.6 L VBG O2 Sat (Calc) 70.5 H VBG Base Excess -9.5 L VBG Potassium 3.1 L Hgb O2 Saturation Sodium 141.0 Chloride 112.0 H Glucose 41 L Lactate 5.3 H* FiO2 21.0 Potassium Carbon Dioxide Anion Gap BUN Creatinine Est GFR ( Amer) Est GFR (Non-Af Amer) POC Glucose (mg/dL) 46 L 44 L Random Glucose Calcium Phosphorus Magnesium Total Bilirubin AST ALT Alkaline Phosphatase Lactate Dehydrogenase Total Creatine Kinase CK-MB (CK-2) CK-MB (CK-2) % Troponin I Total Protein Albumin Globulin Albumin/Globulin Ratio Arterial Blood Potassium Venous Blood Potassium 3.1 L Stool Occult Blood 11/16/17 11/16/17 11/16/17 12:15 13:00 13:10 WBC RBC Hgb Hct MCV MCH MCHC RDW Plt Count MPV Gran % Lymph % (Auto) [place] % (Auto) Eos % (Auto) Baso % (Auto) Gran # Lymph # (Auto) [place] # (Auto) Eos # (Auto) Baso # (Auto) Neutrophils % (Manual) Band Neutrophils % Lymphocytes % (Manual) Monocytes % (Manual) Metamyelocytes % Myelocytes % Platelet Evaluation PT INR APTT pCO2 pO2 HCO3 ABG pH ABG Total CO2 ABG O2 Saturation ABG O2 Content ABG Base Excess ABG Hemoglobin ABG Carboxyhemoglobin POC ABG HHb (Measured) ABG Methemoglobin ABG O2 Capacity ABG Potassium VBG pH VBG pCO2 VBG HCO3 VBG Total CO2 VBG O2 Sat (Calc) VBG Base Excess VBG Potassium Hgb O2 Saturation Sodium Chloride Glucose Lactate FiO2 Potassium Carbon Dioxide Anion Gap BUN Creatinine Est GFR ( Amer) Est GFR (Non-Af Amer) POC Glucose (mg/dL) 250 H 182 H 205 H Random Glucose Calcium Phosphorus Magnesium Total Bilirubin AST ALT Alkaline Phosphatase Lactate Dehydrogenase Total Creatine Kinase CK-MB (CK-2) CK-MB (CK-2) % Troponin I Total Protein Albumin Globulin Albumin/Globulin Ratio Arterial Blood Potassium Venous Blood Potassium Stool Occult Blood 11/16/17 11/16/17 11/16/17 15:00 15:12 16:11 WBC 15.5 H RBC 3.99 Hgb 11.4 L D Hct 34.6 L MCV 86.7 D MCH 28.6 MCHC 32.9 RDW 20.4 H Plt Count 79 L MPV 9.1 Gran % Lymph % (Auto) [place] % (Auto) Eos % (Auto) Baso % (Auto) Gran # Lymph # (Auto) [place] # (Auto) Eos # (Auto) Baso # (Auto) Neutrophils % (Manual) Band Neutrophils % Lymphocytes % (Manual) Monocytes % (Manual) Metamyelocytes % Myelocytes % Platelet Evaluation PT INR APTT pCO2 pO2 HCO3 ABG pH ABG Total CO2 ABG O2 Saturation ABG O2 Content ABG Base Excess ABG Hemoglobin ABG Carboxyhemoglobin POC ABG HHb (Measured) ABG Methemoglobin ABG O2 Capacity ABG Potassium VBG pH VBG pCO2 VBG HCO3 VBG Total CO2 VBG O2 Sat (Calc) VBG Base Excess VBG Potassium Hgb O2 Saturation Sodium Chloride Glucose Lactate FiO2 Potassium Carbon Dioxide Anion Gap BUN Creatinine Est GFR ( Amer) Est GFR (Non-Af Amer) POC Glucose (mg/dL) 167 H 133 H Random Glucose Calcium Phosphorus Magnesium Total Bilirubin AST ALT Alkaline Phosphatase Lactate Dehydrogenase Total Creatine Kinase CK-MB (CK-2) CK-MB (CK-2) % Troponin I Total Protein Albumin Globulin Albumin/Globulin Ratio Arterial Blood Potassium Venous Blood Potassium Stool Occult Blood 11/16/17 11/16/17 11/16/17 16:56 18:08 18:51 WBC RBC Hgb Hct MCV MCH MCHC RDW Plt Count MPV Gran % Lymph % (Auto) [place] % (Auto) Eos % (Auto) Baso % (Auto) Gran # Lymph # (Auto) [place] # (Auto) Eos # (Auto) Baso # (Auto) Neutrophils % (Manual) Band Neutrophils % Lymphocytes % (Manual) Monocytes % (Manual) Metamyelocytes % Myelocytes % Platelet Evaluation PT INR APTT pCO2 pO2 HCO3 ABG pH ABG Total CO2 ABG O2 Saturation ABG O2 Content ABG Base Excess ABG Hemoglobin ABG Carboxyhemoglobin POC ABG HHb (Measured) ABG Methemoglobin ABG O2 Capacity ABG Potassium VBG pH VBG pCO2 VBG HCO3 VBG Total CO2 VBG O2 Sat (Calc) VBG Base Excess VBG Potassium Hgb O2 Saturation Sodium Chloride Glucose Lactate FiO2 Potassium Carbon Dioxide Anion Gap BUN Creatinine Est GFR ( Amer) Est GFR (Non-Af Amer) POC Glucose (mg/dL) 119 H 80 Random Glucose Calcium Phosphorus Magnesium Total Bilirubin AST ALT Alkaline Phosphatase Lactate Dehydrogenase Total Creatine Kinase CK-MB (CK-2) CK-MB (CK-2) % Troponin I Total Protein Albumin Globulin Albumin/Globulin Ratio Arterial Blood Potassium Venous Blood Potassium Stool Occult Blood Positive H 11/16/17 11/16/17 11/16/17 19:15 20:10 20:19 WBC 18.6 H RBC 3.10 L Hgb 9.0 L D Hct 27.0 L MCV 87.1 MCH 29.0 MCHC 33.3 RDW 21.1 H Plt Count 58 L MPV 10.1 Gran % 84.6 H Lymph % (Auto) 14.0 L [place] % (Auto) 1.1 Eos % (Auto) 0.2 L Baso % (Auto) 0.1 Gran # 15.75 H Lymph # (Auto) 2.6 [place] # (Auto) 0.2 Eos # (Auto) 0.0 Baso # (Auto) 0.02 Neutrophils % (Manual) Band Neutrophils % Lymphocytes % (Manual) Monocytes % (Manual) Metamyelocytes % Myelocytes % Platelet Evaluation PT INR APTT pCO2 pO2 HCO3 ABG pH ABG Total CO2 ABG O2 Saturation ABG O2 Content ABG Base Excess ABG Hemoglobin ABG Carboxyhemoglobin POC ABG HHb (Measured) ABG Methemoglobin ABG O2 Capacity ABG Potassium VBG pH VBG pCO2 VBG HCO3 VBG Total CO2 VBG O2 Sat (Calc) VBG Base Excess VBG Potassium Hgb O2 Saturation Sodium Chloride Glucose Lactate FiO2 Potassium Carbon Dioxide Anion Gap BUN Creatinine Est GFR ( Amer) Est GFR (Non-Af Amer) POC Glucose (mg/dL) 58 L 47 L Random Glucose Calcium Phosphorus Magnesium Total Bilirubin AST ALT Alkaline Phosphatase Lactate Dehydrogenase Total Creatine Kinase CK-MB (CK-2) CK-MB (CK-2) % Troponin I Total Protein Albumin Globulin Albumin/Globulin Ratio Arterial Blood Potassium Venous Blood Potassium Stool Occult Blood 11/16/17 11/16/17 11/16/17 20:19 20:19 20:43 WBC RBC Hgb Hct MCV MCH MCHC RDW Plt Count MPV Gran % Lymph % (Auto) [place] % (Auto) Eos % (Auto) Baso % (Auto) Gran # Lymph # (Auto) [place] # (Auto) Eos # (Auto) Baso # (Auto) Neutrophils % (Manual) Band Neutrophils % Lymphocytes % (Manual) Monocytes % (Manual) Metamyelocytes % Myelocytes % Platelet Evaluation PT 16.5 H INR 1.44 H APTT 42.5 H pCO2 pO2 HCO3 ABG pH ABG Total CO2 ABG O2 Saturation ABG O2 Content ABG Base Excess ABG Hemoglobin ABG Carboxyhemoglobin POC ABG HHb (Measured) ABG Methemoglobin ABG O2 Capacity ABG Potassium VBG pH VBG pCO2 VBG HCO3 VBG Total CO2 VBG O2 Sat (Calc) VBG Base Excess VBG Potassium Hgb O2 Saturation Sodium 134 Chloride 102 Glucose Lactate FiO2 Potassium 3.2 L Carbon Dioxide 20 L Anion Gap 15 BUN 20 Creatinine 2.9 H Est GFR ( Amer) 19 Est GFR (Non-Af Amer) 16 POC Glucose (mg/dL) 166 H Random Glucose 262 H Calcium 6.6 L* Phosphorus 4.8 H Magnesium 1.9 Total Bilirubin 0.3 AST 314 H D ALT 372 H Alkaline Phosphatase 61 Lactate Dehydrogenase 2087 H Total Creatine Kinase 407 H CK-MB (CK-2) 15.8 H CK-MB (CK-2) % 3.9 H Troponin I 4.81 H* D Total Protein 3.4 L Albumin 1.7 L Globulin 1.8 Albumin/Globulin Ratio 1.0 L Arterial Blood Potassium Venous Blood Potassium Stool Occult Blood 11/16/17 11/16/17 11/16/17 20:50 22:00 23:10 WBC RBC Hgb Hct MCV MCH MCHC RDW Plt Count MPV Gran % Lymph % (Auto) [place] % (Auto) Eos % (Auto) Baso % (Auto) Gran # Lymph # (Auto) [place] # (Auto) Eos # (Auto) Baso # (Auto) Neutrophils % (Manual) Band Neutrophils % Lymphocytes % (Manual) Monocytes % (Manual) Metamyelocytes % Myelocytes % Platelet Evaluation PT INR APTT pCO2 47 H 47 H pO2 366.0 H 156.0 H HCO3 17.1 L 19.2 L ABG pH 7.17 L* 7.22 L ABG Total CO2 18.5 L 20.6 L ABG O2 Saturation 98.3 H 97.9 ABG O2 Content 14.8 L ABG Base Excess -11.3 L -8.3 L ABG Hemoglobin 10.8 L ABG Carboxyhemoglobin 0.5 POC ABG HHb (Measured) 2.1 ABG Methemoglobin 1.9 ABG O2 Capacity 15.1 L ABG Potassium 3.0 L VBG pH VBG pCO2 VBG HCO3 VBG Total CO2 VBG O2 Sat (Calc) VBG Base Excess VBG Potassium Hgb O2 Saturation 95.6 Sodium 137.0 Chloride 104.0 Glucose 193 H Lactate 8.3 H* FiO2 100.0 50.0 Potassium Carbon Dioxide Anion Gap BUN Creatinine Est GFR ( Amer) Est GFR (Non-Af Amer) POC Glucose (mg/dL) 152 H Random Glucose Calcium Phosphorus Magnesium Total Bilirubin AST ALT Alkaline Phosphatase Lactate Dehydrogenase Total Creatine Kinase CK-MB (CK-2) CK-MB (CK-2) % Troponin I Total Protein Albumin Globulin Albumin/Globulin Ratio Arterial Blood Potassium 3.0 L Venous Blood Potassium Stool Occult Blood 11/17/17 11/17/17 11/17/17 00:35 00:35 01:48 WBC 19.9 H RBC 4.30 Hgb 12.2 D Hct 36.7 MCV 85.3 MCH 28.4 MCHC 33.2 RDW 19.0 H Plt Count 51 L MPV 9.7 Gran % 91.4 H Lymph % (Auto) 6.3 L [place] % (Auto) 1.9 Eos % (Auto) 0.2 L Baso % (Auto) 0.2 Gran # 18.16 H Lymph # (Auto) 1.3 [place] # (Auto) 0.4 Eos # (Auto) 0.0 Baso # (Auto) 0.04 Neutrophils % (Manual) 50 Band Neutrophils % 31 H* Lymphocytes % (Manual) 9 L Monocytes % (Manual) 0 L Metamyelocytes % 7 Myelocytes % 3 Platelet Evaluation Low PT INR APTT pCO2 pO2 38 HCO3 ABG pH ABG Total CO2 ABG O2 Saturation ABG O2 Content ABG Base Excess ABG Hemoglobin ABG Carboxyhemoglobin POC ABG HHb (Measured) ABG Methemoglobin ABG O2 Capacity ABG Potassium VBG pH 7.24 L VBG pCO2 60.0 VBG HCO3 25.7 VBG Total CO2 27.5 VBG O2 Sat (Calc) 77.4 H VBG Base Excess -2.8 L VBG Potassium 3.9 Hgb O2 Saturation Sodium 136.0 Chloride 103.0 Glucose 175 H Lactate 4.1 H* FiO2 21.0 Potassium Carbon Dioxide Anion Gap BUN Creatinine Est GFR ( Amer) Est GFR (Non-Af Amer) POC Glucose (mg/dL) 162 H Random Glucose Calcium Phosphorus Magnesium Total Bilirubin AST ALT Alkaline Phosphatase Lactate Dehydrogenase Total Creatine Kinase CK-MB (CK-2) CK-MB (CK-2) % Troponin I Total Protein Albumin Globulin Albumin/Globulin Ratio Arterial Blood Potassium Venous Blood Potassium 3.9 Stool Occult Blood 11/17/17 11/17/17 11/17/17 03:55 05:49 06:00 WBC 17.8 H RBC 3.69 Hgb 10.5 L Hct 31.2 L MCV 84.6 MCH 28.5 MCHC 33.7 RDW 19.3 H Plt Count 61 L MPV 10.9 Gran % 93.1 H Lymph % (Auto) 4.7 L [place] % (Auto) 2.1 Eos % (Auto) 0.0 L Baso % (Auto) 0.1 Gran # 16.54 H Lymph # (Auto) 0.8 L [place] # (Auto) 0.4 Eos # (Auto) 0.0 Baso # (Auto) 0.02 Neutrophils % (Manual) Band Neutrophils % Lymphocytes % (Manual) Monocytes % (Manual) Metamyelocytes % Myelocytes % Platelet Evaluation PT INR APTT pCO2 pO2 HCO3 ABG pH ABG Total CO2 ABG O2 Saturation ABG O2 Content ABG Base Excess ABG Hemoglobin ABG Carboxyhemoglobin POC ABG HHb (Measured) ABG Methemoglobin ABG O2 Capacity ABG Potassium VBG pH VBG pCO2 VBG HCO3 VBG Total CO2 VBG O2 Sat (Calc) VBG Base Excess VBG Potassium Hgb O2 Saturation Sodium Chloride Glucose Lactate FiO2 Potassium Carbon Dioxide Anion Gap BUN Creatinine Est GFR ( Amer) Est GFR (Non-Af Amer) POC Glucose (mg/dL) 163 H 167 H Random Glucose Calcium Phosphorus Magnesium Total Bilirubin AST ALT Alkaline Phosphatase Lactate Dehydrogenase Total Creatine Kinase CK-MB (CK-2) CK-MB (CK-2) % Troponin I Total Protein Albumin Globulin Albumin/Globulin Ratio Arterial Blood Potassium Venous Blood Potassium Stool Occult Blood 11/17/17 11/17/17 11/17/17 06:00 06:00 06:00 WBC RBC Hgb Hct MCV MCH MCHC RDW Plt Count MPV Gran % Lymph % (Auto) [place] % (Auto) Eos % (Auto) Baso % (Auto) Gran # Lymph # (Auto) [place] # (Auto) Eos # (Auto) Baso # (Auto) Neutrophils % (Manual) Band Neutrophils % Lymphocytes % (Manual) Monocytes % (Manual) Metamyelocytes % Myelocytes % Platelet Evaluation PT 14.6 H INR 1.26 H APTT 32.4 pCO2 44 pO2 102.0 H HCO3 23.2 ABG pH 7.33 L ABG Total CO2 24.6 ABG O2 Saturation 97.9 ABG O2 Content ABG Base Excess -2.8 L ABG Hemoglobin ABG Carboxyhemoglobin POC ABG HHb (Measured) ABG Methemoglobin ABG O2 Capacity ABG Potassium 3.7 VBG pH VBG pCO2 VBG HCO3 VBG Total CO2 VBG O2 Sat (Calc) VBG Base Excess VBG Potassium Hgb O2 Saturation Sodium 137 137.0 Chloride 100 105.0 Glucose 180 H Lactate 3.5 H FiO2 50.0 Potassium 4.1 Carbon Dioxide 25 Anion Gap 16 BUN 30 H Creatinine 4.4 H Est GFR ( Amer) 12 Est GFR (Non-Af Amer) 10 POC Glucose (mg/dL) Random Glucose 188 H Calcium 7.3 L Phosphorus Magnesium Total Bilirubin 0.5 AST 1118 H ALT 849 H Alkaline Phosphatase 64 Lactate Dehydrogenase 3559 H Total Creatine Kinase 1176 H CK-MB (CK-2) 53.5 H CK-MB (CK-2) % 4.5 H Troponin I 12.00 H* D Total Protein 4.9 L Albumin 2.6 L Globulin 2.3 Albumin/Globulin Ratio 1.1 Arterial Blood Potassium 3.7 Venous Blood Potassium Stool Occult Blood 11/17/17 08:05 WBC RBC Hgb Hct MCV MCH MCHC RDW Plt Count MPV Gran % Lymph % (Auto) [place] % (Auto) Eos % (Auto) Baso % (Auto) Gran # Lymph # (Auto) [place] # (Auto) Eos # (Auto) Baso # (Auto) Neutrophils % (Manual) Band Neutrophils % Lymphocytes % (Manual) Monocytes % (Manual) Metamyelocytes % Myelocytes % Platelet Evaluation PT INR APTT pCO2 pO2 HCO3 ABG pH ABG Total CO2 ABG O2 Saturation ABG O2 Content ABG Base Excess ABG Hemoglobin ABG Carboxyhemoglobin POC ABG HHb (Measured) ABG Methemoglobin ABG O2 Capacity ABG Potassium VBG pH VBG pCO2 VBG HCO3 VBG Total CO2 VBG O2 Sat (Calc) VBG Base Excess VBG Potassium Hgb O2 Saturation Sodium Chloride Glucose Lactate FiO2 Potassium Carbon Dioxide Anion Gap BUN Creatinine Est GFR ( Amer) Est GFR (Non-Af Amer) POC Glucose (mg/dL) 191 H Random Glucose Calcium Phosphorus Magnesium Total Bilirubin AST ALT Alkaline Phosphatase Lactate Dehydrogenase Total Creatine Kinase CK-MB (CK-2) CK-MB (CK-2) % Troponin I Total Protein Albumin Globulin Albumin/Globulin Ratio Arterial Blood Potassium Venous Blood Potassium Stool Occult Blood Fingerstick Blood Sugar Results: 167 Review of Systems - Review of Systems Systems not reviewed;Unavailable: Intubated Critical Care Progress Note - Nutrition Nutrition: Nutrition Category Date Time Status NPO Diet [DIET] Diets 11/16/17 Breakfast Ordered Assessment/Plan - Assessment and Plan (Free Text) Assessment: This is a 67yo female with past medical history of ESRD on HD (MWF), DM, CVA, HTN, asthma who is admitted to ICU for hemorrhagic shock secondary to bleeding AV fistula. s/p 4 unit PRBC. S/p cardiac arrest yesterday (ROSC achieved after 4 min of CPR and 2 rounds of epi), currently intubated and not sedated. Patient currently off of Levophed, phenylephrine, and vasopressin. Neuro: - Lethargic - Neuro check - Maintain normothermia CV: - Currently hemodynamically stable - Currently off of Levophed, phenylephrine, and vasopressin - Maintain MAP>65 - Echo ordered - Started on solucortef 50mg Q6 Pulm: - Currently Intubated on PRVC - Maintain SPO2 >92 - Pulmonary toilet - Protective lung ventilation strategy GI: - NPO - Protonix ggt - Gi consulted for recs - s/p 4 unit PRBC - Surg consulted for recs - f/u bleeding scan pending report - CT abd showed small bowel ileus vs enteritis; fluid filled rectum / gi bleed - serial CBC Heme: - s/p 1 unit platelets and currently receiving second unit - S/p 4U PRBC - Hold anticoagulants - Surgery consulted for bleeding fistula Nephro: - ESRD on HD M, W,F - Nephrology, Dr. Felton consulted - Maintain euvolemia - Will replete electrolytes as needed ID: - Leukocytosis, afebrile - Cont deirdre - F/u ID recs - Septic work up pending - procal ordered Endo: - ISS - Maintain euglycemia 140-180s Case and plan was reviewed and discussed in detail with Dr Zuñiga. <Iglesia Zuñiag - Last Filed: 11/17/17 13:29> CCU Objective - Vital Signs / Intake & Output Vital Signs (Last 4 hours): Vital Signs Temp Pulse BP Pulse Ox 11/17/17 10:37 100.8 F H 11/17/17 10:30 100.4 F H 89 113/68 99 11/17/17 10:15 100.4 F H 90 151/56 H 100 11/17/17 10:00 100.4 F H 91 H 124/53 L 99 11/17/17 09:45 100.6 F H 92 H 132/69 100 11/17/17 09:30 100.6 F H 84 130/66 99 Intake and Output (Last 8hrs): Intake & Output 11/16/17 11/17/17 11/17/17 22:59 06:59 14:59 Intake Total 3320 4043.7 314 Output Total 500 0 Balance 2820 4043.7 314 Weight 182 lb 9 oz 182 lb 9 oz Intake: IV 2020 2682.7 314 D10 600 Right Femoral 750 Right Hand 200 Right Wrist 500 levophed 750 clementina 600 protonix 200 Blood Product 1300 1361 0 Apheresis Plts Acda Lr 0 Irr Unit [id number] Output: Urine 0 Urine, Voided 0 Stool 500 Other: # Bowel Movements 5 1 - Medications Active Medications: Active Medications Generic Name Dose Route Start Last Admin Trade Name Freq PRN Reason Stop Dose Admin Hydrocortisone Sodium Succinate 50 mg 11/17/17 12:00 11/17/17 11:30 Solu-Cortef IVP 50 mg Q6 WILIAN Administration NOREPINEPHRINE BIT/0.9 % NACL 4 mg in 250 mls @ 15 mls/hr 11/16/17 06:13 09:46 Levophed 4 Mg/ 250 Ml Ns Premixed IV 0 mcg/min .[id number] PRN 0 mls/hr TITRATE PER MD ORDER Titration Protocol 4 MCG/MIN Phenylephrine HCl 40 mg/ 254 mls @ 38.1 mls/hr 11/16/17 09:49 11/17/17 08:30 Sodium Chloride IV 0 mcg/min .[id number] PRN 0 mls/hr TITRATE PER MD ORDER Titration Protocol 100 MCG/MIN Vasopressin 20 units/ Sodium 101 mls @ 9.09 mls/hr 11/16/17 10:00 11/16/17 21 :15 Chloride IV 9.09 mls/hr .[id number] WILIAN Administration Protocol 0.03 U/MIN Meropenem 500 mg/ Sodium 50 mls @ 100 mls/hr 11/17/17 14:00 Chloride IVPB 11/23/17 14:01 1400 WILIAN Protocol Propofol 1,000 mg in 100 mls @ 2.299 mls/hr 11/16/17 20:24 Diprivan IV .Q24H PRN TITRATE PER MD ORDER Protocol 5 MCG/KG/MIN Pantoprazole Sodium 40 mg in 100 mls @ 20 mls/hr 11/16/17 20:30 11/17/17 11: 32 Protonix 40mg Ivpb IVPB 20 mls/hr .Q5H WILIAN Administration Dextrose/Sodium Chloride 1,000 mls @ 75 mls/hr 11/17/17 08:45 11/17/17 08:44 Dextrose 5%/0.9% Ns 1000 Ml IV 75 mls/hr .[id number] WILIAN Administration Insulin Human Regular 0 units 11/16/17 07:00 11/16/17 13:00 Humulin R Low SC Not Given Q6H WILIAN Protocol - Patient Studies Lab Studies: Microbiology Studies 11/16/17 09:10 MRSA Culture (Admit) - Final Nose MRSA NOT DETECTED 11/16/17 09:30 Blood Culture - Preliminary Blood NO GROWTH AFTER 24 HOURS Lab Studies 11/17/17 11/17/17 11/17/17 Range/Units 13:10 12:30 12:30 WBC 13.1 H (4.5-11.0) 10^3/ul RBC 3.37 L (3.5-6.1) 10^6/uL Hgb 9.7 L (12.0-16.0) g/dL Hct 28.6 L (36.0-48.0) % MCV 84.9 (80.0-105.0) fl MCH 28.8 (25.0-35.0) pg MCHC 33.9 (31.0-37.0) g/dl RDW 19.3 H (11.5-14.5) % Plt Count 82 L (120.0-450.0) 10^3/uL MPV 8.6 (7.0-11.0) fl Gran % 96.1 H (50.0-68.0) % Lymph % (Auto) 3.1 L (22.0-35.0) % [place] % (Auto) 0.8 L (1.0-6.0) % Eos % (Auto) 0.0 L (1.5-5.0) % Baso % (Auto) 0.0 (0.0-3.0) % Gran # 12.60 H (1.4-6.5) Lymph # (Auto) 0.4 L (1.2-3.4) [place] # (Auto) 0.1 (0.1-0.6) Eos # (Auto) 0.0 (0.0-0.7) Baso # (Auto) 0.00 (0.0-2.0) K/mm3 Neutrophils % (Manual) (50.0-70.0) % Band Neutrophils % (0-2) % Lymphocytes % (Manual) (22.0-35.0) % Monocytes % (Manual) (1.0-6.0) % Metamyelocytes % % Myelocytes % % Platelet Evaluation (NORMAL) PT (9.4-12.5) SECONDS INR (0.93-1.08) APTT (25.1-36.5) Seconds pCO2 (35-45) mm/Hg pO2 35 (80-100) mm/Hg HCO3 (21-28) mmol/L ABG pH (7.35-7.45) ABG Total CO2 (22-28) mmol.L ABG O2 Saturation (95-98) % ABG O2 Content (15-23) ML/dl ABG Base Excess (-2.0-3.0) mmol/L ABG Hemoglobin (11.7-17.4) g/dL ABG Carboxyhemoglobin (0.5-1.5) % POC ABG HHb (Measured) (0-5) % ABG Methemoglobin (0.0-3.0) % ABG O2 Capacity (16-24) mL/dl ABG Potassium (3.6-5.2) mmol/L VBG pH 7.33 (7.32-7.43) VBG pCO2 54.0 (40-60) VBG HCO3 28.5 H (21-28) mmol/l VBG Total CO2 30.2 H (22-28) mmol.L VBG O2 Sat (Calc) 76.1 H (40-65) % VBG Base Excess 1.5 (0.0-2.0) mmol/L VBG Potassium 4.4 (3.6-5.2) mmol/L Hgb O2 Saturation (95.0-98.0) % Glucose 163 H (65-105) mg/dl Lactate 2.9 H (0.7-2.1) mmol/L FiO2 21.0 % Sodium 136.0 (132-148) mmol/L Potassium (3.6-5.0) mmol/L Chloride 103.0 (98-107) mmol/L Carbon Dioxide (21-33) mmol/L Anion Gap (10-20) BUN (7-21) mg/dL Creatinine (0.7-1.2) mg/dl Est GFR ( Amer) Est GFR (Non-Af Amer) POC Glucose (mg/dL) 154 H (65-110) mg/dL Random Glucose (70-110) mg/dL Calcium (8.4-10.5) mg/dL Phosphorus (2.5-4.5) mg/dL Magnesium (1.7-2.2) mg/dL Total Bilirubin (0.2-1.3) mg/dL AST (14-36) U/L ALT (7-56) U/L Alkaline Phosphatase (38-126) U/L Lactate Dehydrogenase (333-699) U/L Total Creatine Kinase (35-230) U/L CK-MB (CK-2) (0.0-3.6) ng/mL CK-MB (CK-2) % (2.5-3.0) % Troponin I ng/mL Total Protein (5.8-8.3) g/dL Albumin (3.0-4.8) g/dL Globulin gm/dL Albumin/Globulin Ratio (1.1-1.8) Arterial Blood Potassium (3.6-5.2) mmol/L Venous Blood Potassium 4.4 (3.6-5.2) mmol/L Stool Occult Blood (NEGATIVE) 11/17/17 11/17/17 11/17/17 Range/Units 12:17 10:54 09:52 WBC (4.5-11.0) 10^3/ul RBC (3.5-6.1) 10^6/uL Hgb (12.0-16.0) g/dL Hct (36.0-48.0) % MCV (80.0-105.0) fl MCH (25.0-35.0) pg MCHC (31.0-37.0) g/dl RDW (11.5-14.5) % Plt Count (120.0-450.0) 10^3/uL MPV (7.0-11.0) fl Gran % (50.0-68.0) % Lymph % (Auto) (22.0-35.0) % [place] % (Auto) (1.0-6.0) % Eos % (Auto) (1.5-5.0) % Baso % (Auto) (0.0-3.0) % Gran # (1.4-6.5) Lymph # (Auto) (1.2-3.4) [place] # (Auto) (0.1-0.6) Eos # (Auto) (0.0-0.7) Baso # (Auto) (0.0-2.0) K/mm3 Neutrophils % (Manual) (50.0-70.0) % Band Neutrophils % (0-2) % Lymphocytes % (Manual) (22.0-35.0) % Monocytes % (Manual) (1.0-6.0) % Metamyelocytes % % Myelocytes % % Platelet Evaluation (NORMAL) PT (9.4-12.5) SECONDS INR (0.93-1.08) APTT (25.1-36.5) Seconds pCO2 (35-45) mm/Hg pO2 (80-100) mm/Hg HCO3 (21-28) mmol/L ABG pH (7.35-7.45) ABG Total CO2 (22-28) mmol.L ABG O2 Saturation (95-98) % ABG O2 Content (15-23) ML/dl ABG Base Excess (-2.0-3.0) mmol/L ABG Hemoglobin (11.7-17.4) g/dL ABG Carboxyhemoglobin (0.5-1.5) % POC ABG HHb (Measured) (0-5) % ABG Methemoglobin (0.0-3.0) % ABG O2 Capacity (16-24) mL/dl ABG Potassium (3.6-5.2) mmol/L VBG pH (7.32-7.43) VBG pCO2 (40-60) VBG HCO3 (21-28) mmol/l VBG Total CO2 (22-28) mmol.L VBG O2 Sat (Calc) (40-65) % VBG Base Excess (0.0-2.0) mmol/L VBG Potassium (3.6-5.2) mmol/L Hgb O2 Saturation (95.0-98.0) % Glucose (65-105) mg/dl Lactate (0.7-2.1) mmol/L FiO2 % Sodium (132-148) mmol/L Potassium (3.6-5.0) mmol/L Chloride (98-107) mmol/L Carbon Dioxide (21-33) mmol/L Anion Gap (10-20) BUN (7-21) mg/dL Creatinine (0.7-1.2) mg/dl Est GFR ( Amer) Est GFR (Non-Af Amer) POC Glucose (mg/dL) 148 H 174 H 169 H (65-110) mg/dL Random Glucose (70-110) mg/dL Calcium (8.4-10.5) mg/dL Phosphorus (2.5-4.5) mg/dL Magnesium (1.7-2.2) mg/dL Total Bilirubin (0.2-1.3) mg/dL AST (14-36) U/L ALT (7-56) U/L Alkaline Phosphatase (38-126) U/L Lactate Dehydrogenase (333-699) U/L Total Creatine Kinase (35-230) U/L CK-MB (CK-2) (0.0-3.6) ng/mL CK-MB (CK-2) % (2.5-3.0) % Troponin I ng/mL Total Protein (5.8-8.3) g/dL Albumin (3.0-4.8) g/dL Globulin gm/dL Albumin/Globulin Ratio (1.1-1.8) Arterial Blood Potassium (3.6-5.2) mmol/L Venous Blood Potassium (3.6-5.2) mmol/L Stool Occult Blood (NEGATIVE) 11/17/17 11/17/17 11/17/17 Range/Units 09:30 09:29 08:05 WBC 14.3 H (4.5-11.0) 10^3/ul RBC 3.56 (3.5-6.1) 10^6/uL Hgb 10.2 L (12.0-16.0) g/dL Hct 30.1 L (36.0-48.0) % MCV 84.6 (80.0-105.0) fl MCH 28.7 (25.0-35.0) pg MCHC 33.9 (31.0-37.0) g/dl RDW 19.3 H (11.5-14.5) % Plt Count 84 L (120.0-450.0) 10^3/uL MPV 9.3 (7.0-11.0) fl Gran % 94.3 H (50.0-68.0) % Lymph % (Auto) 2.8 L (22.0-35.0) % [place] % (Auto) 2.8 (1.0-6.0) % Eos % (Auto) 0.0 L (1.5-5.0) % Baso % (Auto) 0.1 (0.0-3.0) % Gran # 13.47 H (1.4-6.5) Lymph # (Auto) 0.4 L (1.2-3.4) [place] # (Auto) 0.4 (0.1-0.6) Eos # (Auto) 0.0 (0.0-0.7) Baso # (Auto) 0.01 (0.0-2.0) K/mm3 Neutrophils % (Manual) (50.0-70.0) % Band Neutrophils % (0-2) % Lymphocytes % (Manual) (22.0-35.0) % Monocytes % (Manual) (1.0-6.0) % Metamyelocytes % % Myelocytes % % Platelet Evaluation (NORMAL) PT (9.4-12.5) SECONDS INR (0.93-1.08) APTT (25.1-36.5) Seconds pCO2 (35-45) mm/Hg pO2 (80-100) mm/Hg HCO3 (21-28) mmol/L ABG pH (7.35-7.45) ABG Total CO2 (22-28) mmol.L ABG O2 Saturation (95-98) % ABG O2 Content (15-23) ML/dl ABG Base Excess (-2.0-3.0) mmol/L ABG Hemoglobin (11.7-17.4) g/dL ABG Carboxyhemoglobin (0.5-1.5) % POC ABG HHb (Measured) (0-5) % ABG Methemoglobin (0.0-3.0) % ABG O2 Capacity (16-24) mL/dl ABG Potassium (3.6-5.2) mmol/L VBG pH (7.32-7.43) VBG pCO2 (40-60) VBG HCO3 (21-28) mmol/l VBG Total CO2 (22-28) mmol.L VBG O2 Sat (Calc) (40-65) % VBG Base Excess (0.0-2.0) mmol/L VBG Potassium (3.6-5.2) mmol/L Hgb O2 Saturation (95.0-98.0) % Glucose (65-105) mg/dl Lactate (0.7-2.1) mmol/L FiO2 % Sodium (132-148) mmol/L Potassium (3.6-5.0) mmol/L Chloride (98-107) mmol/L Carbon Dioxide (21-33) mmol/L Anion Gap (10-20) BUN (7-21) mg/dL Creatinine (0.7-1.2) mg/dl Est GFR ( Amer) Est GFR (Non-Af Amer) POC Glucose (mg/dL) 196 H 191 H (65-110) mg/dL Random Glucose (70-110) mg/dL Calcium (8.4-10.5) mg/dL Phosphorus (2.5-4.5) mg/dL Magnesium (1.7-2.2) mg/dL Total Bilirubin (0.2-1.3) mg/dL AST (14-36) U/L ALT (7-56) U/L Alkaline Phosphatase (38-126) U/L Lactate Dehydrogenase (333-699) U/L Total Creatine Kinase (35-230) U/L CK-MB (CK-2) (0.0-3.6) ng/mL CK-MB (CK-2) % (2.5-3.0) % Troponin I ng/mL Total Protein (5.8-8.3) g/dL Albumin (3.0-4.8) g/dL Globulin gm/dL Albumin/Globulin Ratio (1.1-1.8) Arterial Blood Potassium (3.6-5.2) mmol/L Venous Blood Potassium (3.6-5.2) mmol/L Stool Occult Blood (NEGATIVE) 11/17/17 11/17/17 11/17/17 Range/Units 06:00 06:00 06:00 WBC (4.5-11.0) 10^3/ul RBC (3.5-6.1) 10^6/uL Hgb (12.0-16.0) g/dL Hct (36.0-48.0) % MCV (80.0-105.0) fl MCH (25.0-35.0) pg MCHC (31.0-37.0) g/dl RDW (11.5-14.5) % Plt Count (120.0-450.0) 10^3/uL MPV (7.0-11.0) fl Gran % (50.0-68.0) % Lymph % (Auto) (22.0-35.0) % [place] % (Auto) (1.0-6.0) % Eos % (Auto) (1.5-5.0) % Baso % (Auto) (0.0-3.0) % Gran # (1.4-6.5) Lymph # (Auto) (1.2-3.4) [place] # (Auto) (0.1-0.6) Eos # (Auto) (0.0-0.7) Baso # (Auto) (0.0-2.0) K/mm3 Neutrophils % (Manual) (50.0-70.0) % Band Neutrophils % (0-2) % Lymphocytes % (Manual) (22.0-35.0) % Monocytes % (Manual) (1.0-6.0) % Metamyelocytes % % Myelocytes % % Platelet Evaluation (NORMAL) PT 14.6 H (9.4-12.5) SECONDS INR 1.26 H (0.93-1.08) APTT 32.4 (25.1-36.5) Seconds pCO2 44 (35-45) mm/Hg pO2 102.0 H (80-100) mm/Hg HCO3 23.2 (21-28) mmol/L ABG pH 7.33 L (7.35-7.45) ABG Total CO2 24.6 (22-28) mmol.L ABG O2 Saturation 97.9 (95-98) % ABG O2 Content (15-23) ML/dl ABG Base Excess -2.8 L (-2.0-3.0) mmol/L ABG Hemoglobin (11.7-17.4) g/dL ABG Carboxyhemoglobin (0.5-1.5) % POC ABG HHb (Measured) (0-5) % ABG Methemoglobin (0.0-3.0) % ABG O2 Capacity (16-24) mL/dl ABG Potassium 3.7 (3.6-5.2) mmol/L VBG pH (7.32-7.43) VBG pCO2 (40-60) VBG HCO3 (21-28) mmol/l VBG Total CO2 (22-28) mmol.L VBG O2 Sat (Calc) (40-65) % VBG Base Excess (0.0-2.0) mmol/L VBG Potassium (3.6-5.2) mmol/L Hgb O2 Saturation (95.0-98.0) % Glucose 180 H (65-105) mg/dl Lactate 3.5 H (0.7-2.1) mmol/L FiO2 50.0 % Sodium 137.0 137 (132-148) mmol/L Potassium 4.1 (3.6-5.0) mmol/L Chloride 105.0 100 (98-107) mmol/L Carbon Dioxide 25 (21-33) mmol/L Anion Gap 16 (10-20) BUN 30 H (7-21) mg/dL Creatinine 4.4 H (0.7-1.2) mg/dl Est GFR ( Amer) 12 Est GFR (Non-Af Amer) 10 POC Glucose (mg/dL) (65-110) mg/dL Random Glucose 188 H (70-110) mg/dL Calcium 7.3 L (8.4-10.5) mg/dL Phosphorus (2.5-4.5) mg/dL Magnesium (1.7-2.2) mg/dL Total Bilirubin 0.5 (0.2-1.3) mg/dL AST 1118 H (14-36) U/L ALT 849 H (7-56) U/L Alkaline Phosphatase 64 (38-126) U/L Lactate Dehydrogenase 3559 H (333-699) U/L Total Creatine Kinase 1176 H (35-230) U/L CK-MB (CK-2) 53.5 H (0.0-3.6) ng/mL CK-MB (CK-2) % 4.5 H (2.5-3.0) % Troponin I 12.00 H* D ng/mL Total Protein 4.9 L (5.8-8.3) g/dL Albumin 2.6 L (3.0-4.8) g/dL Globulin 2.3 gm/dL Albumin/Globulin Ratio 1.1 (1.1-1.8) Arterial Blood Potassium 3.7 (3.6-5.2) mmol/L Venous Blood Potassium (3.6-5.2) mmol/L Stool Occult Blood (NEGATIVE) 11/17/17 11/17/17 11/17/17 Range/Units 06:00 05:49 03:55 WBC 17.8 H (4.5-11.0) 10^3/ul RBC 3.69 (3.5-6.1) 10^6/uL Hgb 10.5 L (12.0-16.0) g/dL Hct 31.2 L (36.0-48.0) % MCV 84.6 (80.0-105.0) fl MCH 28.5 (25.0-35.0) pg MCHC 33.7 (31.0-37.0) g/dl RDW 19.3 H (11.5-14.5) % Plt Count 61 L (120.0-450.0) 10^3/uL MPV 10.9 (7.0-11.0) fl Gran % 93.1 H (50.0-68.0) % Lymph % (Auto) 4.7 L (22.0-35.0) % [place] % (Auto) 2.1 (1.0-6.0) % Eos % (Auto) 0.0 L (1.5-5.0) % Baso % (Auto) 0.1 (0.0-3.0) % Gran # 16.54 H (1.4-6.5) Lymph # (Auto) 0.8 L (1.2-3.4) [place] # (Auto) 0.4 (0.1-0.6) Eos # (Auto) 0.0 (0.0-0.7) Baso # (Auto) 0.02 (0.0-2.0) K/mm3 Neutrophils % (Manual) (50.0-70.0) % Band Neutrophils % (0-2) % Lymphocytes % (Manual) (22.0-35.0) % Monocytes % (Manual) (1.0-6.0) % Metamyelocytes % % Myelocytes % % Platelet Evaluation (NORMAL) PT (9.4-12.5) SECONDS INR (0.93-1.08) APTT (25.1-36.5) Seconds pCO2 (35-45) mm/Hg pO2 (80-100) mm/Hg HCO3 (21-28) mmol/L ABG pH (7.35-7.45) ABG Total CO2 (22-28) mmol.L ABG O2 Saturation (95-98) % ABG O2 Content (15-23) ML/dl ABG Base Excess (-2.0-3.0) mmol/L ABG Hemoglobin (11.7-17.4) g/dL ABG Carboxyhemoglobin (0.5-1.5) % POC ABG HHb (Measured) (0-5) % ABG Methemoglobin (0.0-3.0) % ABG O2 Capacity (16-24) mL/dl ABG Potassium (3.6-5.2) mmol/L VBG pH (7.32-7.43) VBG pCO2 (40-60) VBG HCO3 (21-28) mmol/l VBG Total CO2 (22-28) mmol.L VBG O2 Sat (Calc) (40-65) % VBG Base Excess (0.0-2.0) mmol/L VBG Potassium (3.6-5.2) mmol/L Hgb O2 Saturation (95.0-98.0) % Glucose (65-105) mg/dl Lactate (0.7-2.1) mmol/L FiO2 % Sodium (132-148) mmol/L Potassium (3.6-5.0) mmol/L Chloride (98-107) mmol/L Carbon Dioxide (21-33) mmol/L Anion Gap (10-20) BUN (7-21) mg/dL Creatinine (0.7-1.2) mg/dl Est GFR ( Amer) Est GFR (Non-Af Amer) POC Glucose (mg/dL) 167 H 163 H (65-110) mg/dL Random Glucose (70-110) mg/dL Calcium (8.4-10.5) mg/dL Phosphorus (2.5-4.5) mg/dL Magnesium (1.7-2.2) mg/dL Total Bilirubin (0.2-1.3) mg/dL AST (14-36) U/L ALT (7-56) U/L Alkaline Phosphatase (38-126) U/L Lactate Dehydrogenase (333-699) U/L Total Creatine Kinase (35-230) U/L CK-MB (CK-2) (0.0-3.6) ng/mL CK-MB (CK-2) % (2.5-3.0) % Troponin I ng/mL Total Protein (5.8-8.3) g/dL Albumin (3.0-4.8) g/dL Globulin gm/dL Albumin/Globulin Ratio (1.1-1.8) Arterial Blood Potassium (3.6-5.2) mmol/L Venous Blood Potassium (3.6-5.2) mmol/L Stool Occult Blood (NEGATIVE) 11/17/17 11/17/17 11/17/17 Range/Units 01:48 00:35 00:35 WBC 19.9 H (4.5-11.0) 10^3/ul RBC 4.30 (3.5-6.1) 10^6/uL Hgb 12.2 D (12.0-16.0) g/dL Hct 36.7 (36.0-48.0) % MCV 85.3 (80.0-105.0) fl MCH 28.4 (25.0-35.0) pg MCHC 33.2 (31.0-37.0) g/dl RDW 19.0 H (11.5-14.5) % Plt Count 51 L (120.0-450.0) 10^3/uL MPV 9.7 (7.0-11.0) fl Gran % 91.4 H (50.0-68.0) % Lymph % (Auto) 6.3 L (22.0-35.0) % [place] % (Auto) 1.9 (1.0-6.0) % Eos % (Auto) 0.2 L (1.5-5.0) % Baso % (Auto) 0.2 (0.0-3.0) % Gran # 18.16 H (1.4-6.5) Lymph # (Auto) 1.3 (1.2-3.4) [place] # (Auto) 0.4 (0.1-0.6) Eos # (Auto) 0.0 (0.0-0.7) Baso # (Auto) 0.04 (0.0-2.0) K/mm3 Neutrophils % (Manual) 50 (50.0-70.0) % Band Neutrophils % 31 H* (0-2) % Lymphocytes % (Manual) 9 L (22.0-35.0) % Monocytes % (Manual) 0 L (1.0-6.0) % Metamyelocytes % 7 % Myelocytes % 3 % Platelet Evaluation Low (NORMAL) PT (9.4-12.5) SECONDS INR (0.93-1.08) APTT (25.1-36.5) Seconds pCO2 (35-45) mm/Hg pO2 38 (80-100) mm/Hg HCO3 (21-28) mmol/L ABG pH (7.35-7.45) ABG Total CO2 (22-28) mmol.L ABG O2 Saturation (95-98) % ABG O2 Content (15-23) ML/dl ABG Base Excess (-2.0-3.0) mmol/L ABG Hemoglobin (11.7-17.4) g/dL ABG Carboxyhemoglobin (0.5-1.5) % POC ABG HHb (Measured) (0-5) % ABG Methemoglobin (0.0-3.0) % ABG O2 Capacity (16-24) mL/dl ABG Potassium (3.6-5.2) mmol/L VBG pH 7.24 L (7.32-7.43) VBG pCO2 60.0 (40-60) VBG HCO3 25.7 (21-28) mmol/l VBG Total CO2 27.5 (22-28) mmol.L VBG O2 Sat (Calc) 77.4 H (40-65) % VBG Base Excess -2.8 L (0.0-2.0) mmol/L VBG Potassium 3.9 (3.6-5.2) mmol/L Hgb O2 Saturation (95.0-98.0) % Glucose 175 H (65-105) mg/dl Lactate 4.1 H* (0.7-2.1) mmol/L FiO2 21.0 % Sodium 136.0 (132-148) mmol/L Potassium (3.6-5.0) mmol/L Chloride 103.0 (98-107) mmol/L Carbon Dioxide (21-33) mmol/L Anion Gap (10-20) BUN (7-21) mg/dL Creatinine (0.7-1.2) mg/dl Est GFR ( Amer) Est GFR (Non-Af Amer) POC Glucose (mg/dL) 162 H (65-110) mg/dL Random Glucose (70-110) mg/dL Calcium (8.4-10.5) mg/dL Phosphorus (2.5-4.5) mg/dL Magnesium (1.7-2.2) mg/dL Total Bilirubin (0.2-1.3) mg/dL AST (14-36) U/L ALT (7-56) U/L Alkaline Phosphatase (38-126) U/L Lactate Dehydrogenase (333-699) U/L Total Creatine Kinase (35-230) U/L CK-MB (CK-2) (0.0-3.6) ng/mL CK-MB (CK-2) % (2.5-3.0) % Troponin I ng/mL Total Protein (5.8-8.3) g/dL Albumin (3.0-4.8) g/dL Globulin gm/dL Albumin/Globulin Ratio (1.1-1.8) Arterial Blood Potassium (3.6-5.2) mmol/L Venous Blood Potassium 3.9 (3.6-5.2) mmol/L Stool Occult Blood (NEGATIVE) 11/16/17 11/16/17 11/16/17 Range/Units 23:10 22:00 20:50 WBC (4.5-11.0) 10^3/ul RBC (3.5-6.1) 10^6/uL Hgb (12.0-16.0) g/dL Hct (36.0-48.0) % MCV (80.0-105.0) fl MCH (25.0-35.0) pg MCHC (31.0-37.0) g/dl RDW (11.5-14.5) % Plt Count (120.0-450.0) 10^3/uL MPV (7.0-11.0) fl Gran % (50.0-68.0) % Lymph % (Auto) (22.0-35.0) % [place] % (Auto) (1.0-6.0) % Eos % (Auto) (1.5-5.0) % Baso % (Auto) (0.0-3.0) % Gran # (1.4-6.5) Lymph # (Auto) (1.2-3.4) [place] # (Auto) (0.1-0.6) Eos # (Auto) (0.0-0.7) Baso # (Auto) (0.0-2.0) K/mm3 Neutrophils % (Manual) (50.0-70.0) % Band Neutrophils % (0-2) % Lymphocytes % (Manual) (22.0-35.0) % Monocytes % (Manual) (1.0-6.0) % Metamyelocytes % % Myelocytes % % Platelet Evaluation (NORMAL) PT (9.4-12.5) SECONDS INR (0.93-1.08) APTT (25.1-36.5) Seconds pCO2 47 H 47 H (35-45) mm/Hg pO2 156.0 H 366.0 H (80-100) mm/Hg HCO3 19.2 L 17.1 L (21-28) mmol/L ABG pH 7.22 L 7.17 L* (7.35-7.45) ABG Total CO2 20.6 L 18.5 L (22-28) mmol.L ABG O2 Saturation 97.9 98.3 H (95-98) % ABG O2 Content 14.8 L (15-23) ML/dl ABG Base Excess -8.3 L -11.3 L (-2.0-3.0) mmol/L ABG Hemoglobin 10.8 L (11.7-17.4) g/dL ABG Carboxyhemoglobin 0.5 (0.5-1.5) % POC ABG HHb (Measured) 2.1 (0-5) % ABG Methemoglobin 1.9 (0.0-3.0) % ABG O2 Capacity 15.1 L (16-24) mL/dl ABG Potassium 3.0 L (3.6-5.2) mmol/L VBG pH (7.32-7.43) VBG pCO2 (40-60) VBG HCO3 (21-28) mmol/l VBG Total CO2 (22-28) mmol.L VBG O2 Sat (Calc) (40-65) % VBG Base Excess (0.0-2.0) mmol/L VBG Potassium (3.6-5.2) mmol/L Hgb O2 Saturation 95.6 (95.0-98.0) % Glucose 193 H (65-105) mg/dl Lactate 8.3 H* (0.7-2.1) mmol/L FiO2 50.0 100.0 % Sodium 137.0 (132-148) mmol/L Potassium (3.6-5.0) mmol/L Chloride 104.0 (98-107) mmol/L Carbon Dioxide (21-33) mmol/L Anion Gap (10-20) BUN (7-21) mg/dL Creatinine (0.7-1.2) mg/dl Est GFR ( Amer) Est GFR (Non-Af Amer) POC Glucose (mg/dL) 152 H (65-110) mg/dL Random Glucose (70-110) mg/dL Calcium (8.4-10.5) mg/dL Phosphorus (2.5-4.5) mg/dL Magnesium (1.7-2.2) mg/dL Total Bilirubin (0.2-1.3) mg/dL AST (14-36) U/L ALT (7-56) U/L Alkaline Phosphatase (38-126) U/L Lactate Dehydrogenase (333-699) U/L Total Creatine Kinase (35-230) U/L CK-MB (CK-2) (0.0-3.6) ng/mL CK-MB (CK-2) % (2.5-3.0) % Troponin I ng/mL Total Protein (5.8-8.3) g/dL Albumin (3.0-4.8) g/dL Globulin gm/dL Albumin/Globulin Ratio (1.1-1.8) Arterial Blood Potassium 3.0 L (3.6-5.2) mmol/L Venous Blood Potassium (3.6-5.2) mmol/L Stool Occult Blood (NEGATIVE) 11/16/17 11/16/17 11/16/17 Range/Units 20:43 20:19 20:19 WBC (4.5-11.0) 10^3/ul RBC (3.5-6.1) 10^6/uL Hgb (12.0-16.0) g/dL Hct (36.0-48.0) % MCV (80.0-105.0) fl MCH (25.0-35.0) pg MCHC (31.0-37.0) g/dl RDW (11.5-14.5) % Plt Count (120.0-450.0) 10^3/uL MPV (7.0-11.0) fl Gran % (50.0-68.0) % Lymph % (Auto) (22.0-35.0) % [place] % (Auto) (1.0-6.0) % Eos % (Auto) (1.5-5.0) % Baso % (Auto) (0.0-3.0) % Gran # (1.4-6.5) Lymph # (Auto) (1.2-3.4) [place] # (Auto) (0.1-0.6) Eos # (Auto) (0.0-0.7) Baso # (Auto) (0.0-2.0) K/mm3 Neutrophils % (Manual) (50.0-70.0) % Band Neutrophils % (0-2) % Lymphocytes % (Manual) (22.0-35.0) % Monocytes % (Manual) (1.0-6.0) % Metamyelocytes % % Myelocytes % % Platelet Evaluation (NORMAL) PT 16.5 H (9.4-12.5) SECONDS INR 1.44 H (0.93-1.08) APTT 42.5 H (25.1-36.5) Seconds pCO2 (35-45) mm/Hg pO2 (80-100) mm/Hg HCO3 (21-28) mmol/L ABG pH (7.35-7.45) ABG Total CO2 (22-28) mmol.L ABG O2 Saturation (95-98) % ABG O2 Content (15-23) ML/dl ABG Base Excess (-2.0-3.0) mmol/L ABG Hemoglobin (11.7-17.4) g/dL ABG Carboxyhemoglobin (0.5-1.5) % POC ABG HHb (Measured) (0-5) % ABG Methemoglobin (0.0-3.0) % ABG O2 Capacity (16-24) mL/dl ABG Potassium (3.6-5.2) mmol/L VBG pH (7.32-7.43) VBG pCO2 (40-60) VBG HCO3 (21-28) mmol/l VBG Total CO2 (22-28) mmol.L VBG O2 Sat (Calc) (40-65) % VBG Base Excess (0.0-2.0) mmol/L VBG Potassium (3.6-5.2) mmol/L Hgb O2 Saturation (95.0-98.0) % Glucose (65-105) mg/dl Lactate (0.7-2.1) mmol/L FiO2 % Sodium 134 (132-148) mmol/L Potassium 3.2 L (3.6-5.0) mmol/L Chloride 102 (98-107) mmol/L Carbon Dioxide 20 L (21-33) mmol/L Anion Gap 15 (10-20) BUN 20 (7-21) mg/dL Creatinine 2.9 H (0.7-1.2) mg/dl Est GFR ( Amer) 19 Est GFR (Non-Af Amer) 16 POC Glucose (mg/dL) 166 H (65-110) mg/dL Random Glucose 262 H (70-110) mg/dL Calcium 6.6 L* (8.4-10.5) mg/dL Phosphorus 4.8 H (2.5-4.5) mg/dL Magnesium 1.9 (1.7-2.2) mg/dL Total Bilirubin 0.3 (0.2-1.3) mg/dL AST 314 H D (14-36) U/L ALT 372 H (7-56) U/L Alkaline Phosphatase 61 (38-126) U/L Lactate Dehydrogenase 2087 H (333-699) U/L Total Creatine Kinase 407 H (35-230) U/L CK-MB (CK-2) 15.8 H (0.0-3.6) ng/mL CK-MB (CK-2) % 3.9 H (2.5-3.0) % Troponin I 4.81 H* D ng/mL Total Protein 3.4 L (5.8-8.3) g/dL Albumin 1.7 L (3.0-4.8) g/dL Globulin 1.8 gm/dL Albumin/Globulin Ratio 1.0 L (1.1-1.8) Arterial Blood Potassium (3.6-5.2) mmol/L Venous Blood Potassium (3.6-5.2) mmol/L Stool Occult Blood (NEGATIVE) 11/16/17 11/16/17 11/16/17 Range/Units 20:19 20:10 19:15 WBC 18.6 H (4.5-11.0) 10^3/ul RBC 3.10 L (3.5-6.1) 10^6/uL Hgb 9.0 L D (12.0-16.0) g/dL Hct 27.0 L (36.0-48.0) % MCV 87.1 (80.0-105.0) fl MCH 29.0 (25.0-35.0) pg MCHC 33.3 (31.0-37.0) g/dl RDW 21.1 H (11.5-14.5) % Plt Count 58 L (120.0-450.0) 10^3/uL MPV 10.1 (7.0-11.0) fl Gran % 84.6 H (50.0-68.0) % Lymph % (Auto) 14.0 L (22.0-35.0) % [place] % (Auto) 1.1 (1.0-6.0) % Eos % (Auto) 0.2 L (1.5-5.0) % Baso % (Auto) 0.1 (0.0-3.0) % Gran # 15.75 H (1.4-6.5) Lymph # (Auto) 2.6 (1.2-3.4) [place] # (Auto) 0.2 (0.1-0.6) Eos # (Auto) 0.0 (0.0-0.7) Baso # (Auto) 0.02 (0.0-2.0) K/mm3 Neutrophils % (Manual) (50.0-70.0) % Band Neutrophils % (0-2) % Lymphocytes % (Manual) (22.0-35.0) % Monocytes % (Manual) (1.0-6.0) % Metamyelocytes % % Myelocytes % % Platelet Evaluation (NORMAL) PT (9.4-12.5) SECONDS INR (0.93-1.08) APTT (25.1-36.5) Seconds pCO2 (35-45) mm/Hg pO2 (80-100) mm/Hg HCO3 (21-28) mmol/L ABG pH (7.35-7.45) ABG Total CO2 (22-28) mmol.L ABG O2 Saturation (95-98) % ABG O2 Content (15-23) ML/dl ABG Base Excess (-2.0-3.0) mmol/L ABG Hemoglobin (11.7-17.4) g/dL ABG Carboxyhemoglobin (0.5-1.5) % POC ABG HHb (Measured) (0-5) % ABG Methemoglobin (0.0-3.0) % ABG O2 Capacity (16-24) mL/dl ABG Potassium (3.6-5.2) mmol/L VBG pH (7.32-7.43) VBG pCO2 (40-60) VBG HCO3 (21-28) mmol/l VBG Total CO2 (22-28) mmol.L VBG O2 Sat (Calc) (40-65) % VBG Base Excess (0.0-2.0) mmol/L VBG Potassium (3.6-5.2) mmol/L Hgb O2 Saturation (95.0-98.0) % Glucose (65-105) mg/dl Lactate (0.7-2.1) mmol/L FiO2 % Sodium (132-148) mmol/L Potassium (3.6-5.0) mmol/L Chloride (98-107) mmol/L Carbon Dioxide (21-33) mmol/L Anion Gap (10-20) BUN (7-21) mg/dL Creatinine (0.7-1.2) mg/dl Est GFR ( Amer) Est GFR (Non-Af Amer) POC Glucose (mg/dL) 47 L 58 L (65-110) mg/dL Random Glucose (70-110) mg/dL Calcium (8.4-10.5) mg/dL Phosphorus (2.5-4.5) mg/dL Magnesium (1.7-2.2) mg/dL Total Bilirubin (0.2-1.3) mg/dL AST (14-36) U/L ALT (7-56) U/L Alkaline Phosphatase (38-126) U/L Lactate Dehydrogenase (333-699) U/L Total Creatine Kinase (35-230) U/L CK-MB (CK-2) (0.0-3.6) ng/mL CK-MB (CK-2) % (2.5-3.0) % Troponin I ng/mL Total Protein (5.8-8.3) g/dL Albumin (3.0-4.8) g/dL Globulin gm/dL Albumin/Globulin Ratio (1.1-1.8) Arterial Blood Potassium (3.6-5.2) mmol/L Venous Blood Potassium (3.6-5.2) mmol/L Stool Occult Blood (NEGATIVE) 11/16/17 11/16/17 11/16/17 Range/Units 18:51 18:08 16:56 WBC (4.5-11.0) 10^3/ul RBC (3.5-6.1) 10^6/uL Hgb (12.0-16.0) g/dL Hct (36.0-48.0) % MCV (80.0-105.0) fl MCH (25.0-35.0) pg MCHC (31.0-37.0) g/dl RDW (11.5-14.5) % Plt Count (120.0-450.0) 10^3/uL MPV (7.0-11.0) fl Gran % (50.0-68.0) % Lymph % (Auto) (22.0-35.0) % [place] % (Auto) (1.0-6.0) % Eos % (Auto) (1.5-5.0) % Baso % (Auto) (0.0-3.0) % Gran # (1.4-6.5) Lymph # (Auto) (1.2-3.4) [place] # (Auto) (0.1-0.6) Eos # (Auto) (0.0-0.7) Baso # (Auto) (0.0-2.0) K/mm3 Neutrophils % (Manual) (50.0-70.0) % Band Neutrophils % (0-2) % Lymphocytes % (Manual) (22.0-35.0) % Monocytes % (Manual) (1.0-6.0) % Metamyelocytes % % Myelocytes % % Platelet Evaluation (NORMAL) PT (9.4-12.5) SECONDS INR (0.93-1.08) APTT (25.1-36.5) Seconds pCO2 (35-45) mm/Hg pO2 (80-100) mm/Hg HCO3 (21-28) mmol/L ABG pH (7.35-7.45) ABG Total CO2 (22-28) mmol.L ABG O2 Saturation (95-98) % ABG O2 Content (15-23) ML/dl ABG Base Excess (-2.0-3.0) mmol/L ABG Hemoglobin (11.7-17.4) g/dL ABG Carboxyhemoglobin (0.5-1.5) % POC ABG HHb (Measured) (0-5) % ABG Methemoglobin (0.0-3.0) % ABG O2 Capacity (16-24) mL/dl ABG Potassium (3.6-5.2) mmol/L VBG pH (7.32-7.43) VBG pCO2 (40-60) VBG HCO3 (21-28) mmol/l VBG Total CO2 (22-28) mmol.L VBG O2 Sat (Calc) (40-65) % VBG Base Excess (0.0-2.0) mmol/L VBG Potassium (3.6-5.2) mmol/L Hgb O2 Saturation (95.0-98.0) % Glucose (65-105) mg/dl Lactate (0.7-2.1) mmol/L FiO2 % Sodium (132-148) mmol/L Potassium (3.6-5.0) mmol/L Chloride (98-107) mmol/L Carbon Dioxide (21-33) mmol/L Anion Gap (10-20) BUN (7-21) mg/dL Creatinine (0.7-1.2) mg/dl Est GFR ( Amer) Est GFR (Non-Af Amer) POC Glucose (mg/dL) 80 119 H (65-110) mg/dL Random Glucose (70-110) mg/dL Calcium (8.4-10.5) mg/dL Phosphorus (2.5-4.5) mg/dL Magnesium (1.7-2.2) mg/dL Total Bilirubin (0.2-1.3) mg/dL AST (14-36) U/L ALT (7-56) U/L Alkaline Phosphatase (38-126) U/L Lactate Dehydrogenase (333-699) U/L Total Creatine Kinase (35-230) U/L CK-MB (CK-2) (0.0-3.6) ng/mL CK-MB (CK-2) % (2.5-3.0) % Troponin I ng/mL Total Protein (5.8-8.3) g/dL Albumin (3.0-4.8) g/dL Globulin gm/dL Albumin/Globulin Ratio (1.1-1.8) Arterial Blood Potassium (3.6-5.2) mmol/L Venous Blood Potassium (3.6-5.2) mmol/L Stool Occult Blood Positive H (NEGATIVE) 11/16/17 11/16/17 11/16/17 Range/Units 16:11 15:12 15:00 WBC 15.5 H (4.5-11.0) 10^3/ul RBC 3.99 (3.5-6.1) 10^6/uL Hgb 11.4 L D (12.0-16.0) g/dL Hct 34.6 L (36.0-48.0) % MCV 86.7 D (80.0-105.0) fl MCH 28.6 (25.0-35.0) pg MCHC 32.9 (31.0-37.0) g/dl RDW 20.4 H (11.5-14.5) % Plt Count 79 L (120.0-450.0) 10^3/uL MPV 9.1 (7.0-11.0) fl Gran % (50.0-68.0) % Lymph % (Auto) (22.0-35.0) % [place] % (Auto) (1.0-6.0) % Eos % (Auto) (1.5-5.0) % Baso % (Auto) (0.0-3.0) % Gran # (1.4-6.5) Lymph # (Auto) (1.2-3.4) [place] # (Auto) (0.1-0.6) Eos # (Auto) (0.0-0.7) Baso # (Auto) (0.0-2.0) K/mm3 Neutrophils % (Manual) (50.0-70.0) % Band Neutrophils % (0-2) % Lymphocytes % (Manual) (22.0-35.0) % Monocytes % (Manual) (1.0-6.0) % Metamyelocytes % % Myelocytes % % Platelet Evaluation (NORMAL) PT (9.4-12.5) SECONDS INR (0.93-1.08) APTT (25.1-36.5) Seconds pCO2 (35-45) mm/Hg pO2 (80-100) mm/Hg HCO3 (21-28) mmol/L ABG pH (7.35-7.45) ABG Total CO2 (22-28) mmol.L ABG O2 Saturation (95-98) % ABG O2 Content (15-23) ML/dl ABG Base Excess (-2.0-3.0) mmol/L ABG Hemoglobin (11.7-17.4) g/dL ABG Carboxyhemoglobin (0.5-1.5) % POC ABG HHb (Measured) (0-5) % ABG Methemoglobin (0.0-3.0) % ABG O2 Capacity (16-24) mL/dl ABG Potassium (3.6-5.2) mmol/L VBG pH (7.32-7.43) VBG pCO2 (40-60) VBG HCO3 (21-28) mmol/l VBG Total CO2 (22-28) mmol.L VBG O2 Sat (Calc) (40-65) % VBG Base Excess (0.0-2.0) mmol/L VBG Potassium (3.6-5.2) mmol/L Hgb O2 Saturation (95.0-98.0) % Glucose (65-105) mg/dl Lactate (0.7-2.1) mmol/L FiO2 % Sodium (132-148) mmol/L Potassium (3.6-5.0) mmol/L Chloride (98-107) mmol/L Carbon Dioxide (21-33) mmol/L Anion Gap (10-20) BUN (7-21) mg/dL Creatinine (0.7-1.2) mg/dl Est GFR ( Amer) Est GFR (Non-Af Amer) POC Glucose (mg/dL) 133 H 167 H (65-110) mg/dL Random Glucose (70-110) mg/dL Calcium (8.4-10.5) mg/dL Phosphorus (2.5-4.5) mg/dL Magnesium (1.7-2.2) mg/dL Total Bilirubin (0.2-1.3) mg/dL AST (14-36) U/L ALT (7-56) U/L Alkaline Phosphatase (38-126) U/L Lactate Dehydrogenase (333-699) U/L Total Creatine Kinase (35-230) U/L CK-MB (CK-2) (0.0-3.6) ng/mL CK-MB (CK-2) % (2.5-3.0) % Troponin I ng/mL Total Protein (5.8-8.3) g/dL Albumin (3.0-4.8) g/dL Globulin gm/dL Albumin/Globulin Ratio (1.1-1.8) Arterial Blood Potassium (3.6-5.2) mmol/L Venous Blood Potassium (3.6-5.2) mmol/L Stool Occult Blood (NEGATIVE) Laboratory Results - last 24 hr 11/16/17 11/16/17 11/16/17 15:00 15:12 16:11 WBC 15.5 H RBC 3.99 Hgb 11.4 L D Hct 34.6 L MCV 86.7 D MCH 28.6 MCHC 32.9 RDW 20.4 H Plt Count 79 L MPV 9.1 Gran % Lymph % (Auto) [place] % (Auto) Eos % (Auto) Baso % (Auto) Gran # Lymph # (Auto) [place] # (Auto) Eos # (Auto) Baso # (Auto) Neutrophils % (Manual) Band Neutrophils % Lymphocytes % (Manual) Monocytes % (Manual) Metamyelocytes % Myelocytes % Platelet Evaluation PT INR APTT pCO2 pO2 HCO3 ABG pH ABG Total CO2 ABG O2 Saturation ABG O2 Content ABG Base Excess ABG Hemoglobin ABG Carboxyhemoglobin POC ABG HHb (Measured) ABG Methemoglobin ABG O2 Capacity ABG Potassium VBG pH VBG pCO2 VBG HCO3 VBG Total CO2 VBG O2 Sat (Calc) VBG Base Excess VBG Potassium Hgb O2 Saturation Glucose Lactate FiO2 Sodium Potassium Chloride Carbon Dioxide Anion Gap BUN Creatinine Est GFR ( Amer) Est GFR (Non-Af Amer) POC Glucose (mg/dL) 167 H 133 H Random Glucose Calcium Phosphorus Magnesium Total Bilirubin AST ALT Alkaline Phosphatase Lactate Dehydrogenase Total Creatine Kinase CK-MB (CK-2) CK-MB (CK-2) % Troponin I Total Protein Albumin Globulin Albumin/Globulin Ratio Arterial Blood Potassium Venous Blood Potassium Stool Occult Blood 11/16/17 11/16/17 11/16/17 16:56 18:08 18:51 WBC RBC Hgb Hct MCV MCH MCHC RDW Plt Count MPV Gran % Lymph % (Auto) [place] % (Auto) Eos % (Auto) Baso % (Auto) Gran # Lymph # (Auto) [place] # (Auto) Eos # (Auto) Baso # (Auto) Neutrophils % (Manual) Band Neutrophils % Lymphocytes % (Manual) Monocytes % (Manual) Metamyelocytes % Myelocytes % Platelet Evaluation PT INR APTT pCO2 pO2 HCO3 ABG pH ABG Total CO2 ABG O2 Saturation ABG O2 Content ABG Base Excess ABG Hemoglobin ABG Carboxyhemoglobin POC ABG HHb (Measured) ABG Methemoglobin ABG O2 Capacity ABG Potassium VBG pH VBG pCO2 VBG HCO3 VBG Total CO2 VBG O2 Sat (Calc) VBG Base Excess VBG Potassium Hgb O2 Saturation Glucose Lactate FiO2 Sodium Potassium Chloride Carbon Dioxide Anion Gap BUN Creatinine Est GFR ( Amer) Est GFR (Non-Af Amer) POC Glucose (mg/dL) 119 H 80 Random Glucose Calcium Phosphorus Magnesium Total Bilirubin AST ALT Alkaline Phosphatase Lactate Dehydrogenase Total Creatine Kinase CK-MB (CK-2) CK-MB (CK-2) % Troponin I Total Protein Albumin Globulin Albumin/Globulin Ratio Arterial Blood Potassium Venous Blood Potassium Stool Occult Blood Positive H 11/16/17 11/16/17 11/16/17 19:15 20:10 20:19 WBC 18.6 H RBC 3.10 L Hgb 9.0 L D Hct 27.0 L MCV 87.1 MCH 29.0 MCHC 33.3 RDW 21.1 H Plt Count 58 L MPV 10.1 Gran % 84.6 H Lymph % (Auto) 14.0 L [place] % (Auto) 1.1 Eos % (Auto) 0.2 L Baso % (Auto) 0.1 Gran # 15.75 H Lymph # (Auto) 2.6 [place] # (Auto) 0.2 Eos # (Auto) 0.0 Baso # (Auto) 0.02 Neutrophils % (Manual) Band Neutrophils % Lymphocytes % (Manual) Monocytes % (Manual) Metamyelocytes % Myelocytes % Platelet Evaluation PT INR APTT pCO2 pO2 HCO3 ABG pH ABG Total CO2 ABG O2 Saturation ABG O2 Content ABG Base Excess ABG Hemoglobin ABG Carboxyhemoglobin POC ABG HHb (Measured) ABG Methemoglobin ABG O2 Capacity ABG Potassium VBG pH VBG pCO2 VBG HCO3 VBG Total CO2 VBG O2 Sat (Calc) VBG Base Excess VBG Potassium Hgb O2 Saturation Glucose Lactate FiO2 Sodium Potassium Chloride Carbon Dioxide Anion Gap BUN Creatinine Est GFR ( Amer) Est GFR (Non-Af Amer) POC Glucose (mg/dL) 58 L 47 L Random Glucose Calcium Phosphorus Magnesium Total Bilirubin AST ALT Alkaline Phosphatase Lactate Dehydrogenase Total Creatine Kinase CK-MB (CK-2) CK-MB (CK-2) % Troponin I Total Protein Albumin Globulin Albumin/Globulin Ratio Arterial Blood Potassium Venous Blood Potassium Stool Occult Blood 11/16/17 11/16/17 11/16/17 20:19 20:19 20:43 WBC RBC Hgb Hct MCV MCH MCHC RDW Plt Count MPV Gran % Lymph % (Auto) [place] % (Auto) Eos % (Auto) Baso % (Auto) Gran # Lymph # (Auto) [place] # (Auto) Eos # (Auto) Baso # (Auto) Neutrophils % (Manual) Band Neutrophils % Lymphocytes % (Manual) Monocytes % (Manual) Metamyelocytes % Myelocytes % Platelet Evaluation PT 16.5 H INR 1.44 H APTT 42.5 H pCO2 pO2 HCO3 ABG pH ABG Total CO2 ABG O2 Saturation ABG O2 Content ABG Base Excess ABG Hemoglobin ABG Carboxyhemoglobin POC ABG HHb (Measured) ABG Methemoglobin ABG O2 Capacity ABG Potassium VBG pH VBG pCO2 VBG HCO3 VBG Total CO2 VBG O2 Sat (Calc) VBG Base Excess VBG Potassium Hgb O2 Saturation Glucose Lactate FiO2 Sodium 134 Potassium 3.2 L Chloride 102 Carbon Dioxide 20 L Anion Gap 15 BUN 20 Creatinine 2.9 H Est GFR ( Amer) 19 Est GFR (Non-Af Amer) 16 POC Glucose (mg/dL) 166 H Random Glucose 262 H Calcium 6.6 L* Phosphorus 4.8 H Magnesium 1.9 Total Bilirubin 0.3 AST 314 H D ALT 372 H Alkaline Phosphatase 61 Lactate Dehydrogenase 2087 H Total Creatine Kinase 407 H CK-MB (CK-2) 15.8 H CK-MB (CK-2) % 3.9 H Troponin I 4.81 H* D Total Protein 3.4 L Albumin 1.7 L Globulin 1.8 Albumin/Globulin Ratio 1.0 L Arterial Blood Potassium Venous Blood Potassium Stool Occult Blood 11/16/17 11/16/17 11/16/17 20:50 22:00 23:10 WBC RBC Hgb Hct MCV MCH MCHC RDW Plt Count MPV Gran % Lymph % (Auto) [place] % (Auto) Eos % (Auto) Baso % (Auto) Gran # Lymph # (Auto) [place] # (Auto) Eos # (Auto) Baso # (Auto) Neutrophils % (Manual) Band Neutrophils % Lymphocytes % (Manual) Monocytes % (Manual) Metamyelocytes % Myelocytes % Platelet Evaluation PT INR APTT pCO2 47 H 47 H pO2 366.0 H 156.0 H HCO3 17.1 L 19.2 L ABG pH 7.17 L* 7.22 L ABG Total CO2 18.5 L 20.6 L ABG O2 Saturation 98.3 H 97.9 ABG O2 Content 14.8 L ABG Base Excess -11.3 L -8.3 L ABG Hemoglobin 10.8 L ABG Carboxyhemoglobin 0.5 POC ABG HHb (Measured) 2.1 ABG Methemoglobin 1.9 ABG O2 Capacity 15.1 L ABG Potassium 3.0 L VBG pH VBG pCO2 VBG HCO3 VBG Total CO2 VBG O2 Sat (Calc) VBG Base Excess VBG Potassium Hgb O2 Saturation 95.6 Glucose 193 H Lactate 8.3 H* FiO2 100.0 50.0 Sodium 137.0 Potassium Chloride 104.0 Carbon Dioxide Anion Gap BUN Creatinine Est GFR ( Amer) Est GFR (Non-Af Amer) POC Glucose (mg/dL) 152 H Random Glucose Calcium Phosphorus Magnesium Total Bilirubin AST ALT Alkaline Phosphatase Lactate Dehydrogenase Total Creatine Kinase CK-MB (CK-2) CK-MB (CK-2) % Troponin I Total Protein Albumin Globulin Albumin/Globulin Ratio Arterial Blood Potassium 3.0 L Venous Blood Potassium Stool Occult Blood 11/17/17 11/17/17 11/17/17 00:35 00:35 01:48 WBC 19.9 H RBC 4.30 Hgb 12.2 D Hct 36.7 MCV 85.3 MCH 28.4 MCHC 33.2 RDW 19.0 H Plt Count 51 L MPV 9.7 Gran % 91.4 H Lymph % (Auto) 6.3 L [place] % (Auto) 1.9 Eos % (Auto) 0.2 L Baso % (Auto) 0.2 Gran # 18.16 H Lymph # (Auto) 1.3 [place] # (Auto) 0.4 Eos # (Auto) 0.0 Baso # (Auto) 0.04 Neutrophils % (Manual) 50 Band Neutrophils % 31 H* Lymphocytes % (Manual) 9 L Monocytes % (Manual) 0 L Metamyelocytes % 7 Myelocytes % 3 Platelet Evaluation Low PT INR APTT pCO2 pO2 38 HCO3 ABG pH ABG Total CO2 ABG O2 Saturation ABG O2 Content ABG Base Excess ABG Hemoglobin ABG Carboxyhemoglobin POC ABG HHb (Measured) ABG Methemoglobin ABG O2 Capacity ABG Potassium VBG pH 7.24 L VBG pCO2 60.0 VBG HCO3 25.7 VBG Total CO2 27.5 VBG O2 Sat (Calc) 77.4 H VBG Base Excess -2.8 L VBG Potassium 3.9 Hgb O2 Saturation Glucose 175 H Lactate 4.1 H* FiO2 21.0 Sodium 136.0 Potassium Chloride 103.0 Carbon Dioxide Anion Gap BUN Creatinine Est GFR ( Amer) Est GFR (Non-Af Amer) POC Glucose (mg/dL) 162 H Random Glucose Calcium Phosphorus Magnesium Total Bilirubin AST ALT Alkaline Phosphatase Lactate Dehydrogenase Total Creatine Kinase CK-MB (CK-2) CK-MB (CK-2) % Troponin I Total Protein Albumin Globulin Albumin/Globulin Ratio Arterial Blood Potassium Venous Blood Potassium 3.9 Stool Occult Blood 11/17/17 11/17/17 11/17/17 03:55 05:49 06:00 WBC 17.8 H RBC 3.69 Hgb 10.5 L Hct 31.2 L MCV 84.6 MCH 28.5 MCHC 33.7 RDW 19.3 H Plt Count 61 L MPV 10.9 Gran % 93.1 H Lymph % (Auto) 4.7 L [place] % (Auto) 2.1 Eos % (Auto) 0.0 L Baso % (Auto) 0.1 Gran # 16.54 H Lymph # (Auto) 0.8 L [place] # (Auto) 0.4 Eos # (Auto) 0.0 Baso # (Auto) 0.02 Neutrophils % (Manual) Band Neutrophils % Lymphocytes % (Manual) Monocytes % (Manual) Metamyelocytes % Myelocytes % Platelet Evaluation PT INR APTT pCO2 pO2 HCO3 ABG pH ABG Total CO2 ABG O2 Saturation ABG O2 Content ABG Base Excess ABG Hemoglobin ABG Carboxyhemoglobin POC ABG HHb (Measured) ABG Methemoglobin ABG O2 Capacity ABG Potassium VBG pH VBG pCO2 VBG HCO3 VBG Total CO2 VBG O2 Sat (Calc) VBG Base Excess VBG Potassium Hgb O2 Saturation Glucose Lactate FiO2 Sodium Potassium Chloride Carbon Dioxide Anion Gap BUN Creatinine Est GFR ( Amer) Est GFR (Non-Af Amer) POC Glucose (mg/dL) 163 H 167 H Random Glucose Calcium Phosphorus Magnesium Total Bilirubin AST ALT Alkaline Phosphatase Lactate Dehydrogenase Total Creatine Kinase CK-MB (CK-2) CK-MB (CK-2) % Troponin I Total Protein Albumin Globulin Albumin/Globulin Ratio Arterial Blood Potassium Venous Blood Potassium Stool Occult Blood 11/17/17 11/17/17 11/17/17 06:00 06:00 06:00 WBC RBC Hgb Hct MCV MCH MCHC RDW Plt Count MPV Gran % Lymph % (Auto) [place] % (Auto) Eos % (Auto) Baso % (Auto) Gran # Lymph # (Auto) [place] # (Auto) Eos # (Auto) Baso # (Auto) Neutrophils % (Manual) Band Neutrophils % Lymphocytes % (Manual) Monocytes % (Manual) Metamyelocytes % Myelocytes % Platelet Evaluation PT 14.6 H INR 1.26 H APTT 32.4 pCO2 44 pO2 102.0 H HCO3 23.2 ABG pH 7.33 L ABG Total CO2 24.6 ABG O2 Saturation 97.9 ABG O2 Content ABG Base Excess -2.8 L ABG Hemoglobin ABG Carboxyhemoglobin POC ABG HHb (Measured) ABG Methemoglobin ABG O2 Capacity ABG Potassium 3.7 VBG pH VBG pCO2 VBG HCO3 VBG Total CO2 VBG O2 Sat (Calc) VBG Base Excess VBG Potassium Hgb O2 Saturation Glucose 180 H Lactate 3.5 H FiO2 50.0 Sodium 137 137.0 Potassium 4.1 Chloride 100 105.0 Carbon Dioxide 25 Anion Gap 16 BUN 30 H Creatinine 4.4 H Est GFR ( Amer) 12 Est GFR (Non-Af Amer) 10 POC Glucose (mg/dL) Random Glucose 188 H Calcium 7.3 L Phosphorus Magnesium Total Bilirubin 0.5 AST 1118 H ALT 849 H Alkaline Phosphatase 64 Lactate Dehydrogenase 3559 H Total Creatine Kinase 1176 H CK-MB (CK-2) 53.5 H CK-MB (CK-2) % 4.5 H Troponin I 12.00 H* D Total Protein 4.9 L Albumin 2.6 L Globulin 2.3 Albumin/Globulin Ratio 1.1 Arterial Blood Potassium 3.7 Venous Blood Potassium Stool Occult Blood 11/17/17 11/17/17 11/17/17 08:05 09:29 09:30 WBC 14.3 H RBC 3.56 Hgb 10.2 L Hct 30.1 L MCV 84.6 MCH 28.7 MCHC 33.9 RDW 19.3 H Plt Count 84 L MPV 9.3 Gran % 94.3 H Lymph % (Auto) 2.8 L [place] % (Auto) 2.8 Eos % (Auto) 0.0 L Baso % (Auto) 0.1 Gran # 13.47 H Lymph # (Auto) 0.4 L [place] # (Auto) 0.4 Eos # (Auto) 0.0 Baso # (Auto) 0.01 Neutrophils % (Manual) Band Neutrophils % Lymphocytes % (Manual) Monocytes % (Manual) Metamyelocytes % Myelocytes % Platelet Evaluation PT INR APTT pCO2 pO2 HCO3 ABG pH ABG Total CO2 ABG O2 Saturation ABG O2 Content ABG Base Excess ABG Hemoglobin ABG Carboxyhemoglobin POC ABG HHb (Measured) ABG Methemoglobin ABG O2 Capacity ABG Potassium VBG pH VBG pCO2 VBG HCO3 VBG Total CO2 VBG O2 Sat (Calc) VBG Base Excess VBG Potassium Hgb O2 Saturation Glucose Lactate FiO2 Sodium Potassium Chloride Carbon Dioxide Anion Gap BUN Creatinine Est GFR ( Amer) Est GFR (Non-Af Amer) POC Glucose (mg/dL) 191 H 196 H Random Glucose Calcium Phosphorus Magnesium Total Bilirubin AST ALT Alkaline Phosphatase Lactate Dehydrogenase Total Creatine Kinase CK-MB (CK-2) CK-MB (CK-2) % Troponin I Total Protein Albumin Globulin Albumin/Globulin Ratio Arterial Blood Potassium Venous Blood Potassium Stool Occult Blood 11/17/17 11/17/17 11/17/17 09:52 10:54 12:17 WBC RBC Hgb Hct MCV MCH MCHC RDW Plt Count MPV Gran % Lymph % (Auto) [place] % (Auto) Eos % (Auto) Baso % (Auto) Gran # Lymph # (Auto) [place] # (Auto) Eos # (Auto) Baso # (Auto) Neutrophils % (Manual) Band Neutrophils % Lymphocytes % (Manual) Monocytes % (Manual) Metamyelocytes % Myelocytes % Platelet Evaluation PT INR APTT pCO2 pO2 HCO3 ABG pH ABG Total CO2 ABG O2 Saturation ABG O2 Content ABG Base Excess ABG Hemoglobin ABG Carboxyhemoglobin POC ABG HHb (Measured) ABG Methemoglobin ABG O2 Capacity ABG Potassium VBG pH VBG pCO2 VBG HCO3 VBG Total CO2 VBG O2 Sat (Calc) VBG Base Excess VBG Potassium Hgb O2 Saturation Glucose Lactate FiO2 Sodium Potassium Chloride Carbon Dioxide Anion Gap BUN Creatinine Est GFR ( Amer) Est GFR (Non-Af Amer) POC Glucose (mg/dL) 169 H 174 H 148 H Random Glucose Calcium Phosphorus Magnesium Total Bilirubin AST ALT Alkaline Phosphatase Lactate Dehydrogenase Total Creatine Kinase CK-MB (CK-2) CK-MB (CK-2) % Troponin I Total Protein Albumin Globulin Albumin/Globulin Ratio Arterial Blood Potassium Venous Blood Potassium Stool Occult Blood 11/17/17 11/17/17 11/17/17 12:30 12:30 13:10 WBC 13.1 H RBC 3.37 L Hgb 9.7 L Hct 28.6 L MCV 84.9 MCH 28.8 MCHC 33.9 RDW 19.3 H Plt Count 82 L MPV 8.6 Gran % 96.1 H Lymph % (Auto) 3.1 L [place] % (Auto) 0.8 L Eos % (Auto) 0.0 L Baso % (Auto) 0.0 Gran # 12.60 H Lymph # (Auto) 0.4 L [place] # (Auto) 0.1 Eos # (Auto) 0.0 Baso # (Auto) 0.00 Neutrophils % (Manual) Band Neutrophils % Lymphocytes % (Manual) Monocytes % (Manual) Metamyelocytes % Myelocytes % Platelet Evaluation PT INR APTT pCO2 pO2 35 HCO3 ABG pH ABG Total CO2 ABG O2 Saturation ABG O2 Content ABG Base Excess ABG Hemoglobin ABG Carboxyhemoglobin POC ABG HHb (Measured) ABG Methemoglobin ABG O2 Capacity ABG Potassium VBG pH 7.33 VBG pCO2 54.0 VBG HCO3 28.5 H VBG Total CO2 30.2 H VBG O2 Sat (Calc) 76.1 H VBG Base Excess 1.5 VBG Potassium 4.4 Hgb O2 Saturation Glucose 163 H Lactate 2.9 H FiO2 21.0 Sodium 136.0 Potassium Chloride 103.0 Carbon Dioxide Anion Gap BUN Creatinine Est GFR ( Amer) Est GFR (Non-Af Amer) POC Glucose (mg/dL) 154 H Random Glucose Calcium Phosphorus Magnesium Total Bilirubin AST ALT Alkaline Phosphatase Lactate Dehydrogenase Total Creatine Kinase CK-MB (CK-2) CK-MB (CK-2) % Troponin I Total Protein Albumin Globulin Albumin/Globulin Ratio Arterial Blood Potassium Venous Blood Potassium 4.4 Stool Occult Blood Critical Care Progress Note - Nutrition Nutrition: Nutrition Category Date Time Status NPO Diet [DIET] Diets 11/16/17 Breakfast Ordered Assessment/Plan - Assessment and Plan (Free Text) Assessment: Patient seen and examined on rounds with resident, agree with note with following additions/exceptions: Patient is 67yo female with past medical history of ESRD on HD (MWF), DM, CVA, HTN, asthma who is admitted to ICU for hemorrhagic shock/septic shock secondary to bleeding AV fistula, LGIB. s/p 4 unit PRBC. Patient in addition to having component of hemorrhagic shock, may have component of spetic shock, as has bandemia, unclear source of infection, on broad spectrum abx. Patient had cardiac arrest yesterday (ROSC achieved after 4 min of CPR and 2 rounds of epi), currently intubated and not sedated. Patient currently off ALL vasopressors HH stable, s/p PRBC transfusion Platelets given GI and surgery following Bleeding scan done, awaiting official read. Shock, Hemorrhagic/septic Anemia GIB ESRD on HD s/p Cardiac arrest s/p ROSC DM Asthma Recommend: - cont with vent support, low tidal vol ventilation, daily cpap trial - cont with broad spectrum abx as per ID - follow up cultures, procal - monitor HH q6hr, maitain HH>9 - NPO - PPI drip - GI follow up - Surgery follow up - official read of bleeding scan - Solucortef 50mg q6hr IV - HD as per renal - GI ppx - DVT ppx, SCDs only - Monitor in MICU critical care time 40 minutes
--- NOTE | 2017-11-17 09:11 | RAD ---
HISTORY: intubation COMPARISON: 11/16/2017 FINDINGS: LUNGS: No active pulmonary disease. PLEURA: No significant pleural effusion identified, no pneumothorax apparent. CARDIOVASCULAR: ET tube, NG tube and central venous dialysis catheter unchanged. OSSEOUS STRUCTURES: No significant abnormalities. VISUALIZED UPPER ABDOMEN: Normal. OTHER FINDINGS: None. IMPRESSION: No active disease.
--- NOTE | 2017-11-17 09:32 | PN ---
DATE: 11/17/2017 SUBJECTIVE: The patient is currently seen in CCU bed 1. She is intubated. She is on pressors. She is status post a cardiac arrest at the end of yesterday's dialysis. The patient has received a total of 6 units of packed red blood cells and 2 units of FFP. Her bleeding scan is reported to be negative. MEDICATIONS Medication list reviewed. The patient is on D5 normal saline 75 mL an hour, Diprivan, Levophed, vasopressin, meropenem; she is off phenylephrine, Protonix, Solu-Medrol. OBJECTIVE INTAKE/OUTPUT: Intake 7794, output 500 mL. VITAL SIGNS: Blood pressure was 88/59, it is currently 149/72; temperature 100.8. Pulse was 85, respiratory rate 16. HEENT: The patient's eyes are closed. The patient is intubated. NECK: No neck vein distention. CHEST: Clear to auscultation and percussion with no rales, rhonchi or wheezing. CARDIOVASCULAR: Shows a regular rate and rhythm without audible murmurs, rubs or gallops. ABDOMEN: Soft. Bowel sounds are reduced. No masses. EXTREMITIES: No bleeding from the area of her left upper extremity AV access. No lower extremity cyanosis or clubbing. Legs are puffy with no pitting edema. NEUROLOGIC: Was difficult to assess as the patient is sedated on ventilator. She appears to be shaking her head when I try and ask her questions. LABORATORY DATA AND IMAGING: CBC, white blood cell count today is 17.8; hemoglobin 10.5, lowest hemoglobin was 7.5. Platelet count is 61,000. Coags: PT 14.6, PTT 32.4. Blood gas today: pH 7.33, pO2 of 102 with pCO2 of 44. Chemistries today show normal electrolytes. BUN 30 with a creatinine of 4.4. Glucose 188. Calcium 7.3. Phosphorus from yesterday 4.8. Magnesium was 1.9. Liver enzymes are elevated. Troponin is 12 post her cardiac arrest. Albumin level is 2.6. Stool occult blood is positive. Abdominal and pelvic CT showed a small bowel ileus pattern, gallstones and fluid in the rectum consistent with bleeding. Atrophic kidneys. Chest x-ray showed no acute pulmonary disease. GI bleeding scan is reported to be negative. Microbiology, no results available as of yet. ASSESSMENT 1. Status post cardiac arrest at the end of yesterday's dialysis. The patient apparently had a 4-minute resuscitation effort. It is not clear what the effect of this will be on her mental status. The patient remains hemodynamically unstable on pressors, which are being weaned slowly. The patient initially presented with hemorrhagic shock in the setting of blood loss from trauma to her AV access. Coupled with GI bleeding, the patient was passing maroon-colored stools. The patient has received a total of 6 units of packed red blood cells and 2 units of FFP. Her hemodynamics appeared to be improving and her CBC appears to be stable. 2. History of end-stage renal disease. The patient had her dialysis on Sunday, Sunday, Sunday schedule. No dialysis scheduled until Sunday. 3. [id number] diabetes mellitus. The patient will continue sliding scale insulin only. 4. History of secondary hyperparathyroidism, not a major issue at this point in time. Binders and Sensipar currently on hold. 5. History of hypertension. The patient is currently hypotensive. All blood pressure medications are on hold. 6. Systemic inflammatory response syndrome with elevated white blood cell count. The patient has been seen by ID and she is currently on empiric antibiotic therapy. All cultures are pending. 7. Elevated liver function tests, likely secondary to her cardiac arrest. PLAN 1. As discussed with CCU staff and the patient's RN, no plans for dialysis until Sunday. She appears to be euvolemic and from a biochemical standpoint, she appears to be stable. 2. Continue to try and wean pressors. 3. Check to see if the patient meets any weaning parameters. 4. Uncertain whether or not she will have developed any anoxic encephalopathy in the setting of the cardiac arrest. 5. Continue empiric antibiotic therapy. 6. Continue close monitoring in the CCU. 7. Obtain official report of her GI bleeding scan. 8. Surgical evaluation of her bleeding AV fistula site is pending. 9. GI evaluation for her maroon-colored stools in progress. 10. Continue to support the patient with blood products as necessary. Greater than 35 minutes spent the care of this critically ill patient. Valeriy Loyd MD [facility] # [id number]
[2017-11-17 09:45] LABS: BASO # 0.01 K/mm3 (0.0-2.0); BASO % 0.1 % (0.0-3.0); GRAN # 13.47 (1.4-6.5); GRAN % 94.3 % (50.0-68.0); HEMOGLOBIN 10.2 g/dL (12.0-16.0); LYMPH # 0.4 (1.2-3.4); LYMPH % 2.8 % (22.0-35.0); MEAN CELL VOLUME 84.6 fl (80.0-105.0); MEAN CORPUSCULAR HEMOGLOBIN 28.7 pg (25.0-35.0); MEAN CORPUSCULAR HGB CONC 33.9 g/dl (31.0-37.0); MEAN PLATELET VOLUME 9.3 fl (7.0-11.0); MONO # 0.4 (0.1-0.6); MONO % 2.8 % (1.0-6.0); RBC 3.56 10^6/uL (3.5-6.1); RED CELL DISTRIBUTION WIDTH 19.3 % (11.5-14.5); WHITE BLOOD COUNT 14.3 10^3/ul (4.5-11.0)
--- NOTE | 2017-11-17 09:56 | RAD ---
HISTORY: intubated COMPARISON: 11/16/2017 at 2:54 a.m. FINDINGS: LUNGS: No active pulmonary disease. PLEURA: No significant pleural effusion identified, no pneumothorax apparent. CARDIOVASCULAR: New right central venous dialysis catheter. Endotracheal tube tip approximately 2.2 cm above tracheal kiel. OSSEOUS STRUCTURES: No significant abnormalities. VISUALIZED UPPER ABDOMEN: Normal. OTHER FINDINGS: None. IMPRESSION: New endotracheal tube and right central venous dialysis catheter. No acute infiltrate.
[2017-11-17] MEDS ORDERED: SODIUM CHLORIDE 0.9% IV ONE (10:17)
[2017-11-17] MEDS ORDERED: DESMOPRESSIN IV ONE (10:17)
[2017-11-17 12:48] LABS: GRAN # 12.6 (1.4-6.5); GRAN % 96.1 % (50.0-68.0); HEMOGLOBIN 9.7 g/dL (12.0-16.0); LYMPH # 0.4 (1.2-3.4); LYMPH % 3.1 % (22.0-35.0); MEAN CELL VOLUME 84.9 fl (80.0-105.0); MEAN CORPUSCULAR HEMOGLOBIN 28.8 pg (25.0-35.0); MEAN CORPUSCULAR HGB CONC 33.9 g/dl (31.0-37.0); MEAN PLATELET VOLUME 8.6 fl (7.0-11.0); MONO # 0.1 (0.1-0.6); MONO % 0.8 % (1.0-6.0); RBC 3.37 10^6/uL (3.5-6.1); RED CELL DISTRIBUTION WIDTH 19.3 % (11.5-14.5); WHITE BLOOD COUNT 13.1 10^3/ul (4.5-11.0)
[2017-11-17 12:50] LABS: VENOUS BLOOD GAS BASE EXCESS 1.5 mmol/L (0.0-2.0); VENOUS BLOOD GAS PO2 35 mm/Hg (30-55); VENOUS BLOOD PH 7.33 (7.32-7.43)
--- NOTE | 2017-11-17 13:28 | NM ---
PROCEDURE: Gastrointestinal bleeding scan HISTORY: GI bleed COMPARISON: Not available TECHNIQUE: Autologous red blood cells were tagged with 20.1 mCi of technetium 99 M ultra tag. Images of the abdomen were acquired at 3 second intervals for 60 seconds. Following this, images were obtained at 1 minutes intervals for 60 minutes. FINDINGS: There is no abnormal accumulation of activity within bowel during the period of observation. No evidence of gastrointestinal bleeding. IMPRESSION: No evidence of gastrointestinal bleeding. Negative study. Preliminary interpretation of this examination was reported by [facility] at 3:23 a.m. on 11/17/2017. There is concurrence of this report with the preliminary interpretation.
[2017-11-17] MEDS: Meropenem 500 MG in Sodium Chloride 0.9% 50 ML IVPB SCH (13:54)
[2017-11-17 18:41] LABS: VENOUS BLOOD GAS BASE EXCESS 1.9 mmol/L (0.0-2.0); VENOUS BLOOD GAS PO2 72 mm/Hg (30-55); VENOUS BLOOD PH 7.33 (7.32-7.43)
[2017-11-17 18:56] LABS: BASO # 0.01 K/mm3 (0.0-2.0); BASO % 0.1 % (0.0-3.0); GRAN # 11.39 (1.4-6.5); GRAN % 95.9 % (50.0-68.0); HEMOGLOBIN 9.1 g/dL (12.0-16.0); LYMPH # 0.3 (1.2-3.4); LYMPH % 2.1 % (22.0-35.0); MEAN CELL VOLUME 84.7 fl (80.0-105.0); MEAN CORPUSCULAR HEMOGLOBIN 28.3 pg (25.0-35.0); MEAN CORPUSCULAR HGB CONC 33.5 g/dl (31.0-37.0); MEAN PLATELET VOLUME 9.2 fl (7.0-11.0); MONO # 0.2 (0.1-0.6); MONO % 1.9 % (1.0-6.0); RBC 3.21 10^6/uL (3.5-6.1); RED CELL DISTRIBUTION WIDTH 19.5 % (11.5-14.5); WHITE BLOOD COUNT 11.9 10^3/ul (4.5-11.0)
--- NOTE | 2017-11-17 19:44 | PN ---
DATE: SUBJECTIVE: The patient is a 67-year-old who was intubated in CCU, bed 1. Information got from nurse. According to her, there is no more active productive bleeding. The patient was coded last night and has been on respirator. Her bleeding scan done, unremarkable. No source found and she is not bleeding anymore and is maintaining her hemoglobin also. PHYSICAL EXAMINATION: GENERAL: She is sedated on vent. VITAL SIGNS: She has a temperature of 100.4, pulse 95, respirations 16, blood pressure 121/58. LUNGS: Bilateral few soft crackle at bases. HEART: S1 and S2 audible. ABDOMEN: Soft, obese, nontender. No rebound, no guarding. NEUROLOGICAL: The patient is sedated. EXTREMITIES: Bilateral legs, no edema. LABORATORY DATA: WBC 13.1, hemoglobin 9.5, hematocrit , platelet 82. PT 14.6, INR 1.26. Chemistry: Blood sugar is 145, procalcitonin is more than 200. X-ray chest done today is unremarkable. ASSESSMENT: 1. Status post cardiac arrest. 2. Lower gastrointestinal bleed. 3. End-stage renal disease on hemodialysis. 4. Dll-buunzfv-jygojbcba diabetes. 5. History of hypertension. 6. Abnormal LFTs. PLAN: Currently, the patient is on vent support. She had multiple blood transfusions. Seems to be holding her H and H. We will continue her on IV fluid, monitor her blood sugar. She will be maintained on meropenem. She is on Protonix drip. We will follow up her H and H in a.m. Discussed with Dr. Romero. Plan to extubate her after an endoscopy in a.m. Carlos Faust MD
[2017-11-18 01:33] LABS: GRAN # 11.51 (1.4-6.5); GRAN % 96.5 % (50.0-68.0); LYMPH # 0.3 (1.2-3.4); LYMPH % 2.9 % (22.0-35.0); MEAN CELL VOLUME 85.2 fl (80.0-105.0); MEAN CORPUSCULAR HEMOGLOBIN 28.3 pg (25.0-35.0); MEAN CORPUSCULAR HGB CONC 33.2 g/dl (31.0-37.0); MEAN PLATELET VOLUME 9.7 fl (7.0-11.0); MONO # 0.1 (0.1-0.6); MONO % 0.6 % (1.0-6.0); RBC 3.18 10^6/uL (3.5-6.1); RED CELL DISTRIBUTION WIDTH 19.8 % (11.5-14.5); WHITE BLOOD COUNT 11.9 10^3/ul (4.5-11.0)
[2017-11-18] MEDS: Pantoprazole 40mg/100mL NS 40 MG/100 ML BAG IVPB SCH ×2 (02:30→09:39)
--- NOTE | 2017-11-18 02:31 | PN ---
DATE: SUBJECTIVE: This patient was seen and evaluated earlier today. I discussed with the lens grinder and also the resident. Also discussed with Dr. Faust. The patient still remains intubated, hemodynamically remains stable now. PHYSICAL EXAMINATION: VITAL SIGNS: T-max 100.2, blood pressure 119/60, respiration is 18 and heart rate 96. HEENT: Atraumatic. NECK: Supple. HEART: S1 and S2 heard. LUNGS: Bilateral air entry present. ABDOMEN: Soft. EXTREMITIES: No cyanosis. No clubbing. LABORATORY DATA: Hemoglobin 10.2, hematocrit 31.1, WBC 14.3, platelets 84. Troponin . BUN 30, creatinine 4.4. IMPRESSION: This is a 67-year-old patient with end-stage renal disease, on hemodialysis, admitted with bleeding from the arteriovenous fistula site initially. Noticed to have coffee-ground vomitus and also maroon stool The patient had a brief episode of cardiac arrest during the renal dialysis yesterday. The patient's hemoglobin was 7.5 on admission and the patient received total 5 units of packed red blood cells and 2 units of fresh frozen plasma and 2 units of leukocytes. The patient's hemoglobin remains stable now. No further episodes of bleeding now. No active bleeding. The source of bleeding is unclear, patient does have coffee-ground vomitus; endoscopy will be needed to rule out any upper gastrointestinal source of blood loss. Status post cardiac arrest, rule out sepsis, presently off the vasopressor. The patient did have a bleeding scan done, which showed no evidence of active gastrointestinal bleeding noticed. The patient had a colonoscopy last in 2014. The patient also found to have a diverticulosis, hemorrhoids. Other comorbidities include end-stage renal disease, on hemodialysis; diverticulosis, status post cerebrovascular accident, hypertension, asthma. RECOMMENDATION: The patient is presently off pressors. Discussed with the lens grinder. The plan is to monitor the patient closely. At the moment, there is no active bleeding noticed. I would consider endoscopy prior to the extubation in the a.m. Thank you very much for allowing us to participate in the care of the patient. Julian Romero MD [facility] # [id number] MTDD
[2017-11-18] MEDS ORDERED: Metoprolol 1 mg/ml Inj IVP ONE ×3 (02:52→12:52)
[2017-11-18 06:08] LABS: ALB/GLOB RATIO 1.1 (1.1-1.8); ALBUMIN 2.8 g/dL (3.0-4.8); CALCIUM 8.5 mg/dL (8.4-10.5)
[2017-11-18 06:19] LABS: BASO # 0.01 K/mm3 (0.0-2.0); BASO % 0.1 % (0.0-3.0); GRAN # 9.82 (1.4-6.5); GRAN % 95.6 % (50.0-68.0); HEMOGLOBIN 9.3 g/dL (12.0-16.0); LYMPH # 0.4 (1.2-3.4); LYMPH % 3.7 % (22.0-35.0); MEAN CELL VOLUME 85.4 fl (80.0-105.0); MEAN CORPUSCULAR HEMOGLOBIN 28.3 pg (25.0-35.0); MEAN CORPUSCULAR HGB CONC 33.1 g/dl (31.0-37.0); MEAN PLATELET VOLUME 9.6 fl (7.0-11.0); MONO # 0.1 (0.1-0.6); MONO % 0.6 % (1.0-6.0); RBC 3.29 10^6/uL (3.5-6.1); RED CELL DISTRIBUTION WIDTH 19.8 % (11.5-14.5); WHITE BLOOD COUNT 10.3 10^3/ul (4.5-11.0)
[2017-11-18 06:38] LABS: ARTERIAL BLOOD GAS HCO3 25.2 mmol/L (21-28); ARTERIAL BLOOD GAS HEMOGLOBIN 9.1 g/dL (11.7-17.4); ARTERIAL BLOOD GAS O2 CAPACITY 13.1 mL/dl (16-24); ARTERIAL BLOOD GAS O2 CONTENT 12.9 ML/dl (15-23); ARTERIAL BLOOD GAS O2 SAT 98.4 % (95-98); ARTERIAL BLOOD GAS PCO2 50 mm/Hg (35-45); ARTERIAL BLOOD GAS PH 7.31 (7.35-7.45); ARTERIAL BLOOD GAS TCO2 26.7 mmol.L (22-28)
--- NOTE | 2017-11-18 07:22 | CP.PCM.PN ---
Subjective - Date & Time of Evaluation Date of Evaluation: 11/18/17 Time of Evaluation: 07:18 - Subjective Subjective: Surgery Patient seen and examined. Afib RVR overnight. Given lopressor. HR stablized but still afib on monitor. Off pressors. Intubated. Objective - Vital Signs/Intake and Output Vital Signs (last 24 hours): Temp Pulse Resp BP Pulse Ox 99.1 F 109 H 32 H 118/82 100 11/18/17 07:00 11/18/17 07:00 11/17/17 16:45 11/18/17 07:00 11/18/17 07:00 Intake and Output: 11/18/17 11/18/17 06:59 18:59 Intake Total 1045 Balance 1045 - Medications Medications: Current Medications Hydrocortisone Sodium Succinate (Solu-Cortef) 50 mg IVP Q6 WILIAN Last Admin: 11/18/17 00:49 Dose: 50 mg NOREPINEPHRINE BIT/0.9 % NACL (Levophed 4 Mg/ 250 Ml Ns Premixed) 4 mg in 250 mls @ 15 mls/hr IV .[id number] PRN; Protocol; 4 MCG/MIN PRN Reason: TITRATE PER MD ORDER Last Titration: 11/17/17 09:46 Dose: 0 mcg/min, 0 mls/hr Phenylephrine HCl 40 mg/ (Sodium Chloride) 254 mls @ 38.1 mls/hr IV .Q6H40M PRN ; Protocol; 100 MCG/MIN PRN Reason: TITRATE PER MD ORDER Last Titration: 11/17/17 08:30 Dose: 0 mcg/min, 0 mls/hr Vasopressin 20 units/ Sodium (Chloride) 101 mls @ 9.09 mls/hr IV .Q11H7M WILIAN; 0.03 U/MIN PRN Reason: Protocol Last Admin: 11/16/17 21:15 Dose: 9.09 mls/hr Meropenem 500 mg/ Sodium (Chloride) 50 mls @ 100 mls/hr IVPB 1400 WILIAN PRN Reason: Protocol Stop: 11/23/17 14:01 Last Admin: 11/17/17 13:54 Dose: 100 mls/hr Propofol (Diprivan) 1,000 mg in 100 mls @ 2.299 mls/hr IV .Q24H PRN; Protocol; 5 MCG/KG/MIN PRN Reason: TITRATE PER MD ORDER Pantoprazole Sodium (Protonix 40mg Ivpb) 40 mg in 100 mls @ 20 mls/hr IVPB .Q5H [facility] Last Admin: 11/18/17 02:30 Dose: 20 mls/hr Dextrose/Sodium Chloride (Dextrose 5%/0.9% Ns 1000 Ml) 1,000 mls @ 75 mls/hr IV .[id number] [facility] Last Admin: 11/17/17 21:30 Dose: 75 mls/hr Insulin Human Regular (Humulin R Low) 0 units SC Q6H WILIAN PRN Reason: Protocol Last Admin: 11/16/17 13:00 Dose: Not Given Ondansetron HCl (Zofran Inj) 4 mg IVP Q6H PRN PRN Reason: Nausea/Vomiting - Labs Labs: 11/18/17 05:21 11/18/17 05:21 PT 14.6 SECONDS (9.4-12.5) H 11/17/17 06:00 INR 1.26 (0.93-1.08) H 11/17/17 06:00 APTT 32.4 Seconds (25.1-36.5) 11/17/17 06:00 - Constitutional Appears: In Acute Distress - Head Exam Head Exam: ATRAUMATIC, NORMAL INSPECTION, NORMOCEPHALIC - Eye Exam Eye Exam: EOMI, Normal appearance, PERRL Pupil Exam: NORMAL ACCOMODATION, PERRL - ENT Exam ENT Exam: Mucous Membranes Moist, Normal Exam - Neck Exam Neck Exam: Full ROM, Normal Inspection. absent: Lymphadenopathy - Respiratory Exam Respiratory Exam: Clear to Ausculation Bilateral, NORMAL BREATHING PATTERN - Cardiovascular Exam Cardiovascular Exam: Tachycardia, Irregular Rhythm. absent: Murmur - GI/Abdominal Exam GI & Abdominal Exam: Soft, Normal Bowel Sounds. absent: Distended, Firm, Tenderness - Rectal Exam Rectal Exam: NORMAL INSPECTION. absent: Hemorrhoids - Exam Exam: NORMAL INSPECTION - Extremities Exam Extremities Exam: Full ROM, Normal Capillary Refill, Normal Inspection. absent : Joint Swelling, Pedal Edema - Neurological Exam Neurological Exam: absent: Awake - Skin Skin Exam: Dry, Intact, Normal Color, Warm Assessment and Plan - Assessment and Plan (Free Text) Assessment: 67F w. hemorrhagic shock 2/2 bleeding AVF and lower GI bleed, s/p code blue: off pressors. Bleeding resolving Bleeding scan: no active bleeding hgb 9.3 Plan: -ICU management -Possible EGD today -continue to resuscitate w. blood products, keep hgb>9 -Serial H/H q4h -will follow closely -Will d/w attending
--- NOTE | 2017-11-18 08:46 | CP.CCUPN ---
<Mika Ribera - Last Filed: 11/18/17 11:32> CCU Subjective - Physician Review Subjective (Free Text): 11/18/17 11:26 Patient seen and evaluated at bedside in no acute distress. Patient intubated, able to follow commands. CCU Objective - Vital Signs / Intake & Output Vital Signs (Last 4 hours): Vital Signs Temp Pulse BP Pulse Ox 11/18/17 07:00 99.1 F 109 H 118/82 100 11/18/17 06:50 99.1 F 104 H 112/50 L 97 11/18/17 06:45 99.1 F 98 H 98 11/18/17 06:30 99.3 F 127 H 11/18/17 06:15 99.1 F 113 H 100 11/18/17 06:00 99.1 F 100 H 100 11/18/17 05:45 99.1 F 112 H 100 11/18/17 05:30 99.1 F 106 H 98/65 L 100 11/18/17 05:15 99.1 F 119 H 100 11/18/17 05:00 99.3 F 101 H 87/47 L 99 Intake and Output (Last 8hrs): Intake & Output 11/17/17 11/18/17 11/18/17 22:59 06:59 14:59 Intake Total 1758 1045 Output Total 100 Balance 1658 1045 Weight 86.778 kg Intake: IV 1160 1045 D10 180 D5WNS 525 825 Right Femoral 150 levophed 20 clementina 45 protonix 240 220 Blood Product 598 Output: Urine 0 Urine, Voided 0 Other 100 Other: # Bowel Movements 1 - Physical Exam Head: Positive for: Atraumatic, Normocephalic Pupils: Positive for: PERRL Extroacular Muscles: Positive for: EOMI Conjunctiva: Positive for: Normal Mouth: Positive for: Moist Mucous Membranes, Other (intubated) Neck: Positive for: Normal Range of Motion Respiratory/Chest: Positive for: Clear to Auscultation, Good Air Exchange. Negative for: Respiratory Distress, Accessory Muscle Use Cardiovascular: Positive for: Regular Rate and Rhythm, Normal S1, S2. Negative for: Murmurs Abdomen: Negative for: Tenderness, Distention, Peritoneal Signs, Hernias, Mass/ Organomegaly Back: Positive for: Normal Inspection Upper Extremity: Positive for: Other (Slight minimal ooze of blood noted at av fistula site of left forearm. No excessive bleeding. ) Lower Extremity: Positive for: Normal Inspection. Negative for: Edema Neurological: Positive for: GCS=15, CN II-XII Intact. Negative for: Speech Normal (intubated can't speak) Skin: Positive for: Warm, Dry, Normal Color. Negative for: Rashes Psychiatric: Positive for: Alert, Oriented x 3, Normal Insight, Normal Concentration - Medications Active Medications: Active Medications Generic Name Dose Route Start Last Admin Trade Name Freq PRN Reason Stop Dose Admin Hydrocortisone Sodium Succinate 50 mg 11/17/17 12:00 11/18/17 00:49 Solu-Cortef IVP 50 mg Q6 WILIAN Administration NOREPINEPHRINE BIT/0.9 % NACL 4 mg in 250 mls @ 15 mls/hr 11/16/17 06:13 09:46 Levophed 4 Mg/ 250 Ml Ns Premixed IV 0 mcg/min .[id number] PRN 0 mls/hr TITRATE PER MD ORDER Titration Protocol 4 MCG/MIN Phenylephrine HCl 40 mg/ 254 mls @ 38.1 mls/hr 11/16/17 09:49 11/17/17 08:30 Sodium Chloride IV 0 mcg/min .Q6H40M PRN 0 mls/hr TITRATE PER MD ORDER Titration Protocol 100 MCG/MIN Vasopressin 20 units/ Sodium 101 mls @ 9.09 mls/hr 11/16/17 10:00 11/16/17 21 :15 Chloride IV 9.09 mls/hr .[id number] WILIAN Administration Protocol 0.03 U/MIN Meropenem 500 mg/ Sodium 50 mls @ 100 mls/hr 11/17/17 14:00 11/17/17 13:54 Chloride IVPB 11/23/17 14:01 100 mls/hr 1400 WILIAN Administration Protocol Propofol 1,000 mg in 100 mls @ 2.299 mls/hr 11/16/17 20:24 Diprivan IV .Q24H PRN TITRATE PER MD ORDER Protocol 5 MCG/KG/MIN Pantoprazole Sodium 40 mg in 100 mls @ 20 mls/hr 11/16/17 20:30 11/18/17 02: 30 Protonix 40mg Ivpb IVPB 20 mls/hr .Q5H WILIAN Administration Dextrose/Sodium Chloride 1,000 mls @ 75 mls/hr 11/17/17 08:45 11/17/17 21:30 Dextrose 5%/0.9% Ns 1000 Ml IV 75 mls/hr .[id number] WILIAN Administration Insulin Human Regular 0 units 11/16/17 07:00 11/16/17 13:00 Humulin R Low SC Not Given Q6H WILIAN Protocol Ondansetron HCl 4 mg 11/17/17 17:27 Zofran Inj IVP Q6H PRN Nausea/Vomiting - Patient Studies Lab Studies: Microbiology Studies 11/16/17 09:10 MRSA Culture (Admit) - Final Nose MRSA NOT DETECTED 11/16/17 09:30 Blood Culture - Preliminary Blood NO GROWTH AFTER 24 HOURS Lab Studies 11/18/17 11/18/17 11/18/17 Range/Units 08:21 06:00 05:30 WBC (4.5-11.0) 10^3/ul RBC (3.5-6.1) 10^6/uL Hgb (12.0-16.0) g/dL Hct (36.0-48.0) % MCV (80.0-105.0) fl MCH (25.0-35.0) pg MCHC (31.0-37.0) g/dl RDW (11.5-14.5) % Plt Count (120.0-450.0) 10^3/uL Manual Plt Count 75 L* (120-450) K/mm3 MPV (7.0-11.0) fl Gran % (50.0-68.0) % Lymph % (Auto) (22.0-35.0) % [place] % (Auto) (1.0-6.0) % Eos % (Auto) (1.5-5.0) % Baso % (Auto) (0.0-3.0) % Gran # (1.4-6.5) Lymph # (Auto) (1.2-3.4) [place] # (Auto) (0.1-0.6) Eos # (Auto) (0.0-0.7) Baso # (Auto) (0.0-2.0) K/mm3 pCO2 50 H (35-45) mm/Hg pO2 214.0 H (30-55) mm/Hg HCO3 25.2 (21-28) mmol/L ABG pH 7.31 L (7.35-7.45) ABG Total CO2 26.7 (22-28) mmol.L ABG O2 Saturation 98.4 H (95-98) % ABG O2 Content 12.9 L (15-23) ML/dl ABG Base Excess -1.3 (-2.0-3.0) mmol/L ABG Hemoglobin 9.1 L (11.7-17.4) g/dL ABG Carboxyhemoglobin 0.4 L (0.5-1.5) % POC ABG HHb (Measured) 1.6 (0-5) % ABG Methemoglobin 1.1 (0.0-3.0) % ABG O2 Capacity 13.1 L (16-24) mL/dl VBG pH (7.32-7.43) VBG pCO2 (40-60) VBG HCO3 (21-28) mmol/l VBG Total CO2 (22-28) mmol.L VBG O2 Sat (Calc) (40-65) % VBG Base Excess (0.0-2.0) mmol/L VBG Potassium (3.6-5.2) mmol/L Hgb O2 Saturation 96.8 (95.0-98.0) % Sodium (132-148) mmol/L Chloride (98-107) mmol/L Glucose (65-105) mg/dl Lactate (0.7-2.1) mmol/L FiO2 50.0 % Potassium (3.6-5.0) mmol/L Carbon Dioxide (21-33) mmol/L Anion Gap (10-20) BUN (7-21) mg/dL Creatinine (0.7-1.2) mg/dl Est GFR ( Amer) Est GFR (Non-Af Amer) POC Glucose (mg/dL) 126 H (65-110) mg/dL Random Glucose (70-110) mg/dL Calcium (8.4-10.5) mg/dL Phosphorus (2.5-4.5) mg/dL Magnesium (1.7-2.2) mg/dL Total Bilirubin (0.2-1.3) mg/dL AST (14-36) U/L ALT (7-56) U/L Alkaline Phosphatase (38-126) U/L Total Protein (5.8-8.3) g/dL Albumin (3.0-4.8) g/dL Globulin gm/dL Albumin/Globulin Ratio (1.1-1.8) Procalcitonin (0.19-0.49) NG/ML Venous Blood Potassium (3.6-5.2) mmol/L 11/18/17 11/18/17 11/18/17 Range/Units 05:21 05:21 03:57 WBC 10.3 (4.5-11.0) 10^3/ul RBC 3.29 L (3.5-6.1) 10^6/uL Hgb 9.3 L (12.0-16.0) g/dL Hct 28.1 L (36.0-48.0) % MCV 85.4 (80.0-105.0) fl MCH 28.3 (25.0-35.0) pg MCHC 33.1 (31.0-37.0) g/dl RDW 19.8 H (11.5-14.5) % Plt Count 60 L (120.0-450.0) 10^3/uL Manual Plt Count (120-450) K/mm3 MPV 9.6 (7.0-11.0) fl Gran % 95.6 H (50.0-68.0) % Lymph % (Auto) 3.7 L (22.0-35.0) % [place] % (Auto) 0.6 L (1.0-6.0) % Eos % (Auto) 0.0 L (1.5-5.0) % Baso % (Auto) 0.1 (0.0-3.0) % Gran # 9.82 H (1.4-6.5) Lymph # (Auto) 0.4 L (1.2-3.4) [place] # (Auto) 0.1 (0.1-0.6) Eos # (Auto) 0.0 (0.0-0.7) Baso # (Auto) 0.01 (0.0-2.0) K/mm3 pCO2 (35-45) mm/Hg pO2 (30-55) mm/Hg HCO3 (21-28) mmol/L ABG pH (7.35-7.45) ABG Total CO2 (22-28) mmol.L ABG O2 Saturation (95-98) % ABG O2 Content (15-23) ML/dl ABG Base Excess (-2.0-3.0) mmol/L ABG Hemoglobin (11.7-17.4) g/dL ABG Carboxyhemoglobin (0.5-1.5) % POC ABG HHb (Measured) (0-5) % ABG Methemoglobin (0.0-3.0) % ABG O2 Capacity (16-24) mL/dl VBG pH (7.32-7.43) VBG pCO2 (40-60) VBG HCO3 (21-28) mmol/l VBG Total CO2 (22-28) mmol.L VBG O2 Sat (Calc) (40-65) % VBG Base Excess (0.0-2.0) mmol/L VBG Potassium (3.6-5.2) mmol/L Hgb O2 Saturation (95.0-98.0) % Sodium 138 (132-148) mmol/L Chloride 103 (98-107) mmol/L Glucose (65-105) mg/dl Lactate (0.7-2.1) mmol/L FiO2 % Potassium 4.4 (3.6-5.0) mmol/L Carbon Dioxide 27 (21-33) mmol/L Anion Gap 13 (10-20) BUN 47 H (7-21) mg/dL Creatinine 6.0 H (0.7-1.2) mg/dl Est GFR ( Amer) 8 Est GFR (Non-Af Amer) 7 POC Glucose (mg/dL) 140 H (65-110) mg/dL Random Glucose 129 H (70-110) mg/dL Calcium 8.5 (8.4-10.5) mg/dL Phosphorus 6.1 H (2.5-4.5) mg/dL Magnesium 1.8 (1.7-2.2) mg/dL Total Bilirubin 0.6 (0.2-1.3) mg/dL AST 418 H D (14-36) U/L ALT 664 H (7-56) U/L Alkaline Phosphatase 67 (38-126) U/L Total Protein 5.2 L (5.8-8.3) g/dL Albumin 2.8 L (3.0-4.8) g/dL Globulin 2.5 gm/dL Albumin/Globulin Ratio 1.1 (1.1-1.8) Procalcitonin (0.19-0.49) NG/ML Venous Blood Potassium (3.6-5.2) mmol/L 11/18/17 11/18/17 11/17/17 Range/Units 00:30 00:08 21:27 WBC 11.9 H (4.5-11.0) 10^3/ul RBC 3.18 L (3.5-6.1) 10^6/uL Hgb 9.0 L (12.0-16.0) g/dL Hct 27.1 L (36.0-48.0) % MCV 85.2 (80.0-105.0) fl MCH 28.3 (25.0-35.0) pg MCHC 33.2 (31.0-37.0) g/dl RDW 19.8 H (11.5-14.5) % Plt Count 68 L (120.0-450.0) 10^3/uL Manual Plt Count (120-450) K/mm3 MPV 9.7 (7.0-11.0) fl Gran % 96.5 H (50.0-68.0) % Lymph % (Auto) 2.9 L (22.0-35.0) % [place] % (Auto) 0.6 L (1.0-6.0) % Eos % (Auto) 0.0 L (1.5-5.0) % Baso % (Auto) 0.0 (0.0-3.0) % Gran # 11.51 H (1.4-6.5) Lymph # (Auto) 0.3 L (1.2-3.4) [place] # (Auto) 0.1 (0.1-0.6) Eos # (Auto) 0.0 (0.0-0.7) Baso # (Auto) 0.00 (0.0-2.0) K/mm3 pCO2 (35-45) mm/Hg pO2 (30-55) mm/Hg HCO3 (21-28) mmol/L ABG pH (7.35-7.45) ABG Total CO2 (22-28) mmol.L ABG O2 Saturation (95-98) % ABG O2 Content (15-23) ML/dl ABG Base Excess (-2.0-3.0) mmol/L ABG Hemoglobin (11.7-17.4) g/dL ABG Carboxyhemoglobin (0.5-1.5) % POC ABG HHb (Measured) (0-5) % ABG Methemoglobin (0.0-3.0) % ABG O2 Capacity (16-24) mL/dl VBG pH (7.32-7.43) VBG pCO2 (40-60) VBG HCO3 (21-28) mmol/l VBG Total CO2 (22-28) mmol.L VBG O2 Sat (Calc) (40-65) % VBG Base Excess (0.0-2.0) mmol/L VBG Potassium (3.6-5.2) mmol/L Hgb O2 Saturation (95.0-98.0) % Sodium (132-148) mmol/L Chloride (98-107) mmol/L Glucose (65-105) mg/dl Lactate (0.7-2.1) mmol/L FiO2 % Potassium (3.6-5.0) mmol/L Carbon Dioxide (21-33) mmol/L Anion Gap (10-20) BUN (7-21) mg/dL Creatinine (0.7-1.2) mg/dl Est GFR ( Amer) Est GFR (Non-Af Amer) POC Glucose (mg/dL) 129 H 142 H (65-110) mg/dL Random Glucose (70-110) mg/dL Calcium (8.4-10.5) mg/dL Phosphorus (2.5-4.5) mg/dL Magnesium (1.7-2.2) mg/dL Total Bilirubin (0.2-1.3) mg/dL AST (14-36) U/L ALT (7-56) U/L Alkaline Phosphatase (38-126) U/L Total Protein (5.8-8.3) g/dL Albumin (3.0-4.8) g/dL Globulin gm/dL Albumin/Globulin Ratio (1.1-1.8) Procalcitonin (0.19-0.49) NG/ML Venous Blood Potassium (3.6-5.2) mmol/L 11/17/17 11/17/17 11/17/17 Range/Units 18:00 18:00 15:50 WBC 11.9 H (4.5-11.0) 10^3/ul RBC 3.21 L (3.5-6.1) 10^6/uL Hgb 9.1 L (12.0-16.0) g/dL Hct 27.2 L (36.0-48.0) % MCV 84.7 (80.0-105.0) fl MCH 28.3 (25.0-35.0) pg MCHC 33.5 (31.0-37.0) g/dl RDW 19.5 H (11.5-14.5) % Plt Count 75 L (120.0-450.0) 10^3/uL Manual Plt Count (120-450) K/mm3 MPV 9.2 (7.0-11.0) fl Gran % 95.9 H (50.0-68.0) % Lymph % (Auto) 2.1 L (22.0-35.0) % [place] % (Auto) 1.9 (1.0-6.0) % Eos % (Auto) 0.0 L (1.5-5.0) % Baso % (Auto) 0.1 (0.0-3.0) % Gran # 11.39 H (1.4-6.5) Lymph # (Auto) 0.3 L (1.2-3.4) [place] # (Auto) 0.2 (0.1-0.6) Eos # (Auto) 0.0 (0.0-0.7) Baso # (Auto) 0.01 (0.0-2.0) K/mm3 pCO2 (35-45) mm/Hg pO2 72 H (30-55) mm/Hg HCO3 (21-28) mmol/L ABG pH (7.35-7.45) ABG Total CO2 (22-28) mmol.L ABG O2 Saturation (95-98) % ABG O2 Content (15-23) ML/dl ABG Base Excess (-2.0-3.0) mmol/L ABG Hemoglobin (11.7-17.4) g/dL ABG Carboxyhemoglobin (0.5-1.5) % POC ABG HHb (Measured) (0-5) % ABG Methemoglobin (0.0-3.0) % ABG O2 Capacity (16-24) mL/dl VBG pH 7.33 (7.32-7.43) VBG pCO2 55.0 (40-60) VBG HCO3 29.0 H (21-28) mmol/l VBG Total CO2 30.7 H (22-28) mmol.L VBG O2 Sat (Calc) 95.7 H (40-65) % VBG Base Excess 1.9 (0.0-2.0) mmol/L VBG Potassium 4.3 (3.6-5.2) mmol/L Hgb O2 Saturation (95.0-98.0) % Sodium 136.0 (132-148) mmol/L Chloride 104.0 (98-107) mmol/L Glucose 152 H (65-105) mg/dl Lactate 1.9 (0.7-2.1) mmol/L FiO2 21.0 % Potassium (3.6-5.0) mmol/L Carbon Dioxide (21-33) mmol/L Anion Gap (10-20) BUN (7-21) mg/dL Creatinine (0.7-1.2) mg/dl Est GFR ( Amer) Est GFR (Non-Af Amer) POC Glucose (mg/dL) 145 H (65-110) mg/dL Random Glucose (70-110) mg/dL Calcium (8.4-10.5) mg/dL Phosphorus (2.5-4.5) mg/dL Magnesium (1.7-2.2) mg/dL Total Bilirubin (0.2-1.3) mg/dL AST (14-36) U/L ALT (7-56) U/L Alkaline Phosphatase (38-126) U/L Total Protein (5.8-8.3) g/dL Albumin (3.0-4.8) g/dL Globulin gm/dL Albumin/Globulin Ratio (1.1-1.8) Procalcitonin (0.19-0.49) NG/ML Venous Blood Potassium 4.3 (3.6-5.2) mmol/L 11/17/17 11/17/17 11/17/17 Range/Units 13:10 12:30 12:30 WBC 13.1 H (4.5-11.0) 10^3/ul RBC 3.37 L (3.5-6.1) 10^6/uL Hgb 9.7 L (12.0-16.0) g/dL Hct 28.6 L (36.0-48.0) % MCV 84.9 (80.0-105.0) fl MCH 28.8 (25.0-35.0) pg MCHC 33.9 (31.0-37.0) g/dl RDW 19.3 H (11.5-14.5) % Plt Count 82 L (120.0-450.0) 10^3/uL Manual Plt Count (120-450) K/mm3 MPV 8.6 (7.0-11.0) fl Gran % 96.1 H (50.0-68.0) % Lymph % (Auto) 3.1 L (22.0-35.0) % [place] % (Auto) 0.8 L (1.0-6.0) % Eos % (Auto) 0.0 L (1.5-5.0) % Baso % (Auto) 0.0 (0.0-3.0) % Gran # 12.60 H (1.4-6.5) Lymph # (Auto) 0.4 L (1.2-3.4) [place] # (Auto) 0.1 (0.1-0.6) Eos # (Auto) 0.0 (0.0-0.7) Baso # (Auto) 0.00 (0.0-2.0) K/mm3 pCO2 (35-45) mm/Hg pO2 (30-55) mm/Hg HCO3 (21-28) mmol/L ABG pH (7.35-7.45) ABG Total CO2 (22-28) mmol.L ABG O2 Saturation (95-98) % ABG O2 Content (15-23) ML/dl ABG Base Excess (-2.0-3.0) mmol/L ABG Hemoglobin (11.7-17.4) g/dL ABG Carboxyhemoglobin (0.5-1.5) % POC ABG HHb (Measured) (0-5) % ABG Methemoglobin (0.0-3.0) % ABG O2 Capacity (16-24) mL/dl VBG pH (7.32-7.43) VBG pCO2 (40-60) VBG HCO3 (21-28) mmol/l VBG Total CO2 (22-28) mmol.L VBG O2 Sat (Calc) (40-65) % VBG Base Excess (0.0-2.0) mmol/L VBG Potassium (3.6-5.2) mmol/L Hgb O2 Saturation (95.0-98.0) % Sodium (132-148) mmol/L Chloride (98-107) mmol/L Glucose (65-105) mg/dl Lactate (0.7-2.1) mmol/L FiO2 % Potassium (3.6-5.0) mmol/L Carbon Dioxide (21-33) mmol/L Anion Gap (10-20) BUN (7-21) mg/dL Creatinine (0.7-1.2) mg/dl Est GFR ( Amer) Est GFR (Non-Af Amer) POC Glucose (mg/dL) 154 H (65-110) mg/dL Random Glucose (70-110) mg/dL Calcium (8.4-10.5) mg/dL Phosphorus (2.5-4.5) mg/dL Magnesium (1.7-2.2) mg/dL Total Bilirubin (0.2-1.3) mg/dL AST (14-36) U/L ALT (7-56) U/L Alkaline Phosphatase (38-126) U/L Total Protein (5.8-8.3) g/dL Albumin (3.0-4.8) g/dL Globulin gm/dL Albumin/Globulin Ratio (1.1-1.8) Procalcitonin > 200.00 H (0.19-0.49) NG/ML Venous Blood Potassium (3.6-5.2) mmol/L 11/17/17 11/17/17 11/17/17 Range/Units 12:30 12:17 10:54 WBC (4.5-11.0) 10^3/ul RBC (3.5-6.1) 10^6/uL Hgb (12.0-16.0) g/dL Hct (36.0-48.0) % MCV (80.0-105.0) fl MCH (25.0-35.0) pg MCHC (31.0-37.0) g/dl RDW (11.5-14.5) % Plt Count (120.0-450.0) 10^3/uL Manual Plt Count (120-450) K/mm3 MPV (7.0-11.0) fl Gran % (50.0-68.0) % Lymph % (Auto) (22.0-35.0) % [place] % (Auto) (1.0-6.0) % Eos % (Auto) (1.5-5.0) % Baso % (Auto) (0.0-3.0) % Gran # (1.4-6.5) Lymph # (Auto) (1.2-3.4) [place] # (Auto) (0.1-0.6) Eos # (Auto) (0.0-0.7) Baso # (Auto) (0.0-2.0) K/mm3 pCO2 (35-45) mm/Hg pO2 35 (30-55) mm/Hg HCO3 (21-28) mmol/L ABG pH (7.35-7.45) ABG Total CO2 (22-28) mmol.L ABG O2 Saturation (95-98) % ABG O2 Content (15-23) ML/dl ABG Base Excess (-2.0-3.0) mmol/L ABG Hemoglobin (11.7-17.4) g/dL ABG Carboxyhemoglobin (0.5-1.5) % POC ABG HHb (Measured) (0-5) % ABG Methemoglobin (0.0-3.0) % ABG O2 Capacity (16-24) mL/dl VBG pH 7.33 (7.32-7.43) VBG pCO2 54.0 (40-60) VBG HCO3 28.5 H (21-28) mmol/l VBG Total CO2 30.2 H (22-28) mmol.L VBG O2 Sat (Calc) 76.1 H (40-65) % VBG Base Excess 1.5 (0.0-2.0) mmol/L VBG Potassium 4.4 (3.6-5.2) mmol/L Hgb O2 Saturation (95.0-98.0) % Sodium 136.0 (132-148) mmol/L Chloride 103.0 (98-107) mmol/L Glucose 163 H (65-105) mg/dl Lactate 2.9 H (0.7-2.1) mmol/L FiO2 21.0 % Potassium (3.6-5.0) mmol/L Carbon Dioxide (21-33) mmol/L Anion Gap (10-20) BUN (7-21) mg/dL Creatinine (0.7-1.2) mg/dl Est GFR ( Amer) Est GFR (Non-Af Amer) POC Glucose (mg/dL) 148 H 174 H (65-110) mg/dL Random Glucose (70-110) mg/dL Calcium (8.4-10.5) mg/dL Phosphorus (2.5-4.5) mg/dL Magnesium (1.7-2.2) mg/dL Total Bilirubin (0.2-1.3) mg/dL AST (14-36) U/L ALT (7-56) U/L Alkaline Phosphatase (38-126) U/L Total Protein (5.8-8.3) g/dL Albumin (3.0-4.8) g/dL Globulin gm/dL Albumin/Globulin Ratio (1.1-1.8) Procalcitonin (0.19-0.49) NG/ML Venous Blood Potassium 4.4 (3.6-5.2) mmol/L 11/17/17 11/17/17 11/17/17 Range/Units 09:52 09:30 09:29 WBC 14.3 H (4.5-11.0) 10^3/ul RBC 3.56 (3.5-6.1) 10^6/uL Hgb 10.2 L (12.0-16.0) g/dL Hct 30.1 L (36.0-48.0) % MCV 84.6 (80.0-105.0) fl MCH 28.7 (25.0-35.0) pg MCHC 33.9 (31.0-37.0) g/dl RDW 19.3 H (11.5-14.5) % Plt Count 84 L (120.0-450.0) 10^3/uL Manual Plt Count (120-450) K/mm3 MPV 9.3 (7.0-11.0) fl Gran % 94.3 H (50.0-68.0) % Lymph % (Auto) 2.8 L (22.0-35.0) % [place] % (Auto) 2.8 (1.0-6.0) % Eos % (Auto) 0.0 L (1.5-5.0) % Baso % (Auto) 0.1 (0.0-3.0) % Gran # 13.47 H (1.4-6.5) Lymph # (Auto) 0.4 L (1.2-3.4) [place] # (Auto) 0.4 (0.1-0.6) Eos # (Auto) 0.0 (0.0-0.7) Baso # (Auto) 0.01 (0.0-2.0) K/mm3 pCO2 (35-45) mm/Hg pO2 (30-55) mm/Hg HCO3 (21-28) mmol/L ABG pH (7.35-7.45) ABG Total CO2 (22-28) mmol.L ABG O2 Saturation (95-98) % ABG O2 Content (15-23) ML/dl ABG Base Excess (-2.0-3.0) mmol/L ABG Hemoglobin (11.7-17.4) g/dL ABG Carboxyhemoglobin (0.5-1.5) % POC ABG HHb (Measured) (0-5) % ABG Methemoglobin (0.0-3.0) % ABG O2 Capacity (16-24) mL/dl VBG pH (7.32-7.43) VBG pCO2 (40-60) VBG HCO3 (21-28) mmol/l VBG Total CO2 (22-28) mmol.L VBG O2 Sat (Calc) (40-65) % VBG Base Excess (0.0-2.0) mmol/L VBG Potassium (3.6-5.2) mmol/L Hgb O2 Saturation (95.0-98.0) % Sodium (132-148) mmol/L Chloride (98-107) mmol/L Glucose (65-105) mg/dl Lactate (0.7-2.1) mmol/L FiO2 % Potassium (3.6-5.0) mmol/L Carbon Dioxide (21-33) mmol/L Anion Gap (10-20) BUN (7-21) mg/dL Creatinine (0.7-1.2) mg/dl Est GFR ( Amer) Est GFR (Non-Af Amer) POC Glucose (mg/dL) 169 H 196 H (65-110) mg/dL Random Glucose (70-110) mg/dL Calcium (8.4-10.5) mg/dL Phosphorus (2.5-4.5) mg/dL Magnesium (1.7-2.2) mg/dL Total Bilirubin (0.2-1.3) mg/dL AST (14-36) U/L ALT (7-56) U/L Alkaline Phosphatase (38-126) U/L Total Protein (5.8-8.3) g/dL Albumin (3.0-4.8) g/dL Globulin gm/dL Albumin/Globulin Ratio (1.1-1.8) Procalcitonin (0.19-0.49) NG/ML Venous Blood Potassium (3.6-5.2) mmol/L Laboratory Results - last 24 hr 11/17/17 11/17/17 11/17/17 09:29 09:30 09:52 WBC 14.3 H RBC 3.56 Hgb 10.2 L Hct 30.1 L MCV 84.6 MCH 28.7 MCHC 33.9 RDW 19.3 H Plt Count 84 L Manual Plt Count MPV 9.3 Gran % 94.3 H Lymph % (Auto) 2.8 L [place] % (Auto) 2.8 Eos % (Auto) 0.0 L Baso % (Auto) 0.1 Gran # 13.47 H Lymph # (Auto) 0.4 L [place] # (Auto) 0.4 Eos # (Auto) 0.0 Baso # (Auto) 0.01 pCO2 pO2 HCO3 ABG pH ABG Total CO2 ABG O2 Saturation ABG O2 Content ABG Base Excess ABG Hemoglobin ABG Carboxyhemoglobin POC ABG HHb (Measured) ABG Methemoglobin ABG O2 Capacity VBG pH VBG pCO2 VBG HCO3 VBG Total CO2 VBG O2 Sat (Calc) VBG Base Excess VBG Potassium Hgb O2 Saturation Sodium Chloride Glucose Lactate FiO2 Potassium Carbon Dioxide Anion Gap BUN Creatinine Est GFR ( Amer) Est GFR (Non-Af Amer) POC Glucose (mg/dL) 196 H 169 H Random Glucose Calcium Phosphorus Magnesium Total Bilirubin AST ALT Alkaline Phosphatase Total Protein Albumin Globulin Albumin/Globulin Ratio Procalcitonin Venous Blood Potassium 11/17/17 11/17/17 11/17/17 10:54 12:17 12:30 WBC RBC Hgb Hct MCV MCH MCHC RDW Plt Count Manual Plt Count MPV Gran % Lymph % (Auto) [place] % (Auto) Eos % (Auto) Baso % (Auto) Gran # Lymph # (Auto) [place] # (Auto) Eos # (Auto) Baso # (Auto) pCO2 pO2 35 HCO3 ABG pH ABG Total CO2 ABG O2 Saturation ABG O2 Content ABG Base Excess ABG Hemoglobin ABG Carboxyhemoglobin POC ABG HHb (Measured) ABG Methemoglobin ABG O2 Capacity VBG pH 7.33 VBG pCO2 54.0 VBG HCO3 28.5 H VBG Total CO2 30.2 H VBG O2 Sat (Calc) 76.1 H VBG Base Excess 1.5 VBG Potassium 4.4 Hgb O2 Saturation Sodium 136.0 Chloride 103.0 Glucose 163 H Lactate 2.9 H FiO2 21.0 Potassium Carbon Dioxide Anion Gap BUN Creatinine Est GFR ( Amer) Est GFR (Non-Af Amer) POC Glucose (mg/dL) 174 H 148 H Random Glucose Calcium Phosphorus Magnesium Total Bilirubin AST ALT Alkaline Phosphatase Total Protein Albumin Globulin Albumin/Globulin Ratio Procalcitonin Venous Blood Potassium 4.4 11/17/17 11/17/17 11/17/17 12:30 12:30 13:10 WBC 13.1 H RBC 3.37 L Hgb 9.7 L Hct 28.6 L MCV 84.9 MCH 28.8 MCHC 33.9 RDW 19.3 H Plt Count 82 L Manual Plt Count MPV 8.6 Gran % 96.1 H Lymph % (Auto) 3.1 L [place] % (Auto) 0.8 L Eos % (Auto) 0.0 L Baso % (Auto) 0.0 Gran # 12.60 H Lymph # (Auto) 0.4 L [place] # (Auto) 0.1 Eos # (Auto) 0.0 Baso # (Auto) 0.00 pCO2 pO2 HCO3 ABG pH ABG Total CO2 ABG O2 Saturation ABG O2 Content ABG Base Excess ABG Hemoglobin ABG Carboxyhemoglobin POC ABG HHb (Measured) ABG Methemoglobin ABG O2 Capacity VBG pH VBG pCO2 VBG HCO3 VBG Total CO2 VBG O2 Sat (Calc) VBG Base Excess VBG Potassium Hgb O2 Saturation Sodium Chloride Glucose Lactate FiO2 Potassium Carbon Dioxide Anion Gap BUN Creatinine Est GFR ( Amer) Est GFR (Non-Af Amer) POC Glucose (mg/dL) 154 H Random Glucose Calcium Phosphorus Magnesium Total Bilirubin AST ALT Alkaline Phosphatase Total Protein Albumin Globulin Albumin/Globulin Ratio Procalcitonin > 200.00 H Venous Blood Potassium 11/17/17 11/17/17 11/17/17 15:50 18:00 18:00 WBC 11.9 H RBC 3.21 L Hgb 9.1 L Hct 27.2 L MCV 84.7 MCH 28.3 MCHC 33.5 RDW 19.5 H Plt Count 75 L Manual Plt Count MPV 9.2 Gran % 95.9 H Lymph % (Auto) 2.1 L [place] % (Auto) 1.9 Eos % (Auto) 0.0 L Baso % (Auto) 0.1 Gran # 11.39 H Lymph # (Auto) 0.3 L [place] # (Auto) 0.2 Eos # (Auto) 0.0 Baso # (Auto) 0.01 pCO2 pO2 72 H HCO3 ABG pH ABG Total CO2 ABG O2 Saturation ABG O2 Content ABG Base Excess ABG Hemoglobin ABG Carboxyhemoglobin POC ABG HHb (Measured) ABG Methemoglobin ABG O2 Capacity VBG pH 7.33 VBG pCO2 55.0 VBG HCO3 29.0 H VBG Total CO2 30.7 H VBG O2 Sat (Calc) 95.7 H VBG Base Excess 1.9 VBG Potassium 4.3 Hgb O2 Saturation Sodium 136.0 Chloride 104.0 Glucose 152 H Lactate 1.9 FiO2 21.0 Potassium Carbon Dioxide Anion Gap BUN Creatinine Est GFR ( Amer) Est GFR (Non-Af Amer) POC Glucose (mg/dL) 145 H Random Glucose Calcium Phosphorus Magnesium Total Bilirubin AST ALT Alkaline Phosphatase Total Protein Albumin Globulin Albumin/Globulin Ratio Procalcitonin Venous Blood Potassium 4.3 11/17/17 11/18/17 11/18/17 21:27 00:08 00:30 WBC 11.9 H RBC 3.18 L Hgb 9.0 L Hct 27.1 L MCV 85.2 MCH 28.3 MCHC 33.2 RDW 19.8 H Plt Count 68 L Manual Plt Count MPV 9.7 Gran % 96.5 H Lymph % (Auto) 2.9 L [place] % (Auto) 0.6 L Eos % (Auto) 0.0 L Baso % (Auto) 0.0 Gran # 11.51 H Lymph # (Auto) 0.3 L [place] # (Auto) 0.1 Eos # (Auto) 0.0 Baso # (Auto) 0.00 pCO2 pO2 HCO3 ABG pH ABG Total CO2 ABG O2 Saturation ABG O2 Content ABG Base Excess ABG Hemoglobin ABG Carboxyhemoglobin POC ABG HHb (Measured) ABG Methemoglobin ABG O2 Capacity VBG pH VBG pCO2 VBG HCO3 VBG Total CO2 VBG O2 Sat (Calc) VBG Base Excess VBG Potassium Hgb O2 Saturation Sodium Chloride Glucose Lactate FiO2 Potassium Carbon Dioxide Anion Gap BUN Creatinine Est GFR ( Amer) Est GFR (Non-Af Amer) POC Glucose (mg/dL) 142 H 129 H Random Glucose Calcium Phosphorus Magnesium Total Bilirubin AST ALT Alkaline Phosphatase Total Protein Albumin Globulin Albumin/Globulin Ratio Procalcitonin Venous Blood Potassium 11/18/17 11/18/17 11/18/17 03:57 05:21 05:21 WBC 10.3 RBC 3.29 L Hgb 9.3 L Hct 28.1 L MCV 85.4 MCH 28.3 MCHC 33.1 RDW 19.8 H Plt Count 60 L Manual Plt Count MPV 9.6 Gran % 95.6 H Lymph % (Auto) 3.7 L [place] % (Auto) 0.6 L Eos % (Auto) 0.0 L Baso % (Auto) 0.1 Gran # 9.82 H Lymph # (Auto) 0.4 L [place] # (Auto) 0.1 Eos # (Auto) 0.0 Baso # (Auto) 0.01 pCO2 pO2 HCO3 ABG pH ABG Total CO2 ABG O2 Saturation ABG O2 Content ABG Base Excess ABG Hemoglobin ABG Carboxyhemoglobin POC ABG HHb (Measured) ABG Methemoglobin ABG O2 Capacity VBG pH VBG pCO2 VBG HCO3 VBG Total CO2 VBG O2 Sat (Calc) VBG Base Excess VBG Potassium Hgb O2 Saturation Sodium 138 Chloride 103 Glucose Lactate FiO2 Potassium 4.4 Carbon Dioxide 27 Anion Gap 13 BUN 47 H Creatinine 6.0 H Est GFR ( Amer) 8 Est GFR (Non-Af Amer) 7 POC Glucose (mg/dL) 140 H Random Glucose 129 H Calcium 8.5 Phosphorus 6.1 H Magnesium 1.8 Total Bilirubin 0.6 AST 418 H D ALT 664 H Alkaline Phosphatase 67 Total Protein 5.2 L Albumin 2.8 L Globulin 2.5 Albumin/Globulin Ratio 1.1 Procalcitonin Venous Blood Potassium 11/18/17 11/18/17 11/18/17 05:30 06:00 08:21 WBC RBC Hgb Hct MCV MCH MCHC RDW Plt Count Manual Plt Count 75 L* MPV Gran % Lymph % (Auto) [place] % (Auto) Eos % (Auto) Baso % (Auto) Gran # Lymph # (Auto) [place] # (Auto) Eos # (Auto) Baso # (Auto) pCO2 50 H pO2 214.0 H HCO3 25.2 ABG pH 7.31 L ABG Total CO2 26.7 ABG O2 Saturation 98.4 H ABG O2 Content 12.9 L ABG Base Excess -1.3 ABG Hemoglobin 9.1 L ABG Carboxyhemoglobin 0.4 L POC ABG HHb (Measured) 1.6 ABG Methemoglobin 1.1 ABG O2 Capacity 13.1 L VBG pH VBG pCO2 VBG HCO3 VBG Total CO2 VBG O2 Sat (Calc) VBG Base Excess VBG Potassium Hgb O2 Saturation 96.8 Sodium Chloride Glucose Lactate FiO2 50.0 Potassium Carbon Dioxide Anion Gap BUN Creatinine Est GFR ( Amer) Est GFR (Non-Af Amer) POC Glucose (mg/dL) 126 H Random Glucose Calcium Phosphorus Magnesium Total Bilirubin AST ALT Alkaline Phosphatase Total Protein Albumin Globulin Albumin/Globulin Ratio Procalcitonin Venous Blood Potassium Fingerstick Blood Sugar Results: 140 Review of Systems - Review of Systems Systems not reviewed;Unavailable: Intubated Critical Care Progress Note - Nutrition Nutrition: Nutrition Category Date Time Status NPO Diet [DIET] Diets 11/16/17 Breakfast Ordered Assessment/Plan - Assessment and Plan (Free Text) Assessment: This is a 67yo female with past medical history of ESRD on HD (MWF), DM, CVA, HTN, asthma who is admitted to ICU for hemorrhagic shock secondary to bleeding AV fistula. s/p 4 unit PRBC. S/p cardiac arrest yesterday (ROSC achieved after 4 min of CPR and 2 rounds of epi), currently intubated and not sedated. Patient currently off of Levophed, phenylephrine, and vasopressin. EGD shows no active bleeding patient will be extubated. Plan: Neurologic -patient is currently intubated however not currently on sedation, able to follow commands. However due to EGD findings of no active bleeding, patient will be extubated. Cardiovascular -Patient experienced Atrial fibrillation with RVR, was given Lopressor 5 mg. Currently in A. fib however HR is controlled. Will check TSH. -BP is controlled, maintain normotension -Continue with solu-cortef Hematological -S/P 2 units of platelets, no further platelets needed at this time as per GI -S/P 5 units of PRBC -General surgery on consult for AV fistula evaluation Renal -ESRD on HD MWF -Nephrology on consult -Continue to maintain euvolemia -Replete electrolytes as needed Pulmonary -Patient will be extubated and taken off pressure support Gastrointestinal -Bleeding scan negative -EGD shows duoedenal and dinorah ulcers; medical management. Patient can be extubated since there is no active bleeding -Liver enzymes downtrending -CLD -Protonix once daily as patient has ESRD with HD INfectious disease -Leukocytosis downtrending -Patient will continue on broad spectrum antibiotics -procalcitnon elevated >200 but possibly due to fact that patient was in hemorrhagic shock -CXR negative for infection -CT abdomen/pelvis shows possible enteritis -negative cultures as of now Metabolic -ISS-low -Maintain euglycemia -Will check TSH <Iglesia Zuñiga - Last Filed: 11/18/17 13:37> CCU Objective - Vital Signs / Intake & Output Vital Signs (Last 4 hours): Vital Signs Pulse BP 11/18/17 13:04 119 H 110/58 L Intake and Output (Last 8hrs): Intake & Output 11/17/17 11/18/17 11/18/17 22:59 06:59 14:59 Intake Total 1758 1045 Output Total 100 Balance 1658 1045 Weight 191 lb 5 oz Intake: IV 1160 1045 D10 180 [id number] 525 825 Right Femoral 150 levophed 20 clementina 45 protonix 240 220 Blood Product 598 Output: Urine 0 Urine, Voided 0 Other 100 Other: # Bowel Movements 1 - Medications Active Medications: Active Medications Generic Name Dose Route Start Last Admin Trade Name Freq PRN Reason Stop Dose Admin NOREPINEPHRINE BIT/0.9 % NACL 4 mg in 250 mls @ 15 mls/hr 11/16/17 06:13 09:46 Levophed 4 Mg/ 250 Ml Ns Premixed IV 0 mcg/min .[id number] PRN 0 mls/hr TITRATE PER MD ORDER Titration Protocol 4 MCG/MIN Phenylephrine HCl 40 mg/ 254 mls @ 38.1 mls/hr 11/16/17 09:49 11/17/17 08:30 Sodium Chloride IV 0 mcg/min .[id number] PRN 0 mls/hr TITRATE PER MD ORDER Titration Protocol 100 MCG/MIN Vasopressin 20 units/ Sodium 101 mls @ 9.09 mls/hr 11/16/17 10:00 11/16/17 21 :15 Chloride IV 9.09 mls/hr .[id number] WILIAN Administration Protocol 0.03 U/MIN Meropenem 500 mg/ Sodium 50 mls @ 100 mls/hr 11/17/17 14:00 11/18/17 13:16 Chloride IVPB 11/23/17 14:01 100 mls/hr 1400 WILIAN Administration Protocol Propofol 1,000 mg in 100 mls @ 2.299 mls/hr 11/16/17 20:24 Diprivan IV .Q24H PRN TITRATE PER MD ORDER Protocol 5 MCG/KG/MIN Dextrose/Sodium Chloride 1,000 mls @ 60 mls/hr 11/18/17 10:23 11/18/17 12:13 Dextrose 5%/0.9% Ns 1000 Ml IV 60 mls/hr .[id number] WILIAN Administration Insulin Human Regular 0 units 11/16/17 07:00 11/16/17 13:00 Humulin R Low SC Not Given Q6H WILIAN Protocol Methylprednisolone 40 mg 11/18/17 12:15 Solu-Medrol IVP Q8H WILIAN Morphine Sulfate 4 mg 11/18/17 09:46 11/18/17 13:11 Morphine IVP 4 mg Q4H PRN Administration Pain, Mild (1-3) Ondansetron HCl 4 mg 11/17/17 17:27 Zofran Inj IVP Q6H PRN Nausea/Vomiting Pantoprazole Sodium 40 mg 11/18/17 11:45 11/18/17 12:14 Protonix Inj IVP 40 mg DAILY WILIAN Administration - Patient Studies Lab Studies: Microbiology Studies 11/16/17 09:30 Blood Culture - Preliminary Blood NO GROWTH AFTER 48 HOURS 11/16/17 09:10 MRSA Culture (Admit) - Final Nose MRSA NOT DETECTED Lab Studies 11/18/17 11/18/17 11/18/17 Range/Units 12:46 08:21 06:00 WBC (4.5-11.0) 10^3/ul RBC (3.5-6.1) 10^6/uL Hgb (12.0-16.0) g/dL Hct (36.0-48.0) % MCV (80.0-105.0) fl MCH (25.0-35.0) pg MCHC (31.0-37.0) g/dl RDW (11.5-14.5) % Plt Count (120.0-450.0) 10^3/uL Manual Plt Count (120-450) K/mm3 MPV (7.0-11.0) fl Gran % (50.0-68.0) % Lymph % (Auto) (22.0-35.0) % [place] % (Auto) (1.0-6.0) % Eos % (Auto) (1.5-5.0) % Baso % (Auto) (0.0-3.0) % Gran # (1.4-6.5) Lymph # (Auto) (1.2-3.4) [place] # (Auto) (0.1-0.6) Eos # (Auto) (0.0-0.7) Baso # (Auto) (0.0-2.0) K/mm3 pCO2 50 H (35-45) mm/Hg pO2 214.0 H (30-55) mm/Hg HCO3 25.2 (21-28) mmol/L ABG pH 7.31 L (7.35-7.45) ABG Total CO2 26.7 (22-28) mmol.L ABG O2 Saturation 98.4 H (95-98) % ABG O2 Content 12.9 L (15-23) ML/dl ABG Base Excess -1.3 (-2.0-3.0) mmol/L ABG Hemoglobin 9.1 L (11.7-17.4) g/dL ABG Carboxyhemoglobin 0.4 L (0.5-1.5) % POC ABG HHb (Measured) 1.6 (0-5) % ABG Methemoglobin 1.1 (0.0-3.0) % ABG O2 Capacity 13.1 L (16-24) mL/dl VBG pH (7.32-7.43) VBG pCO2 (40-60) VBG HCO3 (21-28) mmol/l VBG Total CO2 (22-28) mmol.L VBG O2 Sat (Calc) (40-65) % VBG Base Excess (0.0-2.0) mmol/L VBG Potassium (3.6-5.2) mmol/L Hgb O2 Saturation 96.8 (95.0-98.0) % Sodium (132-148) mmol/L Chloride (98-107) mmol/L Glucose (65-105) mg/dl Lactate (0.7-2.1) mmol/L FiO2 50.0 % Potassium (3.6-5.0) mmol/L Carbon Dioxide (21-33) mmol/L Anion Gap (10-20) BUN (7-21) mg/dL Creatinine (0.7-1.2) mg/dl Est GFR ( Amer) Est GFR (Non-Af Amer) POC Glucose (mg/dL) 106 126 H (65-110) mg/dL Random Glucose (70-110) mg/dL Calcium (8.4-10.5) mg/dL Phosphorus (2.5-4.5) mg/dL Magnesium (1.7-2.2) mg/dL Total Bilirubin (0.2-1.3) mg/dL AST (14-36) U/L ALT (7-56) U/L Alkaline Phosphatase (38-126) U/L Total Protein (5.8-8.3) g/dL Albumin (3.0-4.8) g/dL Globulin gm/dL Albumin/Globulin Ratio (1.1-1.8) Procalcitonin (0.19-0.49) NG/ML Venous Blood Potassium (3.6-5.2) mmol/L 11/18/17 11/18/17 11/18/17 Range/Units 05:30 05:21 05:21 WBC 10.3 (4.5-11.0) 10^3/ul RBC 3.29 L (3.5-6.1) 10^6/uL Hgb 9.3 L (12.0-16.0) g/dL Hct 28.1 L (36.0-48.0) % MCV 85.4 (80.0-105.0) fl MCH 28.3 (25.0-35.0) pg MCHC 33.1 (31.0-37.0) g/dl RDW 19.8 H (11.5-14.5) % Plt Count 60 L (120.0-450.0) 10^3/uL Manual Plt Count 75 L* (120-450) K/mm3 MPV 9.6 (7.0-11.0) fl Gran % 95.6 H (50.0-68.0) % Lymph % (Auto) 3.7 L (22.0-35.0) % [place] % (Auto) 0.6 L (1.0-6.0) % Eos % (Auto) 0.0 L (1.5-5.0) % Baso % (Auto) 0.1 (0.0-3.0) % Gran # 9.82 H (1.4-6.5) Lymph # (Auto) 0.4 L (1.2-3.4) [place] # (Auto) 0.1 (0.1-0.6) Eos # (Auto) 0.0 (0.0-0.7) Baso # (Auto) 0.01 (0.0-2.0) K/mm3 pCO2 (35-45) mm/Hg pO2 (30-55) mm/Hg HCO3 (21-28) mmol/L ABG pH (7.35-7.45) ABG Total CO2 (22-28) mmol.L ABG O2 Saturation (95-98) % ABG O2 Content (15-23) ML/dl ABG Base Excess (-2.0-3.0) mmol/L ABG Hemoglobin (11.7-17.4) g/dL ABG Carboxyhemoglobin (0.5-1.5) % POC ABG HHb (Measured) (0-5) % ABG Methemoglobin (0.0-3.0) % ABG O2 Capacity (16-24) mL/dl VBG pH (7.32-7.43) VBG pCO2 (40-60) VBG HCO3 (21-28) mmol/l VBG Total CO2 (22-28) mmol.L VBG O2 Sat (Calc) (40-65) % VBG Base Excess (0.0-2.0) mmol/L VBG Potassium (3.6-5.2) mmol/L Hgb O2 Saturation (95.0-98.0) % Sodium 138 (132-148) mmol/L Chloride 103 (98-107) mmol/L Glucose (65-105) mg/dl Lactate (0.7-2.1) mmol/L FiO2 % Potassium 4.4 (3.6-5.0) mmol/L Carbon Dioxide 27 (21-33) mmol/L Anion Gap 13 (10-20) BUN 47 H (7-21) mg/dL Creatinine 6.0 H (0.7-1.2) mg/dl Est GFR ( Amer) 8 Est GFR (Non-Af Amer) 7 POC Glucose (mg/dL) (65-110) mg/dL Random Glucose 129 H (70-110) mg/dL Calcium 8.5 (8.4-10.5) mg/dL Phosphorus 6.1 H (2.5-4.5) mg/dL Magnesium 1.8 (1.7-2.2) mg/dL Total Bilirubin 0.6 (0.2-1.3) mg/dL AST 418 H D (14-36) U/L ALT 664 H (7-56) U/L Alkaline Phosphatase 67 (38-126) U/L Total Protein 5.2 L (5.8-8.3) g/dL Albumin 2.8 L (3.0-4.8) g/dL Globulin 2.5 gm/dL Albumin/Globulin Ratio 1.1 (1.1-1.8) Procalcitonin (0.19-0.49) NG/ML Venous Blood Potassium (3.6-5.2) mmol/L 11/18/17 11/18/17 11/18/17 Range/Units 03:57 00:30 00:08 WBC 11.9 H (4.5-11.0) 10^3/ul RBC 3.18 L (3.5-6.1) 10^6/uL Hgb 9.0 L (12.0-16.0) g/dL Hct 27.1 L (36.0-48.0) % MCV 85.2 (80.0-105.0) fl MCH 28.3 (25.0-35.0) pg MCHC 33.2 (31.0-37.0) g/dl RDW 19.8 H (11.5-14.5) % Plt Count 68 L (120.0-450.0) 10^3/uL Manual Plt Count (120-450) K/mm3 MPV 9.7 (7.0-11.0) fl Gran % 96.5 H (50.0-68.0) % Lymph % (Auto) 2.9 L (22.0-35.0) % [place] % (Auto) 0.6 L (1.0-6.0) % Eos % (Auto) 0.0 L (1.5-5.0) % Baso % (Auto) 0.0 (0.0-3.0) % Gran # 11.51 H (1.4-6.5) Lymph # (Auto) 0.3 L (1.2-3.4) [place] # (Auto) 0.1 (0.1-0.6) Eos # (Auto) 0.0 (0.0-0.7) Baso # (Auto) 0.00 (0.0-2.0) K/mm3 pCO2 (35-45) mm/Hg pO2 (30-55) mm/Hg HCO3 (21-28) mmol/L ABG pH (7.35-7.45) ABG Total CO2 (22-28) mmol.L ABG O2 Saturation (95-98) % ABG O2 Content (15-23) ML/dl ABG Base Excess (-2.0-3.0) mmol/L ABG Hemoglobin (11.7-17.4) g/dL ABG Carboxyhemoglobin (0.5-1.5) % POC ABG HHb (Measured) (0-5) % ABG Methemoglobin (0.0-3.0) % ABG O2 Capacity (16-24) mL/dl VBG pH (7.32-7.43) VBG pCO2 (40-60) VBG HCO3 (21-28) mmol/l VBG Total CO2 (22-28) mmol.L VBG O2 Sat (Calc) (40-65) % VBG Base Excess (0.0-2.0) mmol/L VBG Potassium (3.6-5.2) mmol/L Hgb O2 Saturation (95.0-98.0) % Sodium (132-148) mmol/L Chloride (98-107) mmol/L Glucose (65-105) mg/dl Lactate (0.7-2.1) mmol/L FiO2 % Potassium (3.6-5.0) mmol/L Carbon Dioxide (21-33) mmol/L Anion Gap (10-20) BUN (7-21) mg/dL Creatinine (0.7-1.2) mg/dl Est GFR ( Amer) Est GFR (Non-Af Amer) POC Glucose (mg/dL) 140 H 129 H (65-110) mg/dL Random Glucose (70-110) mg/dL Calcium (8.4-10.5) mg/dL Phosphorus (2.5-4.5) mg/dL Magnesium (1.7-2.2) mg/dL Total Bilirubin (0.2-1.3) mg/dL AST (14-36) U/L ALT (7-56) U/L Alkaline Phosphatase (38-126) U/L Total Protein (5.8-8.3) g/dL Albumin (3.0-4.8) g/dL Globulin gm/dL Albumin/Globulin Ratio (1.1-1.8) Procalcitonin (0.19-0.49) NG/ML Venous Blood Potassium (3.6-5.2) mmol/L 11/17/17 11/17/17 11/17/17 Range/Units 21:27 18:00 18:00 WBC 11.9 H (4.5-11.0) 10^3/ul RBC 3.21 L (3.5-6.1) 10^6/uL Hgb 9.1 L (12.0-16.0) g/dL Hct 27.2 L (36.0-48.0) % MCV 84.7 (80.0-105.0) fl MCH 28.3 (25.0-35.0) pg MCHC 33.5 (31.0-37.0) g/dl RDW 19.5 H (11.5-14.5) % Plt Count 75 L (120.0-450.0) 10^3/uL Manual Plt Count (120-450) K/mm3 MPV 9.2 (7.0-11.0) fl Gran % 95.9 H (50.0-68.0) % Lymph % (Auto) 2.1 L (22.0-35.0) % [place] % (Auto) 1.9 (1.0-6.0) % Eos % (Auto) 0.0 L (1.5-5.0) % Baso % (Auto) 0.1 (0.0-3.0) % Gran # 11.39 H (1.4-6.5) Lymph # (Auto) 0.3 L (1.2-3.4) [place] # (Auto) 0.2 (0.1-0.6) Eos # (Auto) 0.0 (0.0-0.7) Baso # (Auto) 0.01 (0.0-2.0) K/mm3 pCO2 (35-45) mm/Hg pO2 72 H (30-55) mm/Hg HCO3 (21-28) mmol/L ABG pH (7.35-7.45) ABG Total CO2 (22-28) mmol.L ABG O2 Saturation (95-98) % ABG O2 Content (15-23) ML/dl ABG Base Excess (-2.0-3.0) mmol/L ABG Hemoglobin (11.7-17.4) g/dL ABG Carboxyhemoglobin (0.5-1.5) % POC ABG HHb (Measured) (0-5) % ABG Methemoglobin (0.0-3.0) % ABG O2 Capacity (16-24) mL/dl VBG pH 7.33 (7.32-7.43) VBG pCO2 55.0 (40-60) VBG HCO3 29.0 H (21-28) mmol/l VBG Total CO2 30.7 H (22-28) mmol.L VBG O2 Sat (Calc) 95.7 H (40-65) % VBG Base Excess 1.9 (0.0-2.0) mmol/L VBG Potassium 4.3 (3.6-5.2) mmol/L Hgb O2 Saturation (95.0-98.0) % Sodium 136.0 (132-148) mmol/L Chloride 104.0 (98-107) mmol/L Glucose 152 H (65-105) mg/dl Lactate 1.9 (0.7-2.1) mmol/L FiO2 21.0 % Potassium (3.6-5.0) mmol/L Carbon Dioxide (21-33) mmol/L Anion Gap (10-20) BUN (7-21) mg/dL Creatinine (0.7-1.2) mg/dl Est GFR ( Amer) Est GFR (Non-Af Amer) POC Glucose (mg/dL) 142 H (65-110) mg/dL Random Glucose (70-110) mg/dL Calcium (8.4-10.5) mg/dL Phosphorus (2.5-4.5) mg/dL Magnesium (1.7-2.2) mg/dL Total Bilirubin (0.2-1.3) mg/dL AST (14-36) U/L ALT (7-56) U/L Alkaline Phosphatase (38-126) U/L Total Protein (5.8-8.3) g/dL Albumin (3.0-4.8) g/dL Globulin gm/dL Albumin/Globulin Ratio (1.1-1.8) Procalcitonin (0.19-0.49) NG/ML Venous Blood Potassium 4.3 (3.6-5.2) mmol/L 11/17/17 11/17/17 Range/Units 15:50 12:30 WBC (4.5-11.0) 10^3/ul RBC (3.5-6.1) 10^6/uL Hgb (12.0-16.0) g/dL Hct (36.0-48.0) % MCV (80.0-105.0) fl MCH (25.0-35.0) pg MCHC (31.0-37.0) g/dl RDW (11.5-14.5) % Plt Count (120.0-450.0) 10^3/uL Manual Plt Count (120-450) K/mm3 MPV (7.0-11.0) fl Gran % (50.0-68.0) % Lymph % (Auto) (22.0-35.0) % [place] % (Auto) (1.0-6.0) % Eos % (Auto) (1.5-5.0) % Baso % (Auto) (0.0-3.0) % Gran # (1.4-6.5) Lymph # (Auto) (1.2-3.4) [place] # (Auto) (0.1-0.6) Eos # (Auto) (0.0-0.7) Baso # (Auto) (0.0-2.0) K/mm3 pCO2 (35-45) mm/Hg pO2 (30-55) mm/Hg HCO3 (21-28) mmol/L ABG pH (7.35-7.45) ABG Total CO2 (22-28) mmol.L ABG O2 Saturation (95-98) % ABG O2 Content (15-23) ML/dl ABG Base Excess (-2.0-3.0) mmol/L ABG Hemoglobin (11.7-17.4) g/dL ABG Carboxyhemoglobin (0.5-1.5) % POC ABG HHb (Measured) (0-5) % ABG Methemoglobin (0.0-3.0) % ABG O2 Capacity (16-24) mL/dl VBG pH (7.32-7.43) VBG pCO2 (40-60) VBG HCO3 (21-28) mmol/l VBG Total CO2 (22-28) mmol.L VBG O2 Sat (Calc) (40-65) % VBG Base Excess (0.0-2.0) mmol/L VBG Potassium (3.6-5.2) mmol/L Hgb O2 Saturation (95.0-98.0) % Sodium (132-148) mmol/L Chloride (98-107) mmol/L Glucose (65-105) mg/dl Lactate (0.7-2.1) mmol/L FiO2 % Potassium (3.6-5.0) mmol/L Carbon Dioxide (21-33) mmol/L Anion Gap (10-20) BUN (7-21) mg/dL Creatinine (0.7-1.2) mg/dl Est GFR ( Amer) Est GFR (Non-Af Amer) POC Glucose (mg/dL) 145 H (65-110) mg/dL Random Glucose (70-110) mg/dL Calcium (8.4-10.5) mg/dL Phosphorus (2.5-4.5) mg/dL Magnesium (1.7-2.2) mg/dL Total Bilirubin (0.2-1.3) mg/dL AST (14-36) U/L ALT (7-56) U/L Alkaline Phosphatase (38-126) U/L Total Protein (5.8-8.3) g/dL Albumin (3.0-4.8) g/dL Globulin gm/dL Albumin/Globulin Ratio (1.1-1.8) Procalcitonin > 200.00 H (0.19-0.49) NG/ML Venous Blood Potassium (3.6-5.2) mmol/L Laboratory Results - last 24 hr 11/17/17 11/17/17 11/17/17 12:30 15:50 18:00 WBC 11.9 H RBC 3.21 L Hgb 9.1 L Hct 27.2 L MCV 84.7 MCH 28.3 MCHC 33.5 RDW 19.5 H Plt Count 75 L Manual Plt Count MPV 9.2 Gran % 95.9 H Lymph % (Auto) 2.1 L [place] % (Auto) 1.9 Eos % (Auto) 0.0 L Baso % (Auto) 0.1 Gran # 11.39 H Lymph # (Auto) 0.3 L [place] # (Auto) 0.2 Eos # (Auto) 0.0 Baso # (Auto) 0.01 pCO2 pO2 HCO3 ABG pH ABG Total CO2 ABG O2 Saturation ABG O2 Content ABG Base Excess ABG Hemoglobin ABG Carboxyhemoglobin POC ABG HHb (Measured) ABG Methemoglobin ABG O2 Capacity VBG pH VBG pCO2 VBG HCO3 VBG Total CO2 VBG O2 Sat (Calc) VBG Base Excess VBG Potassium Hgb O2 Saturation Sodium Chloride Glucose Lactate FiO2 Potassium Carbon Dioxide Anion Gap BUN Creatinine Est GFR ( Amer) Est GFR (Non-Af Amer) POC Glucose (mg/dL) 145 H Random Glucose Calcium Phosphorus Magnesium Total Bilirubin AST ALT Alkaline Phosphatase Total Protein Albumin Globulin Albumin/Globulin Ratio Procalcitonin > 200.00 H Venous Blood Potassium 11/17/17 11/17/17 11/18/17 18:00 21:27 00:08 WBC RBC Hgb Hct MCV MCH MCHC RDW Plt Count Manual Plt Count MPV Gran % Lymph % (Auto) [place] % (Auto) Eos % (Auto) Baso % (Auto) Gran # Lymph # (Auto) [place] # (Auto) Eos # (Auto) Baso # (Auto) pCO2 pO2 72 H HCO3 ABG pH ABG Total CO2 ABG O2 Saturation ABG O2 Content ABG Base Excess ABG Hemoglobin ABG Carboxyhemoglobin POC ABG HHb (Measured) ABG Methemoglobin ABG O2 Capacity VBG pH 7.33 VBG pCO2 55.0 VBG HCO3 29.0 H VBG Total CO2 30.7 H VBG O2 Sat (Calc) 95.7 H VBG Base Excess 1.9 VBG Potassium 4.3 Hgb O2 Saturation Sodium 136.0 Chloride 104.0 Glucose 152 H Lactate 1.9 FiO2 21.0 Potassium Carbon Dioxide Anion Gap BUN Creatinine Est GFR ( Amer) Est GFR (Non-Af Amer) POC Glucose (mg/dL) 142 H 129 H Random Glucose Calcium Phosphorus Magnesium Total Bilirubin AST ALT Alkaline Phosphatase Total Protein Albumin Globulin Albumin/Globulin Ratio Procalcitonin Venous Blood Potassium 4.3 11/18/17 11/18/17 11/18/17 00:30 03:57 05:21 WBC 11.9 H 10.3 RBC 3.18 L 3.29 L Hgb 9.0 L 9.3 L Hct 27.1 L 28.1 L MCV 85.2 85.4 MCH 28.3 28.3 MCHC 33.2 33.1 RDW 19.8 H 19.8 H Plt Count 68 L 60 L Manual Plt Count MPV 9.7 9.6 Gran % 96.5 H 95.6 H Lymph % (Auto) 2.9 L 3.7 L [place] % (Auto) 0.6 L 0.6 L Eos % (Auto) 0.0 L 0.0 L Baso % (Auto) 0.0 0.1 Gran # 11.51 H 9.82 H Lymph # (Auto) 0.3 L 0.4 L [place] # (Auto) 0.1 0.1 Eos # (Auto) 0.0 0.0 Baso # (Auto) 0.00 0.01 pCO2 pO2 HCO3 ABG pH ABG Total CO2 ABG O2 Saturation ABG O2 Content ABG Base Excess ABG Hemoglobin ABG Carboxyhemoglobin POC ABG HHb (Measured) ABG Methemoglobin ABG O2 Capacity VBG pH VBG pCO2 VBG HCO3 VBG Total CO2 VBG O2 Sat (Calc) VBG Base Excess VBG Potassium Hgb O2 Saturation Sodium Chloride Glucose Lactate FiO2 Potassium Carbon Dioxide Anion Gap BUN Creatinine Est GFR ( Amer) Est GFR (Non-Af Amer) POC Glucose (mg/dL) 140 H Random Glucose Calcium Phosphorus Magnesium Total Bilirubin AST ALT Alkaline Phosphatase Total Protein Albumin Globulin Albumin/Globulin Ratio Procalcitonin Venous Blood Potassium 11/18/17 11/18/17 11/18/17 05:21 05:30 06:00 WBC RBC Hgb Hct MCV MCH MCHC RDW Plt Count Manual Plt Count 75 L* MPV Gran % Lymph % (Auto) [place] % (Auto) Eos % (Auto) Baso % (Auto) Gran # Lymph # (Auto) [place] # (Auto) Eos # (Auto) Baso # (Auto) pCO2 50 H pO2 214.0 H HCO3 25.2 ABG pH 7.31 L ABG Total CO2 26.7 ABG O2 Saturation 98.4 H ABG O2 Content 12.9 L ABG Base Excess -1.3 ABG Hemoglobin 9.1 L ABG Carboxyhemoglobin 0.4 L POC ABG HHb (Measured) 1.6 ABG Methemoglobin 1.1 ABG O2 Capacity 13.1 L VBG pH VBG pCO2 VBG HCO3 VBG Total CO2 VBG O2 Sat (Calc) VBG Base Excess VBG Potassium Hgb O2 Saturation 96.8 Sodium 138 Chloride 103 Glucose Lactate FiO2 50.0 Potassium 4.4 Carbon Dioxide 27 Anion Gap 13 BUN 47 H Creatinine 6.0 H Est GFR ( Amer) 8 Est GFR (Non-Af Amer) 7 POC Glucose (mg/dL) Random Glucose 129 H Calcium 8.5 Phosphorus 6.1 H Magnesium 1.8 Total Bilirubin 0.6 AST 418 H D ALT 664 H Alkaline Phosphatase 67 Total Protein 5.2 L Albumin 2.8 L Globulin 2.5 Albumin/Globulin Ratio 1.1 Procalcitonin Venous Blood Potassium 11/18/17 11/18/17 08:21 12:46 WBC RBC Hgb Hct MCV MCH MCHC RDW Plt Count Manual Plt Count MPV Gran % Lymph % (Auto) [place] % (Auto) Eos % (Auto) Baso % (Auto) Gran # Lymph # (Auto) [place] # (Auto) Eos # (Auto) Baso # (Auto) pCO2 pO2 HCO3 ABG pH ABG Total CO2 ABG O2 Saturation ABG O2 Content ABG Base Excess ABG Hemoglobin ABG Carboxyhemoglobin POC ABG HHb (Measured) ABG Methemoglobin ABG O2 Capacity VBG pH VBG pCO2 VBG HCO3 VBG Total CO2 VBG O2 Sat (Calc) VBG Base Excess VBG Potassium Hgb O2 Saturation Sodium Chloride Glucose Lactate FiO2 Potassium Carbon Dioxide Anion Gap BUN Creatinine Est GFR ( Amer) Est GFR (Non-Af Amer) POC Glucose (mg/dL) 126 H 106 Random Glucose Calcium Phosphorus Magnesium Total Bilirubin AST ALT Alkaline Phosphatase Total Protein Albumin Globulin Albumin/Globulin Ratio Procalcitonin Venous Blood Potassium Critical Care Progress Note - Nutrition Nutrition: Nutrition Category Date Time Status Liquid Diet [DIET] Diets 11/18/17 Lunch Ordered Assessment/Plan - Assessment and Plan (Free Text) Plan: Patient seen and examined on rounds with resident, agree with note with following additions/exceptions: Patient is 67yo female with past medical history of ESRD on HD (MWF), DM, CVA, HTN, asthma who is admitted to ICU for hemorrhagic shock/septic shock secondary to bleeding AV fistula, LGIB. s/p 4 unit PRBC. Patient in addition to having component of hemorrhagic shock, may have component of spetic shock, as has bandemia, unclear source of infection, on broad spectrum abx. Patient had cardiac arrest 11/16 (ROSC achieved after 4 min of CPR and 2 rounds of epi) Patient currently off ALL vasopressors HH stable, s/p PRBC transfusion Platelets given GI and surgery following Bleeding scan done, NO active bleeding Patient had EGD today which showed NO active bleeding, ulcer Patient subsequently extubated to 2LNC, comfortable in NAD, HD stable. Shock, Hemorrhagic/septic, resolved Anemia GIB ESRD on HD s/p Cardiac arrest s/p ROSC DM Asthma Recommend: - cont supp o2, goal sat>90% - cont with broad spectrum abx as per ID - follow up cultures, procal - monitor HH q12hr, maitain HH>9 - clear liquid diet - PPI BID - GI follow up - Surgery follow up - taper steroids - HD as per renal - GI ppx - DVT ppx, SCDs only - Monitor in MICU critical care time 30 minutes
--- NOTE | 2017-11-18 08:47 | RAD ---
HISTORY: intubation COMPARISON: 11/17/2017 FINDINGS: LUNGS: No active pulmonary disease. PLEURA: No significant pleural effusion identified, no pneumothorax apparent. CARDIOVASCULAR: Right tunneled central venous dialysis catheter. ET tube unchanged. Nasogastric tube has been removed. OSSEOUS STRUCTURES: No significant abnormalities. VISUALIZED UPPER ABDOMEN: Normal. OTHER FINDINGS: None. IMPRESSION: No infiltrate. Nasogastric tube removed. Otherwise no change.
--- NOTE | 2017-11-18 08:58 | CARD ---
APPROVED REPORT EXAM: Two-dimensional and M-mode echocardiogram with Doppler and color Doppler. Other Information Quality : FairRhythm : INDICATION cardiac arrest, HBP, CKD/HD. 2D DIMENSIONS Left Atrium (2D)4.2 (1.6-4.0cm)IVSd1.3 (0.7-1.1cm) LVDd4.6 (3.9-5.9cm)PWd1.3 (0.7-1.1cm) LVDs3.3 (2.5-4.0cm)FS (%) 27.8 % LVEF (%)54.0 (>50%) M-Mode DIMENSIONS Aortic Root3.20 (2.2-3.7cm)Aortic Cusp Exc.1.80 (1.5-2.0cm) Aortic Valve AoV Peak Hqwkglty816.0cm/[place] Peak GR.9mmHg Mitral Valve MV E Vivzfcws61.5cm/sMV A Zadlmldt678.0cm/sE/A ratio0.7 TDI Lateral E' Peak V7.35cm/sMedial E' Peak V4.92cm/sE/Lateral E'10.4 E/Medial E'15.5 Tricuspid Valve TR Peak [id number] [id number] Peak Gr.25mmHg [id number] LEFT VENTRICLE The left ventricle is normal size. There is mild concentric left ventricular hypertrophy. The left ventricular function is normal. The left ventricular ejection fraction is within the normal range. There is normal LV segmental wall motion. RIGHT VENTRICLE The right ventricle is normal size. ATRIA The left atrium is mildly dilated. The right atrium size is normal. The interatrial septum is intact with no evidence for an atrial septal defect. AORTIC VALVE The aortic valve is moderately calcified. MITRAL VALVE The mitral valve is moderately thickened but opens well. Mitral annular calcification is mild to moderate. Mitral regurgitation is mild. TRICUSPID VALVE The tricuspid valve is normal in structure. There is mild tricuspid regurgitation. PULMONIC VALVE The pulmonic valve is not well visualized. There is mild pulmonic valvular regurgitation. GREAT VESSELS The aortic root is normal in size. PERICARDIAL EFFUSION There is no pericardial effusion. <Conclusion> This is a limited study in ICU on vented patient. The left ventricle is normal size. There is mild concentric left ventricular hypertrophy. The left ventricular function is normal. The aortic valve is moderately calcified.Aortic sclerosis. Mitral regurgitation is mild. There is mild tricuspid regurgitation.
[2017-11-18] MEDS ORDERED: Propofol 10 mg/ml Inj (20 ML) ONE (10:02)
[2017-11-18] MEDS ORDERED: Etomidate 20 mg/10ml Inj IV ONE (10:02)
[2017-11-18] MEDS ORDERED: Dextrose 5%/0.9% NS 1,000 ML IV SCH (10:23)
--- NOTE | 2017-11-18 10:33 | PN ---
DATE: 11/18/2017 SUBJECTIVE: The patient is seen in bed, in no acute distress, intubated on a ventilator and in the ICU 129, bed 1. She has had no fevers last night. PHYSICAL EXAMINATION: VITAL SIGNS: Temperature is 99, heart rate of 104, blood pressure is 112/70, respiratory rate on the vent. HEENT: Examination of HEENT reveals ET tube in place. NECK: Supple. LUNGS: Have decreased breath sounds. HEART: Normal S1 and S2. ABDOMEN: Soft, nontender. LABORATORY DATA: Laboratory examination reveals a white count of 10,000, hemoglobin of 9, platelets of 60,000 and coagulation is noted. Chemistries reveals a BUN of 47, creatinine of 6. Microbiology reveals the blood cultures are no growth and the nasal MRSA screen is negative. Review of medication reveals the patient is on intermittent vancomycin and meropenem. The patient had a chest x-ray. No active disease as of this morning. Dr. Mika Ribera' progress note is reviewed and Dr. Turk's progress note is also reviewed. ASSESSMENT AND PLAN: This is a 67-year-old female seen earlier this morning in 129, bed 1 with end-stage renal disease, on hemodialysis; hypertension; diabetes mellitus; obesity; asthma; history of cerebrovascular accident and with SIRS, systemic inflammatory response syndrome with hypovolemic shock from gastrointestinal bleeding, did have arteriovenous fistula bleeding in a patient with end-stage renal disease, on hemodialysis; diabetes; hypertension and obesity. Currently on intermittent vancomycin, meropenem. Cultures negative. Chest x-ray is negative. We will check on the final culture results and make further recommendations. Kevin Rome MD
[2017-11-18] MEDS: Morphine 4 mg/ml ISec IVP PRN ×2 (13:11→20:44)
[2017-11-18] MEDS: Meropenem 500 MG in Sodium Chloride 0.9% 50 ML IVPB SCH (13:16)
--- NOTE | 2017-11-18 14:52 | PN ---
DATE: SUBJECTIVE: The patient once again is seen in CCU, bed 1. She remains intubated. She is off pressor therapy. She is likely going to have an upper endoscopy later this morning. She is status post a cardiac arrest at the end of her dialysis on 11/16/2017. Status post hemorrhagic shock secondary to blood loss from trauma to her AV access and GI bleeding. The patient is alert this morning. She is shaking her head appropriately to all questions. It does not appear that she has any abnormalities related to the possible hypoxia/anoxia at the time of the cardiac arrest. MEDICATIONS: Medication list reviewed. The patient is currently on D5 normal saline 75 mL an hour, Diprivan, insulin sliding scale, she is off Levophed. She is on meropenem, morphine p.r.n., she is off phenylephrine, she is off vasopressin, she is on Protonix, and she is on Zofran p.r.n. PHYSICAL EXAMINATION INTAKE/OUTPUT: Intake 3137, output 100. Her weight is significantly up with fluid retention and IV fluid resuscitation at the time of her cardiac arrest. Her weight is 191 pounds up from a baseline closer to 169 pounds. VITAL SIGNS: Blood pressure currently is 133/71, temperature 98.8, pulse of 103, respiratory rate of 16. HEENT: Shows the patient to be intubated. Her eyes are open. Conjunctivae are pale. Sclerae are nonicteric. NECK: Supple. No neck vein distention. CHEST: Clear to auscultation and percussion. No rales, rhonchi or wheezing. CARDIOVASCULAR: Shows a regular rate and rhythm without audible murmurs, rubs or gallops. ABDOMEN: Soft. Bowel sounds are normal. No rebound, no guarding, no masses. EXTREMITIES: Show no bleeding from the area of the left upper AV fistula in the area that she had the trauma. She does have a PermCath, right chest wall. No cyanosis or clubbing. Legs are puffy, but no pitting edema. NEUROLOGIC: Shows her to be alert and responsive to verbal communication, but unable to speak secondary to placement of the endotracheal tube. LABORATORY DATA: CBC: White blood cell count improved at 10.3, hemoglobin stable at 9.3. Platelet count is 60,000, repeat 75,000. Blood gas today shows a pO2 of 214 with a pCO2 of 50 and a pH of 7.31. Chemistry showed normal electrolytes, BUN 47 with a creatinine of 6.0, glucose 129, calcium 8.5, phosphorus 6.1, magnesium level 1.8. Elevation of her liver enzymes which are improving. This is likely secondary to the episode of cardiac arrest and hypotensive episode affecting the liver. Albumin is 2.8. Troponin levels were high secondary to the cardiac arrest. Microbiology: Cultures are negative at 48 hours. ASSESSMENT: 1. Status post cardiac arrest at the end of dialysis on 11/16/2017. It appears that the patient has no adverse effect on her mental status. In all likelihood, she will likely be weaned off the ventilator post her endoscopy. The predisposing factor for the cardiac arrest was felt to be hemorrhagic shock. The patient had significant blood loss from trauma to her arteriovenous access coupled with gastrointestinal bleeding. She was passing maroon-colored stools. The patient has received a total of 5 units of packed red blood cells, 2 units of fresh frozen plasma and 2 units of platelets. Her hemoglobin is stable in the mid 9 range. Hemodynamics have improved and she is presently off pressors. 2. History of end-stage renal disease. The patient will receive her routine dialysis tomorrow. We will be cautious during dialysis in light of her episode of cardiac arrest at the completion of dialysis on 11/16/2017. The patient should dialyze in the intensive care unit. There is some concern as she is way ahead on fluids. We will attempt to be cautious, but try and remove fluid tomorrow with dialysis. In the interim, I will decrease her IV fluids down to 60 mL an hour. 3. History of non-insulin dependent diabetes mellitus. The patient will continue sliding scale insulin. 4. History of secondary hyperparathyroidism. Once the patient starts oral intake, we will need to resume binder therapy as her phosphorus level is up to 6.1 up from 4.8. Again, this can be started when she starts oral intake. 5. History of hypertension. The patient was hypotensive, currently her blood pressure is back into the normal range. Blood pressure medications are on hold. 6. Systemic inflammatory response syndrome with an elevated white blood cell count which has improved. Cultures are negative and the patient is on empiric antibiotic therapy. 7. Elevated liver tests, likely secondary to her cardiac arrest. These are improving. PLAN: 1. Once again discussed in detail with the CCU staff. We could hold dialysis until tomorrow. We will attempt to increase ultrafiltration with dialysis tomorrow blood pressure permitting. I will decrease her IV fluids today. Once the patient is extubated and she starts oral intake, IV fluids may be discontinued altogether. She appears to be about 10 pounds above her dry weight. 2. Continue to monitor pressure and keep the patient off pressors. 3. The patient to likely be extubated post her endoscopy today. 4. Encouraging to see that she is responsive to all verbal communication. 5. Continue empiric antibiotic therapy, but in all likelihood, no evidence for sepsis. 6. Agree with endoscopy in light of her passing maroon-colored stools. 7. Surgical evaluation for her AV fistula in progress. 8. Continue to support the patient with blood products as necessary. Greater than 35 minutes spent in the care of this patient. Case discussed in detail with her children and with the staff in the CCU. Valeriy Loyd MD MTDAndres
--- NOTE | 2017-11-18 17:44 | PN ---
DATE: SUBJECTIVE: The patient is 67 years old, seen and examined. Still intubated. No more GI bleed. Vitals are stable. PHYSICAL EXAMINATION: VITAL SIGNS: The patient is afebrile, pulse 94, respirations 18, blood pressure 103/48. LUNGS: Bilateral fair airflow. No rhonchi or crackle. HEART: S1 and S2 audible. ABDOMEN: Soft, obese. Nontender. No rebound. No guarding. NEUROLOGIC: She is awake and alert. LABORATORY EXAM: WBC is 10.3, hemoglobin 9.3, hematocrit 28, platelet of 60. Chemistry: Sodium 138, potassium 4.4, chloride 103, CO2 of 27, BUN 47, creatinine 6.3, blood sugar of 135. ASSESSMENT: 1. Gastrointestinal bleed, status post bleeding scan unremarkable. The patient had endoscopy done, which shows small duodenal ulcer and hiatal hernia along with gastritis. 2. End-stage renal disease, on hemodialysis. 3. Anemia secondary to blood loss. 4. History of hypertension. 5. Status post cardiac arrest and resuscitation. PLAN: The patient had endoscopy done, will be extubated afterward. We will follow up her CBC and monitor her blood sugar. Continue her on meropenem. Follow up CBC, CMP in the a.m. Carlos Faust MD
[2017-11-18] MEDS: MethylPREDNISolone 40 mg Vial IVP SCH ×2 (17:47→21:07)
[2017-11-19] MEDS: MethylPREDNISolone 40 mg Vial IVP SCH ×3 (04:56→21:54)
[2017-11-19 06:03] LABS: ARTERIAL BLOOD GAS HEMOGLOBIN 8.2 g/dL (11.7-17.4); ARTERIAL BLOOD GAS O2 CAPACITY 11.4 mL/dl (16-24); ARTERIAL BLOOD GAS O2 CONTENT 11.1 ML/dl (15-23); ARTERIAL BLOOD GAS O2 SAT 97.4 % (95-98); ARTERIAL BLOOD GAS PCO2 55 mm/Hg (35-45); ARTERIAL BLOOD GAS TCO2 23.7 mmol.L (22-28)
[2017-11-19 06:05] LABS: HEMOGLOBIN 9.5 g/dL (12.0-16.0); MEAN CELL VOLUME 87.5 fl (80.0-105.0); MEAN CORPUSCULAR HEMOGLOBIN 28.3 pg (25.0-35.0); MEAN CORPUSCULAR HGB CONC 32.3 g/dl (31.0-37.0); MEAN PLATELET VOLUME 9.6 fl (7.0-11.0); RBC 3.36 10^6/uL (3.5-6.1); RED CELL DISTRIBUTION WIDTH 20.2 % (11.5-14.5); WHITE BLOOD COUNT 13.5 10^3/ul (4.5-11.0)
[2017-11-19 06:20] LABS: ARTERIAL BLOOD GAS PH 7.21 (7.35-7.45)
[2017-11-19 06:43] LABS: ALB/GLOB RATIO 1.1 (1.1-1.8); ALBUMIN 3.1 g/dL (3.0-4.8); CALCIUM 8.9 mg/dL (8.4-10.5)
--- NOTE | 2017-11-19 07:40 | CP.PCM.PN ---
Subjective - Date & Time of Evaluation Date of Evaluation: 11/19/17 Time of Evaluation: 07:37 - Subjective Subjective: Surgery: Dr. De Leon Pt seen and examined. No acute events overnight. Pt is extubated. Per nursing, pt continues to have dark stools. Pt denies any complaints at this time. Objective - Vital Signs/Intake and Output Vital Signs (last 24 hours): Temp Pulse Resp BP Pulse Ox 97.2 F L 98 H 22 143/103 H 98 11/19/17 06:36 11/19/17 06:36 11/18/17 11:55 11/19/17 06:36 11/19/17 06:36 Intake and Output: 11/19/17 11/19/17 06:59 18:59 Intake Total 1520 Output Total 80 Balance 1440 - Medications Medications: Current Medications NOREPINEPHRINE BIT/0.9 % NACL (Levophed 4 Mg/ 250 Ml Ns Premixed) 4 mg in 250 mls @ 15 mls/hr IV .[id number] PRN; Protocol; 4 MCG/MIN PRN Reason: TITRATE PER MD ORDER Last Titration: 11/17/17 09:46 Dose: 0 mcg/min, 0 mls/hr Phenylephrine HCl 40 mg/ (Sodium Chloride) 254 mls @ 38.1 mls/hr IV .Q6H40M PRN ; Protocol; 100 MCG/MIN PRN Reason: TITRATE PER MD ORDER Last Titration: 11/17/17 08:30 Dose: 0 mcg/min, 0 mls/hr Vasopressin 20 units/ Sodium (Chloride) 101 mls @ 9.09 mls/hr IV .Q11H7M WILIAN; 0.03 U/MIN PRN Reason: Protocol Last Admin: 11/16/17 21:15 Dose: 9.09 mls/hr Meropenem 500 mg/ Sodium (Chloride) 50 mls @ 100 mls/hr IVPB 1400 WILIAN PRN Reason: Protocol Stop: 11/23/17 14:01 Last Admin: 11/18/17 13:16 Dose: 100 mls/hr Propofol (Diprivan) 1,000 mg in 100 mls @ 2.299 mls/hr IV .Q24H PRN; Protocol; 5 MCG/KG/MIN PRN Reason: TITRATE PER MD ORDER Dextrose/Sodium Chloride (Dextrose 5%/0.9% Ns 1000 Ml) 1,000 mls @ 60 mls/hr IV .[id number] [facility] Last Admin: 11/18/17 12:13 Dose: 60 mls/hr Insulin Human Regular (Humulin R Low) 0 units SC Q6H WILIAN PRN Reason: Protocol Last Admin: 11/16/17 13:00 Dose: Not Given Methylprednisolone (Solu-Medrol) 40 mg IVP Q8H [facility] Last Admin: 11/19/17 04:56 Dose: 40 mg Morphine Sulfate (Morphine) 4 mg IVP Q4H PRN PRN Reason: Pain, Mild (1-3) Last Admin: 11/18/17 20:44 Dose: 4 mg Ondansetron HCl (Zofran Inj) 4 mg IVP Q6H PRN PRN Reason: Nausea/Vomiting Pantoprazole Sodium (Protonix Inj) 40 mg IVP DAILY [facility] Last Admin: 11/18/17 12:14 Dose: 40 mg - Labs Labs: 11/19/17 05:30 11/19/17 05:30 PT 14.6 SECONDS (9.4-12.5) H 11/17/17 06:00 INR 1.26 (0.93-1.08) H 11/17/17 06:00 APTT 32.4 Seconds (25.1-36.5) 11/17/17 06:00 - Constitutional Appears: Non-toxic, No Acute Distress - Head Exam Head Exam: ATRAUMATIC, NORMOCEPHALIC - Eye Exam Eye Exam: EOMI - ENT Exam ENT Exam: Mucous Membranes Moist - Neck Exam Neck Exam: Full ROM - Respiratory Exam Respiratory Exam: NORMAL BREATHING PATTERN. absent: Accessory Muscle Use, Respiratory Distress - GI/Abdominal Exam GI & Abdominal Exam: Soft. absent: Distended, Firm, Guarding, Rigid, Tenderness , Rebound - Extremities Exam Additional comments: LUE AVF, no bleeding, no palpable thrill, distal pulse present, sensation/motor fxn intact - Neurological Exam Neurological Exam: Alert, Awake, Oriented x3 - Skin Skin Exam: Dry, Normal Color, Warm Assessment and Plan - Assessment and Plan (Free Text) Assessment: 67F w. hemorrhagic shock 2/2 bleeding AVF and GI bleed, resolved Plan: -H/H stable, continue to monitor, transfuse PRN, keep hgb>9 -recommend colonoscopy -will continue to follow -d/w attending Pascualitis PGY3
--- NOTE | 2017-11-19 08:05 | CP.CCUPN ---
<Gabe Torres - Last Filed: 11/19/17 11:03> CCU Subjective - Physician Review Subjective (Free Text): Critical care progress note: Pt seen and examine at bedside. No acute events overnight. Extubated yesterday. Patient denies any complaints at this time. 12 Point ROS performed and neg other than stated above. CCU Objective - Vital Signs / Intake & Output Vital Signs (Last 4 hours): Vital Signs Temp Pulse BP Pulse Ox 11/19/17 06:36 97.2 F L 98 H 143/103 H 98 11/19/17 06:00 97.2 F L 75 116/71 98 11/19/17 05:30 97.2 F L 87 144/70 98 11/19/17 05:00 97.0 F L 82 130/65 99 11/19/17 04:30 97.0 F L 85 138/73 97 Intake and Output (Last 8hrs): Intake & Output 11/18/17 11/19/17 11/19/17 22:59 06:59 14:59 Intake Total 800 720 Output Total 80 0 Balance 720 720 Weight 196 lb 9 oz Intake: IV 800 660 D5WNS 660 Right Femoral 800 Oral 60 Output: Urine 0 Urine, Voided 0 Urine/Stool Mix 80 Other: # Bowel Movements 1 - Physical Exam Head: Positive for: Atraumatic, Normocephalic Pupils: Positive for: PERRL Extroacular Muscles: Positive for: EOMI Conjunctiva: Positive for: Normal Mouth: Positive for: Moist Mucous Membranes, Other (intubated) Neck: Positive for: Normal Range of Motion Respiratory/Chest: Positive for: Clear to Auscultation, Good Air Exchange. Negative for: Respiratory Distress, Accessory Muscle Use Cardiovascular: Positive for: Regular Rate and Rhythm, Normal S1, S2. Negative for: Murmurs Abdomen: Negative for: Tenderness, Distention, Peritoneal Signs, Hernias, Mass/ Organomegaly Back: Positive for: Normal Inspection Upper Extremity: Positive for: Other (Slight minimal ooze of blood noted at av fistula site of left forearm. No excessive bleeding. ) Lower Extremity: Positive for: Normal Inspection. Negative for: Edema Neurological: Positive for: GCS=15, CN II-XII Intact. Negative for: Speech Normal (intubated can't speak) Skin: Positive for: Warm, Dry, Normal Color. Negative for: Rashes Psychiatric: Positive for: Alert, Oriented x 3, Normal Insight, Normal Concentration - Medications Active Medications: Active Medications Generic Name Dose Route Start Last Admin Trade Name Freq PRN Reason Stop Dose Admin NOREPINEPHRINE BIT/0.9 % NACL 4 mg in 250 mls @ 15 mls/hr 11/16/17 06:13 09:46 Levophed 4 Mg/ 250 Ml Ns Premixed IV 0 mcg/min .[id number] PRN 0 mls/hr TITRATE PER MD ORDER Titration Protocol 4 MCG/MIN Phenylephrine HCl 40 mg/ 254 mls @ 38.1 mls/hr 11/16/17 09:49 11/17/17 08:30 Sodium Chloride IV 0 mcg/min .[id number] PRN 0 mls/hr TITRATE PER MD ORDER Titration Protocol 100 MCG/MIN Vasopressin 20 units/ Sodium 101 mls @ 9.09 mls/hr 11/16/17 10:00 11/16/17 21 :15 Chloride IV 9.09 mls/hr .[id number] WILIAN Administration Protocol 0.03 U/MIN Meropenem 500 mg/ Sodium 50 mls @ 100 mls/hr 11/17/17 14:00 11/18/17 13:16 Chloride IVPB 11/23/17 14:01 100 mls/hr 1400 WILIAN Administration Protocol Propofol 1,000 mg in 100 mls @ 2.299 mls/hr 11/16/17 20:24 Diprivan IV .Q24H PRN TITRATE PER MD ORDER Protocol 5 MCG/KG/MIN Dextrose/Sodium Chloride 1,000 mls @ 60 mls/hr 11/18/17 10:23 11/18/17 12:13 Dextrose 5%/0.9% Ns 1000 Ml IV 60 mls/hr .[id number] WILIAN Administration Insulin Human Regular 0 units 11/16/17 07:00 11/16/17 13:00 Humulin R Low SC Not Given Q6H WILIAN Protocol Methylprednisolone 40 mg 11/18/17 12:15 11/19/17 04:56 Solu-Medrol IVP 40 mg Q8H WILIAN Administration Morphine Sulfate 4 mg 11/18/17 09:46 11/18/17 20:44 Morphine IVP 4 mg Q4H PRN Administration Pain, Mild (1-3) Ondansetron HCl 4 mg 11/17/17 17:27 Zofran Inj IVP Q6H PRN Nausea/Vomiting Pantoprazole Sodium 40 mg 11/18/17 11:45 11/18/17 12:14 Protonix Inj IVP 40 mg DAILY WILIAN Administration - Patient Studies Lab Studies: Microbiology Studies 11/16/17 09:30 Blood Culture - Preliminary Blood NO GROWTH AFTER 48 HOURS Lab Studies 11/19/17 11/19/17 11/19/17 Range/Units 05:59 05:30 05:30 WBC (4.5-11.0) 10^3/ul RBC (3.5-6.1) 10^6/uL Hgb (12.0-16.0) g/dL Hct (36.0-48.0) % MCV (80.0-105.0) fl MCH (25.0-35.0) pg MCHC (31.0-37.0) g/dl RDW (11.5-14.5) % Plt Count (120.0-450.0) 10^3/uL Manual Plt Count (120-450) K/mm3 MPV (7.0-11.0) fl pCO2 55 H (35-45) mm/Hg pO2 80.0 (80-100) mm/Hg HCO3 22.0 (21-28) mmol/L ABG pH 7.21 L (7.35-7.45) ABG Total CO2 23.7 (22-28) mmol.L ABG O2 Saturation 97.4 (95-98) % ABG O2 Content 11.1 L (15-23) ML/dl ABG Base Excess -5.7 L (-2.0-3.0) mmol/L ABG Hemoglobin 8.2 L (11.7-17.4) g/dL ABG Carboxyhemoglobin 1.4 (0.5-1.5) % POC ABG HHb (Measured) 2.5 (0-5) % ABG Methemoglobin 1.0 (0.0-3.0) % ABG O2 Capacity 11.4 L (16-24) mL/dl Hgb O2 Saturation 95.1 (95.0-98.0) % FiO2 28.0 % Sodium 139 (132-148) mmol/L Potassium 4.9 (3.6-5.0) mmol/L Chloride 103 (98-107) mmol/L Carbon Dioxide 24 (21-33) mmol/L Anion Gap 18 (10-20) BUN 61 H (7-21) mg/dL Creatinine 7.2 H (0.7-1.2) mg/dl Est GFR ( Amer) 7 Est GFR (Non-Af Amer) 6 POC Glucose (mg/dL) 155 H (65-110) mg/dL Random Glucose 163 H (70-110) mg/dL Calcium 8.9 (8.4-10.5) mg/dL Total Bilirubin 0.7 (0.2-1.3) mg/dL AST 224 H D (14-36) U/L ALT 630 H (7-56) U/L Alkaline Phosphatase 87 (38-126) U/L Total Protein 5.9 (5.8-8.3) g/dL Albumin 3.1 (3.0-4.8) g/dL Globulin 2.8 gm/dL Albumin/Globulin Ratio 1.1 (1.1-1.8) TSH 3rd Generation (0.46-4.68) mIU/mL 11/19/17 11/19/17 11/18/17 Range/Units 05:30 00:00 20:04 WBC 13.5 H D (4.5-11.0) 10^3/ul RBC 3.36 L (3.5-6.1) 10^6/uL Hgb 9.5 L (12.0-16.0) g/dL Hct 29.4 L (36.0-48.0) % MCV 87.5 (80.0-105.0) fl MCH 28.3 (25.0-35.0) pg MCHC 32.3 (31.0-37.0) g/dl RDW 20.2 H (11.5-14.5) % Plt Count 59 L (120.0-450.0) 10^3/uL Manual Plt Count (120-450) K/mm3 MPV 9.6 (7.0-11.0) fl pCO2 (35-45) mm/Hg pO2 (80-100) mm/Hg HCO3 (21-28) mmol/L ABG pH (7.35-7.45) ABG Total CO2 (22-28) mmol.L ABG O2 Saturation (95-98) % ABG O2 Content (15-23) ML/dl ABG Base Excess (-2.0-3.0) mmol/L ABG Hemoglobin (11.7-17.4) g/dL ABG Carboxyhemoglobin (0.5-1.5) % POC ABG HHb (Measured) (0-5) % ABG Methemoglobin (0.0-3.0) % ABG O2 Capacity (16-24) mL/dl Hgb O2 Saturation (95.0-98.0) % FiO2 % Sodium (132-148) mmol/L Potassium (3.6-5.0) mmol/L Chloride (98-107) mmol/L Carbon Dioxide (21-33) mmol/L Anion Gap (10-20) BUN (7-21) mg/dL Creatinine (0.7-1.2) mg/dl Est GFR ( Amer) Est GFR (Non-Af Amer) POC Glucose (mg/dL) 135 H 136 H (65-110) mg/dL Random Glucose (70-110) mg/dL Calcium (8.4-10.5) mg/dL Total Bilirubin (0.2-1.3) mg/dL AST (14-36) U/L ALT (7-56) U/L Alkaline Phosphatase (38-126) U/L Total Protein (5.8-8.3) g/dL Albumin (3.0-4.8) g/dL Globulin gm/dL Albumin/Globulin Ratio (1.1-1.8) TSH 3rd Generation (0.46-4.68) mIU/mL 11/18/17 11/18/17 11/18/17 Range/Units 15:04 12:46 12:00 WBC (4.5-11.0) 10^3/ul RBC (3.5-6.1) 10^6/uL Hgb (12.0-16.0) g/dL Hct (36.0-48.0) % MCV (80.0-105.0) fl MCH (25.0-35.0) pg MCHC (31.0-37.0) g/dl RDW (11.5-14.5) % Plt Count (120.0-450.0) 10^3/uL Manual Plt Count (120-450) K/mm3 MPV (7.0-11.0) fl pCO2 (35-45) mm/Hg pO2 (80-100) mm/Hg HCO3 (21-28) mmol/L ABG pH (7.35-7.45) ABG Total CO2 (22-28) mmol.L ABG O2 Saturation (95-98) % ABG O2 Content (15-23) ML/dl ABG Base Excess (-2.0-3.0) mmol/L ABG Hemoglobin (11.7-17.4) g/dL ABG Carboxyhemoglobin (0.5-1.5) % POC ABG HHb (Measured) (0-5) % ABG Methemoglobin (0.0-3.0) % ABG O2 Capacity (16-24) mL/dl Hgb O2 Saturation (95.0-98.0) % FiO2 % Sodium (132-148) mmol/L Potassium (3.6-5.0) mmol/L Chloride (98-107) mmol/L Carbon Dioxide (21-33) mmol/L Anion Gap (10-20) BUN (7-21) mg/dL Creatinine (0.7-1.2) mg/dl Est GFR ( Amer) Est GFR (Non-Af Amer) POC Glucose (mg/dL) 135 H 106 (65-110) mg/dL Random Glucose (70-110) mg/dL Calcium (8.4-10.5) mg/dL Total Bilirubin (0.2-1.3) mg/dL AST (14-36) U/L ALT (7-56) U/L Alkaline Phosphatase (38-126) U/L Total Protein (5.8-8.3) g/dL Albumin (3.0-4.8) g/dL Globulin gm/dL Albumin/Globulin Ratio (1.1-1.8) TSH 3rd Generation 1.29 (0.46-4.68) mIU/mL 11/18/17 11/18/17 Range/Units 08:21 05:30 WBC (4.5-11.0) 10^3/ul RBC (3.5-6.1) 10^6/uL Hgb (12.0-16.0) g/dL Hct (36.0-48.0) % MCV (80.0-105.0) fl MCH (25.0-35.0) pg MCHC (31.0-37.0) g/dl RDW (11.5-14.5) % Plt Count (120.0-450.0) 10^3/uL Manual Plt Count 75 L* (120-450) K/mm3 MPV (7.0-11.0) fl pCO2 (35-45) mm/Hg pO2 (80-100) mm/Hg HCO3 (21-28) mmol/L ABG pH (7.35-7.45) ABG Total CO2 (22-28) mmol.L ABG O2 Saturation (95-98) % ABG O2 Content (15-23) ML/dl ABG Base Excess (-2.0-3.0) mmol/L ABG Hemoglobin (11.7-17.4) g/dL ABG Carboxyhemoglobin (0.5-1.5) % POC ABG HHb (Measured) (0-5) % ABG Methemoglobin (0.0-3.0) % ABG O2 Capacity (16-24) mL/dl Hgb O2 Saturation (95.0-98.0) % FiO2 % Sodium (132-148) mmol/L Potassium (3.6-5.0) mmol/L Chloride (98-107) mmol/L Carbon Dioxide (21-33) mmol/L Anion Gap (10-20) BUN (7-21) mg/dL Creatinine (0.7-1.2) mg/dl Est GFR ( Amer) Est GFR (Non-Af Amer) POC Glucose (mg/dL) 126 H (65-110) mg/dL Random Glucose (70-110) mg/dL Calcium (8.4-10.5) mg/dL Total Bilirubin (0.2-1.3) mg/dL AST (14-36) U/L ALT (7-56) U/L Alkaline Phosphatase (38-126) U/L Total Protein (5.8-8.3) g/dL Albumin (3.0-4.8) g/dL Globulin gm/dL Albumin/Globulin Ratio (1.1-1.8) TSH 3rd Generation (0.46-4.68) mIU/mL Laboratory Results - last 24 hr 11/18/17 11/18/17 11/18/17 05:30 08:21 12:00 WBC RBC Hgb Hct MCV MCH MCHC RDW Plt Count Manual Plt Count 75 L* MPV pCO2 pO2 HCO3 ABG pH ABG Total CO2 ABG O2 Saturation ABG O2 Content ABG Base Excess ABG Hemoglobin ABG Carboxyhemoglobin POC ABG HHb (Measured) ABG Methemoglobin ABG O2 Capacity Hgb O2 Saturation FiO2 Sodium Potassium Chloride Carbon Dioxide Anion Gap BUN Creatinine Est GFR ( Amer) Est GFR (Non-Af Amer) POC Glucose (mg/dL) 126 H Random Glucose Calcium Total Bilirubin AST ALT Alkaline Phosphatase Total Protein Albumin Globulin Albumin/Globulin Ratio TSH 3rd Generation 1.29 11/18/17 11/18/17 11/18/17 12:46 15:04 20:04 WBC RBC Hgb Hct MCV MCH MCHC RDW Plt Count Manual Plt Count MPV pCO2 pO2 HCO3 ABG pH ABG Total CO2 ABG O2 Saturation ABG O2 Content ABG Base Excess ABG Hemoglobin ABG Carboxyhemoglobin POC ABG HHb (Measured) ABG Methemoglobin ABG O2 Capacity Hgb O2 Saturation FiO2 Sodium Potassium Chloride Carbon Dioxide Anion Gap BUN Creatinine Est GFR ( Amer) Est GFR (Non-Af Amer) POC Glucose (mg/dL) 106 135 H 136 H Random Glucose Calcium Total Bilirubin AST ALT Alkaline Phosphatase Total Protein Albumin Globulin Albumin/Globulin Ratio TSH 3rd Generation 11/19/17 11/19/17 11/19/17 00:00 05:30 05:30 WBC 13.5 H D RBC 3.36 L Hgb 9.5 L Hct 29.4 L MCV 87.5 MCH 28.3 MCHC 32.3 RDW 20.2 H Plt Count 59 L Manual Plt Count MPV 9.6 pCO2 pO2 HCO3 ABG pH ABG Total CO2 ABG O2 Saturation ABG O2 Content ABG Base Excess ABG Hemoglobin ABG Carboxyhemoglobin POC ABG HHb (Measured) ABG Methemoglobin ABG O2 Capacity Hgb O2 Saturation FiO2 Sodium 139 Potassium 4.9 Chloride 103 Carbon Dioxide 24 Anion Gap 18 BUN 61 H Creatinine 7.2 H Est GFR ( Amer) 7 Est GFR (Non-Af Amer) 6 POC Glucose (mg/dL) 135 H Random Glucose 163 H Calcium 8.9 Total Bilirubin 0.7 AST 224 H D ALT 630 H Alkaline Phosphatase 87 Total Protein 5.9 Albumin 3.1 Globulin 2.8 Albumin/Globulin Ratio 1.1 TSH 3rd Generation 11/19/17 11/19/17 05:30 05:59 WBC RBC Hgb Hct MCV MCH MCHC RDW Plt Count Manual Plt Count MPV pCO2 55 H pO2 80.0 HCO3 22.0 ABG pH 7.21 L ABG Total CO2 23.7 ABG O2 Saturation 97.4 ABG O2 Content 11.1 L ABG Base Excess -5.7 L ABG Hemoglobin 8.2 L ABG Carboxyhemoglobin 1.4 POC ABG HHb (Measured) 2.5 ABG Methemoglobin 1.0 ABG O2 Capacity 11.4 L Hgb O2 Saturation 95.1 FiO2 28.0 Sodium Potassium Chloride Carbon Dioxide Anion Gap BUN Creatinine Est GFR ( Amer) Est GFR (Non-Af Amer) POC Glucose (mg/dL) 155 H Random Glucose Calcium Total Bilirubin AST ALT Alkaline Phosphatase Total Protein Albumin Globulin Albumin/Globulin Ratio TSH 3rd Generation Fingerstick Blood Sugar Results: 155 Review of Systems - Review of Systems All systems: reviewed and no additional remarkable complaints except (HPI) Critical Care Progress Note - Nutrition Nutrition: Nutrition Category Date Time Status Liquid Diet [DIET] Diets 11/18/17 Lunch Ordered Assessment/Plan - Assessment and Plan (Free Text) Assessment: This is a 67yo female with past medical history of ESRD on HD (MWF), DM, CVA, HTN, asthma who is admitted to ICU for hemorrhagic shock secondary to bleeding AV fistula. s/p 5 unit PRBC. S/p cardiac arrest yesterday (ROSC achieved after 4 min of CPR and 2 rounds of epi), Intubated for airway protection and currently extubated. Off of Levophed, phenylephrine, and vasopressin. S/p EGD yesterday which showed no signs of active bleeding and bleeding scan negative. Neuro: - AAO x 3 - Neuro check - Maintain normothermia CV: - Currently hemodynamically stable - Maintain MAP>65 - Echo ordered - EF 54 % Pulm: - Maintain SPO2 >90 % - 2L NC as needed - Cont to monitor - BIPAP HS and PRN GI: - Liquid diet - Protonix 40mg IVP - Gi consulted for recs - s/p 5 unit PRBC - Surg consulted for recs - f/u bleeding scan - neg - CT abd showed small bowel ileus vs enteritis; fluid filled rectum / gi bleed Heme: - s/p 2 unit platelets - S/p 5U PRBC - Hold anticoagulants - Surgery consulted for bleeding fistula - Monitor H/H Nephro: - ESRD on HD M, W,F - Nephrology, Dr. Felton consulted - Maintain euvolemia - Will replete electrolytes as needed ID: - Leukocytosis, afebrile - Cont Abx as per ID - F/u ID recs - Septic work up pending Endo: - ISS - Maintain euglycemia 140-180s Case and plan was reviewed and discussed in detail with Dr Walker <Teodoro Walker - Last Filed: 11/19/17 11:55> CCU Objective - Vital Signs / Intake & Output Vital Signs (Last 4 hours): Vital Signs Temp Pulse Resp BP Pulse Ox 11/19/17 11:00 97.3 F L 89 12 143/90 97 11/19/17 10:31 97.3 F L 89 12 167/98 H 96 11/19/17 10:00 97.2 F L 72 9 L 137/75 97 11/19/17 09:30 97.2 F L 80 9 L 148/68 97 11/19/17 09:00 97.2 F L 89 18 157/92 H 96 11/19/17 08:30 97.2 F L 86 133/68 99 11/19/17 08:00 97.2 F L 91 H 141/72 98 Intake and Output (Last 8hrs): Intake & Output 11/18/17 11/19/17 11/19/17 22:59 06:59 14:59 Intake Total 800 720 Output Total 80 0 Balance 720 720 Weight 196 lb 9 oz Intake: IV 800 660 [id number] 660 Right Femoral 800 Oral 60 Output: Urine 0 Urine, Voided 0 Urine/Stool Mix 80 Other: # Bowel Movements 1 - Medications Active Medications: Active Medications Generic Name Dose Route Start Last Admin Trade Name Freq PRN Reason Stop Dose Admin Meropenem 500 mg/ Sodium 50 mls @ 100 mls/hr 11/17/17 14:00 11/18/17 13:16 Chloride IVPB 11/23/17 14:01 100 mls/hr 1400 WILIAN Administration Protocol Insulin Human Regular 0 units 11/16/17 07:00 11/16/17 13:00 Humulin R Low SC Not Given Q6H [facility] Protocol Methylprednisolone 40 mg 11/18/17 12:15 11/19/17 04:56 Solu-Medrol IVP 40 mg Q8H WILIAN Administration Morphine Sulfate 4 mg 11/18/17 09:46 11/18/17 20:44 Morphine IVP 4 mg Q4H PRN Administration Pain, Mild (1-3) Ondansetron HCl 4 mg 11/17/17 17:27 Zofran Inj IVP Q6H PRN Nausea/Vomiting Pantoprazole Sodium 40 mg 11/18/17 11:45 11/19/17 09:45 Protonix Inj IVP 40 mg DAILY WILIAN Administration - Patient Studies Lab Studies: Microbiology Studies 11/16/17 09:30 Blood Culture - Preliminary Blood NO GROWTH AFTER 3 DAYS Lab Studies 11/19/17 11/19/17 11/19/17 Range/Units 06:00 05:59 05:30 WBC (4.5-11.0) 10^3/ul RBC (3.5-6.1) 10^6/uL Hgb (12.0-16.0) g/dL Hct (36.0-48.0) % MCV (80.0-105.0) fl MCH (25.0-35.0) pg MCHC (31.0-37.0) g/dl RDW (11.5-14.5) % Plt Count (120.0-450.0) 10^3/uL MPV (7.0-11.0) fl pCO2 55 H (35-45) mm/Hg pO2 80.0 (80-100) mm/Hg HCO3 22.0 (21-28) mmol/L ABG pH 7.21 L (7.35-7.45) ABG Total CO2 23.7 (22-28) mmol.L ABG O2 Saturation 97.4 (95-98) % ABG O2 Content 11.1 L (15-23) ML/dl ABG Base Excess -5.7 L (-2.0-3.0) mmol/L ABG Hemoglobin 8.2 L (11.7-17.4) g/dL ABG Carboxyhemoglobin 1.4 (0.5-1.5) % POC ABG HHb (Measured) 2.5 (0-5) % ABG Methemoglobin 1.0 (0.0-3.0) % ABG O2 Capacity 11.4 L (16-24) mL/dl Hgb O2 Saturation 95.1 (95.0-98.0) % FiO2 28.0 % Sodium (132-148) mmol/L Potassium (3.6-5.0) mmol/L Chloride (98-107) mmol/L Carbon Dioxide (21-33) mmol/L Anion Gap (10-20) BUN (7-21) mg/dL Creatinine (0.7-1.2) mg/dl Est GFR ( Amer) Est GFR (Non-Af Amer) POC Glucose (mg/dL) 155 H (65-110) mg/dL Random Glucose (70-110) mg/dL Calcium (8.4-10.5) mg/dL Phosphorus 8.3 H (2.5-4.5) mg/dL Magnesium 2.0 (1.7-2.2) mg/dL Total Bilirubin (0.2-1.3) mg/dL AST (14-36) U/L ALT (7-56) U/L Alkaline Phosphatase (38-126) U/L Total Protein (5.8-8.3) g/dL Albumin (3.0-4.8) g/dL Globulin gm/dL Albumin/Globulin Ratio (1.1-1.8) TSH 3rd Generation (0.46-4.68) mIU/mL 11/19/17 11/19/17 11/19/17 Range/Units 05:30 05:30 00:00 WBC 13.5 H D (4.5-11.0) 10^3/ul RBC 3.36 L (3.5-6.1) 10^6/uL Hgb 9.5 L (12.0-16.0) g/dL Hct 29.4 L (36.0-48.0) % MCV 87.5 (80.0-105.0) fl MCH 28.3 (25.0-35.0) pg MCHC 32.3 (31.0-37.0) g/dl RDW 20.2 H (11.5-14.5) % Plt Count 59 L (120.0-450.0) 10^3/uL MPV 9.6 (7.0-11.0) fl pCO2 (35-45) mm/Hg pO2 (80-100) mm/Hg HCO3 (21-28) mmol/L ABG pH (7.35-7.45) ABG Total CO2 (22-28) mmol.L ABG O2 Saturation (95-98) % ABG O2 Content (15-23) ML/dl ABG Base Excess (-2.0-3.0) mmol/L ABG Hemoglobin (11.7-17.4) g/dL ABG Carboxyhemoglobin (0.5-1.5) % POC ABG HHb (Measured) (0-5) % ABG Methemoglobin (0.0-3.0) % ABG O2 Capacity (16-24) mL/dl Hgb O2 Saturation (95.0-98.0) % FiO2 % Sodium 139 (132-148) mmol/L Potassium 4.9 (3.6-5.0) mmol/L Chloride 103 (98-107) mmol/L Carbon Dioxide 24 (21-33) mmol/L Anion Gap 18 (10-20) BUN 61 H (7-21) mg/dL Creatinine 7.2 H (0.7-1.2) mg/dl Est GFR ( Amer) 7 Est GFR (Non-Af Amer) 6 POC Glucose (mg/dL) 135 H (65-110) mg/dL Random Glucose 163 H (70-110) mg/dL Calcium 8.9 (8.4-10.5) mg/dL Phosphorus (2.5-4.5) mg/dL Magnesium (1.7-2.2) mg/dL Total Bilirubin 0.7 (0.2-1.3) mg/dL AST 224 H D (14-36) U/L ALT 630 H (7-56) U/L Alkaline Phosphatase 87 (38-126) U/L Total Protein 5.9 (5.8-8.3) g/dL Albumin 3.1 (3.0-4.8) g/dL Globulin 2.8 gm/dL Albumin/Globulin Ratio 1.1 (1.1-1.8) TSH 3rd Generation (0.46-4.68) mIU/mL 11/18/17 11/18/17 11/18/17 Range/Units 20:04 15:04 12:46 WBC (4.5-11.0) 10^3/ul RBC (3.5-6.1) 10^6/uL Hgb (12.0-16.0) g/dL Hct (36.0-48.0) % MCV (80.0-105.0) fl MCH (25.0-35.0) pg MCHC (31.0-37.0) g/dl RDW (11.5-14.5) % Plt Count (120.0-450.0) 10^3/uL MPV (7.0-11.0) fl pCO2 (35-45) mm/Hg pO2 (80-100) mm/Hg HCO3 (21-28) mmol/L ABG pH (7.35-7.45) ABG Total CO2 (22-28) mmol.L ABG O2 Saturation (95-98) % ABG O2 Content (15-23) ML/dl ABG Base Excess (-2.0-3.0) mmol/L ABG Hemoglobin (11.7-17.4) g/dL ABG Carboxyhemoglobin (0.5-1.5) % POC ABG HHb (Measured) (0-5) % ABG Methemoglobin (0.0-3.0) % ABG O2 Capacity (16-24) mL/dl Hgb O2 Saturation (95.0-98.0) % FiO2 % Sodium (132-148) mmol/L Potassium (3.6-5.0) mmol/L Chloride (98-107) mmol/L Carbon Dioxide (21-33) mmol/L Anion Gap (10-20) BUN (7-21) mg/dL Creatinine (0.7-1.2) mg/dl Est GFR ( Amer) Est GFR (Non-Af Amer) POC Glucose (mg/dL) 136 H 135 H 106 (65-110) mg/dL Random Glucose (70-110) mg/dL Calcium (8.4-10.5) mg/dL Phosphorus (2.5-4.5) mg/dL Magnesium (1.7-2.2) mg/dL Total Bilirubin (0.2-1.3) mg/dL AST (14-36) U/L ALT (7-56) U/L Alkaline Phosphatase (38-126) U/L Total Protein (5.8-8.3) g/dL Albumin (3.0-4.8) g/dL Globulin gm/dL Albumin/Globulin Ratio (1.1-1.8) TSH 3rd Generation (0.46-4.68) mIU/mL 11/18/17 Range/Units 12:00 WBC (4.5-11.0) 10^3/ul RBC (3.5-6.1) 10^6/uL Hgb (12.0-16.0) g/dL Hct (36.0-48.0) % MCV (80.0-105.0) fl MCH (25.0-35.0) pg MCHC (31.0-37.0) g/dl RDW (11.5-14.5) % Plt Count (120.0-450.0) 10^3/uL MPV (7.0-11.0) fl pCO2 (35-45) mm/Hg pO2 (80-100) mm/Hg HCO3 (21-28) mmol/L ABG pH (7.35-7.45) ABG Total CO2 (22-28) mmol.L ABG O2 Saturation (95-98) % ABG O2 Content (15-23) ML/dl ABG Base Excess (-2.0-3.0) mmol/L ABG Hemoglobin (11.7-17.4) g/dL ABG Carboxyhemoglobin (0.5-1.5) % POC ABG HHb (Measured) (0-5) % ABG Methemoglobin (0.0-3.0) % ABG O2 Capacity (16-24) mL/dl Hgb O2 Saturation (95.0-98.0) % FiO2 % Sodium (132-148) mmol/L Potassium (3.6-5.0) mmol/L Chloride (98-107) mmol/L Carbon Dioxide (21-33) mmol/L Anion Gap (10-20) BUN (7-21) mg/dL Creatinine (0.7-1.2) mg/dl Est GFR ( Amer) Est GFR (Non-Af Amer) POC Glucose (mg/dL) (65-110) mg/dL Random Glucose (70-110) mg/dL Calcium (8.4-10.5) mg/dL Phosphorus (2.5-4.5) mg/dL Magnesium (1.7-2.2) mg/dL Total Bilirubin (0.2-1.3) mg/dL AST (14-36) U/L ALT (7-56) U/L Alkaline Phosphatase (38-126) U/L Total Protein (5.8-8.3) g/dL Albumin (3.0-4.8) g/dL Globulin gm/dL Albumin/Globulin Ratio (1.1-1.8) TSH 3rd Generation 1.29 (0.46-4.68) mIU/mL Laboratory Results - last 24 hr 11/18/17 11/18/17 11/18/17 12:00 12:46 15:04 WBC RBC Hgb Hct MCV MCH MCHC RDW Plt Count MPV pCO2 pO2 HCO3 ABG pH ABG Total CO2 ABG O2 Saturation ABG O2 Content ABG Base Excess ABG Hemoglobin ABG Carboxyhemoglobin POC ABG HHb (Measured) ABG Methemoglobin ABG O2 Capacity Hgb O2 Saturation FiO2 Sodium Potassium Chloride Carbon Dioxide Anion Gap BUN Creatinine Est GFR ( Amer) Est GFR (Non-Af Amer) POC Glucose (mg/dL) 106 135 H Random Glucose Calcium Phosphorus Magnesium Total Bilirubin AST ALT Alkaline Phosphatase Total Protein Albumin Globulin Albumin/Globulin Ratio TSH 3rd Generation 1.29 11/18/17 11/19/17 11/19/17 20:04 00:00 05:30 WBC 13.5 H D RBC 3.36 L Hgb 9.5 L Hct 29.4 L MCV 87.5 MCH 28.3 MCHC 32.3 RDW 20.2 H Plt Count 59 L MPV 9.6 pCO2 pO2 HCO3 ABG pH ABG Total CO2 ABG O2 Saturation ABG O2 Content ABG Base Excess ABG Hemoglobin ABG Carboxyhemoglobin POC ABG HHb (Measured) ABG Methemoglobin ABG O2 Capacity Hgb O2 Saturation FiO2 Sodium Potassium Chloride Carbon Dioxide Anion Gap BUN Creatinine Est GFR ( Amer) Est GFR (Non-Af Amer) POC Glucose (mg/dL) 136 H 135 H Random Glucose Calcium Phosphorus Magnesium Total Bilirubin AST ALT Alkaline Phosphatase Total Protein Albumin Globulin Albumin/Globulin Ratio [facility] 3rd Generation 11/19/17 11/19/17 11/19/17 05:30 05:30 05:59 WBC RBC Hgb Hct MCV MCH MCHC RDW Plt Count MPV pCO2 55 H pO2 80.0 HCO3 22.0 ABG pH 7.21 L ABG Total CO2 23.7 ABG O2 Saturation 97.4 ABG O2 Content 11.1 L ABG Base Excess -5.7 L ABG Hemoglobin 8.2 L ABG Carboxyhemoglobin 1.4 POC ABG HHb (Measured) 2.5 ABG Methemoglobin 1.0 ABG O2 Capacity 11.4 L Hgb O2 Saturation 95.1 FiO2 28.0 Sodium 139 Potassium 4.9 Chloride 103 Carbon Dioxide 24 Anion Gap 18 BUN 61 H Creatinine 7.2 H Est GFR ( Amer) 7 Est GFR (Non-Af Amer) 6 POC Glucose (mg/dL) 155 H Random Glucose 163 H Calcium 8.9 Phosphorus Magnesium Total Bilirubin 0.7 AST 224 H D ALT 630 H Alkaline Phosphatase 87 Total Protein 5.9 Albumin 3.1 Globulin 2.8 Albumin/Globulin Ratio 1.1 [facility] 3rd Generation 11/19/17 06:00 WBC RBC Hgb Hct MCV MCH MCHC RDW Plt Count MPV pCO2 pO2 HCO3 ABG pH ABG Total CO2 ABG O2 Saturation ABG O2 Content ABG Base Excess ABG Hemoglobin ABG Carboxyhemoglobin POC ABG HHb (Measured) ABG Methemoglobin ABG O2 Capacity Hgb O2 Saturation FiO2 Sodium Potassium Chloride Carbon Dioxide Anion Gap BUN Creatinine Est GFR ( Amer) Est GFR (Non-Af Amer) POC Glucose (mg/dL) Random Glucose Calcium Phosphorus 8.3 H Magnesium 2.0 Total Bilirubin AST ALT Alkaline Phosphatase Total Protein Albumin Globulin Albumin/Globulin Ratio [facility] 3rd [facility] Critical Care Progress Note - Nutrition Nutrition: Nutrition Category Date Time Status Liquid Diet [DIET] Diets 11/18/17 Lunch Ordered Attending/Attestation - Attestation I have personally seen and examined this patient.: Yes I have fully participated in the care of the patient.: Yes I have reviewed all pertinent clinical information: Yes Notes (Text): 11/19/17 11:51 The patient was seen and examined at the bedside. Patient care was discussed with resident Medical records, lab studies, and imaging were reviewed and management issues were discussed and formulated. Agree with above treatment plans as outlined in 's note with addition of the following: CPR arrest \ Acute Respiratory Failure \ Hypoxemia \ Hypercapnea \ Blood Loss Anemia \ AVF bleed \ GI Bleed \ ESRD on HD \ Sepsis \ DM \ -s\p CPR arrest; continue hemodynamic monitoring to maintain MAP>65; off vasopressor support ; cardio team f\u -extubated yesterday; continue o2 supplementation to maintain Spo2>90 Pao2>60; start Bipap PRN and HS -CXR and ABG reviewed; respiratory acidosis notes -continue broad spectrum empiric ABX as per ID team, f\u cultures -f\u Bun\Cr and U\o; HD and volume removal as per renal team -Surgical team f\u -GI team f\u s\p EGD; no active bleed overnight; continue PPi -f\u serial H\H -dysphagia team eval; aspiration precautions -DVT prophylaxis with SCD CCM time 34min
--- NOTE | 2017-11-19 08:24 | RAD ---
HISTORY: intubation COMPARISON: 11/18/2017 FINDINGS: The right-sided PermCath terminates in the right atrium. LUNGS: The lungs are well inflated and clear. PLEURA: No significant pleural effusion identified, no pneumothorax apparent. CARDIOVASCULAR: There is persistent cardiomegaly. OSSEOUS STRUCTURES: No significant abnormalities. VISUALIZED UPPER ABDOMEN: Normal. OTHER FINDINGS: None. IMPRESSION: No acute findings.
--- NOTE | 2017-11-19 09:52 | PN ---
DATE: SUBJECTIVE: The patient denies any chest pain, no shortness of breath. She has complaints of weakness. PHYSICAL EXAMINATION: VITAL SIGNS: Temperature is 97.2, pulse of 98, blood pressure 143/103, blood pressure before was 116/71, O2 saturation 98%. GENERAL: The patient is lying in bed, flat, comfortable. HEENT: No oral lesion. Anicteric sclerae. Moist mucosa. NECK: No JVD, adenopathy, or thyromegaly. CARDIOVASCULAR: S1 and S2, regular. No murmurs, rubs, or gallops. LUNGS: Clear to auscultation bilaterally. No wheeze, rales, or rhonchi. ABDOMEN: Bowel sounds are positive, soft, nontender and nondistended. EXTREMITIES: No cyanosis, clubbing or edema. LABS: White count is 13.5, hemoglobin is 9.5. Chemistry shows sodium 139, potassium is 4.9, AST and ALT is 224 and 630. ASSESSMENT: 1. Hemorrhagic shock, improved. 2. Acute anemia secondary to bleeding from arteriovenous fistula. 3. Status post cardiac arrest. 4. End-stage renal disease on hemodialysis. 5. Atrial fibrillation, controlled. 6. Transaminitis, improving. 7. Rectal bleeding. 8. Diabetes type 2. 9. Secondary hyperparathyroidism. 10. Right femoral central line. 11. Right internal jugular Perm-A-Cath. 12. Thrombocytopenia, acute. PLAN: The patient has made significant improvement. She is off the ventilator. She has no active bleeding. The patient is on D5 normal saline. Her fingersticks have been stable. I will discontinue her IV fluids. She should have her right femoral central line taken down. She is at high risk of infection. She also has white count that has increased from yesterday, which was normal. The patient has thrombocytopenia, is new, but it is stable. Her blood cultures have been negative. She is on metoprolol. She is going to need Cardiology evaluation because of the atrial fibrillation. She is off of Levophed and phenylephrine. She is off Diprivan. She is on morphine p.r.n. She is receiving meropenem for antibiotics. She is on liquid diet. She will be transferred to the Telemetry and also start her on physical therapy, and see if she qualifies for the Transitional Care Unit. Melchor Jordan MD [facility] # [phone]
--- NOTE | 2017-11-19 10:35 | CP.PCM.PN ---
Subjective - Date & Time of Evaluation Date of Evaluation: 11/19/17 Time of Evaluation: 09:45 - Subjective Subjective: On BIPAP but comfortable in bed, no fevers overnight, not on pressors anymore and has been extubated since 2 days ago, no diarrhea, no nausea, no abdominal pain. Objective - Vital Signs/Intake and Output Vital Signs (last 24 hours): Temp Pulse Resp BP Pulse Ox 97.0 F L 82 22 130/65 99 11/19/17 05:00 11/19/17 05:00 11/18/17 11:55 11/19/17 05:00 11/19/17 05:00 Intake and Output: 11/18/17 11/19/17 18:59 06:59 Intake Total 800 Output Total 80 Balance 720 - Medications Medications: Current Medications NOREPINEPHRINE BIT/0.9 % NACL (Levophed 4 Mg/ 250 Ml Ns Premixed) 4 mg in 250 mls @ 15 mls/hr IV .[id number] PRN; Protocol; 4 MCG/MIN PRN Reason: TITRATE PER MD ORDER Last Titration: 11/17/17 09:46 Dose: 0 mcg/min, 0 mls/hr Phenylephrine HCl 40 mg/ (Sodium Chloride) 254 mls @ 38.1 mls/hr IV .Q6H40M PRN ; Protocol; 100 MCG/MIN PRN Reason: TITRATE PER MD ORDER Last Titration: 11/17/17 08:30 Dose: 0 mcg/min, 0 mls/hr Vasopressin 20 units/ Sodium (Chloride) 101 mls @ 9.09 mls/hr IV .Q11H7M [facility]; 0.03 U/MIN PRN Reason: Protocol Last Admin: 11/16/17 21:15 Dose: 9.09 mls/hr Meropenem 500 mg/ Sodium (Chloride) 50 mls @ 100 mls/hr IVPB 1400 [facility] PRN Reason: Protocol Stop: 11/23/17 14:01 Last Admin: 11/18/17 13:16 Dose: 100 mls/hr Propofol (Diprivan) 1,000 mg in 100 mls @ 2.299 mls/hr IV .Q24H PRN; Protocol; 5 MCG/KG/MIN PRN Reason: TITRATE PER MD ORDER Dextrose/Sodium Chloride (Dextrose 5%/0.9% Ns 1000 Ml) 1,000 mls @ 60 mls/hr IV .[id number] [facility] Last Admin: 11/18/17 12:13 Dose: 60 mls/hr Insulin Human Regular (Humulin R Low) 0 units SC Q6H [facility] PRN Reason: Protocol Last Admin: 11/16/17 13:00 Dose: Not Given Methylprednisolone (Solu-Medrol) 40 mg IVP Q8H [facility] Last Admin: 11/19/17 04:56 Dose: 40 mg Morphine Sulfate (Morphine) 4 mg IVP Q4H PRN PRN Reason: Pain, Mild (1-3) Last Admin: 11/18/17 20:44 Dose: 4 mg Ondansetron HCl (Zofran Inj) 4 mg IVP Q6H PRN PRN Reason: Nausea/Vomiting Pantoprazole Sodium (Protonix Inj) 40 mg IVP DAILY [facility] Last Admin: 11/18/17 12:14 Dose: 40 mg - Labs Labs: 11/19/17 05:30 11/18/17 05:21 PT 14.6 SECONDS (9.4-12.5) H 11/17/17 06:00 INR 1.26 (0.93-1.08) H 11/17/17 06:00 APTT 32.4 Seconds (25.1-36.5) 11/17/17 06:00 - Constitutional Appears: Chronically Ill - Head Exam Head Exam: NORMAL INSPECTION - ENT Exam ENT Exam: Mucous Membranes Moist - Neck Exam Neck Exam: absent: Meningismus - Respiratory Exam Respiratory Exam: Decreased Breath Sounds - Cardiovascular Exam Cardiovascular Exam: +S1, +S2 - GI/Abdominal Exam GI & Abdominal Exam: Soft. absent: Tenderness Assessment and Plan - Assessment and Plan (Free Text) Plan: Assessment systemic inflammatory response syndrome probably from hypovolemic shock from AV fistula bleeding S/P code blue with no evidence of bacterial sepsis in this patient also with GI bleeding ESRD on HD DM HTN obesity with BMI 30 asthma history of CVA Plan currently on Merrem day 4; blood cx are negative; patient has no diarrhea, no abdominal pain, CT A/P shows probable ileus, R/O enteritis but clinically has no abdominal tenderness - may d/c antibiotics and observe will continue to monitor clinically
--- NOTE | 2017-11-19 10:40 | PN ---
DATE: 11/18/2017 SUBJECTIVE: Patient's vital signs stable. No further episodes of bleeding. PHYSICAL EXAMINATION: VITAL SIGNS: Remains afebrile. Blood pressure 103/48, pulse rate 94, temperature is 98.4. HEENT: Atraumatic, anicteric. NECK: Supple. HEART: S1 and S2 heard. LUNGS: Bilateral air entry present. ABDOMEN: Soft. There was no tenderness. Patient was intubated in the morning at the time of examination. LABORATORY DATA: Hemoglobin 9.3, hematocrit 28.1, WBC 10.8, platelets 60,000. BUN 47, creatinine 6. Impression is gastrointestinal bleeding, anemia, end-stage renal disease, on hemodialysis. Patient remains hemodynamically stable now. No further episodes of melena or bright red blood per rectum now. Patient had a manual platelet count done, which showed about 75. Discussed with the patient's son at length. Informed consent was obtained for endoscopy. Patient did undergo endoscopy. The plan was to do an endoscopy prior to the extubation. Patient did undergo upper GI endoscopy, was found to have a large hiatus hernia with Jeromy ulcer. There was also duodenal ulcer noticed. There is no active source of bleeding, no active bleeding noticed. IMPRESSION: 1. Gastric ulcer, Jeromy type. 2. Large hiatus hernia. 3. Duodenal ulcer. 4. Status post gastrointestinal bleeding. 5. End-stage renal disease, on hemodialysis. 6. Patient is also thrombocytopenic. Patient had a history of bleeding from the arteriovenous fistula before. Would recommend cutting down the proton pump inhibitor to 40 mg daily and the patient can be started on clear liquid diet post extubation. Thank you very much for allowing us to participate in the care of the patient. Julian Romero MD : 11/18/2017 17:10:37
--- NOTE | 2017-11-19 12:53 | CP.PCM.PN ---
Subjective - Date & Time of Evaluation Date of Evaluation: 11/19/17 Time of Evaluation: 10:00 - Subjective Subjective: GI progress note. Dr. Romero Pt seen and examined at bedside. Currently having hemodialysis. No new acute events reported by nursing staff. No signs of active bleeding. As per staff, some difficulty tolerating oral intake secondary to decreased mental status. Objective - Vital Signs/Intake and Output Vital Signs (last 24 hours): Temp Pulse Resp BP Pulse Ox 97.3 F L 89 12 143/90 97 11/19/17 11:00 11/19/17 11:00 11/19/17 11:00 11/19/17 11:00 11/19/17 11:00 Intake and Output: 11/19/17 11/19/17 06:59 18:59 Intake Total 1520 Output Total 80 Balance 1440 - Medications Medications: Current Medications Meropenem 500 mg/ Sodium (Chloride) 50 mls @ 100 mls/hr IVPB 1400 [facility] PRN Reason: Protocol Stop: 11/23/17 14:01 Last Admin: 11/18/17 13:16 Dose: 100 mls/hr Insulin Human Regular (Humulin R Low) 0 units SC Q6H [facility] PRN Reason: Protocol Last Admin: 11/16/17 13:00 Dose: Not Given Methylprednisolone (Solu-Medrol) 40 mg IVP Q8H [facility] Last Admin: 11/19/17 12:47 Dose: 40 mg Morphine Sulfate (Morphine) 4 mg IVP Q4H PRN PRN Reason: Pain, Mild (1-3) Last Admin: 11/18/17 20:44 Dose: 4 mg Ondansetron HCl (Zofran Inj) 4 mg IVP Q6H PRN PRN Reason: Nausea/Vomiting Pantoprazole Sodium (Protonix Inj) 40 mg IVP DAILY [facility] Last Admin: 11/19/17 09:45 Dose: 40 mg - Labs Labs: 11/19/17 05:30 11/19/17 05:30 PT 14.6 SECONDS (9.4-12.5) H 11/17/17 06:00 INR 1.26 (0.93-1.08) H 11/17/17 06:00 APTT 32.4 Seconds (25.1-36.5) 11/17/17 06:00 - Constitutional Appears: Well, No Acute Distress - Head Exam Head Exam: ATRAUMATIC, NORMAL INSPECTION, NORMOCEPHALIC - Eye Exam Eye Exam: EOMI, Normal appearance. absent: Scleral icterus - Cardiovascular Exam Cardiovascular Exam: absent: JVD - GI/Abdominal Exam GI & Abdominal Exam: Soft. absent: Distended, Guarding, Rigid, Tenderness - Neurological Exam Neurological Exam: Alert, Awake Assessment and Plan - Assessment and Plan (Free Text) Assessment: 67yo F with hemorrhagic shock likely secondary to bleeding AVF. Also with Upper GI bleeding. - EGD 11/18: Jeromy ulcer and Duodenal ulcers. No sequela of massive bleeding noted. No signs of active bleeding - Hemodynamically stable - Thrombocytopenia Plan: - Continue to monitor H/H - Advance diet slowly as tolerated. Pending improvement in mental status - Consider Repeat CT Abd/Pelvis with oral contrast once patient's oral intake improves - Continue decreased dosing of PPI. Monitor thrombocytopenia Further recs as per Dr. Nick Ruiz PGY1
[2017-11-19] MEDS: Meropenem 500 MG in Sodium Chloride 0.9% 50 ML IVPB SCH (13:16)
--- NOTE | 2017-11-19 18:46 | PN ---
DATE: 11/19/2017 SUBJECTIVE: The patient is seen in the ICU. She is awake, her eyes are open. She is nodding, but she is not really following any commands. She is undergoing dialysis right now. She is on BiPAP. Her face is very puffy. She does not appear to be in any distress. She denies any pain. She denies any chest tightness. PHYSICAL EXAMINATION: GENERAL: Obese elderly lady lying in bed in the ICU. VITAL SIGNS: Blood pressure 161/75, heart rate 99, respiratory rate 22, temperature 97, T-max is 97. HEENT: Normocephalic, atraumatic, positive pallor. NECK: Supple, no JVD. LUNGS: Bilateral equal air entry, bilateral equal expansion, basilar rales appreciated anteriorly. CARDIAC: S1 and S2, regular rate and rhythm, no murmur, no rub. ABDOMEN: Obese, distended, soft, tenderness in the epigastrium? Bowel sounds present. EXTREMITIES: No lower extremity edema. INTAKE AND OUTPUT: 1520/not charted. LABORATORY DATA: WBC 13.5, hemoglobin 9.5, hematocrit 29, and platelets 59. Sodium 139, potassium 4.9, chloride 103, CO2 of 24. BUN 61, creatinine 7.2. Glucose 163. Calcium 8.9, phosphorus 8.3 magnesium 2. AST 224, ALT 630, albumin 3.1. Stool occult positive. Blood culture no growth. The patient has received a total of 5 units of PRBC. MEDICATIONS: Insulin, meropenem 500 daily, morphine, Protonix, Solu-Medrol 40 IV every 8 hours, Zofran. ASSESSMENT: 1. Status post cardiac arrest at the end of dialysis on 11/16. Currently, the patient is awake, alert, but not really following any commands, anoxic encephalopathy? 2. Status post severe bleeding from the AV access secondary to injury at home. 3. Gastrointestinal bleed. 4. End-stage renal disease. 5. Wnx-ljlrtna-lmagcrhfy diabetes mellitus. 6. History of hypertension. 7. Multifactorial anemia. 8. Systemic inflammatory response syndrome. 9. Thrombocytopenia. 10. Elevated liver function tests. PLAN: 1. Hemoglobin is stable, the patient has received 5 units of PRBC. 2. GI workup is in progress, initial bleeding scan was negative, endoscopy showed gastritis, plan is for CT scan. Discussed with Dr. Romero, can have CT scan with p.o. and IV contrast if needed. 3. The patient is receiving dialysis at this time. Plan is to remove 3000 mL of fluid. The patient appears puffy. She is on BiPAP. 4. Continue BiPAP for now. May be a component of her encephalopathy might be because of the hypercapnia. 5. Consider CT of the head 6. Continue to monitor in the ICU. 7. Case discussed with ICU staff at length. 8. Case discussed with dialysis staff. 9. Case discussed with Dr. Romero. More than 35 minutes was spent in the care of this critically ill patient. Gabbi Felton MD
[2017-11-19] MEDS: Morphine 4 mg/ml ISec IVP PRN (22:33)
--- NOTE | 2017-11-19 23:30 | CP.PCM.PN ---
Subjective - Date & Time of Evaluation Date of Evaluation: 11/19/17 Time of Evaluation: 23:30 - Subjective Subjective: Patient was seen at bedside. Nurse was concerned about her blood pressure. When I came to see her , her BP was 159/98. She complained of some abdominal pain and mild headache. Has no other complaints. Denied chest pain,sob, nausea, sweating. Medical record was reviewed. This 67 year old woman was admitted with bleeding in AV fistula after it was struck with door knob. Has PMH of HTN,DM II, CVA, asthma ,2* hyperparathyroidism, ESRD, AV fistula on left side. Objective - Vital Signs/Intake and Output Vital Signs (last 24 hours): Temp Pulse Resp BP Pulse Ox 98.9 F 108 H 14 156/102 H 96 11/19/17 20:00 11/19/17 22:00 11/19/17 15:00 11/19/17 22:00 11/19/17 22:00 Intake and Output: 11/19/17 11/20/17 18:59 06:59 Intake Total 280 Output Total 2600 Balance -2320 - Medications Medications: Current Medications Insulin Human Regular (Humulin R Low) 0 units SC Q6H [facility] PRN Reason: Protocol Last Admin: 11/16/17 13:00 Dose: Not Given Methylprednisolone (Solu-Medrol) 40 mg IVP Q8H [facility] Last Admin: 11/19/17 21:54 Dose: 40 mg Morphine Sulfate (Morphine) 4 mg IVP Q4H PRN PRN Reason: Pain, Mild (1-3) Last Admin: 11/18/17 20:44 Dose: 4 mg Ondansetron HCl (Zofran Inj) 4 mg IVP Q6H PRN PRN Reason: Nausea/Vomiting Pantoprazole Sodium (Protonix Inj) 40 mg IVP DAILY [facility] Last Admin: 11/19/17 09:45 Dose: 40 mg - Labs Labs: 11/19/17 05:30 11/19/17 05:30 PT 14.6 SECONDS (9.4-12.5) H 11/17/17 06:00 INR 1.26 (0.93-1.08) H 11/17/17 06:00 APTT 32.4 Seconds (25.1-36.5) 11/17/17 06:00 Micro Results 11/16/17 09:30 Blood Blood Culture - Preliminary NO GROWTH AFTER 3 DAYS 11/16/17 09:10 Nose MRSA Culture (Admit) - Final MRSA NOT DETECTED Most Recent Lab Values WBC 13.5 10^3/ul (4.5-11.0) H D 11/19/17 05:30 RBC 3.36 10^6/uL (3.5-6.1) L 11/19/17 05:30 Hgb 9.5 g/dL (12.0-16.0) L 11/19/17 05:30 Hct 29.4 % (36.0-48.0) L 11/19/17 05:30 MCV 87.5 fl (80.0-105.0) 11/19/17 05:30 MCH 28.3 pg (25.0-35.0) 11/19/17 05:30 MCHC 32.3 g/dl (31.0-37.0) 11/19/17 05:30 RDW 20.2 % (11.5-14.5) H 11/19/17 05:30 Plt Count 59 10^3/uL (120.0-450.0) L 11/19/17 05:30 Manual Plt Count 75 K/mm3 (120-450) L* 11/18/17 05:30 MPV 9.6 fl (7.0-11.0) 11/19/17 05:30 Gran % 95.6 % (50.0-68.0) H 11/18/17 05:21 Lymph % (Auto) 3.7 % (22.0-35.0) L 11/18/17 05:21 [place] % (Auto) 0.6 % (1.0-6.0) L 11/18/17 05:21 Eos % (Auto) 0.0 % (1.5-5.0) L 11/18/17 05:21 Baso % (Auto) 0.1 % (0.0-3.0) 11/18/17 05:21 Gran # 9.82 (1.4-6.5) H 11/18/17 05:21 Lymph # (Auto) 0.4 (1.2-3.4) L 11/18/17 05:21 [place] # (Auto) 0.1 (0.1-0.6) 11/18/17 05:21 Eos # (Auto) 0.0 (0.0-0.7) 11/18/17 05:21 Baso # (Auto) 0.01 K/mm3 (0.0-2.0) 11/18/17 05:21 Neutrophils % (Manual) 50 % (50.0-70.0) 11/17/17 00:35 Band Neutrophils % 31 % (0-2) H* 11/17/17 00:35 Lymphocytes % (Manual) 9 % (22.0-35.0) L 11/17/17 00:35 Monocytes % (Manual) 0 % (1.0-6.0) L 11/17/17 00:35 Metamyelocytes % 7 % 11/17/17 00:35 Myelocytes % 3 % 11/17/17 00:35 Platelet Evaluation Low (NORMAL) 11/17/17 00:35 PT 14.6 SECONDS (9.4-12.5) H 11/17/17 06:00 INR 1.26 (0.93-1.08) H 11/17/17 06:00 APTT 32.4 Seconds (25.1-36.5) 11/17/17 06:00 pCO2 55 mm/Hg (35-45) H 11/19/17 05:59 pO2 80.0 mm/Hg (80-100) 11/19/17 05:59 HCO3 22.0 mmol/L (21-28) 11/19/17 05:59 ABG pH 7.21 (7.35-7.45) L 11/19/17 05:59 ABG Total CO2 23.7 mmol.L (22-28) 11/19/17 05:59 ABG O2 Saturation 97.4 % (95-98) 11/19/17 05:59 ABG O2 Content 11.1 ML/dl (15-23) L 11/19/17 05:59 ABG Base Excess -5.7 mmol/L (-2.0-3.0) L 11/19/17 05:59 ABG Hemoglobin 8.2 g/dL (11.7-17.4) L 11/19/17 05:59 ABG Carboxyhemoglobin 1.4 % (0.5-1.5) 11/19/17 05:59 POC ABG HHb (Measured) 2.5 % (0-5) 11/19/17 05:59 ABG Methemoglobin 1.0 % (0.0-3.0) 11/19/17 05:59 ABG O2 Capacity 11.4 mL/dl (16-24) L 11/19/17 05:59 ABG Potassium 3.7 mmol/L (3.6-5.2) 11/17/17 06:00 VBG pH 7.33 (7.32-7.43) 11/17/17 18:00 VBG pCO2 55.0 (40-60) 11/17/17 18:00 VBG HCO3 29.0 mmol/l (21-28) H 11/17/17 18:00 VBG Total CO2 30.7 mmol.L (22-28) H 11/17/17 18:00 VBG O2 Sat (Calc) 95.7 % (40-65) H 11/17/17 18:00 VBG Base Excess 1.9 mmol/L (0.0-2.0) 11/17/17 18:00 VBG Potassium 4.3 mmol/L (3.6-5.2) 11/17/17 18:00 Hgb O2 Saturation 95.1 % (95.0-98.0) 11/19/17 05:59 Sodium 136.0 mmol/L (132-148) 11/17/17 18:00 Chloride 104.0 mmol/L (98-107) 11/17/17 18:00 Glucose 152 mg/dl (65-105) H 11/17/17 18:00 Lactate 1.9 mmol/L (0.7-2.1) 11/17/17 18:00 FiO2 28.0 % 11/19/17 05:59 Sodium 139 mmol/L (132-148) 11/19/17 05:30 Potassium 4.9 mmol/L (3.6-5.0) 11/19/17 05:30 Chloride 103 mmol/L (98-107) 11/19/17 05:30 Carbon Dioxide 24 mmol/L (21-33) 11/19/17 05:30 Anion Gap 18 (10-20) 11/19/17 05:30 BUN 61 mg/dL (7-21) H 11/19/17 05:30 Creatinine 7.2 mg/dl (0.7-1.2) H 11/19/17 05:30 Est GFR ( Amer) 7 11/19/17 05:30 Est GFR (Non-Af Amer) 6 11/19/17 05:30 POC Glucose (mg/dL) 132 mg/dL (65-110) H 11/20/17 00:18 Random Glucose 163 mg/dL (70-110) H 11/19/17 05:30 Calcium 8.9 mg/dL (8.4-10.5) 11/19/17 05:30 Phosphorus 8.3 mg/dL (2.5-4.5) H 11/19/17 06:00 Magnesium 2.0 mg/dL (1.7-2.2) 11/19/17 06:00 Total Bilirubin 0.7 mg/dL (0.2-1.3) 11/19/17 05:30 AST 224 U/L (14-36) H D 11/19/17 05:30 ALT 630 U/L (7-56) H 11/19/17 05:30 Alkaline Phosphatase 87 U/L (38-126) 11/19/17 05:30 Lactate Dehydrogenase 3559 U/L (333-699) H 11/17/17 06:00 Total Creatine Kinase 1176 U/L (35-230) H 11/17/17 06:00 CK-MB (CK-2) 53.5 ng/mL (0.0-3.6) H 11/17/17 06:00 CK-MB (CK-2) % 4.5 % (2.5-3.0) H 11/17/17 06:00 Troponin I 12.00 ng/mL H* D 11/17/17 06:00 Total Protein 5.9 g/dL (5.8-8.3) 11/19/17 05:30 Albumin 3.1 g/dL (3.0-4.8) 11/19/17 05:30 Globulin 2.8 gm/dL 11/19/17 05:30 Albumin/Globulin Ratio 1.1 (1.1-1.8) 11/19/17 05:30 Lipase 586 U/L (23-300) H 11/16/17 03:55 Procalcitonin > 200.00 NG/ML (0.19-0.49) H 11/17/17 12:30 TSH 3rd Generation 1.29 mIU/mL (0.46-4.68) 11/18/17 12:00 Arterial Blood Potassium 3.7 mmol/L (3.6-5.2) 11/17/17 06:00 Venous Blood Potassium 4.3 mmol/L (3.6-5.2) 11/17/17 18:00 Stool Occult Blood Positive (NEGATIVE) H 11/16/17 18:51 Blood Type O POSITIVE 11/16/17 03:55 Antibody Screen Negative 11/16/17 03:55 Crossmatch See Detail 11/16/17 03:55 BBK History Checked Patient has bt 11/16/17 03:55 - Constitutional Appears: Well, No Acute Distress - Head Exam Head Exam: ATRAUMATIC, NORMAL INSPECTION, NORMOCEPHALIC Additional comments: Obese. - Eye Exam Eye Exam: Normal appearance - ENT Exam ENT Exam: Normal External Ear Exam - Neck Exam Neck Exam: Normal Inspection - Respiratory Exam Respiratory Exam: NORMAL BREATHING PATTERN - Cardiovascular Exam Cardiovascular Exam: absent: JVD - GI/Abdominal Exam GI & Abdominal Exam: Soft, Normal Bowel Sounds. absent: Distended, Firm, Guarding, Rigid, Tenderness, Mass, Organomegaly, Pulsatile Mass, Rebound - Rectal Exam Rectal Exam: Deferred - Exam Additional comments: Deferred. - Extremities Exam Extremities Exam: Normal Inspection - Back Exam Back Exam: NORMAL INSPECTION - Neurological Exam Neurological Exam: Alert, Oriented x3 - Psychiatric Exam Psychiatric exam: Normal Affect, Normal Mood - Skin Skin Exam: Normal Color Assessment and Plan - Assessment and Plan (Free Text) Assessment: Elevated blood pressure reading. Headache. Abdominal pain -diffuse. ESRD. Anemia. DM II. HTN. Asthma. Hyperparathyroidism. Plan: Clonidine 0.1 mg PO x1. Morphine sulfate 4 mg IV as per order. Continue present management. Re evaluate prn.
[2017-11-20] MEDS: MethylPREDNISolone 40 mg Vial IVP SCH ×3 (04:45→21:47)
[2017-11-20 07:58] LABS: HEMOGLOBIN 9.5 g/dL (12.0-16.0); MEAN CELL VOLUME 86.3 fl (80.0-105.0); MEAN CORPUSCULAR HEMOGLOBIN 28.4 pg (25.0-35.0); MEAN CORPUSCULAR HGB CONC 32.9 g/dl (31.0-37.0); MEAN PLATELET VOLUME 9.4 fl (7.0-11.0); RBC 3.35 10^6/uL (3.5-6.1); RED CELL DISTRIBUTION WIDTH 19.7 % (11.5-14.5); WHITE BLOOD COUNT 12.7 10^3/ul (4.5-11.0)
[2017-11-20 08:17] LABS: ALB/GLOB RATIO 1.1 (1.1-1.8); ALBUMIN 3.3 g/dL (3.0-4.8); CALCIUM 9.6 mg/dL (8.4-10.5)
[2017-11-20] MEDS: Levalbuterol 1.25 MG/3 ML Inhal Soln UD IH SCH ×3 (09:38→19:10)
[2017-11-20 10:15] LABS: ARTERIAL BLOOD GAS HEMOGLOBIN 8.9 g/dL (11.7-17.4); ARTERIAL BLOOD GAS O2 CAPACITY 12.4 mL/dl (16-24); ARTERIAL BLOOD GAS O2 CONTENT 12.1 ML/dl (15-23); ARTERIAL BLOOD GAS O2 SAT 97.6 % (95-98); ARTERIAL BLOOD GAS PCO2 54 mm/Hg (35-45); ARTERIAL BLOOD GAS PH 7.29 (7.35-7.45); ARTERIAL BLOOD GAS TCO2 27.7 mmol.L (22-28)
--- NOTE | 2017-11-20 11:58 | CP.PCM.PN ---
Subjective - Date & Time of Evaluation Date of Evaluation: 11/20/17 Time of Evaluation: 11:49 - Subjective Subjective: Surgery Pt seen and examined. Pt seem confused. C/O abd pain. Denies rectal bleeding. VSS. Off pressors and off ventilator. Per nurse, not drinking much. Follows verbal commands. Objective - Vital Signs/Intake and Output Vital Signs (last 24 hours): Temp Pulse Resp BP Pulse Ox 98.1 F 104 H 14 144/93 H 98 11/20/17 04:00 11/20/17 10:30 11/19/17 15:00 11/20/17 10:30 11/20/17 10:30 Intake and Output: 11/20/17 11/20/17 06:59 18:59 Intake Total 30 Balance 30 - Medications Medications: Current Medications Insulin Human Regular (Humulin R Low) 0 units SC Q6H [facility] PRN Reason: Protocol Last Admin: 11/16/17 13:00 Dose: Not Given Levalbuterol HCl (Xopenex) 1.25 mg IH TIDRESP [facility] Last Admin: 11/20/17 09:38 Dose: 1.25 mg Methylprednisolone (Solu-Medrol) 40 mg IVP Q12 [facility] Ondansetron HCl (Zofran Inj) 4 mg IVP Q6H PRN PRN Reason: Nausea/Vomiting Pantoprazole Sodium (Protonix Ec Tab) 40 mg PO 0600 [facility] - Labs Labs: 11/20/17 07:30 11/20/17 07:30 PT 14.6 SECONDS (9.4-12.5) H 11/17/17 06:00 INR 1.26 (0.93-1.08) H 11/17/17 06:00 APTT 32.4 Seconds (25.1-36.5) 11/17/17 06:00 - Constitutional Appears: Non-toxic - Head Exam Head Exam: ATRAUMATIC, NORMAL INSPECTION, NORMOCEPHALIC - Eye Exam Eye Exam: EOMI, Normal appearance, PERRL Pupil Exam: NORMAL ACCOMODATION, PERRL - ENT Exam ENT Exam: Mucous Membranes Moist, Normal Exam - Neck Exam Neck Exam: Full ROM, Normal Inspection. absent: Lymphadenopathy - Respiratory Exam Respiratory Exam: Clear to Ausculation Bilateral, NORMAL BREATHING PATTERN - GI/Abdominal Exam GI & Abdominal Exam: Soft, Tenderness. absent: Distended, Firm, Guarding, Rigid - Rectal Exam Rectal Exam: NORMAL INSPECTION. absent: Black Stool, Bloody Stool, Hemorrhoids - Exam Exam: NORMAL INSPECTION - Extremities Exam Extremities Exam: Full ROM, Normal Capillary Refill, Normal Inspection. absent : Joint Swelling, Pedal Edema - Back Exam Back Exam: NORMAL INSPECTION - Neurological Exam Neurological Exam: Alert, Awake, CN II-XII Intact - Psychiatric Exam Psychiatric exam: Normal Affect, Normal Mood - Skin Skin Exam: Dry, Intact, Normal Color, Warm Assessment and Plan - Assessment and Plan (Free Text) Assessment: 67F w. hemorrhagic shock 2/2 bleeding AVF and GI bleed, resolved hgb 9.5 VSS Plan: -Possible CT A/P w PO contrast per GI -H/H stable, continue to monitor, transfuse PRN, keep hgb>9 -recommend colonoscopy -will continue to follow PASCALE [place]
--- NOTE | 2017-11-20 11:59 | CP.PCM.PN ---
<Edmund Tracy - Last Filed: 11/20/17 11:56> Subjective - Date & Time of Evaluation Date of Evaluation: 11/20/17 Time of Evaluation: 11:56 - Subjective Subjective: Patient seen and examined at bedside. Patient on BIPAP this morning. Patient remains lethargic at bedside. She did have an episode of hypertension overnight. Denies chest pain, SOB, nausea, vomiting, diarrhea. Objective - Vital Signs/Intake and Output Vital Signs (last 24 hours): Temp Pulse Resp BP Pulse Ox 98.1 F 104 H 14 144/93 H 98 11/20/17 04:00 11/20/17 10:30 11/19/17 15:00 11/20/17 10:30 11/20/17 10:30 Intake and Output: 11/20/17 11/20/17 06:59 18:59 Intake Total 30 Balance 30 - Medications Medications: Current Medications Insulin Human Regular (Humulin R Low) 0 units SC Q6H [facility] PRN Reason: Protocol Last Admin: 11/16/17 13:00 Dose: Not Given Levalbuterol HCl (Xopenex) 1.25 mg IH TIDRESP [facility] Last Admin: 11/20/17 09:38 Dose: 1.25 mg Methylprednisolone (Solu-Medrol) 40 mg IVP Q12 [facility] Ondansetron HCl (Zofran Inj) 4 mg IVP Q6H PRN PRN Reason: Nausea/Vomiting Pantoprazole Sodium (Protonix Ec Tab) 40 mg PO 0600 [facility] - Labs Labs: 11/20/17 07:30 11/20/17 07:30 PT 14.6 SECONDS (9.4-12.5) H 11/17/17 06:00 INR 1.26 (0.93-1.08) H 11/17/17 06:00 APTT 32.4 Seconds (25.1-36.5) 11/17/17 06:00 - Constitutional Appears: Toxic, No Acute Distress - Head Exam Head Exam: ATRAUMATIC, NORMAL INSPECTION, NORMOCEPHALIC - ENT Exam ENT Exam: Mucous Membranes Moist, Normal Exam - Respiratory Exam Respiratory Exam: Decreased Breath Sounds, NORMAL BREATHING PATTERN. absent: Rhonchi, Wheezes - Cardiovascular Exam Cardiovascular Exam: RRR, +S1, +S2 - GI/Abdominal Exam GI & Abdominal Exam: Soft, Normal Bowel Sounds. absent: Tenderness - Extremities Exam Extremities Exam: absent: Calf Tenderness, Pedal Edema - Neurological Exam Neurological Exam: Alert, Awake, Oriented x3 - Psychiatric Exam Additional comments: Lethargic - Skin Skin Exam: Intact, Normal Color, Warm Assessment and Plan - Assessment and Plan (Free Text) Plan: 1. Hemorrhagic shock, stable 2. Anemia secondary to AV fistula bleed 3. S/p cardiac arrest 4. A-fib 5. Lower GI bleed 6. DM type 2 7. Thrombocytopenia 8. Right femoral central line Patient lethargic this morning on BIPAP. Patient will receive a neurology consult. Head CT and brain MRI ordered at this time due to lethargy. Patient remains with right femoral line in place, should be removed due to risk of infection. White count continues to remain elevated, but stable. Thrombocytopenia stable at this time, along with negative blood cultures. Patient will be evaluated by cardiology for A-fib. Patient is now off antibiotics, will continue to monitor for further signs of infection. Will continue physical therapy and continue current medical regimen. Will continue GI /DVT prophylaxis. Demarcus, PGY-2 <Melchor Jordan S - Last Filed: 11/20/17 19:02> Objective - Vital Signs/Intake and Output Vital Signs (last 24 hours): Temp Pulse Resp BP Pulse Ox 98.8 F 98 H 23 159/102 H 92 L 11/20/17 12:00 11/20/17 18:00 11/20/17 18:00 11/20/17 18:00 11/20/17 18:00 Intake and Output: 11/20/17 11/20/17 06:59 18:59 Intake Total 30 480 Output Total 50 Balance 30 430 - Medications Medications: Current Medications Amlodipine Besylate (Norvasc) 2.5 mg PO DAILY [facility] Last Admin: 11/20/17 17:57 Dose: 2.5 mg Insulin Human Regular (Humulin R Low) 0 units SC Q6H [facility] PRN Reason: Protocol Last Admin: 11/16/17 13:00 Dose: Not Given Levalbuterol HCl (Xopenex) 1.25 mg IH TIDRESP [facility] Last Admin: 11/20/17 13:47 Dose: 1.25 mg Methylprednisolone (Solu-Medrol) 40 mg IVP Q12 [facility] Last Admin: 11/20/17 14:30 Dose: 40 mg Ondansetron HCl (Zofran Inj) 4 mg IVP Q6H PRN PRN Reason: Nausea/Vomiting Pantoprazole Sodium (Protonix Ec Tab) 40 mg PO 0600 [facility] Sevelamer HCl (Renagel) 1,600 mg PO TID [facility] Last Admin: 11/20/17 17:57 Dose: 1,600 mg - Labs Labs: 11/20/17 07:30 11/20/17 07:30 PT 14.6 SECONDS (9.4-12.5) H 11/17/17 06:00 INR 1.26 (0.93-1.08) H 11/17/17 06:00 APTT 32.4 Seconds (25.1-36.5) 11/17/17 06:00 Assessment and Plan - Assessment and Plan (Free Text) Plan: Pt seen and examined. Reviewed the note of the medical or surgical instrument maker. She has improved. She is not awake. Will get CT of the head and get Neurology consult. Eating ok. Labs reviewed. Meds reviewed.Will need to remove R femoral line. Hb is stable.
--- NOTE | 2017-11-20 14:13 | CT ---
PROCEDURE: CT HEAD WITHOUT CONTRAST. HISTORY: Confusion. COMPARISON: Comparison made with prior study 11/16/2017. TECHNIQUE: Axial computed tomography images were obtained through the head/brain without intravenous contrast. Radiation dose: Total exam DLP = 881.94 mGy-cm. This CT exam was performed using one or more of the following dose reduction techniques: Automated exposure control, adjustment of the mA and/or kV according to patient size, and/or use of iterative reconstruction technique. FINDINGS: HEMORRHAGE: No acute parenchymal, subarachnoid or extra-axial hemorrhage. BRAIN: Small to medium-sized acute/subacute infarct right basal ganglia. This appears to involve the anterior limb right internal capsule as well as the right globus pallidus and possibly putamen as well. Mild diffuse/ confluent chronic white matter ischemic changes. In addition, more discrete chronic appearing subcortical ischemic changes also seen scattered about the deep and subcortical white matter on most pronounced in the left superior frontal region. Moderate generalized volume loss. Vascular calcifications both carotid siphons. VENTRICLES: No obstructive hydrocephalus. CALVARIUM: No acute calvarial fractures. PARANASAL SINUSES: Mild mucosal thickening within the left maxillary antrum as well as several ethmoid air cells and left chamber sphenoid sinus. MASTOID AIR CELLS: Mastoid air complexes well-developed and currently well-aerated. OTHER FINDINGS: Changes of bilateral cataract surgery again noted. IMPRESSION: No acute intracranial hemorrhage. Small to medium-sized acute/subacute right basal ganglia infarct. Chronic white matter ischemic changes with more discrete scattered subcortical chronic ischemic changes. Moderate generalized volume loss.
[2017-11-20] MEDS ORDERED: Barium Sulfate Susp 2.1% w/v, 2.0% w/w 450 mL Bottle PO ONE (14:53)
--- NOTE | 2017-11-20 16:42 | CON ---
DATE: 11/20/2017 PULMONARY CONSULTATION REASON FOR CONSULTATION: Shortness of breath. REFERRING PHYSICIAN: Melchor Jordan MD History is obtained via extensive discussion with the medical surgical tech. I have also had an extensive discussion with the ICU nurse. The patient does not appear to be an adequate historian at this point in time. The patient is a chronically ill 67-year-old female, with past medical history significant for end-stage renal disease, hypertension, diabetes mellitus, cerebrovascular accident, asthma, who presented to [facility] - originally on 11/16/2017 - with profuse bleeding from her fistula site. Apparently, the patient banged her dialysis fistula against a door knob and it started to bleed profusely. She was then seen in the emergency room and admitted for additional evaluation. Again, I did discuss the case with the medical surgical tech and ICU nurse at length. Apparently, while at dialysis on 11/16/2017, the patient did lose her blood pressure and pulse. CPR efforts were begun and the patient was intubated and transferred to the ICU. Resuscitation efforts were successful. The patient was then extubated on 11/18/2017. I am thus asked to evaluate on this case for additional management. Again, I did discuss the case with the ICU nurse at length. The patient is not short of breath at the present time. There is no history of significant cough or sputum production. No history of chest pain, coughing up of blood, or chest pain - made worse with deep respirations. There is no history of temperatures, chills, or infectious exposure. There is no history of night sweats, weight loss, or appetite change prior to the above events. No history of leg or calf pains. No history of recent travel. REVIEW OF SYSTEMS: In addition to the above, the patient also presented with rectal bleeding. There was some nausea and vomiting at home. No acute urinary symptoms. No new musculoskeletal complaints. Rest of the review of systems is negative. ALLERGIES: NO KNOWN ALLERGIES. SOCIAL HISTORY: Negative tobacco. Negative for alcohol. FAMILY HISTORY No inheritable diseases. HOME MEDICATIONS: Include Norvasc, simvastatin, Singulair, protamine, Neurontin, Sensipar, Ecotrin. PHYSICAL EXAMINATION: GENERAL: The patient is lethargic, but arousable. She is not short of breath at the present time. VITAL SIGNS: Temperature is 98.1, pulse 97, respirations 18/20, blood pressure 154/96. Oxygen saturation on nasal cannula is 97%. HEENT: Normocephalic, atraumatic. No JVD. CARDIOVASCULAR: Systolic ejection murmur at the lower left sternal border. No S3 gallop. LUNGS: Decreased breath sounds at the bases. Minimal rhonchi. No wheezing. EXTREMITIES: Positive for edema. No cyanosis, no clubbing. Calves are nontender to palpation. GI: Abdomen is soft, nontender, and nondistended. Bowel sounds are positive. SKIN: No acute rash. NEUROLOGIC: Limited at the present time. PERTINENT LABORATORY DATA: Chest x-ray was done yesterday and reviewed. There are no acute findings noted. Arterial blood gas was done on nasal cannula yesterday. Results are: PH 7.21, pCO2 of 55, pO2 of 80. CBC: White count 12.7, hemoglobin 9.5, hematocrit 28.9, platelets are 54,000. Complete metabolic profile: BUN 51, creatinine 5.3. AST 99, ALT 480. Rest of the metabolic profile is within normal limits. IMPRESSION: 1. Status post hemorrhagic shock. 2. Status post cardiopulmonary resuscitation. 3. Arteriovenous fistula bleeding. 4. End-stage renal disease. 5. Asthma. 6. Anemia. 7. Thrombocytopenia. PLAN: Again, I did discuss the case with the ICU nurse at length. I have also discussed the case with the medical surgical tech at length. I have also reviewed the chart at length. The patient initially presented to [facility] - on 11/16/2017 - after she banged her AV fistula into a door knob. Profuse bleeding ensued, and the patient went to the emergency room for additional evaluation. While at dialysis, the patient did lose blood pressure and pulse. She was also intubated and transferred to the medical ICU. As above, she was extubated on 11/18/2017. At the present time, the patient is not short of breath at rest. In addition, there is no significant alveolar-arterial gradient. Oxygen saturation on nasal cannula is currently 97%. I did review the last chest x-ray done. It shows no active disease. I have also reviewed the last arterial blood gas done. A respiratory acidosis is noted. I will repeat the arterial blood gas this morning. Again, on physical exam, there is no significant bronchospasm noted. Intravenous steroids have been started by Dr. Jordan. I will also add Xopenex nebulizer treatments. The patient does have a long history of asthma. The clinical status of this patient is certainly improved - compared to the initial presentation. However, her future status/prognosis does remain very guarded. I will discuss the above with Dr. Jordan in the next few moments. Thank you very much for this pulmonary consultation. Hung Lees MD MTDAndres
--- NOTE | 2017-11-20 17:36 | CT ---
PROCEDURE: CT Abdomen and Pelvis without intravenous contrast HISTORY: R/O acute abd/ Pt may not tolerate PO contrast COMPARISON: 11/17/2017 CT abdomen and pelvis TECHNIQUE: Unenhanced study. Neither oral nor intravenous contrast administered. Radiation dose: Total exam DLP = 1016.11 mGy-cm. This CT exam was performed using one or more of the following dose reduction techniques: Automated exposure control, adjustment of the mA and/or kV according to patient size, and/or use of iterative reconstruction technique. FINDINGS: LOWER THORAX: Trace bilateral pleural LIVER: Unremarkable. No gross lesion or ductal dilatation. GALLBLADDER AND BILE DUCTS: Mildly distended gallbladder. Cholelithiasis without CT evidence of acute cholecystitis. PANCREAS: Unremarkable. No gross lesion or ductal dilatation. SPLEEN: Unremarkable. ADRENALS: Unremarkable. No mass. KIDNEYS AND URETERS: Atrophic kidneys bilaterally. No obstructing findings. Incidental finding(s): Left lower pole cyst 3.4 x 5.1 cm VASCULATURE: Unremarkable. No aortic aneurysm. BOWEL: Thickening of the wall of the distal sigmoid colon and rectum consistent with proctitis. 1st no focal abnormalities detected. APPENDIX: Unremarkable. Normal appendix. PERITONEUM: Unremarkable. No free fluid. No free air. LYMPH NODES: Unremarkable. No enlarged lymph nodes. BLADDER: Unremarkable. REPRODUCTIVE: Unremarkable. BONES: No acute fracture. OTHER FINDINGS: Worsening anasarca IMPRESSION: Findings consistent with proctitis. Cholelithiasis without CT evidence of acute cholecystitis.
--- NOTE | 2017-11-20 17:55 | CON ---
DATE: 11/20/2017 NEUROLOGY CONSULT CHIEF COMPLAINT: Altered mental status. HISTORY OF PRESENTING ILLNESS: This is a 67-year-old woman with past medical history of end-stage renal disease, hemodialysis, hypertension, diabetes type 2, history of diabetic peripheral neuropathy, history of CVA in the past and chronic ischemic changes, who presented to [facility] originally on 11/16/2017 with profuse bleeding from her fistula site. Apparently, the patient banged the fistula against a door knob and it started bleeding previously. She has then had acute anemia and then the patient's blood pressure became low and had some cardiac respiratory arrest where CPR was done and return of spontaneous circulation was achieved and the patient was interviewed and transferred to the ICU, currently extubated on 11/18/2017. I was called to evaluate for mental status. Currently, she had BiPAP this morning. She remains lethargic, but follows simple commands. Speech is slightly dysarthric, but no aphasia noted. Moves all extremities, but has a mild left-sided weakness when compared to the right. She had elevated systolic and diastolic blood pressures also overnight. Her platelet count is currently 54, BUN and creatinine are 51/5.3. PAST MEDICAL HISTORY: History of end-stage renal disease, on hemodialysis; type 2 diabetes mellitus; thrombocytopenia; dyslipidemia; history of AFib. ALLERGIES: NO KNOWN DRUG ALLERGIES. REVIEW OF SYSTEMS: Fourteen-point review of systems negative except for the HPI. FAMILY HISTORY: Noncontributory. SOCIAL HISTORY: No illicit drug use, smoking or EtOH abuse. MEDICATIONS: Reviewed by nurse reconciliation sheet. PHYSICAL EXAMINATION: VITAL SIGNS: Afebrile, pulse rate of 100, blood pressure 160/88, respiratory rate of 97, oxygen saturation 98% by room air. GENERAL: The patient is lethargic and sitting in the bed, in no acute distress. HEENT: Atraumatic, normocephalic. PERRLA. Extraocular muscles intact. NECK: Supple. No JVD. No adenopathy noted. LUNGS: Decreased breath sounds bilaterally. Minimal rhonchi. No wheezing. EXTREMITIES: Positive for edema. No cyanosis. No clubbing. Calves are nontender to palpitation. NEUROLOGIC: The patient is alert and oriented to person and place, not much on month and year. Recall after 5 minutes is 0/3. Very lethargic. Poor attention span, slow thought process. Speech slightly dysarthric, but no aphasia noted. Cranial nerves II through XII are intact. Motor exam: Slightly increased tone throughout. Mild subtle left-sided weakness when compared to the right. Toes are upgoing bilaterally. Sensory exam: Decreased light touch and pinprick up to the calves bilaterally. Increased vibration of the toes. Deep tendon reflexes are 2+ throughout and 1 at both knees and absent at the ankles. Coordination: [id number] intact with mild dysmetria on the left. LABORATORY DATA: Sodium is 138, potassium 4, chloride 99, carbon dioxide of 27, BUN of 51, creatinine 5.3, random glucose 154. ASSESSMENT AND PLAN: This is a 67-year-old woman with history of end-stage renal disease, on hemodialysis; history of arteriovenous fistula; history of cerebrovascular accident; history of asthma; type 2 diabetes mellitus; hypertension; dyslipidemia; who presented to the hospital for arteriovenous fistula bleed, which resulted in a hemorrhagic shock leading to asystole, which was responsive such as spontaneous circulation was achieved. Her anemia was secondary to arteriovenous fistula bleeding. She also has thrombocytopenia. I was called to evaluate for underlying lethargy and altered mental status. At this time, the altered mental status is a result of status post hemorrhagic shock, status post cardiopulmonary resuscitation causing hypoxic encephalopathy superimposed underlying chronic medical problems. In addition, she likely has an acute to subacute infarct in the right basal ganglia seen on the CAT scan with some chronic ischemic changes, which could be likely secondary from underlying hypertensive urgency that she was having in the Intensive Care Unit as well. At this time, recommend, 1. Follow up with Cardiology in regards to the atrial fibrillation and could consider anticoagulation in the future. 2. Will need to at least be on a baby aspirin 81 mg p.o. daily or cilostazol given that her platelet count is low to avoid platelet reduction for stroke prevention. 3. Lipitor 40 mg p.o. daily for a stroke prevention and dyslipidemia. 4. Thiamine 100 mg IV every 12 for neuronal activation and monitor electrolytes and correct accordingly. 5. MRI of the brain to assess for any further acute intracranial abnormalities. CAT scan does show a subacute infarct in the right basal ganglia. 6. Keep blood pressure systolic between 130-140 and diastolic 70-80s. 7. Monitor electrolytes and correct accordingly. 8. Physical Therapy/Occupational Therapy evaluation. 9. Follow up with deep venous thrombosis and gastrointestinal prophylaxis. Once again, thank you for this consult. Casa Peraza MD
--- NOTE | 2017-11-20 20:12 | PN ---
DATE: SUBJECTIVE: The patient is currently seen sitting up in bed with family at the bedside. The patient's mental status has improved but is not quite back to baseline. She is status post an uneventful dialysis yesterday. She is downgraded and awaiting transfer to telemetry. She is status post an endoscopy, which showed gastritis, gastric and duodenal ulcers but no active bleeding. MEDICATIONS: List reviewed. The patient is currently on sliding scale insulin, Protonix, Solu-Medrol, Xopenex, and Zofran. PHYSICAL EXAMINATION: INTAKE/OUTPUT: Intake 310, output 2600 of which 2500 was with dialysis. VITAL SIGNS: Blood pressure is 148-160 systolic, diastolics 88-95. Pulse is 100. Temperature is 98.1. Respiratory rate is 14. HEENT: Shows her to be normocephalic, atraumatic. Conjunctivae are pale. Sclerae are nonicteric. NECK: Supple. No neck vein distention. CHEST: Clear to auscultation and percussion. No rales, rhonchi, or wheezing. PermCath, right chest wall. CARDIOVASCULAR: Shows a regular rate and rhythm without audible murmurs, rubs, or gallops. ABDOMEN: Soft. Bowel sounds normal. No rebound or guarding. No masses. EXTREMITIES: Show no area of bleeding from the area of her left upper extremity AV fistula. Legs are puffy, but no pitting edema. NEUROLOGIC: Shows her to be alert and responsive to verbal communication. She recognizes her daughter. She is attempting to carry on a normal conversation with me. LABORATORY DATA AND IMAGING: CBC, today: White blood cell count 12.7, hemoglobin 9.5, platelet count is 54,000. Chemistries show normal electrolytes. BUN 61 with a creatinine of 7.2, that was predialysis yesterday. Today, BUN 51 with a creatinine of 5.3. Liver enzymes are continuing to improve. Calcium was 8.9 with a phosphorus of 8.3. Microbiology, all cultures are negative at 4 days. ASSESSMENT: 1. Status post cardiac arrest at the end of dialysis on 11/16/2017. There was some concern of patient having anoxic encephalopathy. She appears to be slowly approaching her baseline. She is able to speak short sentences. She does recognize her family. The patient is status post a cardiac arrest secondary to hemorrhagic shock secondary to gastrointestinal bleeding secondary to bleeding from trauma to her arteriovenous access. She is status post a total of 5 units of packed red blood cells, 2 units of fresh frozen plasma, and 2 units of platelets. Hemodynamics have improved. The patient was initially intubated. She is currently off pressors and is breathing on her own without any difficulty. She had an uneventful dialysis yesterday. She is awaiting transfer to telemetry. 2. History of end-stage renal disease. The patient will continue Sunday, Sunday, Sunday dialysis. 3. History of [id number] diabetes mellitus. The patient remains on sliding scale insulin. 4. History of secondary hyperparathyroidism. Phosphorus level was elevated and the patient with resumption of her diet, can be restarted back on her binders, she was taking Renvela 2 tablets with each meal. 5. History of hypertension. The patient's blood pressure is trending upward. Presently, she is not receiving any blood pressure medications in the outpatient setting. The patient had received low-dose calcium-channel kory therapy. This can be restarted as necessary. 6. History of systemic inflammatory response syndrome with an elevated white blood cell count. White blood cell count is trending back to normal. Cultures are negative and antibiotics were discontinued. 7. Status post endoscopy with a gastric and duodenal ulcer with gastritis. No evidence for acute bleeding. 8. Elevated liver enzymes secondary to shock liver, secondary to her episode of cardiac arrest, resolving. PLAN: 1. Encouraged by the patient's continued improvement. This was discussed with her daughter. 2. Hemodialysis tomorrow. Should the patient be transferred out, the patient may receive dialysis in the outpatient unit on the ground for where she normally dialyzes. 3. Agree with discontinuation of IV fluids and antibiotic therapy. 4. Surgical evaluation of her AV fistula. 5. Continue Protonix for her gastric and duodenal ulcer and gastritis. 6. Restart binder therapy and continue renal diet. Valeriy Loyd MD
--- NOTE | 2017-11-20 23:16 | PN ---
DATE: 11/20/2017 SUBJECTIVE: Patient is in bed, was seen earlier today in 129, bed 1. She is extubated. She is comfortable. She is responsive. OBJECTIVE: VITAL SIGNS: Temperature is 98, blood pressure is 168/89, respiratory rate of 19, heart rate of 96. HEENT: Unremarkable. NECK: Supple. LUNGS: Have decreased breath sounds. HEART: Normal S1 and S2. ABDOMEN: Soft, nontender. LABORATORY EXAMINATION: Reveals a white count of 12,700, hemoglobin of 9, platelets of 64. BUN of 61, creatinine of 5.3. Stool for occult is positive. Blood cultures are negative. Review of orders reveals the patient to be off of antibiotics. Patient is on Solu-Medrol. Had a CAT scan of the abdomen and pelvis this morning, which was consistent with proctitis or worsening anasarca. Dr. Valerio's note is reviewed. ASSESSMENT AND PLAN: A 67-year-old with systemic inflammatory response syndrome, probably hypovolemic shock from arteriovenous fistula bleeding, status post code blue with no evidence of bacterial sepsis in a patient with gastrointestinal bleeding; end-stage renal disease, on hemodialysis; had received 5 days of meropenem; diabetic, hypertensive, obesity. Patient is off of antibiotics, doing well. No fevers and white count of 12,700. Patient is on Solu-Medrol. We will follow closely with you. Kevin Rome MD
[2017-11-21] MEDS: Pantoprazole 40 mg EC Tab PO SCH (05:17)
[2017-11-21] MEDS: Levalbuterol 1.25 MG/3 ML Inhal Soln UD IH SCH ×3 (07:55→19:32)
--- NOTE | 2017-11-21 08:45 | PN ---
DATE: 11/20/2017 SUBJECTIVE: This patient was seen and evaluated earlier today. No episode of melena or vomiting. Patient still remains lethargic. Had a CT of the head done. PHYSICAL EXAMINATION: VITAL SIGNS: Temperature is 98.8, pulse 98, blood pressure is 159/102. HEENT: Atraumatic, anicteric. NECK: Supple. HEART: S1 and S2 heard. LUNGS: Bilateral air entry present. ABDOMEN: Softly distended. EXTREMITIES: No cyanosis. No clubbing. LABORATORY DATA: Hemoglobin remains stable, 9.5; hematocrit 28.9, WBC 12.7, platelets 54. Chemistries, AST is 99, ALT is 480, BUN 51, creatinine 5.3. This is a 67-year-old patient with end-stage renal disease, on hemodialysis, admitted with bleeding from the arteriovenous fistula and also gastrointestinal bleeding, has maroon stool. Had an endoscopy done, which showed large hiatus hernia, Jeromy ulcers, and also small duodenal ulcers. Patient was initially intubated, then extubated now. Patient still remains lethargic. Patient had a CT of the abdomen and pelvis done to further evaluate, and suggests only proctitis. No mass lesion noticed. No obvious colitis noticed. Patient had mildly distended gallbladder with gallstones. IMPRESSION: 1. This 67-year-old patient admitted with gastrointestinal bleeding and endoscopy showed Jeromy ulcers and also duodenal ulcers. 2. Thrombocytopenia. 3. CT scan showed some proctitis. 4. Rule out sepsis. Patient is on empiric antibiotic coverage. Patient was on antibiotics, Merrem, which was discontinued. 5. Status post code blue. Patient dialysis. RECOMMENDATION: Follow up of the hemoglobin and hematocrit. PPI. We will check ammonia level in the a.m. Hepatitis profile done in the past was negative. Thank you very much for allowing us to participate in the care of the patient. Julian Romero MD
[2017-11-21] MEDS ORDERED: MethylPREDNISolone 40 mg Vial IVP SCH (10:00)
--- NOTE | 2017-11-21 10:15 | PN ---
DATE: 11/21/2017(650am-740am) PULMONARY NOTE SUBJECTIVE: The patient is much more awake and alert this morning. She is not short of breath at rest. PHYSICAL EXAMINATION: VITAL SIGNS: Temperature is 97.7, pulse 61, respirations 12, blood pressure 107/62. Oxygen saturation on BiPAP is 100%. HEENT: Normocephalic, atraumatic. No JVD. CARDIOVASCULAR: Systolic ejection murmur at the lower left sternal border. No S3 gallop. LUNGS: Decreased breath sounds at the bases. Very minimal/less rhonchi. No wheezing. EXTREMITIES: Positive for edema. No cyanosis or clubbing. Calves are nontender to palpation. GI: Abdomen is soft, nontender and nondistended. Bowel sounds are positive. SKIN: No acute rash. NEUROLOGIC: Limited at the present time. PERTINENT LABORATORY DATA: Arterial blood gas was done yesterday and reviewed. It was done on nasal cannula. Results are: PH 7.29, pCO2 of 54, pO2 of 88. Repeat arterial blood gas - pending. IMPRESSION: 1. Status post hemorrhagic shock. 2. Status post cardiopulmonary resuscitation. 3. Arteriovenous fistula bleeding. 4. End-stage renal disease. 5. Asthma. 6. Anemia. 7. Thrombocytopenia. PLAN: The patient appears much more awake and alert this morning. She is not short of breath at rest. I did discuss the case with the night nurse at length. The night nurse stated that the patient is doing well overall. On physical exam, there is no significant bronchospasm noted. I will continue with the current nebulizer treatments and decrease the intravenous steroids this morning. I will also continue with the aspiration precautions. I did review yesterday's arterial blood gas. The arterial blood gas is much improved with an increase in the pH, and a decrease in the alveolar-arterial gradient. We will obtain another arterial blood gas on nasal cannula this morning. Instructions were given to the nurse. Inputs by Renal, Infectious Disease, and Neurology are noted. As above, the patient is much more awake and alert this morning. I would also like to see the patient out of bed if possible. The clinical status of the patient is significantly improved compared to a few days ago. However, again, she does remain guarded overall. I will discuss the above with the entire ICU team in the next few moments. I will also discuss the above with Dr. Jordan later this morning. Hung Lees MD MTDAndres
--- NOTE | 2017-11-21 11:11 | CP.PCM.PN ---
Subjective - Date & Time of Evaluation Date of Evaluation: 11/21/17 Time of Evaluation: 11:07 - Subjective Subjective: Surgery: Dr. De Leon Pt seen and examined. Resting comfortably in bed. Skin tear noted on R hand Objective - Vital Signs/Intake and Output Vital Signs (last 24 hours): Temp Pulse Resp BP Pulse Ox 97.7 F 61 12 107/62 100 11/21/17 04:00 11/21/17 05:59 11/21/17 05:59 11/21/17 06:00 11/21/17 05:59 Intake and Output: 11/21/17 11/21/17 06:59 18:59 Intake Total 200 Balance 200 - Medications Medications: Current Medications Amlodipine Besylate (Norvasc) 2.5 mg PO DAILY [facility] Last Admin: 11/20/17 17:57 Dose: 2.5 mg Insulin Human Regular (Humulin R Low) 0 units SC Q6H [facility] PRN Reason: Protocol Last Admin: 11/16/17 13:00 Dose: Not Given Levalbuterol HCl (Xopenex) 1.25 mg IH TIDRESP [facility] Last Admin: 11/21/17 07:55 Dose: 1.25 mg Ondansetron HCl (Zofran Inj) 4 mg IVP Q6H PRN PRN Reason: Nausea/Vomiting Pantoprazole Sodium (Protonix Ec Tab) 40 mg PO 0600 [facility] Last Admin: 11/21/17 05:17 Dose: 40 mg Prednisone (Prednisone Tab) 40 mg PO DAILY [facility] Sevelamer HCl (Renagel) 1,600 mg PO TID [facility] Last Admin: 11/20/17 17:57 Dose: 1,600 mg Silver Sulfadiazine (Silvadene 1% 25 Gm) 0 gm TP BID [facility] - Labs Labs: 11/20/17 07:30 11/20/17 07:30 PT 14.6 SECONDS (9.4-12.5) H 11/17/17 06:00 INR 1.26 (0.93-1.08) H 11/17/17 06:00 APTT 32.4 Seconds (25.1-36.5) 11/17/17 06:00 - Constitutional Appears: Non-toxic, No Acute Distress - Head Exam Head Exam: ATRAUMATIC, NORMOCEPHALIC - Eye Exam Eye Exam: EOMI - ENT Exam ENT Exam: Mucous Membranes Moist - Neck Exam Neck Exam: Full ROM - Respiratory Exam Respiratory Exam: NORMAL BREATHING PATTERN. absent: Accessory Muscle Use, Respiratory Distress - GI/Abdominal Exam GI & Abdominal Exam: Soft. absent: Distended, Firm, Guarding, Rigid, Tenderness , Rebound - Extremities Exam Additional comments: RUE, skin tear over dorsum of R hand - Neurological Exam Neurological Exam: Alert, Awake Assessment and Plan - Assessment and Plan (Free Text) Assessment: 67F w. hemorrhagic shock 2/2 GI bleed and bleeding AVF, resolved -CT A/P reviewed -Recommend colonoscopy -silvadene BID to R hand -will continue to follow -d/w attending Zemaitis PGY3
--- NOTE | 2017-11-21 11:31 | PN ---
DATE: SUBJECTIVE: The patient has no complaints of any chest pain. No shortness of breath, no headaches, no dizziness. PHYSICAL EXAMINATION VITAL SIGNS: Temperature is 97.7, pulse is 61, blood pressure 107/62, respirations 12. GENERAL: The patient is lying in bed, flat, comfortable. HEENT: No oral lesion. Anicteric sclerae. Moist mucosa. NECK: No JVD, adenopathy, or thyromegaly. CARDIOVASCULAR: S1 and S2, regular. No murmurs, rubs, or gallops. LUNGS: Clear to auscultation bilaterally. No wheeze, rales, or rhonchi. ABDOMEN: Bowel sounds are positive. Soft, nontender and nondistended. EXTREMITIES: No cyanosis, clubbing or edema. LABS: White count of 12.7, hemoglobin 9.5. Creatinine is 5.3. CT of the abdomen and pelvis done, has been reviewed as cholelithiasis without CT evidence of acute cholecystitis. Findings consistent with proctitis. ASSESSMENT 1. Status post cardiac arrest. 2. Encephalopathy. 3. Hemorrhagic shock, resolved. 4. Acute anemia secondary to rectal bleeding. 5. End-stage renal disease, on hemodialysis. 6. Atrial fibrillation, controlled. 7. Transaminitis, improved. 8. Bleeding from left arteriovenous fistula. 9. Diabetes type 2. 10. Secondary hyperparathyroidism. 11. Right internal jugular Perm-A-Cath. 12. Thrombocytopenia, acute. PLAN: The patient is currently comfortable. She had a CT scan of her head, which is negative. The patient's right groin catheter was to be removed. The patient has an MRI ordered. She is on steroid. She is going to be on Renagel. She is continue on dialysis. Norvasc was started for her blood pressure, blood pressure has improved with the blood pressure of 107/62. Overall prognosis is guarded. She is not ____ she should be at this point. She is not on antibiotics. Melchor Jordan MD
[2017-11-21] MEDS: Silver Sulfadiazine 1% Cream (25 gm) TP SCH ×2 (12:00→18:55)
[2017-11-21 14:59] LABS: GRAN # 6.76 (1.4-6.5); GRAN % 90.3 % (50.0-68.0); HEMOGLOBIN 9.3 g/dL (12.0-16.0); LYMPH # 0.4 (1.2-3.4); LYMPH % 5.7 % (22.0-35.0); MEAN CELL VOLUME 85.4 fl (80.0-105.0); MEAN CORPUSCULAR HEMOGLOBIN 28.8 pg (25.0-35.0); MEAN CORPUSCULAR HGB CONC 33.7 g/dl (31.0-37.0); MEAN PLATELET VOLUME 11.2 fl (7.0-11.0); MONO # 0.3 (0.1-0.6); PLATELET COUNT 70 10^3/uL (120.0-450.0); RBC 3.23 10^6/uL (3.5-6.1); RED CELL DISTRIBUTION WIDTH 18.9 % (11.5-14.5); WHITE BLOOD COUNT 7.5 10^3/ul (4.5-11.0)
[2017-11-21 15:10] LABS: ALB/GLOB RATIO 1.1 (1.1-1.8); ALBUMIN 3.2 g/dL (3.0-4.8); CALCIUM 9.7 mg/dL (8.4-10.5)
[2017-11-21 15:44] LABS: LYMPHOCYTE 9 % (22.0-35.0); MONOCYTE 3 % (1.0-6.0); NEUTROPHIL 88 % (50.0-70.0)
[2017-11-21 15:45] LABS: PLATELET ESTIMATE LOW (NORMAL)
[2017-11-21] MEDS ORDERED: Darbepoetin Alfa 60 mcg/ml Inj IVP ONE (16:00)
--- NOTE | 2017-11-21 16:40 | CP.PCM.PN ---
Subjective - Date & Time of Evaluation Date of Evaluation: 11/21/17 Time of Evaluation: 15:00 - Subjective Subjective: DATE: 11/21/2017 NEUROLOGY FOLLOW UP CHIEF COMPLAINT:F/U FOR Altered mental status. SUBJECTIVE: Currently, she is more awake , and follows simple commands. Speech is slightly dysarthric, but no aphasia noted. Moves all extremities, but has a mild left-sided weakness when compared to the right. She had elevated systolic and diastolic blood pressures. PAST MEDICAL HISTORY: History of end-stage renal disease, on hemodialysis; type 2 diabetes mellitus; thrombocytopenia; dyslipidemia; history of AFib. ALLERGIES: NO KNOWN DRUG ALLERGIES. REVIEW OF SYSTEMS: Fourteen-point review of systems negative except for the HPI. FAMILY HISTORY: Noncontributory. SOCIAL HISTORY: No illicit drug use, smoking or EtOH abuse. MEDICATIONS: Reviewed by nurse reconciliation sheet. PHYSICAL EXAMINATION: VITAL SIGNS: reviewed. GENERAL: The patient is lethargic and sitting in the bed, in no acute distress. HEENT: Atraumatic, normocephalic. PERRLA. Extraocular muscles intact. NECK: Supple. No JVD. No adenopathy noted. LUNGS: Decreased breath sounds bilaterally. Minimal rhonchi. No wheezing. EXTREMITIES: Positive for edema. No cyanosis. No clubbing. Calves are nontender to palpitation. NEUROLOGIC: The patient is alert and oriented to person and place, not much on month and year. Recall after 5 minutes is 0/3. Very lethargic. Poor attention span, slow thought process. Speech slightly dysarthric, but no aphasia noted. Cranial nerves II through XII are intact. Motor exam: Slightly increased tone throughout. Mild subtle left-sided weakness when compared to the right. Toes are upgoing bilaterally. Sensory exam: Decreased light touch and pinprick up to the calves bilaterally. Increased vibration of the toes. Deep tendon reflexes are 2+ throughout and 1 at both knees and absent at the ankles. Coordination: [id number] intact with mild dysmetria on the left. LABORATORY DATA: Reviewed. ASSESSMENT AND PLAN: This is a 67-year-old woman with history of end-stage renal disease, on hemodialysis; history of arteriovenous fistula; history of cerebrovascular accident; history of asthma; type 2 diabetes mellitus; hypertension; dyslipidemia; who presented to the hospital for arteriovenous fistula bleed, which resulted in a hemorrhagic shock leading to asystole, which was responsive such as spontaneous circulation was achieved. Her anemia was secondary to arteriovenous fistula bleeding. She also has thrombocytopenia. I was called to evaluate for underlying lethargy and altered mental status. At this time, the altered mental status is a resultof status post hemorrhagic shock, status post cardiopulmonary resuscitation causing hypoxic encephalopathy superimposed underlying chronic medical problems. In addition, she likely has an acute to subacute infarct in the right basal ganglia seen on the CAT scan with some chronic ischemic changes, which could be likely secondary from underlying hypertensive urgency that she was having in the Intensive Care Unit as well. At this time, recommend, 1. Follow up with Cardiology in regards to the atrial fibrillation and could consider anticoagulation in the future. 2. Will need to at least be on a baby aspirin 81 mg p.o. daily or cilostazol given that her platelet count is low to avoid platelet reduction for stroke prevention. 3. Lipitor 40 mg p.o. daily for a stroke prevention and dyslipidemia. 4. Thiamine 100 mg IV every 12 for neuronal activation and monitor electrolytes and correct accordingly. 5. MRI of the brain to assess for any further acute intracranial abnormalities. CAT scan does show a subacute infarct in the right basal ganglia. 6. Keep blood pressure systolic between 130-140 and diastolic 70-80s. 7. Monitor electrolytes and correct accordingly. 8. Physical Therapy/Occupational Therapy evaluation. 9. Follow up with deep venous thrombosis and gastrointestinal prophylaxis. Once again, Thank you. Casa Peraza MD Objective - Vital Signs/Intake and Output Vital Signs (last 24 hours): Temp Pulse Resp BP Pulse Ox 97.7 F 75 12 129/87 100 11/21/17 04:00 11/21/17 12:00 11/21/17 12:00 11/21/17 12:00 11/21/17 12:00 Intake and Output: 11/21/17 11/21/17 06:59 18:59 Intake Total 200 Balance 200 - Medications Medications: Current Medications Amlodipine Besylate (Norvasc) 2.5 mg PO DAILY [facility] Last Admin: 11/21/17 11:03 Dose: 2.5 mg Insulin Human Regular (Humulin R Low) 0 units SC Q6H [facility] PRN Reason: Protocol Last Admin: 11/16/17 13:00 Dose: Not Given Levalbuterol HCl (Xopenex) 1.25 mg IH TIDRESP [facility] Last Admin: 11/21/17 14:35 Dose: Not Given Ondansetron HCl (Zofran Inj) 4 mg IVP Q6H PR[facility] PRN Reason: Nausea/Vomiting Pantoprazole Sodium (Protonix Ec Tab) 40 mg PO 0600 [facility] Last Admin: 11/21/17 05:17 Dose: 40 mg Prednisone (Prednisone Tab) 40 mg PO DAILY [facility] Last Admin: 11/21/17 11:04 Dose: 40 mg Sevelamer HCl (Renagel) 1,600 mg PO TID [facility] Last Admin: 11/21/17 14:30 Dose: Not Given Silver Sulfadiazine (Silvadene 1% 25 Gm) 0 gm TP BID [facility] - Labs Labs: 11/21/17 13:15 11/21/17 13:15 PT 14.6 SECONDS (9.4-12.5) H 11/17/17 06:00 INR 1.26 (0.93-1.08) H 11/17/17 06:00 APTT 32.4 Seconds (25.1-36.5) 11/17/17 06:00
--- NOTE | 2017-11-21 17:29 | CP.PCM.PN ---
<Edison Ruiz - Last Filed: 11/21/17 17:26> Subjective - Date & Time of Evaluation Date of Evaluation: 11/21/17 Time of Evaluation: 10:30 - Subjective Subjective: GI Progress note. Dr. Romero Pt seen and examined at bedside. No acute events reported overnight. Resting comfortably, no acute distress. Still slightly lethargic but is alert and responds to questions appropriately. Objective - Vital Signs/Intake and Output Vital Signs (last 24 hours): Temp Pulse Resp BP Pulse Ox 97.7 F 75 12 129/87 100 11/21/17 04:00 11/21/17 12:00 11/21/17 12:00 11/21/17 12:00 11/21/17 12:00 Intake and Output: 11/21/17 11/21/17 06:59 18:59 Intake Total 200 Balance 200 - Medications Medications: Current Medications Amlodipine Besylate (Norvasc) 2.5 mg PO DAILY [facility] Last Admin: 11/21/17 11:03 Dose: 2.5 mg Insulin Human Regular (Humulin R Low) 0 units SC Q6H [facility] PRN Reason: Protocol Last Admin: 11/16/17 13:00 Dose: Not Given Levalbuterol HCl (Xopenex) 1.25 mg IH TIDRESP [facility] Last Admin: 11/21/17 14:35 Dose: Not Given Ondansetron HCl (Zofran Inj) 4 mg IVP Q6H PRN PRN Reason: Nausea/Vomiting Pantoprazole Sodium (Protonix Ec Tab) 40 mg PO 0600 [facility] Last Admin: 11/21/17 05:17 Dose: 40 mg Prednisone (Prednisone Tab) 40 mg PO DAILY [facility] Last Admin: 11/21/17 11:04 Dose: 40 mg Sevelamer HCl (Renagel) 1,600 mg PO TID [facility] Last Admin: 11/21/17 14:30 Dose: Not Given Silver Sulfadiazine (Silvadene 1% 25 Gm) 0 gm TP BID [facility] - Labs Labs: 11/21/17 13:15 11/21/17 13:15 PT 14.6 SECONDS (9.4-12.5) H 11/17/17 06:00 INR 1.26 (0.93-1.08) H 11/17/17 06:00 APTT 32.4 Seconds (25.1-36.5) 11/17/17 06:00 - Constitutional Appears: Well, Non-toxic, No Acute Distress - Head Exam Head Exam: ATRAUMATIC, NORMAL INSPECTION, NORMOCEPHALIC - Eye Exam Eye Exam: EOMI, Normal appearance - ENT Exam ENT Exam: Mucous Membranes Moist - Respiratory Exam Respiratory Exam: NORMAL BREATHING PATTERN. absent: Accessory Muscle Use, Respiratory Distress - Cardiovascular Exam Cardiovascular Exam: absent: JVD - GI/Abdominal Exam GI & Abdominal Exam: Soft. absent: Distended, Firm, Guarding, Rigid, Tenderness , Rebound - Extremities Exam Extremities Exam: absent: Calf Tenderness Additional comments: right dorsum hand skin tear noted - Neurological Exam Neurological Exam: Alert, Awake Assessment and Plan - Assessment and Plan (Free Text) Assessment: 67yo F with hemorrhagic shock likely secondary to bleeding AVF. Also with Upper GI bleeding. - EGD 11/18: Jeromy ulcer and small duodenal ulcers. No sequela of massive bleeding noted. No signs of active bleeding - Hemodynamically stable - Thrombocytopenia - CT scan evidence of proctitis. Plan: - Monitor H/H - We will plan for possible Colonoscopy Sunday, 11/23. We will bowel prep tomorrow - Clear Liquid diet - Continue PPI Further recs as per Dr. Nick Ruiz PGY1 <Julian Romero V - Last Filed: 11/21/17 23:21> Objective - Vital Signs/Intake and Output Vital Signs (last 24 hours): Temp Pulse Resp BP Pulse Ox 97.7 F 75 12 129/87 100 11/21/17 04:00 11/21/17 12:00 11/21/17 12:00 11/21/17 12:00 11/21/17 12:00 Intake and Output: 11/21/17 11/22/17 18:59 06:59 Intake Total 460 Output Total 1575 Balance -1115 - Medications Medications: Current Medications Amlodipine Besylate (Norvasc) 2.5 mg PO DAILY [facility] Last Admin: 11/21/17 11:03 Dose: 2.5 mg Aspirin (Aspirin Chewable) 81 mg PO DAILY [facility] Last Admin: 11/21/17 18:54 Dose: 81 mg Insulin Human Regular (Humulin R Low) 0 units SC Q6H [facility] PRN Reason: Protocol Last Admin: 11/16/17 13:00 Dose: Not Given Levalbuterol HCl (Xopenex) 1.25 mg IH TIDRESP [facility] Last Admin: 11/21/17 19:32 Dose: 1.25 mg Ondansetron HCl (Zofran Inj) 4 mg IVP Q6H PRN PRN Reason: Nausea/Vomiting Pantoprazole Sodium (Protonix Ec Tab) 40 mg PO 0600 [facility] Last Admin: 11/21/17 05:17 Dose: 40 mg Prednisone (Prednisone Tab) 40 mg PO DAILY [facility] Last Admin: 11/21/17 11:04 Dose: 40 mg Sevelamer HCl (Renagel) 1,600 mg PO TID [facility] Last Admin: 11/21/17 18:54 Dose: 1,600 mg Silver Sulfadiazine (Silvadene 1% 25 Gm) 0 gm TP BID [facility] Last Admin: 11/21/17 18:55 Dose: 25 gm - Labs Labs: 11/21/17 21:21 11/21/17 13:15 PT 14.6 SECONDS (9.4-12.5) H 11/17/17 06:00 INR 1.26 (0.93-1.08) H 11/17/17 06:00 APTT 32.4 Seconds (25.1-36.5) 11/17/17 06:00 Attending/Attestation - Attestation I have personally seen and examined this patient.: Yes I have fully participated in the care of the patient.: Yes I have reviewed all pertinent clinical information, including history, physical exam and plan: Yes Notes (Text): This is an addendum to GI progress report dictated by the Hand Splitter.The patient was seen and examined earlier. Medical records, lab studies, imagings were reviewed. Last 24 hours events reviewed. Agreed with the above treatment plan as outlined in Hand Splitter 's notes the with the addition of the following 11/21/17 23:20
[2017-11-21 21:25] LABS: MEAN CORPUSCULAR HEMOGLOBIN 28.5 pg (25.0-35.0); MEAN CORPUSCULAR HGB CONC 33.1 g/dl (31.0-37.0); MEAN PLATELET VOLUME 9.4 fl (7.0-11.0); RBC 3.51 10^6/uL (3.5-6.1); RED CELL DISTRIBUTION WIDTH 18.9 % (11.5-14.5); WHITE BLOOD COUNT 9.5 10^3/ul (4.5-11.0)
--- NOTE | 2017-11-21 22:36 | PN ---
DATE: 11/21/2017 SUBJECTIVE: Patient is seen in the dialysis unit. She is awake. She is alert. She is following commands. She is appropriate. PHYSICAL EXAMINATION: GENERAL: Elderly lady, lying in bed in the dialysis unit. VITAL SIGNS: Blood pressure 129/87, heart rate 80, respiratory rate 12, temperature 97.7. HEENT: Normocephalic, atraumatic. NECK: Supple, no JVD. LUNGS: Bilateral equal air entry, bilateral equal expansion. CARDIAC: S1, S2, regular rate and rhythm. No murmur, no rub. ABDOMEN: Obese, distended, soft, nontender, bowel sounds present. EXTREMITIES: No lower extremity edema. INTAKE AND OUTPUT: 680/50. LABORATORY DATA: WBC 7.5, hemoglobin 9, hematocrit 28, platelets 70. Sodium 137, potassium 4.4, chloride 97, CO2 28, BUN 85, creatinine , glucose 177, calcium 9.7, phosphorus 8.4, magnesium 2.5, AST 38, ALT 326, albumin 3.2. CURRENT MEDICATIONS: Insulin, amlodipine 2.5, prednisone, Protonix, Renvela 1600 t.i.d., Xopenex, Zofran. ASSESSMENT: 1. Life-threatening hemorrhagic shock. 2. Bleeding from injured access. 3. Gastrointestinal bleed. 4. Thrombocytopenia. 5. ?Acute stroke. 6.. Non-insulin dependent diabetes mellitus. 7. End-stage renal disease. PLAN: 1. Currently, her mental status greatly improved. She is awake. She is alert. She is following commands. 2. Stable dialysis. 3. We will request Hematology evaluation for thrombocytopenia. 4. Monitor H and H. 5. Agree with plan for MRI. 6. Avoid hypotension. 7. Continue phosphate binders. 8. Monitor fingersticks and continue insulin coverage. Gabbi Felton MD
--- NOTE | 2017-11-22 01:23 | PN ---
DATE: 11/21/2017 SUBJECTIVE: Patient is in bed, in no acute distress. Patient was seen early this morning, in 129, bed 1. She has remained extubated and comfortable. PHYSICAL EXAMINATION: VITAL SIGNS: Temperature 97, blood pressure 112/60, respiratory rate 19, heart rate 65. HEENT: Unremarkable. NECK: Supple. LUNGS: Decreased breath sounds. HEART: Normal S1 and S2. ABDOMEN: Soft, nontender. LABORATORY DATA: Reveals a white count of 7.5, hemoglobin 9, platelets of 70. Chemistries reveals a BUN of 85, creatinine of 6.7. Procalcitonin is greater than 214. Stool for occult blood is positive. Blood cultures are negative. Patient had an MRI of the brain. Results are pending. Dr. Casa Peraza's consultation is reviewed and appreciated. Patient had a CAT scan of the abdomen and pelvis, consistent with proctitis. ASSESSMENT AND PLAN: This is a 67-year-old with systemic inflammatory response syndrome, hypovolemic shock, arteriovenous fistula bleeding, status post code blue, no evidence of bacterial sepsis in a patient with gastrointestinal bleeding; end-stage renal disease, on hemodialysis; day #6 of meropenem; patient is diabetic, hypertensive. We will check on the MRI. Patient's meropenem has been discontinued. Currently off of antibiotics, afebrile, normal white count. We will follow with you. Case discussed with Dr. Jordan. Dr. Lees's note was reviewed. We will follow with you. Kevin Rome MD
[2017-11-22] MEDS: Pantoprazole 40 mg EC Tab PO SCH (05:36)
[2017-11-22] MEDS: Levalbuterol 1.25 MG/3 ML Inhal Soln UD IH SCH ×3 (07:20→20:30)
--- NOTE | 2017-11-22 07:35 | CP.PCM.PN ---
Subjective - Date & Time of Evaluation Date of Evaluation: 11/22/17 Time of Evaluation: 07:32 - Subjective Subjective: Surgery: Dr. Orr Pt seen and examined. No acute events overnight. Resting comfortably in bed. Tolerating diet. No more bloody BM. Objective - Vital Signs/Intake and Output Vital Signs (last 24 hours): Temp Pulse Resp BP Pulse Ox 98.5 F 81 22 146/74 100 11/22/17 04:00 11/22/17 06:00 11/22/17 06:00 11/22/17 06:00 11/21/17 12:00 Intake and Output: 11/22/17 11/22/17 06:59 18:59 Intake Total 60 Output Total 75 Balance -15 - Medications Medications: Current Medications Amlodipine Besylate (Norvasc) 2.5 mg PO DAILY [facility] Last Admin: 11/21/17 11:03 Dose: 2.5 mg Aspirin (Aspirin Chewable) 81 mg PO DAILY [facility] Last Admin: 11/21/17 18:54 Dose: 81 mg Insulin Human Regular (Humulin R Low) 0 units SC Q6H [facility] PRN Reason: Protocol Last Admin: 11/16/17 13:00 Dose: Not Given Levalbuterol HCl (Xopenex) 1.25 mg IH TIDRESP [facility] Last Admin: 11/22/17 07:20 Dose: 1.25 mg Ondansetron HCl (Zofran Inj) 4 mg IVP Q6H PRN PRN Reason: Nausea/Vomiting Pantoprazole Sodium (Protonix Ec Tab) 40 mg PO 0600 [facility] Last Admin: 11/22/17 05:36 Dose: 40 mg Prednisone (Prednisone Tab) 40 mg PO DAILY [facility] Last Admin: 11/21/17 11:04 Dose: 40 mg Sevelamer HCl (Renagel) 1,600 mg PO TID [facility] Last Admin: 11/21/17 18:54 Dose: 1,600 mg Silver Sulfadiazine (Silvadene 1% 25 Gm) 0 gm TP BID [facility] Last Admin: 11/21/17 18:55 Dose: 25 gm - Labs Labs: 11/21/17 21:21 11/21/17 13:15 PT 14.6 SECONDS (9.4-12.5) H 11/17/17 06:00 INR 1.26 (0.93-1.08) H 11/17/17 06:00 APTT 32.4 Seconds (25.1-36.5) 11/17/17 06:00 - Constitutional Appears: Non-toxic, No Acute Distress - Head Exam Head Exam: ATRAUMATIC, NORMOCEPHALIC - Eye Exam Eye Exam: EOMI - ENT Exam ENT Exam: Mucous Membranes Moist - Neck Exam Neck Exam: Full ROM - Respiratory Exam Respiratory Exam: NORMAL BREATHING PATTERN (on CPAP). absent: Accessory Muscle Use, Respiratory Distress - GI/Abdominal Exam GI & Abdominal Exam: Soft. absent: Distended, Firm, Guarding, Rigid, Tenderness , Rebound - Extremities Exam Additional comments: Skin tear, dorsum R hand w. dressing in place, C/D/I - Neurological Exam Neurological Exam: Alert, Awake, Oriented x3 - Psychiatric Exam Psychiatric exam: Normal Affect, Normal Mood Assessment and Plan - Assessment and Plan (Free Text) Assessment: 67F w. GI bleed, resolved -monitor H/H, transfuse PRN -for colonoscopy tomorrow -silvadene BID to skin tear R hand -will continue to follow -d/w attending Zemaitis PGY3
--- NOTE | 2017-11-22 08:21 | PN ---
DATE: 11/22/2017 PULMONARY NOTE SUBJECTIVE: The patient appears comfortable this morning. She is not short of breath at rest. She is awake and alert. PHYSICAL EXAMINATION: VITAL SIGNS: Temperature is 98.5, pulse 68, respirations 18, blood pressure 146/74. Oxygen saturation on BiPAP is 97%. HEENT: Normocephalic, atraumatic. No JVD. CARDIOVASCULAR: Systolic ejection murmur at the lower left sternal border. No S3 gallop. LUNGS: Decreased breath sounds at the bases. Very minimal/less rhonchi. No wheezing. EXTREMITIES: Positive for edema. No cyanosis. No clubbing. Calves are nontender to palpation. GASTROINTESTINAL: Abdomen is soft, nontender and nondistended. Bowel sounds are positive. SKIN: No acute rash. NEUROLOGIC: Limited at the present time. IMPRESSION: 1. Status post hemorrhagic shock. 2. Status post cardiopulmonary resuscitation. 3. Arteriovenous fistula bleeding. 4. End-stage renal disease. 5. Asthma. 6. Anemia. 7. Thrombocytopenia. PLAN: The patient appears comfortable this morning. She is not short of breath at rest. She is awake and alert. I did discuss the case with the night nurse at length. The night nurse stated that the patient had a very good night. On physical exam, there is no significant bronchospasm noted. In addition, there is no significant alveolar-arterial gradient. I will continue the current nebulizer treatments and oral steroids (changed yesterday) for now. Inputs by Renal and Infectious Disease are noted. There are no temperatures noted. The leukocytosis has resolved. Repeat arterial blood gas is also ordered - pending. The clinical status of this patient is significantly improved overall. I would continue with the Neurologic evaluation as per Dr. Peraza. I will discuss the above with the entire ICU team in the next few moments. I will also discuss the above with the attending physician. Hung Lees MD MTDD
[2017-11-22 08:51] LABS: ARTERIAL BLOOD GAS HCO3 29.5 mmol/L (21-28); ARTERIAL BLOOD GAS HEMOGLOBIN 11.3 g/dL (11.7-17.4); ARTERIAL BLOOD GAS O2 CAPACITY 15.7 mL/dl (16-24); ARTERIAL BLOOD GAS O2 CONTENT 15.2 ML/dl (15-23); ARTERIAL BLOOD GAS O2 SAT 96.7 % (95-98); ARTERIAL BLOOD GAS PCO2 51 mm/Hg (35-45); ARTERIAL BLOOD GAS PH 7.37 (7.35-7.45); ARTERIAL BLOOD GAS TCO2 31.1 mmol.L (22-28)
--- NOTE | 2017-11-22 09:17 | MRI ---
PROCEDURE: MRI BRAIN WITHOUT CONTRAST HISTORY: Altered mental status COMPARISON: Noncontrast head CT from 11/20/2017. TECHNIQUE: Multiplanar, multisequence MR images of the brain were obtained without intravenous contrast enhancement. FINDINGS: HEMORRHAGE: None DWI: There is focal restricted diffusion in the right basal ganglia and anterior limb of internal capsule. BRAIN PARENCHYMA: There is T2/FLAIR hyperintense signal corresponding to the right stricture diffusion in the right basal ganglia and anterior limb of internal capsule. There is an old infarction in the left frontal subcortical white matter. There are multiple scattered foci of increased magnetic susceptibility in both cerebral hemispheres. There are mild chronic microangiopathic changes. VENTRICLES: There is mild age-related global parenchymal volume loss and proportionate enlargement of the ventricles and cortical sulci. CRANIUM: There is normal bone marrow signal pattern. ORBITS: Grossly unremarkable. PARANASAL SINUSES/MASTOIDS: There is mild mucosal thickening in the left maxillary sinus and small mastoid effusions. VASCULAR SYSTEM: There are normal signal voids in the larger intracranial arteries. OTHER FINDINGS: None. IMPRESSION: 1. Acute right MCA territory infarction involving the basal ganglia and anterior limb of internal capsule. 2. Multifocal bold petechial hemorrhage in both cerebral hemispheres, the differential considerations include hypertensive hemorrhages, amyloid ptosis small cavernous angiomas or posttraumatic hemorrhages. Important findings were discussed with nurse Cisneros on 11/21/2017 at 6:25 p.m.
[2017-11-22] MEDS: Silver Sulfadiazine 1% Cream (25 gm) TP SCH ×2 (10:00→18:30)
[2017-11-22] MEDS ORDERED: Bisacodyl 5mg EC Tab PO ONE (12:44)
[2017-11-22] MEDS ORDERED: Peg-Electrolyte Oral Soln 4L (Golytely) PO ONE (14:25)
--- NOTE | 2017-11-22 17:34 | PN ---
DATE: 11/22/2017 NEUROLOGY FOLLOWUP CHIEF COMPLAINT: Followup for altered mental status. SUBJECTIVE: Patient is more awake, following simple commands, mildly dysarthric. She does have evidence of acute right MCA territory infarcts seen in the capsule, which corresponds to her dysarthria and mild left-sided weakness and some multifocal petechial hemorrhages in both cerebral hemispheres indicative with hypertensive hemorrhages. Her blood pressures are currently being more controlled. Would recommend that she should be on baby aspirin with Lipitor for stroke prevention. PAST MEDICAL HISTORY: History of end-stage renal disease, on hemodialysis; type 2 diabetes mellitus; thrombocytopenia; dyslipidemia; history of AFib. ALLERGIES: NO KNOWN DRUG ALLERGIES. SOCIAL HISTORY: No illicit drug use, smoking, or EtOH abuse. MEDICATIONS: Reviewed by nurse per reconciliation sheet. PHYSICAL EXAMINATION: VITAL SIGNS: Temperature afebrile, pulse rate of 86, blood pressure 161/81, respiratory rate 17, oxygen saturation 96% on room air. GENERAL: Patient is lying in bed, in no acute distress. HEENT: Head is atraumatic and normocephalic. PERRLA. Extraocular muscles intact. NECK: Supple. No JVD. No adenopathy noted. LUNGS: Clear to auscultation. No adventitious sounds. HEART: S1 and S2. Normal rate and rhythm. No murmur, rubs, or gallops. ABDOMEN: Soft, nontender, nondistended. Bowel sounds present. EXTREMITIES: Positive for edema. No cyanosis. No clubbing. NEUROLOGIC: Patient is drowsy, but oriented to person and place, not much to month or year. Recall after 5 minutes is 0/3. Poor attention span. Poor thought process. Speech is slightly dysarthric, but no aphasia noted. Cranial nerves II through XII are intact. Motor exam: Slightly increased tone throughout with mild subtle weakness on the left side compared to the right from underlying CVA. Toes are upgoing bilaterally. Sensory exam: Withdraws on localized and noxious stimulus. Light touch decreased up to the calves bilaterally. Decreased vibration of the toes. DTRs are 2+ throughout, 1 at both knees and ankles. Coordination and gait deferred for now. LABORATORY DATA: Reviewed. ASSESSMENT AND PLAN: This is a 67-year-old woman with history of end-stage renal disease, on hemodialysis; history of arteriovenous fistula; history of cerebrovascular accident; history of type 2 diabetes mellitus; dyslipidemia; who presented to the hospital for arteriovenous fistula bleed which resulted in a hemorrhagic shock leading to asystole, which returned and spontaneous circulation was achieved and had also thrombocytopenia. I was called to evaluate for altered mental status. The altered mental status was secondary to status post hemorrhagic shock and status post cardiopulmonary resuscitation and causing the transient hypoxic encephalopathy, superimposed underlying right basal ganglia infarct from underlying uncontrolled hypertension and some microhemorrhages seen on the MRI of the brain, also from uncontrolled hypertension as well. At this time, recommend, 1. Keep blood pressure between 130s to 140s systolic and diastolic 70s to 80s. 2. Baby aspirin 81 and Lipitor 80 mg for stroke prevention. 3. Thiamine 100 mg IV every 12 hours for neuronal activity. 4. Monitor electrolytes and correct accordingly, and continue current present medical management, PT/OT, and speech therapy. Thank you for this followup. Casa Peraza MD
[2017-11-22 18:26] LABS: HDL CHOLESTEROL 37 mg/dL (29-60)
[2017-11-22 18:37] LABS: LDL CHOLESTEROL 102 mg/dL (0-129)
--- NOTE | 2017-11-22 19:34 | PN ---
DATE: 11/22/2017 SUBJECTIVE: Patient is in bed, in no acute distress. Patient was seen early this morning in129, bed 1. No fevers and chills. PHYSICAL EXAMINATION: VITAL SIGNS: Temperature is 98, blood pressure is 157/80, respiratory rate of 18. HEENT: Unremarkable. NECK: Supple. LUNGS: Have decreased breath sounds. HEART: Normal S1, S2. ABDOMEN: Soft, nontender. LABORATORY DATA: Reveals white count of 9.5, hemoglobin of 10, platelets of 69. BUN of 85, creatinine of 6.7. Blood cultures are negative. MRSA screen is negative. Review of the orders reveals the patient to be off of antibiotics. ASSESSMENT AND PLAN: This is a 67-year-old female with systemic inflammatory response syndrome, hypovolemic shock, arteriovenous fistula bleeding, status post code blue, no evidence of bacterial sepsis in a patient with gastrointestinal bleeding; end-stage renal disease, on hemodialysis; and had completed 6 days of meropenem in a patient who is diabetic, hypertensive. Currently, off of antibioticus and afebrile, normal white count. However, patient is at risk for developing nosocomial infections. Patient's MRI of the head does show acute right middle cerebral artery territory infarction involving the basal ganglia and anterior limb of the internal capsule with multifocal petechial hemorrhage in both cerebral hemispheres. Patient had an HIV test, which was negative in 2013; we will repeat an HIV test. We will follow with you, off of antibiotics. Kevin Rome MD
--- NOTE | 2017-11-22 20:01 | PN ---
DATE: 11/22/2017 SUBJECTIVE: The patient is sitting in chair in the ICU. She is awake. She is alert. She is comfortable. PHYSICAL EXAMINATION: GENERAL: Obese elderly lady sitting in chair. VITAL SIGNS: Blood pressure 167/81, heart rate 61, respiratory rate 17, temperature 98. HEENT: Normocephalic, atraumatic, positive pallor. NECK: Supple, no JVD. LUNGS: Bilateral equal air entry, bilateral equal expansion. CARDIAC: S1 and S2, regular rate and rhythm, no murmur, no rub. ABDOMEN: Obese, distended, soft, nontender, bowel sounds present. EXTREMITIES: No lower extremity edema. INTAKE AND OUTPUT: Not charted. LABORATORY DATA: Hemoglobin 10. No new labs today. MEDICATIONS: Aspirin, insulin, Lipitor, amlodipine 2.5, prednisone 40, Protonix, Renagel, Silvadene, Xopenex, Zofran. ASSESSMENT: 1. Status post severe hemorrhagic shock. 2. Systemic inflammatory response syndrome. 3. Bleeding from the AV fistula. 4. Gastrointestinal bleed. 5. Acute right middle cerebral artery, cerebrovascular accident involving the basal ganglia. 6. Noninsulin-dependent diabetes mellitus. 7. Hypertension. 8. End-stage renal disease. PLAN: 1. Hemoglobin is stable, continue to monitor. 2. Next dialysis tomorrow. 3. Neurology followup. 4. Continue antibiotics as per ID recommendations. 5. Continue to monitor fingersticks and continue insulin coverage. Gabbi Felton MD
[2017-11-23] MEDS: Pantoprazole 40 mg EC Tab PO SCH (05:03)
[2017-11-23] MEDS: Levalbuterol 1.25 MG/3 ML Inhal Soln UD IH SCH ×3 (07:26→22:07)
--- NOTE | 2017-11-23 07:38 | DS ---
HISTORY OF PRESENT ILLNESS: The patient has no complaints of any chest pain or shortness of breath. She is much more awake and alert today. The patient had initially come in because of hemorrhagic shock. She had also cardiac arrest during dialysis. She also had some minor bleeding from her left AV fistula that is now thrombosed. She has no complaints of any fever or chills. She has been getting dialysis now and has been comfortable. She had an MRI done that showed an acute CVA. She is waiting to go to rehab facility. I did speak to the patient's son to give him an update. PHYSICAL EXAMINATION: VITAL SIGNS: Temperature is 98.5, pulse of 81, blood pressure is 146/74, respirations 20. GENERAL: The patient is lying in bed, flat, comfortable. HEENT: No oral lesion. Anicteric sclerae. Moist mucosa. NECK: No JVD, adenopathy, or thyromegaly. CARDIOVASCULAR: S1 and S2, regular. No murmurs, rubs, or gallops. LUNGS: Clear to auscultation bilaterally. No wheeze, rales, or rhonchi. ABDOMEN: Bowel sounds are positive, soft, nontender and nondistended. EXTREMITIES: No cyanosis, clubbing or edema. ASSESSMENT: 1. Acute cerebrovascular accident. 2. Status post cardiac arrest. 3. Encephalopathy secondary to cerebrovascular accident. 4. Hemorrhagic shock, resolved. 5. Acute anemia secondary to rectal bleeding. 6. End-stage renal disease, on hemodialysis. 7. Atrial fibrillation, controlled. 8. Transaminitis, improved. 9. Bleeding from the left arteriovenous fistula, mild. 10. Diabetes type 2. 11. Secondary hyperparathyroidism. 12. Right internal jugular PermCath. 13. Thrombocytopenia, chronic. PLAN: The patient is currently receiving amlodipine for hypertension, is on prednisone orally. She is on Protonix. She is going to be on Renagel for her secondary hyperparathyroidism. The patient is receiving Xopenex. She is on liquid diet. Patient is on aspirin. I have also placed her on statin therapy with Lipitor. I did speak to social work coordinator about acute rehab. I did speak to the patient's son to give him an update on the patient's diagnoses and plan of care. The patient also had a swish and swallo evaluation done and it was recommended that the patient stay on clear liquids. CONDITION: Stable. ACTIVITY: Increase as tolerated. FOLLOWUP: Follow up with primary care doctor in one to two weeks. Follow up with Neurology in one to two weeks after discharge. Melchor Jordan MD
--- NOTE | 2017-11-23 07:49 | CP.PCM.PN ---
Subjective - Date & Time of Evaluation Date of Evaluation: 11/23/17 Time of Evaluation: 07:45 - Subjective Subjective: Surgery Patient seen and examined. No acute events. Denies bloody BM, fever, chills, vomiting, abd pain. Tolerating CLD. REports regular BM. Objective - Vital Signs/Intake and Output Vital Signs (last 24 hours): Temp Pulse Resp BP Pulse Ox 98 F 79 11 L 149/85 100 11/23/17 04:00 11/23/17 06:10 11/23/17 06:10 11/23/17 06:10 11/23/17 06:10 Intake and Output: 11/23/17 11/23/17 06:59 18:59 Intake Total 500 Output Total 2 Balance 498 - Medications Medications: Current Medications Amlodipine Besylate (Norvasc) 2.5 mg PO DAILY [facility] Last Admin: 11/22/17 10:00 Dose: 2.5 mg Atorvastatin Calcium (Lipitor) 80 mg PO DIN [facility] Last Admin: 11/22/17 17:16 Dose: 80 mg Insulin Human Regular (Humulin R Low) 0 units SC Q6H [facility] PRN Reason: Protocol Last Admin: 11/16/17 13:00 Dose: Not Given Levalbuterol HCl (Xopenex) 1.25 mg IH TIDRESP [facility] Last Admin: 11/23/17 07:26 Dose: 1.25 mg Ondansetron HCl (Zofran Inj) 4 mg IVP Q6H PRN PRN Reason: Nausea/Vomiting Pantoprazole Sodium (Protonix Ec Tab) 40 mg PO 0600 [facility] Last Admin: 11/23/17 05:03 Dose: 40 mg Prednisone (Prednisone Tab) 30 mg PO DAILY [facility] Sevelamer HCl (Renagel) 1,600 mg PO TID [facility] Last Admin: 11/22/17 18:13 Dose: 1,600 mg Silver Sulfadiazine (Silvadene 1% 25 Gm) 0 gm TP BID [facility] Last Admin: 11/22/17 18:30 Dose: 25 gm - Labs Labs: 11/21/17 21:21 11/21/17 13:15 PT 14.6 SECONDS (9.4-12.5) H 11/17/17 06:00 INR 1.26 (0.93-1.08) H 11/17/17 06:00 APTT 32.4 Seconds (25.1-36.5) 11/17/17 06:00 - Constitutional Appears: No Acute Distress - Head Exam Head Exam: ATRAUMATIC, NORMAL INSPECTION, NORMOCEPHALIC - Eye Exam Eye Exam: EOMI, Normal appearance, PERRL Pupil Exam: NORMAL ACCOMODATION, PERRL - ENT Exam ENT Exam: Mucous Membranes Moist, Normal Exam - Neck Exam Neck Exam: Full ROM, Normal Inspection. absent: Lymphadenopathy - Respiratory Exam Respiratory Exam: Clear to Ausculation Bilateral, NORMAL BREATHING PATTERN - Cardiovascular Exam Cardiovascular Exam: REGULAR RHYTHM, +S1, +S2. absent: Murmur - GI/Abdominal Exam GI & Abdominal Exam: Soft, Normal Bowel Sounds. absent: Distended, Firm, Guarding, Tenderness - Rectal Exam Rectal Exam: NORMAL INSPECTION - Exam Exam: NORMAL INSPECTION - Extremities Exam Extremities Exam: Full ROM, Normal Capillary Refill. absent: Joint Swelling, Pedal Edema Additional comments: R hand edema. Dressing in place. L UE fisutula in place. - Back Exam Back Exam: NORMAL INSPECTION - Neurological Exam Neurological Exam: Alert, Awake, CN II-XII Intact, Oriented x3 - Psychiatric Exam Psychiatric exam: Normal Affect, Normal Mood - Skin Skin Exam: Warm Assessment and Plan - Assessment and Plan (Free Text) Assessment: 67F w. GI bleed, resolved CT: proctitis EGD: no active bleeding Bleeding scan: No active bleeding Plan: -monitor H/H, transfuse PRN -possible colonoscopy today -silvadene BID to skin tear R hand -will continue to follow -Will d/w Dr. De Leon
--- NOTE | 2017-11-23 09:06 | PN ---
DATE: 11/23/2017 PULMONARY NOTE SUBJECTIVE: The patient appears comfortable this morning. She is not short of breath at rest. She is awake and alert. PHYSICAL EXAMINATION: VITAL SIGNS: Temperature is 98, pulse 79, respirations 16/18, blood pressure 149/85. Oxygen saturation on nasal cannula is 100%. HEENT: Normocephalic, atraumatic. NECK: No JVD. CARDIOVASCULAR: Systolic ejection murmur at the lower left sternal border. No S3 gallop. LUNGS: Decreased breath sounds at the bases. Very minimal/less rhonchi. No wheezing. EXTREMITIES: Positive for edema. No cyanosis, no clubbing. Calves are nontender to palpation. GI: Abdomen is soft, nontender and nondistended. Bowel sounds are positive. SKIN: No acute rash. NEUROLOGIC: Exam limited at the present time. IMPRESSION: 1. Status post hemorrhagic shock. 2. Status post cardiopulmonary resuscitation. 3. Arteriovenous fistula bleeding. 4. End-stage renal disease. 5. Acute cerebrovascular accident. 6. Asthma. 7. Anemia. 8. Thrombocytopenia. PLAN: The patient appears comfortable this morning. She is not short of breath at rest. She is awake and alert. I did discuss the case with the night nurse at length. The night nurse stated that the patient had a very good night, but refused her BiPAP. I did discuss this issue with the patient and nurse this morning. On physical exam, there is no significant bronchospasm noted. In addition, the oxygen saturation on nasal cannula is now 100%. I will continue with the current nebulizer treatments and aspiration precautions for now. Input by Neurology (Dr. Peraza) is noted. Brain MRI did show an acute cerebrovascular accident. Inputs by Renal and Infectious Disease are also noted. The clinical status of the patient is significantly improved-compared to the initial presentation. However, again, the overall status/prognosis for this patient remains very guarded. I will discuss the above with the entire ICU team in the next few moments. I will also discuss the above with Dr. Jordan. Hung Lees MD [facility]
[2017-11-23] MEDS: Silver Sulfadiazine 1% Cream (25 gm) TP SCH (11:41)
--- NOTE | 2017-11-23 11:52 | PN ---
DATE: SUBJECTIVE: The patient has no complaints of any chest pain. No shortness of breath. No headaches. No dizziness. PHYSICAL EXAMINATION: VITAL SIGNS: Temperature is 98.5, pulse 98, blood pressure 159/102, respirations 18. GENERAL: The patient is lying in bed, flat, comfortable. HEENT: No oral lesion. Anicteric sclerae. Moist mucosa. NECK: No JVD, adenopathy, or thyromegaly. CARDIOVASCULAR: S1 and S2, regular. No murmurs, rubs, or gallops. LUNGS: Clear to auscultation bilaterally. No wheeze, rales, or rhonchi. ABDOMEN: Bowel sounds are positive. Soft, nontender and nondistended. EXTREMITIES: No cyanosis, clubbing or edema. LABORATORY DATA: Reviewed. ASSESSMENT: 1. Cardiac arrest. 2. Acute right middle cerebral artery territory infarct. 3. Multifocal petechial hemorrhage in both cerebral hemispheres. 4. Hemorrhagic shock, resolved. 5. Acute anemia secondary to rectal bleeding. 6. End-stage renal disease, on hemodialysis. 7. Atrial fibrillation, controlled. 8. Transaminitis, improved. 9. Bleeding from the left arteriovenous fistula. 10. Diabetes type 2. 11. Secondary hyperparathyroidism. 12. Right internal jugular PermCath. 13. Thrombocytopenia, chronic. PLAN: The patient is currently comfortable. She does have an acute CVA. There are small areas of hemorrhage. Given that the patient also had rectal bleeding, we will hold off on the patient's aspirin therapy. She, is on Lipitor for dyslipidemia. She is on prednisone, that has been tapered. She is on Renagel for her secondary hyperparathyroidism. The patient has been given GoLYTELY. She is to get colonoscopy done. She is on liquid diet. I did speak to the patient's son yesterday to give him an update on the patient's diagnosis and plan of care. Melchor Jordan MD
[2017-11-23] MEDS ORDERED: Etomidate 20 mg/10ml Inj IV ONE (13:30)
[2017-11-23 16:48] LABS: CALCIUM 9.7 mg/dL (8.4-10.5)
[2017-11-23 16:51] LABS: WHITE BLOOD COUNT 13.7 10^3/ul (4.5-11.0)
[2017-11-23 16:52] LABS: GRAN % 89.8 % (50.0-68.0); HEMOGLOBIN 10.2 g/dL (12.0-16.0); LYMPH % 5.3 % (22.0-35.0); MEAN CELL VOLUME 89.6 fl (80.0-105.0); MEAN CORPUSCULAR HEMOGLOBIN 28.7 pg (25.0-35.0); MEAN CORPUSCULAR HGB CONC 32.1 g/dl (31.0-37.0); MEAN PLATELET VOLUME 10.6 fl (7.0-11.0); MONO % 4.6 % (1.0-6.0); RBC 3.55 10^6/uL (3.5-6.1); RED CELL DISTRIBUTION WIDTH 19.8 % (11.5-14.5)
[2017-11-23 16:53] LABS: BASO # 0.02 K/mm3 (0.0-2.0); BASO % 0.1 % (0.0-3.0); EOS % 0.2 % (1.5-5.0); GRAN # 12.32 (1.4-6.5); LYMPH # 0.7 (1.2-3.4); MONO # 0.6 (0.1-0.6)
[2017-11-23] MEDS ORDERED: Doxercalciferol 4 mcg/2 ml Inj IVP SCH (17:45)
--- NOTE | 2017-11-23 18:48 | CP.PCM.PN ---
Subjective - Date & Time of Evaluation Date of Evaluation: 11/23/17 Time of Evaluation: 09:30 - Subjective Subjective: Comfortable in bed, seen in ICU earlier today, no fevers, no diarrhea, no dizziness. Objective - Vital Signs/Intake and Output Vital Signs (last 24 hours): Temp Pulse Resp BP Pulse Ox 98.5 F 94 H 24 159/80 H 100 11/22/17 04:00 11/22/17 20:00 11/22/17 20:00 11/22/17 20:00 11/22/17 20:00 - Medications Medications: Current Medications Amlodipine Besylate (Norvasc) 2.5 mg PO DAILY [facility] Last Admin: 11/22/17 10:00 Dose: 2.5 mg Aspirin (Aspirin Chewable) 81 mg PO DAILY [facility] Last Admin: 11/22/17 10:00 Dose: 81 mg Atorvastatin Calcium (Lipitor) 80 mg PO DIN [facility] Last Admin: 11/22/17 17:16 Dose: 80 mg Insulin Human Regular (Humulin R Low) 0 units SC Q6H [facility] PRN Reason: Protocol Last Admin: 11/16/17 13:00 Dose: Not Given Levalbuterol HCl (Xopenex) 1.25 mg IH TIDRESP [facility] Last Admin: 11/22/17 20:30 Dose: 1.25 mg Ondansetron HCl (Zofran Inj) 4 mg IVP Q6H PRN PRN Reason: Nausea/Vomiting Pantoprazole Sodium (Protonix Ec Tab) 40 mg PO 0600 [facility] Last Admin: 11/22/17 05:36 Dose: 40 mg Prednisone (Prednisone Tab) 40 mg PO DAILY [facility] Last Admin: 11/22/17 09:59 Dose: 40 mg Sevelamer HCl (Renagel) 1,600 mg PO TID [facility] Last Admin: 11/22/17 18:13 Dose: 1,600 mg Silver Sulfadiazine (Silvadene 1% 25 Gm) 0 gm TP BID [facility] Last Admin: 11/22/17 18:30 Dose: 25 gm - Labs Labs: 11/21/17 21:21 11/21/17 13:15 PT 14.6 SECONDS (9.4-12.5) H 11/17/17 06:00 INR 1.26 (0.93-1.08) H 11/17/17 06:00 APTT 32.4 Seconds (25.1-36.5) 11/17/17 06:00 - Constitutional Appears: Chronically Ill - Head Exam Head Exam: NORMAL INSPECTION - ENT Exam ENT Exam: Mucous Membranes Moist - Neck Exam Neck Exam: absent: Meningismus - Respiratory Exam Respiratory Exam: Decreased Breath Sounds - Cardiovascular Exam Cardiovascular Exam: +S1, +S2 - GI/Abdominal Exam GI & Abdominal Exam: Soft. absent: Tenderness Assessment and Plan - Assessment and Plan (Free Text) Plan: Assessment S/P systemic inflammatory response syndrome probably from hypovolemic shock from AV fistula bleeding S/P code blue with no evidence of bacterial sepsis in this patient also with GI bleeding acute CVA, Right MCA distribution ESRD on HD DM HTN obesity with BMI 30 asthma history of CVA Plan will continue to monitor clinically off antibiotics since she is at risk for hospital-acquired infections patient being managed medically for her CVA
--- NOTE | 2017-11-23 20:51 | PN ---
DATE: 11/23/2017 SUBJECTIVE: The patient is seen en route to colonoscopy. She is awake. She is alert. She is comfortable. She denies any pain. PHYSICAL EXAMINATION: GENERAL: Obese elderly lady, lying in bed. VITAL SIGNS: Blood pressure 136/61, heart rate 76, respiratory rate 14, temperature 98. HEENT: Normocephalic, atraumatic. NECK: Supple, no JVD. LUNGS: Bilateral equal entry, bilateral equal expansion, no rales. CARDIAC: S1 and S2, regular rate and rhythm, no murmur, no rub. ABDOMEN: Obese, distended, soft, nontender, bowel sounds present. EXTREMITIES: No lower extremity edema. LABORATORY DATA: Hemoglobin 10.2, WBC 13.7, potassium 4, calcium 9.7, phosphorus 6.2. ASSESSMENT AND PLAN: 1. Status post hemorrhagic shock. 2. Gastrointestinal bleed. 3. Hemorrhagic stroke? 4. End-stage renal disease. 5. Non-insulin dependent diabetes mellitus. 6. Anemia. 7. Secondary hyperparathyroidism. PLAN: 1. Follow up colonoscopy report. 2. Dialysis today. 3. Hemoglobin is stable. 4. Monitor fingersticks. 5. Continue phosphate binders. Gabbi Felton MD
[2017-11-24] MEDS: Sodium Chloride 0.9% 1,000 ML IV SCH ×2 (02:01→02:15)
[2017-11-24] MEDS: Silver Sulfadiazine 1% Cream (25 gm) TP SCH ×3 (03:47→17:48)
[2017-11-24] MEDS: Pantoprazole 40 mg EC Tab PO SCH (06:08)
--- NOTE | 2017-11-24 09:09 | PN ---
DATE: 11/24/2017 PULMONARY NOTE SUBJECTIVE: The patient appears comfortable this morning. She is not short of breath at rest. She is currently on BiPAP. PHYSICAL EXAMINATION: VITAL SIGNS: Temperature is 97.3, pulse is 91, respirations 18, last blood pressure recorded is 136/61. Oxygen saturation on BiPAP is 97%. HEENT: Normocephalic, atraumatic. No JVD. CARDIOVASCULAR: Systolic ejection murmur at the lower left sternal border. No S3 gallop. LUNGS: Decreased breath sounds at the bases. Very minimal/less rhonchi. No wheezing. EXTREMITIES: Less edema. No cyanosis. No clubbing. Calves are nontender to palpation. GI: Abdomen is soft, nontender and nondistended. Bowel sounds are positive. SKIN: No acute rash. NEUROLOGIC: Limited at the present time. IMPRESSION: 1. Status post hemorrhagic shock. 2. Status post cardiopulmonary resuscitation. 3. Arteriovenous fistula bleeding. 4. End-stage renal disease. 5. Acute cerebrovascular accident. 6. Asthma. 7. Anemia. 8. Thrombocytopenia - resolving. PLAN: The patient appears very comfortable this morning. She is not short of breath at rest. She is awake and alert. She is currently wearing her BiPAP. I did discuss the case with the night nurse at length. The night nurse stated that the patient had a very good night. On physical exam, there is no significant bronchospasm noted. In addition, there is no significant alveolar-arterial gradient. I will continue with the current nebulizer treatments and oral steroids (decreased yesterday) for now. I will also continue with the aspiration precautions. Inputs by Infectious Disease, Renal and Neurology are noted. The clinical status of this patient is significantly improved. However, again, the future status/prognosis does remain guarded. I will discuss the above with Dr. Jordan. Hung Lees MD MTDD
[2017-11-24] MEDS: Levalbuterol 1.25 MG/3 ML Inhal Soln UD IH SCH ×3 (09:26→20:18)
--- NOTE | 2017-11-24 10:26 | CP.PCM.PN ---
Subjective - Date & Time of Evaluation Date of Evaluation: 11/24/17 Time of Evaluation: 07:45 - Subjective Subjective: Surgery Progress note. Dr. De Leon Pt seen and examined at bedside. No acute events overnight. Patient had colonoscopy done yesterday which shows ischemic colitis w mucosal ulcerations. Currently patient reports mild abdominal pain only upon palpation. No N/V/D. No F/C. Objective - Vital Signs/Intake and Output Vital Signs (last 24 hours): Temp Pulse Resp BP Pulse Ox 100.1 F H 100 H 19 164/78 H 96 11/24/17 06:00 11/24/17 06:00 11/24/17 06:00 11/24/17 06:00 11/24/17 06:00 Intake and Output: 11/24/17 11/24/17 06:59 18:59 Intake Total 120 Output Total 300 Balance -180 - Medications Medications: Current Medications Amlodipine Besylate (Norvasc) 2.5 mg PO DAILY [facility] Last Admin: 11/23/17 10:00 Dose: Not Given Atorvastatin Calcium (Lipitor) 80 mg PO DIN [facility] Last Admin: 11/24/17 03:47 Dose: Not Given Doxercalciferol (Hectorol) 2 mcg IVP MOWEFR [facility] Last Admin: 11/23/17 17:52 Dose: 2 mcg Sodium Chloride (Sodium Chloride 0.9%) 1,000 mls @ 100 mls/hr IV .Q10H [facility] Last Admin: 11/24/17 02:15 Dose: Not Given Insulin Human Regular (Humulin R Low) 0 units SC Q6H [facility] PRN Reason: Protocol Last Admin: 11/16/17 13:00 Dose: Not Given Levalbuterol HCl (Xopenex) 1.25 mg IH TIDRESP [facility] Last Admin: 11/24/17 09:26 Dose: 1.25 mg Ondansetron HCl (Zofran Inj) 4 mg IVP Q6H PRN PRN Reason: Nausea/Vomiting Pantoprazole Sodium (Protonix Ec Tab) 40 mg PO 0600 [facility] Last Admin: 11/24/17 06:08 Dose: 40 mg Prednisone (Prednisone Tab) 30 mg PO DAILY [facility] Last Admin: 11/23/17 10:00 Dose: Not Given Sevelamer HCl (Renagel) 1,600 mg PO TID [facility] Last Admin: 11/24/17 03:47 Dose: Not Given Silver Sulfadiazine (Silvadene 1% 25 Gm) 0 gm TP BID [facility] Last Admin: 11/24/17 03:47 Dose: Not Given - Labs Labs: 11/23/17 16:15 11/23/17 16:15 PT 14.6 SECONDS (9.4-12.5) H 11/17/17 06:00 INR 1.26 (0.93-1.08) H 11/17/17 06:00 APTT 32.4 Seconds (25.1-36.5) 11/17/17 06:00 - Constitutional Appears: Non-toxic, No Acute Distress - Head Exam Head Exam: ATRAUMATIC, NORMAL INSPECTION, NORMOCEPHALIC - Eye Exam Eye Exam: EOMI, Normal appearance - ENT Exam ENT Exam: Mucous Membranes Moist - Respiratory Exam Respiratory Exam: NORMAL BREATHING PATTERN. absent: Accessory Muscle Use, Respiratory Distress - Cardiovascular Exam Cardiovascular Exam: absent: JVD - GI/Abdominal Exam GI & Abdominal Exam: Soft Additional comments: mild tenderness to palpation left lower quadrant. Some voluntary guarding, no rebound tenderness. mild distention - Extremities Exam Extremities Exam: Normal Inspection. absent: Calf Tenderness - Neurological Exam Neurological Exam: Alert, Awake Assessment and Plan - Assessment and Plan (Free Text) Assessment: 67yo F with resolved GI bleed. s/p colonoscopy 11/23 w evidence of ischemic colitis. Plan: - f/u stool studies - monitor H/H - Serial abdominal exams - f/u cardiology workup Further recs as per Dr. Haley Ruiz PGY1 surgery pager: [phone]
[2017-11-24] MEDS ORDERED: Digoxin 500 mcg/2ml (0.5 mg/2ml) Inj IVP ONE ×2 (12:02→13:15)
[2017-11-24] MEDS: diltiaZEM IVPB 100mg in NS 100 ML IV PRN (12:20)
[2017-11-24] MEDS ORDERED: Vancomycin 1gm in NS 250ml 1 GM/250 ML BAG IVPB STA (13:17)
[2017-11-24 13:23] VITALS: PULSE 103
--- NOTE | 2017-11-24 15:27 | PN ---
DATE: 11/24/2017 SUBJECTIVE: The patient is seen lying in bed. She is trying to eat her lunch. She denies any pain. She denies any shortness of breath. She is currently getting clear liquids. PHYSICAL EXAMINATION: GENERAL: Obese elderly lady, lying in bed. VITAL SIGNS: Blood pressure 93/43; heart rate 145, irregular, AFib. Respiratory rate 18-20, temperature 100.1, T-max is 100.5. HEENT: Normocephalic, atraumatic, positive pallor. NECK: Supple, no JVD. LUNGS: Bilateral equal air entry, bilateral equal expansion, no rales. CARDIAC: S1 and S2, regular rate and rhythm, no murmur, no rub. ABDOMEN: Obese, distended, soft, nontender, bowel sounds present. EXTREMITIES: No lower extremity edema. INTAKE AND OUTPUT: Not charted. LABORATORY DATA: WBC 13.7, hemoglobin 10, hematocrit 32, platelets 138. Sodium 145, potassium 4, chloride 100, CO2 of 31, BUN 75, creatinine 6.3, glucose 187, calcium 9.7, phosphorus 6.2, magnesium 2.4. Stool for C. diff negative. Colonoscopy: Scattered small amount of diverticula found in the sigmoid colon and in the descending colon. Internal hemorrhoids. Diffuse severe inflammation characterized by confluent ulcerations was found in the entire colon. Severe ischemic colitis. Mucosal ulcerations extended up to 40 cm. CURRENT MEDICATIONS: Cardizem just started 5 mg per hour, Hectorol 2 mcg, Lipitor 80, cefepime 1 g, amlodipine 2.5, prednisone 30, Protonix, Renagel, vancomycin, Zofran. ASSESSMENT: 1. Systemic inflammatory response syndrome, improved. 2. Status post hemorrhagic shock. 3. Gastrointestinal bleed, secondary to ischemic colitis? 4. Bleeding diathesis, bleeding from the fistula. 5. Hemorrhagic stroke. 6. Mqn-krciput-xsndarzlt diabetes mellitus. 7. Severe anemia, resolved. 8. End-stage renal disease. PLAN: 1. New AFib, now the patient is on Cardizem drip. 2. No anticoagulation since recent hemorrhagic shock. 3. Avoid hypotension. 4. Monitor H&H. 5. Advance diet. 6. Continue to monitor daily labs. Gabbi Felton MD [facility] # [id number]
[2017-11-24] MEDS: Cefepime 1gm in NS 100ml 1 GM/100 ML BAG IVPB SCH (15:28)
--- NOTE | 2017-11-24 15:42 | RAD ---
HISTORY: fever COMPARISON: Comparison chest 11/19/2017 FINDINGS: No change right IJ large-bore dual-lumen catheter with tip in the SVC LUNGS: Suspect minimal left basilar atelectasis. PLEURA: No significant pleural effusion identified, no pneumothorax apparent. CARDIOVASCULAR: Cardiomegaly. OSSEOUS STRUCTURES: No significant abnormalities. VISUALIZED UPPER ABDOMEN: Normal. OTHER FINDINGS: None. IMPRESSION: Suspect minimal left basilar atelectasis.
--- NOTE | 2017-11-24 18:18 | PN ---
DATE: 11/24/2017 SUBJECTIVE: The patient is in bed, in no acute distress, was seen early this morning in room 277, bed 1. The patient did have fevers. On exam, temperature is 100.1, T-max is 100.5 . ASSESSMENT AND PLAN: This is a 67-year-old with systemic inflammatory response syndrome from hypovolemic shock, arteriovenous fistula bleeding, status post code blue with no evidence of any bacterial infection, now with a new fever, patient with acute cerebrovascular accident and end-stage renal disease. The patient has right a middle cerebral artery distribution, diabetes, hypertension. We will repeat pancultures, procalcitonin, and chest x-ray. We will follow with you. Kevin Rome MD
--- NOTE | 2017-11-24 22:39 | CON ---
DATE: 11/24/2017 HISTORY OF PRESENT ILLNESS: The patient is a 67-year-old woman who presents with GI bleed to the hospital. She was stabilized and transferred to the floor. On the on telemetry floor, the patient went into new-onset atrial fibrillation with a heart rate in the 170s. She is hemodynamically stable without symptoms. PAST MEDICAL HISTORY: The patient's past medical history includes history of multiple CVA events in the past. She suffers from hypercholesterolemia and diabetes mellitus. In addition, she suffers from end-stage renal disease treated with dialysis. She denies previous cardiac history. No previous myocardial infarction. SOCIAL HISTORY The patient does not smoke. REVIEW OF SYSTEMS: A 14-point review of systems is reviewed in detail. No active cardiac symptoms are noted while at rest. PHYSICAL EXAMINATION: VITAL SIGNS: The heart rate is in the 170s. Blood pressure is 95 systolic. NECK: Negative JVD. LUNGS: Without rales. HEART: Reveal S1, S2. EXTREMITIES: Without edema. LABORATORY DATA: EKG shows rapid atrial fibrillation with nonspecific ST-T changes. Potassium is 4, hemoglobin is 10.2. IMPRESSION: 1. New-onset atrial fibrillation with rapid ventricular rate. 2. History of multiple cerebrovascular accident. 3. Recent gastrointestinal bleed. 4. End-stage renal disease. 5. Diabetes mellitus. 6. Hypercholesterolemia. PLAN: Given these findings, we will start the patient on IV digoxin as well as IV Cardizem. We will need to monitor her blood pressure carefully. In addition, it is probable that the patient's multiple CVAs may be related to paroxysmal atrial fibrillation. The patient should be anticoagulated once we can resolve her GI bleed issues. Alexandr Crocker MD
--- NOTE | 2017-11-24 23:40 | CARD ---
APPROVED REPORT EKG Measurement Heart [id number] <Conclusion> Atrial fibrillation with rapid ventricular response Minimal voltage criteria for LVH, may be normal variant Nonspecific ST and T wave abnormality, probably digitalis effect Abnormal ECG
--- NOTE | 2017-11-24 23:41 | CP.PCM.CON ---
History of Present Illness - History of Present Illness History of Present Illness: 67 year old female admitted with hemorragic shock due to bleeding from AV fistula site. She laso had rectal bleeding. She was resuscitated. Has history of ESRD on hemodialysis. Plt count on admission was 58 k now 75 k. No active bleeding now. Hb/hct stable now. Review of Systems - Constitutional Constitutional: As Per HPI - EENT Eyes: absent: As Per HPI, Blind Spots, Blurred Vision, Change in Vision, Decreased Night Vision, Diplopia, Discharge, Dry Eye, Exophthalmos, Floaters, Irritation, Itchy Eyes, Loss of Peripheral Vision, Pain, Photophobia, Requires Corrective Lenses, Sees Flashes, Spots in Vision, Tunnel Vision, Other Visual Disturbances, Loss of Vision, Other Ears: absent: As Per HPI, Decreased Hearing, Ear Discharge, Ear Pain, Tinnitus, Abnormal Hearing, Disequilibrium, Dizziness, Other Nose/Mouth/Throat: absent: As Per HPI, Epistaxis, Nasal Congestion, Nasal Discharge, Nasal Obstruction, Nasal Trauma, Nose Pain, Post Nasal Drip, Sinus Pain, Sinus Pressure, Bleeding Gums, Change in Voice, Dental Pain, Dry Mouth, Dysphagia, Halitosis, Hoarsness, Lip Swelling, Mouth Lesions, Mouth Pain, Odynophagia, Sore Throat, Throat Swelling, Tongue Swelling, Facial Pain, Neck Pain, Neck Mass, Other - Cardiovascular Cardiovascular: As Per HPI - Respiratory Respiratory: absent: As Per HPI, Cough, Dyspnea, Hemoptysis, Dyspnea on Exertion , Wheezing, Snoring, Stridor, Pain on Inspiration, Chest Congestion, Excessive Mucous Production, Change in Mucous Color, Pain with Coughing, Other - Gastrointestinal Gastrointestinal: As Per HPI - Genitourinary Genitourinary: absent: As Per HPI, Change in Urinary Stream, Difficulty Urinating, Dysuria, Flank Pain, Hematuria, Pyuria, Nocturia, Urinary Incontinence, Urinary Frequency, Urinary Hesitance, Urinary Urgency, Voiding Freq/Small Amts, Freq UTI, Hx Renal/Bladder Calculi, Hx /Renal Surgery, Bladder Distension, Other - Musculoskeletal Musculoskeletal: absent: As Per HPI, Abnormal Gait, Arthralgias, Atrophy, Back Pain, Deformity, Joint Swelling, Limited Range of Motion, Loss of Height, Muscle Cramps, Muscle Weakness, Myalgias, Neck Pain, Numbness, Radiating Pain into Limb, Stiffness, Tingling, Other - Integumentary Integumentary: absent: As Per HPI, Acne, Alopecia, Bleeding Lesions, Change in Hair, Change in Nails, Change in Pigmentation, Changing Lesions, Dry Skin, Erythema, Furuncle, Hirsutism, Lesions, New Lesions, Non-Healing Lesions, Photosensitivity, Pruritus, Rash, Skin Pain, Skin Ulcer, Sores, Striae, Swelling , Unusual Bruising, Wounds, Jaundice, Other - Neurological Neurological: absent: As Per HPI, Abnormal Gait, Abnormal Hearing, Abnormal Movements, Abnormal Speech, Behavioral Changes, Burning Sensations, Confusion, Convulsions, Disequilibrium, Dizziness, Numbness, Focal Weakness, Frequent Falls , Headaches, Lack of Coordination, Loss of Vision, Memory Loss, Paresthesias, Radicular Pain, Restless Legs, Sensory Deficit, Syncope, Tingling, Tremor, Vertigo, Weakness, Other Visual Disturbances, Other - Endocrine Endocrine: absent: As Per HPI, Change in Body Appearance, Change in Libido, Cold Intolorance, Deepening of Voice, Excessive Sweating, Fatigue, Flushing, Heat Intolorance, Increase in Ring/Shoe/Hat Size, Palpitations, Polydipsia, Polyphagia, Polyuria, Other - Hematologic/Lymphatic Hematologic: As Per HPI Past Patient History - Infectious Disease Hx of Infectious Diseases: None - Tetanus Immunizations Tetanus Immunization: Up to Date - Past Social History Smoking Status: Never Smoked - CARDIAC Hx Pacemaker: No - PULMONARY Hx Asthma: Yes - NEUROLOGICAL HX Cerebrovascular Accident: Yes - HEENT Hx HEENT Problems: No - RENAL Hx Renal Failure: Yes (with dialysis) - ENDOCRINE/METABOLIC Hx Diabetes Mellitus Type 2: Yes - HEMATOLOGICAL/ONCOLOGICAL Hx Blood Transfusions: Yes Hx Blood Transfusion Reaction: No - INTEGUMENTARY Hx Dermatological Problems: No - MUSCULOSKELETAL/RHEUMATOLOGICAL Hx Musculoskeletal Disorders: Yes - GASTROINTESTINAL Hx Gastrointestinal Disorders: Yes Other/Comment: diverticulosis/hemorroids - GENITOURINARY/GYNECOLOGICAL Hx Genitourinary Disorders: Yes (voids "a little") Other/Comment: dialysis patient. left limb alert - PSYCHIATRIC Hx Psychophysiologic Disorder: No Hx Emotional Abuse: No Hx Physical Abuse: No Hx Substance Use: No - SURGICAL HISTORY Hx Surgeries: Yes - ANESTHESIA Hx Anesthesia Reactions: No Hx Malignant Hyperthermia: No Meds Allergies/Adverse Reactions: Allergies Allergy/AdvReac Type Severity Reaction Status Date / Time Latex, Natural Rubber Allergy Unknown RASH Verified 11/23/17 14:13 - Medications Medications: Current Medications Amlodipine Besylate (Norvasc) 2.5 mg PO DAILY [facility] [place] Last Admin: 11/24/17 11:15 Dose: Not Given Atorvastatin Calcium (Lipitor) 80 mg PO DIN [facility] [place] Last Admin: 11/24/17 17:48 Dose: 80 mg Doxercalciferol (Hectorol) 2 mcg IVP MOWEFR [facility] [place] Last Admin: 11/23/17 17:52 Dose: 2 mcg diltiaZEM IVPB 100mg in NS (Cardizem 100mg In Ns) 100 mls @ 5 mls/hr IV .Q20H PRN; Protocol; 5 MG/HR PRN Reason: TITRATE PER MD ORDER Last Admin: 11/24/17 12:20 Dose: 5 mg/hr, 5 mls/hr Cefepime HCl (Maxipime 1gm) 1 gm in 100 mls @ 100 mls/hr IVPB Q24H [facility] [place] PRN Reason: Protocol Stop: 12/03/17 13:31 Last Admin: 11/24/17 15:28 Dose: 100 mls/hr Insulin Human Regular (Humulin R Low) 0 units SC Q6H [facility] [place] PRN Reason: Protocol Last Admin: 11/16/17 13:00 Dose: Not Given Levalbuterol HCl (Xopenex) 1.25 mg IH TIDRESP [facility] Last Admin: 11/24/17 20:18 Dose: 1.25 mg Ondansetron HCl (Zofran Inj) 4 mg IVP Q6H [facility] PRN Reason: Nausea/Vomiting Pantoprazole Sodium (Protonix Ec Tab) 40 mg PO 0600 [facility] [place] Last Admin: 11/24/17 06:08 Dose: 40 mg Prednisone (Prednisone Tab) 30 mg PO DAILY [facility] Last Admin: 11/24/17 11:16 Dose: 30 mg Sevelamer HCl (Renagel) 1,600 mg PO TID [facility] Last Admin: 11/24/17 17:48 Dose: 1,600 mg Silver Sulfadiazine (Silvadene 1% 25 Gm) 0 gm TP BID [facility] [place] Last Admin: 11/24/17 17:48 Dose: 25 gm Physical Exam - Constitutional Appears: Chronically Ill - Head Exam Head Exam: ATRAUMATIC, NORMAL INSPECTION, NORMOCEPHALIC - Eye Exam Eye Exam: Normal appearance - ENT Exam ENT Exam: Mucous Membranes Moist, Normal Exam - Neck Exam Neck exam: Positive for: Normal Inspection - Respiratory Exam Respiratory Exam: Clear to Auscultation Bilateral, NORMAL BREATHING PATTERN - Cardiovascular Exam Cardiovascular Exam: REGULAR RHYTHM, +S1, +S2 - GI/Abdominal Exam GI & Abdominal Exam: Normal Bowel Sounds, Soft - Extremities Exam Extremities exam: Positive for: normal inspection - Back Exam Back exam: NORMAL INSPECTION - Neurological Exam Neurological exam: Alert, CN II-XII Intact - Psychiatric Exam Psychiatric exam: Flat Affect - Skin Skin Exam: Pallor Results - Vital Signs Recent Vital Signs: Last Vital Signs Temp 99 F 11/24/17 18:00 Pulse 70 11/24/17 22:00 Resp 19 11/24/17 18:00 BP 115/48 L 11/24/17 18:00 Pulse Ox 98 11/24/17 09:00 - Labs Result Diagrams: 11/23/17 16:15 11/23/17 16:15 Labs: Laboratory Results - last 24 hr 11/22/17 11/24/17 18:00 13:15 Procalcitonin 22.19 H HIV 1&2 Ag/Ab, 4th Gen Nonreactive Assessment & Plan - Assessment and Plan (Free Text) Assessment: 1. Hemorrhagic shock 2. Thrombocytopenia 3. Anemia 4. ESRD on hemodialysis Plan : No active bleeding now. Thrombocytopenia is likely due to increase consumption of platelets due to bleeding. Spontaneous recovery expected. Will consider platelet transfusion for bleeding control if needed. She continue to be on HD. Hb/Hct stable. Hemodynamically stable. Thank you Dr. Jordan for allowing us to participate in her care. - Date & Time Date: 11/22/17 Time: 18:00
--- NOTE | 2017-11-25 00:23 | PN ---
DATE: 11/24/2017 FOLLOWUP NOTE SUBJECTIVE: She is comfortable in bed, in no acute distress. Denies any chest pain. No bleeding from any site. She has peripheral triple lumen placed. Two of the lumens were blocked. One lumen is working. No bleeding from any site. She has a history of rectal bleeding on admission, awaiting colonoscopy. No events overnight. Hemodynamically stable now. She developed bradycardia overnight. REVIEW OF SYSTEMS: As per HPI. Rest of 12-point review of systems reviewed negative. PHYSICAL EXAMINATION: GENERAL: Comfortable in bed, in no acute distress. VITAL SIGNS: Temperature 98.8, heart rate is 90 per minute, blood pressure 159/100, respiratory rate 15 per minute. HEENT: Pallor positive. NECK: No lymphadenopathy. CHEST: Air entry present and equal bilaterally. No added sounds. CARDIOVASCULAR: S1, S2 normal. No murmur. No gallop. ABDOMEN: Soft, nontender. No hepatosplenomegaly. EXTREMITIES: No edema. SPINE: Nontender. SKIN: Pallor positive. DIE CASTING SUPERVISOR: Alert, oriented x3. No focal sensorimotor deficits. LABORATORY DATA: White count 13.7, hemoglobin 10.2, platelet 138. Sodium 145, potassium 4, creatinine 6.3. MEDICATIONS: Norvasc 2.5 mg daily, Lipitor 40 mg daily, cefepime every 24 hours, Cardizem drip, cholecalciferol, Xopenex, Protonix, prednisone. ASSESSMENT: 1. Hemorrhagic shock. 2. End-stage renal disease, on hemodialysis. 3. Tachycardia. 4. Thrombocytopenia. 5. Chronic anemia. PLAN: Cardiology consultation requested. Evaluated by Dr. Crocker. Cardizem drip started. IV digoxin given. Hemodynamically stable. Thrombocytopenia improved. Platelet count is 138, yesterday was 69,000, likely related to acute bleeding and uremia. Hemoglobin 10.2, stable. Rectal bleed on admission. She will need colonoscopy for evaluation of rectal bleed. Amalia Joseph MD
[2017-11-25] MEDS: diltiaZEM IVPB 100mg in NS 100 ML IV PRN (01:57)
[2017-11-25] MEDS: Pantoprazole 40 mg EC Tab PO SCH (05:52)
[2017-11-25] MEDS: Levalbuterol 1.25 MG/3 ML Inhal Soln UD IH SCH ×3 (07:49→19:58)
--- NOTE | 2017-11-25 08:57 | PN ---
DATE: 11/25/2017 FOLLOWUP NOTE SUBJECTIVE: She is comfortable in bed. No chest pain. No shortness of breath. She had tachycardia yesterday. She is currently on Cardizem drip. Heart rate is well controlled on that. Heart rate currently is 70 per minute. No rectal bleeding. Platelet count has improved. She has end-stage renal disease, on hemodialysis. REVIEW OF SYSTEMS: As per HPI. Rest of 12-point review of systems reviewed negative. PHYSICAL EXAMINATION: GENERAL: Comfortable in bed, in no acute distress. VITAL SIGNS: Temperature 98.7, heart rate is 70 per minute, blood pressure 150/80, respiratory rate 16 per minute. HEENT: Pallor positive. NECK: No lymphadenopathy. CHEST: Air entry present and equal bilateral. No added sounds. CARDIOVASCULAR: S1, S2 normal. No murmur. No gallop. ABDOMEN: Soft, nontender. No hepatosplenomegaly. EXTREMITY: No edema. SPINE: Nontender. SKIN: No petechiae. No rash. PARACHUTE INSPECTOR: Alert and oriented x3. No focal sensorimotor deficits. LABORATORY DATA: Labs from yesterday, white count 13.7, hemoglobin 10.2, platelet 138. Sodium 145, creatinine 6.3. CURRENT MEDICATIONS: Norvasc, Lipitor, cefepime, Cardizem drip, Xopenex, Protonix, prednisone. ASSESSMENT AND PLAN: 1. Hemorrhagic shock - resolved. 2. Tachycardia, currently on Cardizem drip, heart rate controlled with current medications. 3. End-stage renal disease, on hemodialysis. 4. Thrombocytopenia - platelet count improved to 138,000. We will repeat the blood counts today. 5. Chronic anemia - multifactorial, related to chronic kidney disease, recent bleed. Continue to monitor hemoglobin and hematocrit closely. 6. Triple lumen, one lumen is working. When she is off IV medication, that need to be removed. Discussed with the staff nurse. 7. History of rectal bleeds. Needs evaluation for that. Amalia Joseph MD
--- NOTE | 2017-11-25 09:42 | CP.PCM.PN ---
Subjective - Date & Time of Evaluation Date of Evaluation: 11/25/17 Time of Evaluation: 07:45 - Subjective Subjective: Surgery Progress note. Dr. De Leon Pt seen and examined at bedside. No acute events overnight. No N/v/D. States that her abd pain is mildly improved. No new complaints. Tolerating diet. Objective - Vital Signs/Intake and Output Vital Signs (last 24 hours): Temp Pulse Resp BP Pulse Ox 97.9 F 71 20 128/61 96 11/25/17 06:00 11/25/17 06:00 11/25/17 06:00 11/25/17 06:00 11/25/17 06:00 Intake and Output: 11/25/17 11/25/17 06:59 18:59 Intake Total 391 Balance 391 - Medications Medications: Current Medications Amlodipine Besylate (Norvasc) 2.5 mg PO DAILY [facility] Last Admin: 11/24/17 11:15 Dose: Not Given Atorvastatin Calcium (Lipitor) 80 mg PO DIN [facility] Last Admin: 11/24/17 17:48 Dose: 80 mg Doxercalciferol (Hectorol) 2 mcg IVP MOWEFR [facility] Last Admin: 11/23/17 17:52 Dose: 2 mcg diltiaZEM IVPB 100mg in NS (Cardizem 100mg In Ns) 100 mls @ 5 mls/hr IV .Q20H PRN; Protocol; 5 MG/HR PRN Reason: TITRATE PER MD ORDER Last Admin: 11/25/17 01:57 Dose: 5 mg/hr, 5 mls/hr Cefepime HCl (Maxipime 1gm) 1 gm in 100 mls @ 100 mls/hr IVPB Q24H [facility] PRN Reason: Protocol Stop: 12/03/17 13:31 Last Admin: 11/24/17 15:28 Dose: 100 mls/hr Insulin Human Regular (Humulin R Low) 0 units SC Q6H [facility] PRN Reason: Protocol Last Admin: 11/16/17 13:00 Dose: Not Given Levalbuterol HCl (Xopenex) 1.25 mg IH TIDRESP [facility] Last Admin: 11/25/17 07:49 Dose: 1.25 mg Ondansetron HCl (Zofran Inj) 4 mg IVP Q6H PRN PRN Reason: Nausea/Vomiting Pantoprazole Sodium (Protonix Ec Tab) 40 mg PO 0600 [facility] Last Admin: 11/25/17 05:52 Dose: 40 mg Prednisone (Prednisone Tab) 30 mg PO DAILY [facility] Last Admin: 11/24/17 11:16 Dose: 30 mg Sevelamer HCl (Renagel) 1,600 mg PO TID [facility] Last Admin: 11/24/17 17:48 Dose: 1,600 mg Silver Sulfadiazine (Silvadene 1% 25 Gm) 0 gm TP BID [facility] Last Admin: 11/24/17 17:48 Dose: 25 gm - Labs Labs: 11/23/17 16:15 11/23/17 16:15 PT 14.6 SECONDS (9.4-12.5) H 11/17/17 06:00 INR 1.26 (0.93-1.08) H 11/17/17 06:00 APTT 32.4 Seconds (25.1-36.5) 11/17/17 06:00 - Constitutional Appears: Well, Non-toxic, No Acute Distress - Head Exam Head Exam: ATRAUMATIC, NORMAL INSPECTION, NORMOCEPHALIC - Eye Exam Eye Exam: EOMI, Normal appearance - ENT Exam ENT Exam: Mucous Membranes Moist - Respiratory Exam Respiratory Exam: NORMAL BREATHING PATTERN. absent: Accessory Muscle Use, Respiratory Distress - Cardiovascular Exam Cardiovascular Exam: absent: JVD - GI/Abdominal Exam GI & Abdominal Exam: Soft. absent: Distended, Firm, Guarding, Rebound Additional comments: mild tenderness to palpation left lower quadrant - Extremities Exam Extremities Exam: Normal Inspection. absent: Calf Tenderness - Neurological Exam Neurological Exam: Alert, Awake, Oriented x3 - Psychiatric Exam Psychiatric exam: Normal Affect, Normal Mood - Skin Skin Exam: Dry, Intact, Normal Color, Warm Assessment and Plan - Assessment and Plan (Free Text) Assessment: 67yo F with resolved GI bleed. s/p colonoscopy 11/23 w evidence of ischemic colitis. - CDiff negative - New-onset A.Fib noted yesterday. Cardiology following. Plan: - Serial abdominal exams - F/u AM Labs - f/u cardiology workup - Right hand dressing BID: silvadene, 4x4 dry gauze and kerlix wrap. Further recs as per Dr. Haley Ruiz PGY1 surgery pager: [phone]
[2017-11-25 11:20] LABS: EOS # 0.1 (0.0-0.7); EOS % 0.4 % (1.5-5.0); GRAN # 14.44 (1.4-6.5); GRAN % 88.5 % (50.0-68.0); HEMOGLOBIN 8.7 g/dL (12.0-16.0); LYMPH # 0.6 (1.2-3.4); LYMPH % 3.5 % (22.0-35.0); MEAN CELL VOLUME 87.8 fl (80.0-105.0); MEAN CORPUSCULAR HEMOGLOBIN 28.6 pg (25.0-35.0); MEAN CORPUSCULAR HGB CONC 32.6 g/dl (31.0-37.0); MEAN PLATELET VOLUME 9.9 fl (7.0-11.0); MONO # 1.3 (0.1-0.6); MONO % 7.6 % (1.0-6.0); PLATELET COUNT 174 10^3/uL (120.0-450.0); RBC 3.04 10^6/uL (3.5-6.1); RED CELL DISTRIBUTION WIDTH 19.4 % (11.5-14.5); WHITE BLOOD COUNT 16.3 10^3/ul (4.5-11.0)
[2017-11-25] MEDS: Silver Sulfadiazine 1% Cream (25 gm) TP SCH ×2 (11:20→18:22)
[2017-11-25 11:32] LABS: ALBUMIN 2.4 g/dL (3.0-4.8); CALCIUM 9.5 mg/dL (8.4-10.5)
[2017-11-25 15:25] LABS: LYMPHOCYTE 3 % (22.0-35.0); NEUTROPHIL 92 % (50.0-70.0)
[2017-11-25 15:26] LABS: EOSINOPHIL 1 % (0.0-3.0); HYPOCHROMIA 1+; MONOCYTE 4 % (1.0-6.0); PLATELET ESTIMATE NORMAL (NORMAL); ROULEAU 2+; TOXIC GRANULATION 2+
[2017-11-25] MEDS: Cefepime 1gm in NS 100ml 1 GM/100 ML BAG IVPB SCH (16:02)
--- NOTE | 2017-11-25 16:54 | PN ---
DATE: 11/25/2017 SUBJECTIVE: The patient is seen lying in bed. She is awake. She is alert. She is comfortable. She denies any pain. She denies any shortness of breath. PHYSICAL EXAMINATION: GENERAL: Morbidly obese elderly lady lying in bed. VITAL SIGNS: Blood pressure 121/57, heart rate 84, respiratory rate 18, temperature 98. HEENT: Normocephalic, atraumatic, positive pallor. NECK: Supple, no JVD. LUNGS: Bilateral equal air entry, bilateral equal expansion. CARDIAC: S1 and S2, regular rate and rhythm, no murmur, no rub. ABDOMEN: Obese, distended, soft, nontender, bowel sounds present. EXTREMITIES: No lower extremity edema. LABORATORY DATA: WBC 16, hemoglobin 8.7, hematocrit 27, platelets 174. Sodium 138, potassium 4.4, chloride 99, CO2 of 28, BUN 64, creatinine 6.4, glucose 204, calcium 9.5. MEDICATIONS: Cardizem 5 mg per hour, Hectorol, insulin, Lipitor, Maxipime, amlodipine, prednisone 20, Protonix, Renagel, Silvadene, Xopenex, and Zofran. ASSESSMENT: 1. Status post severe sepsis/systemic inflammatory response syndrome. 2. Status post severe hemorrhagic shock. 3. Gastrointestinal bleed. 4. Bleeding from arteriovenous access. 5. Acute stroke. 6. Severe anemia. PLAN: 1. Monitor H and H, hemoglobin has dropped again. 2. Transfuse 1 unit on dialysis tomorrow if hemoglobin less than 8. 3. Continue Cardizem for new-onset AFib. 4. Continue antibiotics. 5. Neuro followup. 6. GI followup. Gabbi Felton MD
[2017-11-25 19:11] VITALS: BMI 33.0
--- NOTE | 2017-11-25 20:02 | PN ---
DATE: COVERING FOR: Alexandr Crocker MD. SUBJECTIVE: The patient is converted to sinus rhythm. IV Cardizem was discontinued. She denies any chest pain at this time. PHYSICAL EXAMINATION: VITAL SIGNS: Blood pressure 121/57, heart rate 69, temperature 98.8, respirations 18. HEENT: Pale conjunctivae. CHEST: Diminished breath sounds at the bases. HEART: S1 and S2 regular. EXTREMITIES: A 1+ pitting edema. LABORATORY DATA: Today's hemoglobin and hematocrit 8.7 and 26.7, white count 16.3, platelet count 174,000. Today's BUN and creatinine are 64 and 6.4 respectively. Glucose 204. Rest of SMA-7 is within normal limit. EKG on yesterday revealed atrial fibrillation with rapid ventricular response at a rate of 138. Echocardiographic study revealed mild concentric LVH with normal systolic function, moderate calcific aortic stenosis. EKG on 11/18/2017 revealed sinus rhythm. ASSESSMENT: 1. Paroxysmal atrial fibrillation. 2. Moderate calcific aortic stenosis. 3. History of multiple cerebrovascular accidents. 4. Recent gastrointestinal bleeding. 5. End-stage renal disease, on hemodialysis. RECOMMENDATIONS: Continue current Lipitor at 80 mg once a day, IV cefepime at 1 g daily, Norvasc 2.5 mg once a day, prednisone 30 mg once a day, Xopenex inhaler t.i.d., Zofran 4 mg every 6 hours. The patient is not a suitable candidate for anticoagulation. Obtain 12-lead EKG. Gino Olivares MD
--- NOTE | 2017-11-25 21:36 | CARD ---
APPROVED REPORT EKG Measurement Heart [id number] <Conclusion> Normal sinus rhythm Nonspecific T wave abnormality Abnormal ECG
--- NOTE | 2017-11-25 21:44 | PN ---
DATE: SUBJECTIVE: Patient is seen earlier this morning. She is awake. She is responsive. Her temperature is down. She did have a fever last night up to 100.1, 100.5. PHYSICAL EXAMINATION: VITAL SIGNS: Temperature is 97, T-max 100.5, blood pressure is 120/60, respiratory rate of 18, heart rate of 69. HEENT: Unremarkable. NECK: Supple. LUNGS: Decreased breath sounds. HEART: Normal S1 and S2. ABDOMEN: Soft, nontender. No organomegaly. No rebound. No guarding. No masses. LABORATORY DATA: Reveals a white count of 16,300, hemoglobin of 8, platelets of 174. Coagulation is noted. Chemistry reveals BUN of 64, creatinine of 6.4; procalcitonin is 22 yesterday, and on 11/16/2017, it was 0.22, on 11/17/2017, it was greater than 200, and yesterday it was 22. Patient's microbiology reveals the blood cultures from yesterday are negative in 24 hours, no growth. Stool for C. diff antigen and toxin is also negative. Patient had a chest x-ray, minimal left basilar atelectasis, read by Dr. Luciano Herndon. ASSESSMENT AND PLAN: A 67-year-old female with systemic inflammatory response syndrome from hypovolemic shock, arteriovenous fistula bleeding, status post code blue, with acute cerebrovascular accident, in right middle artery distribution and end-stage renal disease, in a patient with diabetes mellitus, hypertension, who had a fever yesterday and leukocytosis, SIRS systemic inflammatory response syndrome with negative blood cultures thus far, and urinalysis and urine culture is pending. Chest x-ray has questionable atelectasis. Patient does have an elevated procalcitonin . Patient is also on prednisone and now on day #2 of cefepime, and we will follow closely, fever appears to have responded pending initial workup. Kevin Rome MD
[2017-11-26] MEDS: Pantoprazole 40 mg EC Tab PO SCH (06:19)
[2017-11-26 07:39] LABS: EOS % 0.1 % (1.5-5.0); GRAN # 11.07 (1.4-6.5); HEMOGLOBIN 8.6 g/dL (12.0-16.0); LYMPH # 1.1 (1.2-3.4); LYMPH % 8.5 % (22.0-35.0); MEAN CELL VOLUME 87.1 fl (80.0-105.0); MEAN CORPUSCULAR HEMOGLOBIN 27.8 pg (25.0-35.0); MEAN PLATELET VOLUME 9.6 fl (7.0-11.0); MONO # 0.7 (0.1-0.6); MONO % 5.4 % (1.0-6.0); RBC 3.09 10^6/uL (3.5-6.1); RED CELL DISTRIBUTION WIDTH 19.4 % (11.5-14.5); WHITE BLOOD COUNT 12.9 10^3/ul (4.5-11.0)
[2017-11-26 07:52] LABS: ALB/GLOB RATIO 0.9 (1.1-1.8); ALBUMIN 2.5 g/dL (3.0-4.8); CALCIUM 9.8 mg/dL (8.4-10.5)
[2017-11-26] MEDS: Levalbuterol 1.25 MG/3 ML Inhal Soln UD IH SCH ×3 (08:06→19:29)
[2017-11-26] MEDS ORDERED: Doxercalciferol 4 mcg/2 ml Inj IVP ONE (08:17)
--- NOTE | 2017-11-26 10:30 | PN ---
DATE: 11/26/2017 PULMONARY NOTE SUBJECTIVE: The patient appears comfortable this morning. She is not short of breath at rest. PHYSICAL EXAMINATION: VITAL SIGNS: Temperature is 97.4, pulse 67, respirations 18/20, blood pressure 132/58. Oxygen saturation on nasal cannula is 98%. HEENT: Normocephalic, atraumatic. No JVD. CARDIOVASCULAR: Systolic ejection murmur at the lower left sternal border. No S3 gallop. LUNGS: Improved breath sounds at the bases. Very minimal/less rhonchi. No wheezing. EXTREMITIES: Less edema. No cyanosis. No clubbing. Calves are nontender to palpation. GI: Abdomen is soft, nontender and nondistended. Bowel sounds are positive. SKIN: No acute rash. NEUROLOGIC: Limited at the present time. PERTINENT LABORATORY DATA: Chest x-ray was repeated on 11/24/2017. There are no acute changes - compared to the previous film. IMPRESSION: 1. Status post hemorrhagic shock. 2. Status post cardiopulmonary resuscitation. 3. Arteriovenous fistula bleeding. 4. End-stage renal disease. 5. Acute cerebrovascular accident. 6. Asthma. 7. Anemia. PLAN: The patient appears very comfortable this morning. She is not short of breath at rest. She is awake and alert. She is currently on nasal cannula with an oxygen saturation of 98%. I did discuss the case with the night nurse at length. The night nurse stated that the patient had a very good night. On physical exam, her bronchospasm continues to resolve. In addition, the alveolar arterial gradient also continues to resolve. I will continue with the current nebulizer treatments and decrease the oral steroids this morning. The patient remains on antibiotic therapy - as per Infectious Disease. I did review the chest x-ray as above. There is no acute change. The clinical status of this patient is significantly improved overall. However, her future status/prognosis does remain guarded. I will discuss the above with Dr. Jordan. Hung Lees MD [facility]
--- NOTE | 2017-11-26 11:05 | PN ---
DATE: 11/26/2017 CARDIOLOGY FOLLOWUP SUBJECTIVE: The patient is back to normal sinus rhythm in the 80s. OBJECTIVE: Blood pressure 149/67. Physical exam is unchanged. LABORATORY DATA: Potassium is 5.3, glucose is 142. Hemoglobin is 8.6. IMPRESSION: 1. Paroxysmal atrial fibrillation, which is back to normal sinus rhythm. 2. Calcified aortic stenosis. 3. History of multiple cerebrovascular accidents. 4. End-stage renal disease. PLAN: Given these findings, we will need to review the echocardiogram, which shows moderate aortic stenosis. Alexandr Crocker MD
[2017-11-26] MEDS: Silver Sulfadiazine 1% Cream (25 gm) TP SCH ×2 (11:37→17:26)
[2017-11-26] MEDS: Cefepime 1gm in NS 100ml 1 GM/100 ML BAG IVPB SCH (12:32)
--- NOTE | 2017-11-26 13:13 | PN ---
DATE: 11/26/2017 SUBJECTIVE: The patient has no complaints of any chest pain. No shortness of breath. No headaches or dizziness. PHYSICAL EXAMINATION: VITAL SIGNS: Temperature is 98.5, pulse of 83, blood pressure 149/67, respirations 16. GENERAL: The patient is lying in bed, flat, comfortable. HEENT: No oral lesion. Anicteric sclerae. Moist mucosa. NECK: No JVD, adenopathy, or thyromegaly. CARDIOVASCULAR: S1 and S2, regular. No murmurs, rubs, or gallops. LUNGS: Clear to auscultation bilaterally. No wheeze, rales, or rhonchi. ABDOMEN: Bowel sounds are positive, soft, nontender and nondistended. EXTREMITIES: No cyanosis, clubbing or edema. LABORATORY DATA: White count of 12.9, hemoglobin 8.6, creatinine is 7.7. ASSESSMENT: 1. Paroxysmal atrial fibrillation, new onset. 2. Acute right middle cerebral artery stroke. 3. Status post cardiac arrest. 4. Hemorrhagic shock, resolved. 5. Hemorrhage in both cerebral hemispheres. 6. Acute anemia secondary to rectal bleeding, resolved. 7. Endstage renal disease on hemodialysis. 8. Atrial fibrillation, uncontrolled. 9. Transaminitis. 10. Bleeding from the left atrioventricular fistula, resolved. 11. Diabetes type 2. 12. Secondary hyperparathyroidism. 13. Thrombocytopenia, chronic. 14. Right internal jugular Perm-A-Cath. PLAN: The patient is currently comfortable. She is on Hectorol for her secondary hyperparathyroidism. She is on cefepime for antibiotics. She has blood cultures that were negative. She is on prednisone, it has been tapered. She is on Xopenex. She is going to continue with the dysphagia modified diet. She is getting physical therapy and hemodialysis. Melchor Jordan MD
--- NOTE | 2017-11-26 15:51 | PN ---
DATE: 11/26/2017 SUBJECTIVE: The patient is seen in the dialysis unit. She is awake. She is alert. She is comfortable. PHYSICAL EXAMINATION GENERAL: Morbidly obese elderly lady, lying in bed. VITAL SIGNS: Blood pressure 154/56, heart rate 83, respiratory rate 18, temperature 98.5. HEENT: Normocephalic, atraumatic, positive pallor. NECK: Supple, no JVD. LUNGS: Bilateral equal air entry, bilateral equal expansion. CARDIAC: S1 and S2, regular rate and rhythm, no murmur, no rub. ABDOMEN: Obese, distended, soft, nontender, bowel sounds present. EXTREMITIES: Trace lower extremity edema. INTAKE AND OUTPUT: Not charted. LABORATORY DATA: WBC 12.9, hemoglobin 8.6, hematocrit 27, platelets 210. Sodium 138, potassium 5.3, chloride 101, CO2 of 25, BUN 94, creatinine 7.7, glucose 142. ASSESSMENT AND PLAN: 1. Severe anemia, status post hemorrhagic shock, status post systemic inflammatory response syndrome, gastrointestinal bleed. Hemoglobin testing down again. 2. Acute cerebrovascular accident. 3. Morbid obesity. 4. Non-insulin dependent diabetes mellitus. 5. Hypertension. 6. End-stage renal disease . PLAN: 1. Receiving 1 unit of PRBC on dialysis. 2. Colitis/inflammation 3. Mild hyperkalemia to be corrected with dialysis. 4. Monitor H and H. 5. GI followup. 6. Continue PPI. 7. Continue antibiotics. Gabbi Felton MD
--- NOTE | 2017-11-26 18:48 | CP.PCM.PN ---
Subjective - Date & Time of Evaluation Date of Evaluation: 11/26/17 Time of Evaluation: 10:35 - Subjective Subjective: No fevers currently, no SOB at rest, no nausea. No diarrhea. Objective - Vital Signs/Intake and Output Vital Signs (last 24 hours): Temp Pulse Resp BP Pulse Ox 99.2 F 81 17 132/58 L 97 11/26/17 18:00 11/26/17 18:00 11/26/17 18:00 11/26/17 18:00 11/26/17 18:00 Intake and Output: 11/26/17 11/26/17 06:59 18:59 Intake Total 565 Balance 565 - Medications Medications: Current Medications Amlodipine Besylate (Norvasc) 2.5 mg PO DAILY [facility] Last Admin: 11/26/17 11:34 Dose: 2.5 mg Atorvastatin Calcium (Lipitor) 80 mg PO DIN [facility] Last Admin: 11/26/17 17:24 Dose: 80 mg Doxercalciferol (Hectorol) 2 mcg IVP MOWEFR [facility] Last Admin: 11/23/17 17:52 Dose: 2 mcg Cefepime HCl (Maxipime 1gm) 1 gm in 100 mls @ 100 mls/hr IVPB Q24H [facility] PRN Reason: Protocol Stop: 12/03/17 13:31 Last Admin: 11/26/17 12:32 Dose: 100 mls/hr Insulin Human Regular (Humulin R Low) 0 units SC Q6H [facility] PRN Reason: Protocol Last Admin: 11/16/17 13:00 Dose: Not Given Levalbuterol HCl (Xopenex) 1.25 mg IH TIDRESP [facility] Last Admin: 11/26/17 13:23 Dose: 1.25 mg Ondansetron HCl (Zofran Inj) 4 mg IVP Q6H PRN PRN Reason: Nausea/Vomiting Pantoprazole Sodium (Protonix Ec Tab) 40 mg PO 0600 [facility] Last Admin: 11/26/17 06:19 Dose: 40 mg Prednisone (Prednisone Tab) 20 mg PO DAILY [facility] Last Admin: 11/26/17 11:36 Dose: 20 mg Sevelamer HCl (Renagel) 1,600 mg PO TID [facility] Last Admin: 11/26/17 17:24 Dose: 1,600 mg Silver Sulfadiazine (Silvadene 1% 25 Gm) 0 gm TP BID [facility] Last Admin: 11/26/17 17:26 Dose: 25 gm - Labs Labs: 11/26/17 07:20 11/26/17 07:20 PT 14.6 SECONDS (9.4-12.5) H 11/17/17 06:00 INR 1.26 (0.93-1.08) H 11/17/17 06:00 APTT 32.4 Seconds (25.1-36.5) 11/17/17 06:00 - Constitutional Appears: Chronically Ill - Head Exam Head Exam: NORMAL INSPECTION - Neck Exam Neck Exam: absent: Meningismus - Respiratory Exam Respiratory Exam: Decreased Breath Sounds - Cardiovascular Exam Cardiovascular Exam: +S1, +S2 - GI/Abdominal Exam GI & Abdominal Exam: Soft. absent: Tenderness Assessment and Plan - Assessment and Plan (Free Text) Plan: Assessment new onset systemic inflammatory response syndrome R/O sepsis S/P hypovolemic shock from AV fistula bleeding S/P code blue in this patient also with GI bleeding acute CVA, Right MCA distribution ESRD on HD DM HTN obesity with BMI 30 asthma history of CVA Plan continue Cefepime and follow up repeat cultures from yesterday will monitor clinically
[2017-11-27] MEDS: Pantoprazole 40 mg EC Tab PO SCH (05:51)
[2017-11-27] MEDS: Levalbuterol 1.25 MG/3 ML Inhal Soln UD IH SCH ×2 (07:54→13:06)
--- NOTE | 2017-11-27 08:02 | PN ---
DATE: 11/27/2017 SUBJECTIVE: The patient has no complaints of any chest pain. No shortness of breath or headaches. PHYSICAL EXAMINATION: VITAL SIGNS: Temperature is 99.2, pulse of 84, blood pressure is 132/58, respirations 17. GENERAL: The patient is lying in bed, flat, comfortable. HEENT: No oral lesion. Anicteric sclerae. Moist mucosa. NECK: No JVD, adenopathy, or thyromegaly. CARDIOVASCULAR: S1 and S2, regular. No murmurs, rubs, or gallops. LUNGS: Clear to auscultation bilaterally. No wheeze, rales, or rhonchi. ABDOMEN: Bowel sounds are positive, soft, nontender and nondistended. EXTREMITIES: No cyanosis, clubbing or edema. LABORATORY DATA: White count of 12.9, hemoglobin 8.6. Creatinine 7.7. ASSESSMENT: 1. Paroxysmal atrial fibrillation, new onset. 2. Acute right middle cerebral artery stroke. 3. Status post cardiac arrest. 4. Hemorrhagic stroke, resolved. 5. Hemorrhage in the cerebral hemisphere. 6. Acute anemia secondary to rectal bleeding, resolved. 7. End-stage renal disease, on hemodialysis. 8. Atrial fibrillation. 9. Transaminitis. 10. Bleeding from the left arteriovenous fistula, resolved. 11. Diabetes type 2. 12. Secondary hypoparathyroidism. 13. Thrombocytopenia, chronic. 14. Right internal jugular PermCath. 15. Aortic stenosis, moderate. PLAN: The patient's blood cultures done on 11/24/2017 are negative. The patient is on cefepime for antibiotics. She is on amlodipine for hypertension. She is on Renagel for her secondary hypothyroidism. She is on Zofran as needed. The notes of Dr. Mukherjee from ID and Dr. Crocker from Cardiology were reviewed. The patient has moderate aortic stenosis on the echo. The patient is not able to get anticoagulation because of the bleeding that was seen on the MRI. She is on Lipitor for dyslipidemia. She is on prednisone. It has been tapered. Melchor Jordan MD
[2017-11-27 08:21] VITALS: PULSE 64; RESP 18; TEMP 98.8; O2SAT 95
[2017-11-27 08:40] LABS: HEMOGLOBIN 9.8 g/dL (12.0-16.0); MEAN CELL VOLUME 88.2 fl (80.0-105.0); MEAN CORPUSCULAR HEMOGLOBIN 28.3 pg (25.0-35.0); MEAN CORPUSCULAR HGB CONC 32.1 g/dl (31.0-37.0); MEAN PLATELET VOLUME 9.3 fl (7.0-11.0); RBC 3.46 10^6/uL (3.5-6.1); RED CELL DISTRIBUTION WIDTH 18.5 % (11.5-14.5); WHITE BLOOD COUNT 8.5 10^3/ul (4.5-11.0)
[2017-11-27 09:03] LABS: CALCIUM 9.7 mg/dL (8.4-10.5)
[2017-11-27] MEDS: Silver Sulfadiazine 1% Cream (25 gm) TP SCH (10:15)
[2017-11-27 10:22] VITALS: BP 120/59
--- NOTE | 2017-11-27 12:03 | CP.PCM.PN ---
Subjective - Date & Time of Evaluation Date of Evaluation: 11/27/17 Time of Evaluation: 12:00 - Subjective Subjective: Surgery Patient seen and examined. No acute events. Denies bloody BM, nausea, diarrhea, SOB. Tolerating diet. Objective - Vital Signs/Intake and Output Vital Signs (last 24 hours): Temp Pulse Resp BP Pulse Ox 98.8 F 64 18 120/59 L 95 11/27/17 08:20 11/27/17 08:20 11/27/17 08:20 11/27/17 10:19 11/27/17 08:20 Intake and Output: 11/27/17 11/27/17 06:59 18:59 Intake Total 240 Balance 240 - Medications Medications: Current Medications Amlodipine Besylate (Norvasc) 2.5 mg PO DAILY [facility] Last Admin: 11/27/17 10:19 Dose: 2.5 mg Atorvastatin Calcium (Lipitor) 80 mg PO DIN [facility] Last Admin: 11/26/17 17:24 Dose: 80 mg Doxercalciferol (Hectorol) 2 mcg IVP MOWEFR [facility] Last Admin: 11/23/17 17:52 Dose: 2 mcg Cefepime HCl (Maxipime 1gm) 1 gm in 100 mls @ 100 mls/hr IVPB Q24H [facility] PRN Reason: Protocol Stop: 12/03/17 13:31 Last Admin: 11/26/17 12:32 Dose: 100 mls/hr Insulin Human Regular (Humulin R Low) 0 units SC Q6H [facility] PRN Reason: Protocol Last Admin: 11/16/17 13:00 Dose: Not Given Levalbuterol HCl (Xopenex) 1.25 mg IH TIDRESP [facility] Last Admin: 11/27/17 07:54 Dose: 1.25 mg Ondansetron HCl (Zofran Inj) 4 mg IVP Q6H PRN PRN Reason: Nausea/Vomiting Pantoprazole Sodium (Protonix Ec Tab) 40 mg PO 0600 [facility] Last Admin: 11/27/17 05:51 Dose: 40 mg Prednisone (Prednisone Tab) 20 mg PO DAILY [facility] Last Admin: 11/27/17 10:19 Dose: 20 mg Sevelamer HCl (Renagel) 1,600 mg PO TID [facility] Last Admin: 11/27/17 10:19 Dose: 1,600 mg Silver Sulfadiazine (Silvadene 1% 25 Gm) 0 gm TP BID [facility] Last Admin: 11/27/17 10:15 Dose: 1 gm - Labs Labs: 11/27/17 08:30 11/27/17 08:30 PT 14.6 SECONDS (9.4-12.5) H 11/17/17 06:00 INR 1.26 (0.93-1.08) H 11/17/17 06:00 APTT 32.4 Seconds (25.1-36.5) 11/17/17 06:00 - Constitutional Appears: No Acute Distress - Head Exam Head Exam: ATRAUMATIC, NORMAL INSPECTION, NORMOCEPHALIC - Eye Exam Eye Exam: EOMI, Normal appearance, PERRL Pupil Exam: NORMAL ACCOMODATION, PERRL - ENT Exam ENT Exam: Mucous Membranes Moist, Normal Exam - Neck Exam Neck Exam: Full ROM, Normal Inspection. absent: Lymphadenopathy - Respiratory Exam Respiratory Exam: Clear to Ausculation Bilateral, NORMAL BREATHING PATTERN - Cardiovascular Exam Cardiovascular Exam: REGULAR RHYTHM, +S1, +S2. absent: Murmur - GI/Abdominal Exam GI & Abdominal Exam: Soft, Normal Bowel Sounds. absent: Distended, Firm, Guarding, Rigid, Tenderness - Exam Exam: NORMAL INSPECTION - Extremities Exam Extremities Exam: Full ROM, Normal Capillary Refill, Normal Inspection. absent : Joint Swelling, Pedal Edema - Back Exam Back Exam: NORMAL INSPECTION - Neurological Exam Neurological Exam: Alert, Awake, CN II-XII Intact, Normal Gait, Oriented x3 - Psychiatric Exam Psychiatric exam: Normal Affect, Normal Mood - Skin Skin Exam: Dry, Intact, Normal Color, Warm Assessment and Plan - Assessment and Plan (Free Text) Assessment: 67F w. GI bleed, resolved CT: proctitis EGD: no active bleeding Bleeding scan: No active bleeding Plan: -monitor H/H, transfuse PRN -silvadene BID to skin tear R hand -will continue to follow -Thrombectomy of L AVF when stable d/w Dr. De Leon
--- NOTE | 2017-11-27 15:01 | PN ---
DATE: SUBJECTIVE: The patient is currently seen sitting in a chair. She states she is likely going to be transferred to [place] for rehab and it is unclear whether the patient will be receiving dialysis. MEDICATIONS: Medication list reviewed. The patient is currently on Hectorol, insulin, Lipitor, Maxipime, Norvasc, prednisone, Protonix, Renagel, Silvadene, Xopenex and Zofran. OBJECTIVE: INTAKE/OUTPUT: Intake 805, output hemodialysis. VITAL SIGNS: Temperature 98, respiratory rate is 18. Blood pressure was 125/53, pulse of 64. HEENT: Shows her to be normocephalic, atraumatic. Conjunctivae are pale. Sclerae are nonicteric. NECK: Supple. No neck vein distention. CHEST: Clear to auscultation and percussion. No rales, rhonchi or wheezing. CARDIOVASCULAR: Shows a regular rate and rhythm without audible murmurs, rubs or gallops. ABDOMEN: Soft. Bowel sounds normal. No rebound or guarding. EXTREMITIES: No lower extremity edema. Nonfunctioning left upper extremity AV fistula. Positive right chest wall PermCath. NEURO: Shows slight weakness of her left side. LABORATORY DATA AND IMAGING: CBC: White blood cell count 8.5, hemoglobin 9.8 with a platelet count of 213,000. Chemistry showed normal electrolytes today. BUN 69 with a creatinine of 5.7, glucose was 140. Yesterday's predialysis K was 5.3. The patient is status post total of 7 units of packed red blood cells, last one was given yesterday on dialysis. Microbiology: All cultures are negative. ASSESSMENT: 1. Status post cardiac arrest at the end of dialysis on 11/16/2017 in the setting of gastrointestinal bleeding in the setting of hemorrhage from her arteriovenous access. The patient had hemorrhagic shock. She is also status post systemic inflammatory response syndrome. She appears to be stable. Hemoglobin appears to be stable, but she does require periodic transfusions of blood. 2. Status post right-sided cerebrovascular accident with mild left-sided weakness. The patient anticipates going to [place] for acute rehab. 3. History of end-stage renal disease. The patient will continue Sunday, Sunday, Sunday dialysis. 4. History of arp-qzviokh-foxwyrksp diabetes mellitus. The patient is on sliding scale insulin. 5. History of secondary hyperparathyroidism. The patient will continue Renagel and vitamin D on dialysis. She had been receiving Sensipar in the outpatient setting. This is currently on hold. 6. History of hypertension. Blood pressure is controlled on present medical therapy. 7. Status post endoscopy with identification of a gastric and duodenal ulcer with gastritis, but no evidence of bleeding. 8. History of systemic inflammatory response syndrome. The patient is completing a course of cefepime therapy. PLAN: 1. The patient will likely be transferred to [place] later today. Next dialysis will likely be at [place], but we will need to confirm this. 2. Continue rehabilitation status post her right-sided CVA. 3. The patient will likely need surgical evaluation for her AV fistula post stabilization of her acute issues. 4. Continue renal diet. Recheck a PTH level and determine whether or not Sensipar needs to be restarted. Valeriy Loyd MD
--- NOTE | 2017-11-27 15:54 | PN ---
DATE: 11/27/2017 CARDIOLOGY FOLLOWUP SUBJECTIVE: The patient is resting in the bed without shortness of breath. PHYSICAL EXAMINATION: VITAL SIGNS: Blood pressure is 125/53 with the heart rates in the 60s. NECK: Negative JVD. LUNGS: Without rales. HEART: Reveals S1, S2 with a II/ systolic ejection murmur. EXTREMITIES: Without edema. LABORATORY DATA: Hemoglobin is 9.8. Chemistries: BUN and creatinine are 69 and 5.7. IMPRESSION: 1. Paroxysmal atrial fibrillation, which the patient remains in normal sinus rhythm. 2. There is no critical aortic stenosis after review of the echocardiogram. The patient has a maximum gradient of 9 mmHg on echocardiogram. 3. History of multiple cerebrovascular accidents. 4. End-stage renal disease. PLAN: Given these findings, although the patient would benefit from anticoagulation for her atrial fibrillation; however, the bleeding that has been noted precludes that. The patient is at increased risk for embolic phenomenon. Once she recovers from her condition, we should consider her for a possible Watchman's procedure to reduce the chances of her thromboembolic phenomenon from her atrial fibrillation and her contraindications to anticoagulation. Alexandr Crocker MD
--- NOTE | 2017-11-27 16:44 | CP.PCM.PN ---
Subjective - Date & Time of Evaluation Date of Evaluation: 11/27/17 Time of Evaluation: 10:20 - Subjective Subjective: Seen and examined at the bedside earlier today, chart was reviewed. Patient denies nausea, vomiting, or abdominal pain. Tolerating oral intake. No acute overnight events as per nursing. Patient reports having loose BMs has not noticed any melena or bright red blood. Objective - Vital Signs/Intake and Output Vital Signs (last 24 hours): Temp Pulse Resp BP Pulse Ox 98.8 F 64 18 120/59 L 95 11/27/17 08:20 11/27/17 08:20 11/27/17 08:20 11/27/17 10:19 11/27/17 08:20 Intake and Output: 11/27/17 11/27/17 06:59 18:59 Intake Total 240 Balance 240 - Medications Medications: Current Medications Amlodipine Besylate (Norvasc) 2.5 mg PO DAILY [facility] Last Admin: 11/27/17 10:19 Dose: 2.5 mg Atorvastatin Calcium (Lipitor) 80 mg PO DIN [facility] Last Admin: 11/26/17 17:24 Dose: 80 mg Doxercalciferol (Hectorol) 2 mcg IVP MOWEFR [facility] Last Admin: 11/23/17 17:52 Dose: 2 mcg Cefepime HCl (Maxipime 1gm) 1 gm in 100 mls @ 100 mls/hr IVPB Q24H [facility] PRN Reason: Protocol Stop: 12/03/17 13:31 Last Admin: 11/26/17 12:32 Dose: 100 mls/hr Insulin Human Regular (Humulin R Low) 0 units SC Q6H [facility] PRN Reason: Protocol Last Admin: 11/16/17 13:00 Dose: Not Given Levalbuterol HCl (Xopenex) 1.25 mg IH TIDRESP [facility] Last Admin: 11/27/17 13:06 Dose: 1.25 mg Ondansetron HCl (Zofran Inj) 4 mg IVP Q6H [facility] PRN Reason: Nausea/Vomiting Pantoprazole Sodium (Protonix Ec Tab) 40 mg PO 0600 [facility] Last Admin: 11/27/17 05:51 Dose: 40 mg Prednisone (Prednisone Tab) 20 mg PO DAILY [facility] Last Admin: 11/27/17 10:19 Dose: 20 mg Sevelamer HCl (Renagel) 1,600 mg PO TID [facility] Last Admin: 11/27/17 10:19 Dose: 1,600 mg Silver Sulfadiazine (Silvadene 1% 25 Gm) 0 gm TP BID [facility] Last Admin: 11/27/17 10:15 Dose: 1 gm - Labs Labs: 11/27/17 08:30 11/27/17 08:30 PT 14.6 SECONDS (9.4-12.5) H 11/17/17 06:00 INR 1.26 (0.93-1.08) H 11/17/17 06:00 APTT 32.4 Seconds (25.1-36.5) 11/17/17 06:00 - Constitutional Appears: No Acute Distress - Head Exam Head Exam: NORMOCEPHALIC - Eye Exam Eye Exam: Normal appearance. absent: Scleral icterus - ENT Exam ENT Exam: Mucous Membranes Moist - Neck Exam Neck Exam: Normal Inspection - Respiratory Exam Respiratory Exam: NORMAL BREATHING PATTERN. absent: Respiratory Distress - Cardiovascular Exam Cardiovascular Exam: +S1, +S2 - GI/Abdominal Exam GI & Abdominal Exam: Soft, Normal Bowel Sounds. absent: Guarding, Tenderness, Organomegaly, Rebound - Extremities Exam Extremities Exam: absent: Calf Tenderness, Pedal Edema - Neurological Exam Neurological Exam: Alert, Awake, Oriented x3 - Skin Skin Exam: Dry, Warm Assessment and Plan - Assessment and Plan (Free Text) Assessment: ASSESSMENT: Anemia secondary to GIB S/P colon found Ischemic Colitis, s/p EGD: dinorah ulcer/duodenal ulcer/large H/ H Acute R middle cerebral artery stroke Atrial Fibrillation S/P Hemorrhagic shock ESRD on dialysis Aortic Stenosis DM Obesity PLAN: monitor H/H on IV antibiotics on Prednisone continue PPI diet as tolerated Will need a repeat colon at one point, colon was incomplete. plan is to transfer to [facility] Seen and discussed w/ Dr. Romero.
--- NOTE | 2017-11-28 00:25 | PN ---
DATE: 11/27/2017 SUBJECTIVE: Patient is in bed, in no acute distress, nontoxic. Patient was seen early this morning, in room 367, bed 2. No fevers, no chills. No nausea, no vomiting. PHYSICAL EXAMINATION: VITAL SIGNS: Temperature is 98, blood pressure is 120/70, respiratory rate of 16. HEENT: Unremarkable. NECK: Supple. LUNGS: Have decreased breath sounds. HEART: Normal S1 and S2. ABDOMEN: Soft and nontender. No organomegaly. No rebound. No guarding. No masses. LABORATORY DATA: Reveals the white count is down to 8.5, hemoglobin of 9. BUN of 69, creatinine of 5.7. Microbiology is reviewed. ASSESSMENT AND PLAN: A 67 years old with new onset of systemic inflammatory response syndrome, hypovolemic shock, status post arteriovenous fistula bleeding, status post code blue with gastrointestinal bleeding, acute cerebrovascular accident with right middle cerebral artery distribution in a patient with end-stage renal disease, on hemodialysis; diabetes mellitus; hypertension; obesity with a BMI of 30 and cultures negative. Patient is at risk for developing nosocomial infections. Kevin Rome MD
== END 2017-11-27 18:02 | DRG 314 ==
LOC: ED 01:44 → ERH 06:21 → CCU 08:42 → 2RSO 11-23 12:16 → 3RNO 11-26 18:13
PROVIDERS: ADMIT Internal Medicine Nephrology; ATTEND Internal Medicine Nephrology
PROC: 06HY33Z Insertion of Infusion Device into Lower Vein, Percutaneous Approach (ICD-10-PCS; 2017-11-16)
PROC: B54BZZA Ultrasonography of Right Lower Extremity Veins, Guidance (ICD-10-PCS; 2017-11-16)
PROC: 03HY32Z Insertion of Monitoring Device into Upper Artery, Percutaneous Approach (ICD-10-PCS; 2017-11-16)
PROC: 5A1945Z Respiratory Ventilation, 24-96 Consecutive Hours (ICD-10-PCS; 2017-11-16)
PROC: 5A1D70Z Performance of Urinary Filtration, Intermittent, Less than 6 Hours Per Day (ICD-10-PCS; 2017-11-16)
PROC: 5A1D70Z Performance of Urinary Filtration, Intermittent, Less than 6 Hours Per Day (ICD-10-PCS; 2017-11-16)
PROC: 0BH17EZ Insertion of Endotracheal Airway into Trachea, Via Natural or Artificial Opening (ICD-10-PCS; 2017-11-16)
PROC: 05HM33Z Insertion of Infusion Device into Right Internal Jugular Vein, Percutaneous Approach (ICD-10-PCS; 2017-11-16)
PROC: B543ZZA Ultrasonography of Right Jugular Veins, Guidance (ICD-10-PCS; 2017-11-16)
PROC: B513ZZA Fluoroscopy of Right Jugular Veins, Guidance (ICD-10-PCS; 2017-11-16)
PROC: 5A12012 Performance of Cardiac Output, Single, Manual (ICD-10-PCS; 2017-11-16)
PROC: 30233K1 Transfusion of Nonautologous Frozen Plasma into Peripheral Vein, Percutaneous Approach (ICD-10-PCS; 2017-11-17)
PROC: 04HY32Z Insertion of Monitoring Device into Lower Artery, Percutaneous Approach (ICD-10-PCS; 2017-11-17)
PROC: 0DJ08ZZ Inspection of Upper Intestinal Tract, Via Natural or Artificial Opening Endoscopic (ICD-10-PCS; 2017-11-18)
PROC: 30233N1 Transfusion of Nonautologous Red Blood Cells into Peripheral Vein, Percutaneous Approach (ICD-10-PCS; 2017-11-18)
PROC: 5A1D70Z Performance of Urinary Filtration, Intermittent, Less than 6 Hours Per Day (ICD-10-PCS; 2017-11-21)
PROC: 5A1D70Z Performance of Urinary Filtration, Intermittent, Less than 6 Hours Per Day (ICD-10-PCS; 2017-11-23)
PROC: 0DJD8ZZ Inspection of Lower Intestinal Tract, Via Natural or Artificial Opening Endoscopic (ICD-10-PCS; principal; 2017-11-23 11:45)
PROC: 5A1D70Z Performance of Urinary Filtration, Intermittent, Less than 6 Hours Per Day (ICD-10-PCS; 2017-11-26)
DX: T82.838A Hemorrhage due to vascular prosthetic devices, implants and grafts, initial encounter (principal); I63.511 Cerebral infarction due to unspecified occlusion or stenosis of right middle cerebral artery; N18.6 End stage renal disease; R57.1 Hypovolemic shock; R65.21 Severe sepsis with septic shock; A41.9 Sepsis, unspecified organism; I46.9 Cardiac arrest, cause unspecified; J96.01 Acute respiratory failure with hypoxia; J96.02 Acute respiratory failure with hypercapnia; K26.4 Chronic or unspecified duodenal ulcer with hemorrhage; K72.00 Acute and subacute hepatic failure without coma; K85.90 Acute pancreatitis without necrosis or infection, unspecified; I62.9 Nontraumatic intracranial hemorrhage, unspecified; I12.0 Hypertensive chronic kidney disease with stage 5 chronic kidney disease or end stage renal disease; D62 Acute posthemorrhagic anemia; E87.2 Acidosis; G93.1 Anoxic brain damage, not elsewhere classified; K55.9 Vascular disorder of intestine, unspecified; N25.81 Secondary hyperparathyroidism of renal origin; Y84.8 Other medical procedures as the cause of abnormal reaction of the patient, or of later complication, without mention of misadventure at the time of the procedure; D50.0 Iron deficiency anemia secondary to blood loss (chronic); D69.6 Thrombocytopenia, unspecified; E03.9 Hypothyroidism, unspecified; E11.22 Type 2 diabetes mellitus with diabetic chronic kidney disease; E11.42 Type 2 diabetes mellitus with diabetic polyneuropathy; E11.69 Type 2 diabetes mellitus with other specified complication; E20.8 Other hypoparathyroidism; E66.01 Morbid (severe) obesity due to excess calories; E78.00 Pure hypercholesterolemia, unspecified; E78.5 Hyperlipidemia, unspecified; E86.1 Hypovolemia; I35.0 Nonrheumatic aortic (valve) stenosis; I48.0 Paroxysmal atrial fibrillation; I70.0 Atherosclerosis of aorta; J44.9 Chronic obstructive pulmonary disease, unspecified; K25.9 Gastric ulcer, unspecified as acute or chronic, without hemorrhage or perforation; K29.70 Gastritis, unspecified, without bleeding; K44.9 Diaphragmatic hernia without obstruction or gangrene; K57.90 Diverticulosis of intestine, part unspecified, without perforation or abscess without bleeding; K64.9 Unspecified hemorrhoids; K59.00 Constipation, unspecified; S61.411A Laceration without foreign body of right hand, initial encounter; Z68.30 Body mass index [BMI] 30.0-30.9, adult; Z79.82 Long term (current) use of aspirin; Z86.73 Personal history of transient ischemic attack (TIA), and cerebral infarction without residual deficits; Z99.2 Dependence on renal dialysis; K31.7 Polyp of stomach and duodenum; Z78.1 Physical restraint status

== ENCOUNTER 2018-06-18 11:54 | Day surgery (SDC) | payer MEDICARE, MEDICAID ==
[2017-12-02 09:47] VITALS: PULSE 103
[2018-06-18 12:18] VITALS: BMI 23.8
[2018-06-18 13:04] LABS: BASO # 0.02 K/mm3 (0.0-2.0); BASO % 0.3 % (0.0-3.0); EOS # 0.3 (0.0-0.7); EOS % 5.1 % (1.5-5.0); GRAN # 4.19 (1.4-6.5); GRAN % 64.1 % (50.0-68.0); HEMOGLOBIN 9.7 g/dL (12.0-16.0); LYMPH # 1.6 (1.2-3.4); MEAN CORPUSCULAR HEMOGLOBIN 31.2 pg (25.0-35.0); MEAN CORPUSCULAR HGB CONC 31.2 g/dl (31.0-37.0); MEAN PLATELET VOLUME 9.1 fl (7.0-11.0); MONO # 0.4 (0.1-0.6); MONO % 5.5 % (1.0-6.0); RBC 3.11 10^6/uL (3.5-6.1); RED CELL DISTRIBUTION WIDTH 14.7 % (11.5-14.5); WHITE BLOOD COUNT 6.5 10^3/uL (4.5-11.0)
[2018-06-18 13:13] LABS: INR 0.91; PARTIAL THROMBOPLASTIN TIME 22.4 Seconds (25.1-36.5); PROTHROMBIN TIME 10.5 SECONDS (9.4-12.5)
[2018-06-18 13:32] LABS: CALCIUM 10.2 mg/dL (8.4-10.5)
[2018-06-18] MEDS ORDERED: Lidocaine 2% Inj (20ml) ONE (14:36)
[2018-06-18] MEDS ORDERED: Midazolam 2 MG/2 ML VIAL ONE (15:38)
[2018-06-18] MEDS ORDERED: Sodium Chloride 0.45% 1,000 ML IV SCH (16:15)
[2018-06-18 16:52] VITALS: RESP 18; TEMP 97.9
[2018-06-18 17:08] VITALS: BP 156/90; PULSE 76; O2SAT 99
--- NOTE | 2018-06-18 18:42 | VASCULAR ---
PROCEDURE: Replace tunneled right IJ dialysis catheter. CLINICAL HISTORY: End stage renal disease. Malfunctioning tunneled dialysis catheter. PHYSICIAN(S): Alexandr Ayala M.D. TECHNIQUE: The relative risks and indications for the procedure were explained to the patient and consent obtained. The patient was placed supine on the arteriogram table and the tunneled right IJ dialysis catheter prepped and draped in the usual sterile fashion. Antibiotics were given prior to the procedure. 1% Xylocaine was used to anesthetize the skin soft tissues at the vein insertion site. A 2 cm incision was performed and the catheter bluntly dissected. Both ends of the catheter controlled and the catheter transected. The cuff and soft tissue portion of the catheter were anesthetized with 1% Xylocaine. Blunt dissection was performed. The cuffed portion of the catheter was removed. A 0.035 angled Glidewire was advanced through the catheter fragment and placed in the IVC. The old catheter was removed. The sheath was placed for the new catheter insertion. A 28 cm Nexgen catheter was advanced with its tip in the right atrium. A new retrograde tunnel below right clavicle was performed. The catheter was trimmed and the hub attached. Both ports aspirate and inject easily. The catheter was secured. The incision was closed with interrupted sutures. FINDINGS: IMPRESSION: 1. Replacement of the patient's tunneled right IJ dialysis catheter. A 28cm Nextgen catheter was placed with its tip in the right atrium.
== END 2018-06-18 17:00 | disposition home or self-care (01) ==
LOC: SDSVAS 11:54
PROVIDERS: ATTEND Radiology Vascular & Interventional Radiology
DX: T82.41XA Breakdown (mechanical) of vascular dialysis catheter, initial encounter (principal); I13.2 Hypertensive heart and chronic kidney disease with heart failure and with stage 5 chronic kidney disease, or end stage renal disease; E11.22 Type 2 diabetes mellitus with diabetic chronic kidney disease; N18.6 End stage renal disease; J45.909 Unspecified asthma, uncomplicated; Z86.73 Personal history of transient ischemic attack (TIA), and cerebral infarction without residual deficits; D64.9 Anemia, unspecified; E78.5 Hyperlipidemia, unspecified; M19.90 Unspecified osteoarthritis, unspecified site; Z91.040 Latex allergy status; Z91.048 Other nonmedicinal substance allergy status
CPT/HCPCS: 36415; 36558; 36589; 76937; 77001; 80048; 85025; 85610; 85730; 99152; 99153; C1750; C1769; J0690; J1644; J2250; J2405; J3010; J7030

== ENCOUNTER 2018-08-22 08:21 | Outpatient (CLI) | payer MEDICARE, MEDICAID | END 2018-08-22 08:22 | disposition home or self-care (01) | LOC: PAT 08:21 ==

== ENCOUNTER 2018-08-30 11:14 | Inpatient (IN) | payer MEDICARE, MEDICAID ==
[2017-12-02 09:47] VITALS: PULSE 103
[2018-08-22 10:24] VITALS: BMI 24.7
[2018-08-30 12:15] LABS: INR 1.01; PARTIAL THROMBOPLASTIN TIME 33.4 Seconds (26.9-38.3); PROTHROMBIN TIME 11.4 SECONDS (9.4-12.5)
[2018-08-30 12:20] LABS: CALCIUM 10.4 mg/dL (8.4-10.5)
[2018-08-30] MEDS ORDERED: Bupivacaine 0.5% 50 ML IJ ONE (13:01)
[2018-08-30] MEDS ORDERED: Thrombin Topical 20,000 Intl Units Spray Kit TOP ONE (13:01)
[2018-08-30] MEDS ORDERED: Liquid Adhesive TOP ONE (13:01)
[2018-08-30] MEDS ORDERED: Lidocaine 1% Inj (20ml) ONE (13:01)
[2018-08-30] MEDS ORDERED: Propofol 10 mg/ml Inj (20 ML) ONE (13:06)
[2018-08-30] MEDS ORDERED: Lidocaine PF 2% (5 ml) Inj (For Cardiac Arrhy) ONE (13:08)
[2018-08-30] MEDS ORDERED: Absorbable Gelatin Sponge Size 12-7 ONE ×2 (13:10)
[2018-08-30] MEDS ORDERED: Sodium Chloride 0.9% 10 ML IV ONE ×2 (15:18→15:23)
[2018-08-30] MEDS ORDERED: HYDROmorphone 0.5 mg/0.5 ml ISec IVP PRN (16:25)
--- NOTE | 2018-08-30 16:37 | PCM.SURG1 ---
Surgeon's Initial Post Op Note - Surgeon's Notes Surgeon: Dr. De Leon Associate Dean Of Women: Frances PGY4, PGY2 Type of Anesthesia: General LMA Anesthesia Administered By: Dr. Riley Pre-Operative Diagnosis: Left Upper extremity infected AV Graft Fistula Operative Findings: purulent drainage from AV graft. for details, see op note Post-Operative Diagnosis: Infected Left upper extremity AV graft fistula Operation Performed: Segmental removal of inefected left upper extremity AV graft fistula Specimen/Specimens Removed: Left upper extremity AV graft Estimated Blood Loss: EBL {In ML}: 10 Drains Used: No Drains Post-Op Condition: Fair Date of Surgery/Procedure: 08/30/18 Time of Surgery/Procedure: 16:37
[2018-08-31] MEDS: Pantoprazole 40 mg EC Tab PO SCH (05:54)
[2018-08-31 08:02] LABS: BASO # 0.01 K/mm3 (0.0-2.0); BASO % 0.2 % (0.0-3.0); EOS # 0.3 (0.0-0.7); EOS % 5.6 % (1.5-5.0); HEMOGLOBIN 11.2 g/dL (12.0-16.0); LYMPH # 1.8 (1.2-3.4); LYMPH % 29.8 % (22.0-35.0); MEAN CELL VOLUME 97.6 fl (80.0-105.0); MEAN CORPUSCULAR HEMOGLOBIN 29.8 pg (25.0-35.0); MEAN CORPUSCULAR HGB CONC 30.5 g/dl (31.0-37.0); MEAN PLATELET VOLUME 10.3 fl (7.0-11.0); MONO # 0.3 (0.1-0.6); MONO % 4.8 % (1.0-6.0); RBC 3.76 10^6/uL (3.5-6.1); RED CELL DISTRIBUTION WIDTH 16.4 % (11.5-14.5); WHITE BLOOD COUNT 6.1 10^3/uL (4.5-11.0)
[2018-08-31 08:27] LABS: CALCIUM 9.6 mg/dL (8.4-10.5)
[2018-08-31] MEDS: Multivitamin Vitamin B Complex (Nephro-Vite) Tab PO SCH (08:36)
[2018-08-31] MEDS ORDERED: Vancomycin 500mg in NS 500 MG/100 ML BAG IVPB ONE (13:00)
--- NOTE | 2018-08-31 16:09 | CP.PCM.PN ---
Subjective - Date & Time of Evaluation Date of Evaluation: 08/31/18 Time of Evaluation: 16:03 - Subjective Subjective: Surgery: Dr. De Leon Pt seen and examined. Surgical site is oozing blood. Dressing changed multiple times. Objective - Vital Signs/Intake and Output Vital Signs (last 24 hours): Temp Pulse Resp BP Pulse Ox 98.2 F 94 H 18 122/79 97 08/31/18 07:00 08/31/18 07:00 08/31/18 08:50 08/31/18 07:00 08/31/18 07:00 - Medications Medications: Current Medications Aspirin (Ecotrin) 81 mg PO DAILY [facility] Last Admin: 08/31/18 09:42 Dose: 81 mg Atorvastatin Calcium (Lipitor) 20 mg PO DIN [facility] Clopidogrel Bisulfate (Plavix) 75 mg PO DAILY [facility] Last Admin: 08/31/18 09:42 Dose: 75 mg Metoprolol Tartrate (Lopressor) 25 mg PO BID PRN PRN Reason: Systolic Blood Pressure Midodrine (Proamatine) 10 mg PO BID [facility] Last Admin: 08/31/18 09:42 Dose: 10 mg Mirtazapine (Remeron) 15 mg PO HS [facility] Last Admin: 08/30/18 22:13 Dose: 15 mg Pantoprazole Sodium (Protonix Ec Tab) 40 mg PO 0600 [facility] Last Admin: 08/31/18 05:54 Dose: 40 mg Sevelamer HCl (Renagel) 1,600 mg PO 0800 [facility] Last Admin: 08/31/18 08:35 Dose: 1,600 mg Sevelamer HCl (Renagel) 800 mg PO 1200 [facility] Last Admin: 08/31/18 15:52 Dose: Not Given Tramadol HCl (Ultram) 50 mg PO Q6 PRN PRN Reason: Pain, moderate (4-7) Last Admin: 08/31/18 11:18 Dose: 50 mg Ursodiol (Actigall) 300 mg PO DAILY [facility] Last Admin: 08/31/18 09:42 Dose: 300 mg Vitamin B Complex/Vit C/Folic Acid (Nephro-Luis) 1 tab PO 0800 [facility] Last Admin: 08/31/18 08:36 Dose: 1 tab - Labs Labs: 08/31/18 07:30 08/31/18 07:30 PT 11.4 SECONDS (9.4-12.5) 08/30/18 12:00 INR 1.01 08/30/18 12:00 APTT 33.4 Seconds (26.9-38.3) 08/30/18 12:00 - Constitutional Appears: Non-toxic, No Acute Distress - Head Exam Head Exam: ATRAUMATIC, NORMOCEPHALIC - Eye Exam Eye Exam: EOMI - ENT Exam ENT Exam: Mucous Membranes Moist - Neck Exam Neck Exam: Full ROM - Respiratory Exam Respiratory Exam: NORMAL BREATHING PATTERN. absent: Accessory Muscle Use, Respiratory Distress - GI/Abdominal Exam GI & Abdominal Exam: Soft. absent: Distended, Firm, Guarding, Rigid, Tenderness - Extremities Exam Additional comments: LUE, mild oozing form surgical site, sensation and motor fxn intact, distal pulses palpable. - Neurological Exam Neurological Exam: Alert, Awake, Oriented x3 Assessment and Plan - Assessment and Plan (Free Text) Assessment: 68F w. ESRD s.p resection in infected LUE AVF graft POD#1, w. post-op bleeding, 2/2 uremic coagulopathy -pt did receive dilaysis today, will continue to monitor surgical site and reinforce dressing as needed, if no improvement in bleeding will give ddavp -will repeat H/H in AM -will consult medicine / nephro -will change packing in AM -will follow closely -d/w attending Frances PGY4
--- NOTE | 2018-08-31 20:29 | CON ---
DATE OF CONSULTATION: 08/31/2018 REASON FOR CONSULTATION: Need for dialysis. The patient is status post resection of infected AV graft. Postop day #1. HISTORY OF PRESENT ILLNESS: A 68-year-old lady known to me from outpatient hemodialysis. The patient underwent resection of infected graft yesterday. Part of the graft is still in. The patient complains of some pain in the arm. She also complains of some oozing from the dressings. She denies any chest pain. She denies any palpitations. PAST MEDICAL/SURGICAL HISTORY: MRSA, NIDDM, hypertension, ESRD, CAD, history of severe sepsis, bleeding from the infected graft, severe anemia, prolonged hospitalization at [facility], secondary hyperparathyroidism, elevated LFTs. FAMILY HISTORY: Noncontributory. SOCIAL HISTORY: No smoking, no alcohol use, no IV drug abuse. MEDICATIONS AT HOME: Aspirin, Lipitor, Plavix, Lopressor, ProAmatine, Remeron, Protonix, Ultram, Ecotrin. ALLERGIES: LATEX AND NATURAL RUBBER. REVIEW OF SYSTEMS The patient complains of some fatigue. She complains of some pain in the arm. She denies any chest pain. She denies any palpitations. All other systems are reviewed and unremarkable. PHYSICAL EXAMINATION: GENERAL: Elderly lady lying in bed. VITAL SIGNS: Blood pressure 122/79, heart rate 94, respiratory rate 20, temperature 98.2. HEENT: Normocephalic, atraumatic, positive pallor. NECK: Supple, no JVD. LUNGS: Bilateral equal air entry, bilateral equal air expansion. CARDIAC: S1 and S2. Regular rate and rhythm, no murmur, no rub. ABDOMEN: Soft, nondistended, nontender, bowel sounds present. EXTREMITIES: Dressing of the left upper extremity. LABORATORY DATA: WBC 6, hemoglobin 11.2, hematocrit 37, platelets 156,000. Sodium 142, potassium 4.1, chloride 101, CO2 of 29, BUN 39, creatinine 7.2, glucose 88, calcium 9.6. CURRENT MEDICATIONS: Tylenol, Actigall, aspirin, Lipitor 20, Lopressor 25 b.i.d., Plavix 75, ProAmatine 10 b.i.d., Protonix, sevelamer, tramadol, vancomycin. ASSESSMENT: 1. Status post excision of infected AV graft, postop day #1. 2. End-stage renal disease. 3. Bwj-pvmtqfs-vfyksiyse diabetes mellitus. 4. Hypertension. 5. Anemia of chronic kidney disease. PLAN: 1. Stable dialysis today. In light of her oozing from her access and the fact that she lives alone and unable to get up to her house without the help of her arm, we will hold discharge today. 2. Monitor fingersticks. 3. Hold Plavix and aspirin. 4. Hopefully can be discharged tomorrow. Gabbi Felton MD
--- NOTE | 2018-09-01 01:13 | OP ---
PROCEDURE DATE: 08/30/2018 PREOPERATIVE DIAGNOSIS: Infected left upper extremity AV fistula graft. POSTOPERATIVE DIAGNOSIS: Infected left upper extremity AV fistula graft. PROCEDURE: Excision of infected left upper extremity arteriovenous fistula graft. SURGEON: Connor De Leon MD. DELINEATOR: Teodoro Daniels DO, PGY-4 and Glynn Messina DO, PGY-2. ANESTHESIOLOGIST: Deni Riley MD ANESTHESIA: General LMA with local. ESTIMATED BLOOD LOSS: 25 mL. SPECIMEN: Maxie-Ross AV fistula graft. INDICATION FOR PROCEDURE: This is a 68-year-old female with a history of end-stage renal disease, on dialysis, who presented with an infected left upper extremity AV fistula Maxie-Ross graft for which removal was indicated. After risks and benefits were discussed with the patient, a informed consent was obtained. DESCRIPTION OF PROCEDURE: The patient was taken to the operating room and placed on the operating table in the supine position. General LMA anesthesia was induced. All appropriate monitoring devices were in place. The left upper extremity was prepped and draped in the usual sterile fashion. Next, a time-out was conducted verifying correct patient, procedure, position, site, and laterality. Next, the skin was infiltrated with lidocaine and Marcaine mixture overlying the graft site. Next, an elliptical incision over the graft was made incorporating the old scar. The incision was deepened to the subcutaneous tissue and hemostasis was achieved. Next, the graft was encountered and the graft was sharply dissected away from the surrounding tissue using Metzenbaum scissors and electrocautery. Once the graft was mobilized, it was clamped proximally and distally and then it was cut with a scalpel. The proximal and distal ends were then oversewn with 5-0 Prolene. The surgical site was irrigated copiously with bacitracin, normal saline. Hemostasis was confirmed and then the wound was then loosely approximated with 3-0 Vicryl. The wound was then packed with iodoform packing and sterile dressing was applied. The patient tolerated the procedure well and was transported to PACU in good condition. Teodoro Daniels DO Connor De Leon MD [facility] # [id number]
[2018-09-01] MEDS: Pantoprazole 40 mg EC Tab PO SCH (05:29)
--- NOTE | 2018-09-01 07:43 | CP.PCM.DIS ---
Provider - Provider Date of Admission: 08/30/18 18:32 Attending physician: Connor De Leon MD Primary care physician: Yeison Mancuso MD Consults: 08/30/18 19:40 Nephrology Consult Routine Comment: Consulting Provider: Gabbi Felton Consulting Physician: Gabbi Felton Reason for Consult: ESRD; on HD TTS 08/31/18 16:01 Physician Consult Routine Comment: Consulting Provider: Gabbi Felton Consulting Physician: Gabbi Felton Reason for Consult: ESRD 08/31/18 16:12 Physician Consult Routine Comment: Consulting Provider: Yeison Mancuso Consulting Physician: Yeison Mancuso Reason for Consult: post-op medical management Time Spent in preparation of Discharge (in minutes): 45 Hospital Course - Lab Results Lab Results: Micro Results 08/30/18 19:08 Other: Please Indicate Gram Stain - Final Most Recent Lab Values WBC 6.1 10^3/uL (4.5-11.0) D 08/31/18 07:30 RBC 3.76 10^6/uL (3.5-6.1) 08/31/18 07:30 Hgb 11.2 g/dL (12.0-16.0) L 08/31/18 07:30 Hct 36.7 % (36.0-48.0) 08/31/18 07:30 MCV 97.6 fl (80.0-105.0) 08/31/18 07:30 MCH 29.8 pg (25.0-35.0) 08/31/18 07:30 MCHC 30.5 g/dl (31.0-37.0) L 08/31/18 07:30 RDW 16.4 % (11.5-14.5) H 08/31/18 07:30 Plt Count 156 10^3/uL (120.0-450.0) 08/31/18 07:30 MPV 10.3 fl (7.0-11.0) 08/31/18 07:30 Neut % (Auto) 59.6 % (50.0-68.0) 08/31/18 07:30 Lymph % (Auto) 29.8 % (22.0-35.0) 08/31/18 07:30 Tripp % (Auto) 4.8 % (1.0-6.0) 08/31/18 07:30 Eos % (Auto) 5.6 % (1.5-5.0) H 08/31/18 07:30 Baso % (Auto) 0.2 % (0.0-3.0) 08/31/18 07:30 Lymph # (Auto) 1.8 (1.2-3.4) 08/31/18 07:30 Tripp # (Auto) 0.3 (0.1-0.6) 08/31/18 07:30 Eos # (Auto) 0.3 (0.0-0.7) 08/31/18 07:30 Baso # (Auto) 0.01 K/mm3 (0.0-2.0) 08/31/18 07:30 Absolute Neuts (auto) 3.63 (1.4-6.5) 08/31/18 07:30 PT 11.4 SECONDS (9.4-12.5) 08/30/18 12:00 INR 1.01 08/30/18 12:00 APTT 33.4 Seconds (26.9-38.3) 08/30/18 12:00 Sodium 142 mmol/L (132-148) 08/31/18 07:30 Potassium 4.1 mmol/L (3.6-5.0) 08/31/18 07:30 Chloride 101 mmol/L (98-107) 08/31/18 07:30 Carbon Dioxide 29 mmol/L (21-33) 08/31/18 07:30 Anion Gap 16 (10-20) 08/31/18 07:30 BUN 39 mg/dL (7-21) H 08/31/18 07:30 Creatinine 7.2 mg/dl (0.7-1.2) H 08/31/18 07:30 Est GFR ( Amer) 7 08/31/18 07:30 Est GFR (Non-Af Amer) 6 08/31/18 07:30 Random Glucose 88 mg/dL (70-110) 08/31/18 07:30 Calcium 9.6 mg/dL (8.4-10.5) 08/31/18 07:30 Phosphorus 5.1 mg/dL (2.5-4.5) H 08/31/18 07:30 - Hospital Course Hospital Course: 67 yo female with multiple PMH ESRD on dialysis,HTN, obesity , atrial fibrillation,with history of CVA on right MCA on Plavix, GI bleed with hemorrhagic shock s/p Left Colon resection with ileostomy came to [facility] with infected L AVG. Pt underwent surgery to remove the graft. TOlerated it well. Area is packed. Daily packing was done. Denies fever, nausea. diarrhea. Sorter Operator and ID consulted Past medical history: End-stage renal disease on dialysis 3 days a week MWF, Diverticulosis, CVA, hypertension, asthma, GI bleed, Type 2 DM Past surgical history: AV fistula, L AV graft ,L hemicolectomy Allergies: No known drug allergies. Family history: Noncontributory this time Social history: No history of tobacco use, EtOH or illicit drugs Discharge Exam - Head Exam Head Exam: ATRAUMATIC, NORMOCEPHALIC - Eye Exam Eye Exam: EOMI, Normal appearance, PERRL Pupil Exam: NORMAL ACCOMODATION, PERRL - Respiratory Exam Respiratory Exam: NORMAL BREATHING PATTERN - Cardiovascular Exam Cardiovascular Exam: REGULAR RHYTHM - GI/Abdominal Exam GI & Abdominal Exam: Soft. absent: Tenderness - Extremities Exam Extremities exam: full ROM Additional comments: L volar aspect of forearm has 3 incisions, 0.5cm lateral , 4cm 2x1cm inferior wound, [id number] wound: minimal SS drainage - Neurological Exam Neurological exam: Alert, CN II-XII Intact, Normal Gait, Oriented x3, Reflexes Normal - Psychiatric Exam Psychiatric exam: Normal Affect, Normal Mood - Skin Skin Exam: Erythema, Warm Discharge Plan - Follow Up Plan Condition: GOOD Disposition: HOME/ ROUTINE Instructions: Hemodialysis (DC), Arteriovenous Fistula for Dialysis (DC), End Stage Kidney Disease (DC), Dialysis Catheter (DC), Dialysis and Diet Additional Instructions: follow up with Dr. De Leon on Sunday in office Referrals: Yeison Mancuso MD [Primary Care Provider] - Gabbi Felton MD [Staff Provider] - Connor De Leon MD [Staff Provider] -
[2018-09-01] MEDS: Multivitamin Vitamin B Complex (Nephro-Vite) Tab PO SCH (07:49)
[2018-09-01 10:00] LABS: HEMOGLOBIN 11.2 g/dL (12.0-16.0); MEAN CELL VOLUME 96.6 fl (80.0-105.0); MEAN CORPUSCULAR HEMOGLOBIN 29.4 pg (25.0-35.0); MEAN CORPUSCULAR HGB CONC 30.4 g/dl (31.0-37.0); MEAN PLATELET VOLUME 9.6 fl (7.0-11.0); RBC 3.81 10^6/uL (3.5-6.1); RED CELL DISTRIBUTION WIDTH 16.3 % (11.5-14.5); WHITE BLOOD COUNT 5.8 10^3/uL (4.5-11.0)
--- NOTE | 2018-09-01 17:11 | CP.PCM.PN ---
Subjective - Date & Time of Evaluation Date of Evaluation: 09/01/18 Time of Evaluation: 17:08 - Subjective Subjective: Surgery PT seen and examined. No acute events. Pt declined to go home today. c/o pain, swelling, drainage from the wound Objective - Vital Signs/Intake and Output Vital Signs (last 24 hours): Temp Pulse Resp BP Pulse Ox 98.5 F 94 H 18 136/88 94 L 09/01/18 14:00 09/01/18 14:00 09/01/18 14:00 09/01/18 14:00 09/01/18 14:00 - Medications Medications: Current Medications Aspirin (Ecotrin) 81 mg PO DAILY [facility] Last Admin: 09/01/18 10:10 Dose: 81 mg Atorvastatin Calcium (Lipitor) 20 mg PO DIN [facility] Last Admin: 08/31/18 18:02 Dose: 20 mg Clopidogrel Bisulfate (Plavix) 75 mg PO DAILY [facility] Last Admin: 09/01/18 10:09 Dose: 75 mg Metoprolol Tartrate (Lopressor) 25 mg PO BID PRN PRN Reason: Systolic Blood Pressure Midodrine (Proamatine) 10 mg PO BID [facility] Last Admin: 09/01/18 10:09 Dose: 10 mg Mirtazapine (Remeron) 15 mg PO HS [facility] Last Admin: 08/31/18 21:00 Dose: 15 mg Pantoprazole Sodium (Protonix Ec Tab) 40 mg PO 0600 [facility] Last Admin: 09/01/18 05:29 Dose: 40 mg Sevelamer HCl (Renagel) 1,600 mg PO 0800 [facility] Last Admin: 09/01/18 07:49 Dose: 1,600 mg Sevelamer HCl (Renagel) 800 mg PO 1200 [facility] Last Admin: 09/01/18 12:37 Dose: 800 mg Tramadol HCl (Ultram) 50 mg PO Q6 PRN PRN Reason: Pain, moderate (4-7) Last Admin: 09/01/18 07:50 Dose: 50 mg Ursodiol (Actigall) 300 mg PO DAILY [facility] Last Admin: 09/01/18 10:12 Dose: 300 mg Vitamin B Complex/Vit C/Folic Acid (Nephro-Luis) 1 tab PO 0800 [facility] Last Admin: 09/01/18 07:49 Dose: 1 tab - Labs Labs: 09/01/18 09:30 08/31/18 07:30 PT 11.4 SECONDS (9.4-12.5) 08/30/18 12:00 INR 1.01 08/30/18 12:00 APTT 33.4 Seconds (26.9-38.3) 08/30/18 12:00 - Constitutional Appears: No Acute Distress - Head Exam Head Exam: ATRAUMATIC, NORMAL INSPECTION, NORMOCEPHALIC - Eye Exam Eye Exam: EOMI, Normal appearance, PERRL Pupil Exam: NORMAL ACCOMODATION, PERRL - ENT Exam ENT Exam: Mucous Membranes Moist - Neck Exam Neck Exam: Full ROM, Normal Inspection - Respiratory Exam Respiratory Exam: NORMAL BREATHING PATTERN - Cardiovascular Exam Cardiovascular Exam: REGULAR RHYTHM - GI/Abdominal Exam GI & Abdominal Exam: Soft - Extremities Exam Extremities Exam: Full ROM. absent: Normal Inspection Additional comments: L arm has openings w packings. SS drainage - Back Exam Back Exam: NORMAL INSPECTION - Neurological Exam Neurological Exam: Alert, Awake, Oriented x3 - Psychiatric Exam Psychiatric exam: Normal Affect, Normal Mood - Skin Skin Exam: Erythema, Warm. absent: Intact Assessment and Plan - Assessment and Plan (Free Text) Assessment: 68F w. ESRD s.p resection in infected LUE AVF graft POD#2, w. post-op bleeding, 2/2 uremic coagulopathy Plan: -pt did receive dilaysis yesterday, will continue to monitor surgical site and reinforce dressing as needed, if no improvement in bleeding will give ddavp -medicine / nephro on board -will change packing in AM -will follow closely Will d/w attending
[2018-09-02] MEDS: Pantoprazole 40 mg EC Tab PO SCH (06:01)
--- NOTE | 2018-09-02 07:02 | CP.PCM.CON ---
<Lilia Dejesus - Last Filed: 09/02/18 17:20> History of Present Illness - History of Present Illness History of Present Illness: Medicine consult note for Dr. Jordan 68yo female PMHx ESRD on HD //, CVA, HTN, asthma,diverticulosis, GI bleed, T2DM presents with infected LUE AV graft fistula. Medicine consult placed for management of chronic issues. Patient is POD#3 Segmental removal of inefected left upper extremity AV graft fistula. Patient's postop course was complicated by post-op bleeding likely secondary to uremic coagulopathy. Patient had no acute events overnight as per nursing. Dressings of LUE were clean/dry/intact. Patient denied acute complaints fever, chills, headache, dizziness, chest pain, SOB, cough, abd pain, nausea, vomiting, bowel complaints, pain/swelling in b/l LE. Patient is for discharge today. PMD: Dr. Mancuso PMHx: ESRD on HD //, CVA, HTN, asthma,diverticulosis, GI bleed, T2DM PSurgHx: ileostomy 2017, cataract Jul 2017, R breast cyst removal, Meds: pls see chart ALL: latex, natural rubber FamHx: DM and HTN Review of Systems - Review of Systems All systems: reviewed and no additional remarkable complaints except Review of Systems: as per HPI Past Patient History - Infectious Disease Hx of Infectious Diseases: None - Tetanus Immunizations Tetanus Immunization: Up to Date - Past Medical History & Family History Past Medical History?: Yes - Past Social History Smoking Status: Never Smoked - CARDIAC Hx Pacemaker: No - PULMONARY Hx Asthma: Yes Hx Bronchitis: No Hx Chronic Obstructive Pulmonary Disease (COPD): No Hx Emphysema: No Hx Pneumonia: No Hx Sleep Apnea: No - NEUROLOGICAL HX Cerebrovascular Accident: Yes (2011;2017) - HEENT Hx HEENT Problems: No Hx Cataracts: Yes (Cataract surgery July 2017) - RENAL Hx Chronic Kidney Disease: Yes Hx Dialysis: Yes Hx Kidney Stones: No Hx Renal Failure: Yes - ENDOCRINE/METABOLIC Hx Diabetes Mellitus Type 2: Yes - HEMATOLOGICAL/ONCOLOGICAL Hx Anemia: Yes (secondary to rectal bleeding-resolved.) Hx Sickle Cell Disease: No - INTEGUMENTARY Hx Dermatological Problems: No - MUSCULOSKELETAL/RHEUMATOLOGICAL Hx Musculoskeletal Disorders: Yes Hx Falls: No - GASTROINTESTINAL Hx Crohn's Disease: No Hx Diverticulitis: Yes Hx Gall Bladder Disease: No Hx Ileostomy: Yes (2018) Hx Pancreatitis: No - GENITOURINARY/GYNECOLOGICAL Hx Sexually Transmitted Disorders: No - PSYCHIATRIC Hx Emotional Abuse: No Hx Physical Abuse: No - SURGICAL HISTORY Hx Surgeries: Yes - ANESTHESIA Hx Anesthesia Reactions: No Hx Malignant Hyperthermia: No Meds Home Medications: Home Medication List Medication Instructions Recorded Confirmed Type RX: Aspirin [Ecotrin] 81 mg PO DAILY [facility] 08/31/18 Rx RX: Atorvastatin [Lipitor] 20 mg PO DIN tab 08/31/18 Rx RX: Clopidogrel [Plavix] 75 mg PO DAILY tab 08/31/18 Rx RX: Metoprolol Tartrate [Lopressor] 25 mg PO BID PRN tab 08/31/18 Rx RX: Midodrine [Proamatine] 10 mg PO BID tab 08/31/18 Rx RX: Mirtazapine [Remeron] 15 mg PO HS tab 08/31/18 Rx RX: Pantoprazole [Protonix EC Tab] 40 mg PO 0600 ect 08/31/18 Rx RX: Vitamin B Complex/Vit C/Folic 1 tab PO 0800 tab 08/31/18 Rx [Nephro-Luis] RX: traMADol [Ultram] 50 mg PO Q6 PRN tab 08/31/18 Rx Amoxicillin/Clavulanate [Augmentin 1 tab PO DAILY #5 tab 09/01/18 Rx 500 MG-125 MG] Allergies/Adverse Reactions: Allergies Allergy/AdvReac Type Severity Reaction Status Date / Time Latex, Natural Rubber Allergy Unknown RASH Verified 08/22/18 10:24 - Medications Medications: Current Medications Aspirin (Ecotrin) 81 mg PO DAILY [facility] Last Admin: 09/01/18 10:10 Dose: 81 mg Atorvastatin Calcium (Lipitor) 20 mg PO DIN [facility] Last Admin: 09/01/18 17:57 Dose: 20 mg Clopidogrel Bisulfate (Plavix) 75 mg PO DAILY [facility] Last Admin: 09/01/18 10:09 Dose: 75 mg Metoprolol Tartrate (Lopressor) 25 mg PO BID PRN PRN Reason: Systolic Blood Pressure Midodrine (Proamatine) 10 mg PO BID [facility] Last Admin: 09/01/18 17:29 Dose: 10 mg Mirtazapine (Remeron) 15 mg PO HS [facility] Last Admin: 09/01/18 22:30 Dose: 15 mg Pantoprazole Sodium (Protonix Ec Tab) 40 mg PO 0600 [facility] Last Admin: 09/02/18 06:01 Dose: 40 mg Sevelamer HCl (Renagel) 1,600 mg PO 0800 [facility] Last Admin: 09/01/18 07:49 Dose: 1,600 mg Sevelamer HCl (Renagel) 800 mg PO 1200 [facility] Last Admin: 09/01/18 12:37 Dose: 800 mg Tramadol HCl (Ultram) 50 mg PO Q6 PRN PRN Reason: Pain, moderate (4-7) Last Admin: 09/01/18 17:28 Dose: 50 mg Ursodiol (Actigall) 300 mg PO DAILY [facility] Last Admin: 09/01/18 10:12 Dose: 300 mg Vitamin B Complex/Vit C/Folic Acid (Nephro-Luis) 1 tab PO 0800 [facility] Last Admin: 09/01/18 07:49 Dose: 1 tab Physical Exam - Constitutional Appears: Non-toxic, No Acute Distress - Head Exam Head Exam: ATRAUMATIC, NORMAL INSPECTION, NORMOCEPHALIC - Eye Exam Eye Exam: EOMI, Normal appearance - ENT Exam ENT Exam: Mucous Membranes Moist - Neck Exam Neck exam: Positive for: Full Rom, Normal Inspection. Negative for: Lymphadenopathy - Respiratory Exam Respiratory Exam: Clear to Auscultation Bilateral, NORMAL BREATHING PATTERN. absent: Accessory Muscle Use, Respiratory Distress - Cardiovascular Exam Cardiovascular Exam: REGULAR RHYTHM, +S1, +S2 - GI/Abdominal Exam GI & Abdominal Exam: Normal Bowel Sounds, Soft. absent: Tenderness - Rectal Exam Rectal Exam: Deferred - Extremities Exam Extremities exam: Positive for: normal inspection. Negative for: pedal edema, tenderness Additional comments: LUE wrapped in dressings c/d/i - Neurological Exam Neurological exam: Alert, CN II-XII Intact, Oriented x3 - Psychiatric Exam Psychiatric exam: Normal Affect, Normal Mood - Skin Skin Exam: Dry, Normal Color, Warm Results - Vital Signs Recent Vital Signs: Last Vital Signs Temp 98.7 F 09/01/18 21:48 Pulse 100 H 09/01/18 21:48 Resp 18 09/01/18 21:48 BP 132/80 09/01/18 21:48 Pulse Ox 95 09/01/18 21:48 - Labs Result Diagrams: 09/01/18 09:30 08/31/18 07:30 Labs: Laboratory Results - last 24 hr 09/01/18 09:30 WBC 5.8 RBC 3.81 Hgb 11.2 L Hct 36.8 MCV 96.6 MCH 29.4 MCHC 30.4 L RDW 16.3 H Plt Count 133 MPV 9.6 Assessment & Plan - Assessment and Plan (Free Text) Assessment: 1. LUE infected AV graft fistula s/p segmental removal of infected graft 2. ESRD on HD [facility] 3. HTN 4. Diverticulosis 5. T2DM 6. CAD Plan: Patient's vitals, blood work, and imaging reviewed in chart. Patient is POD#3 Segmental removal of inefected left upper extremity AV graft fistula. Patient dressings c/d/i and managed as per surgery. She received HD as per [facility] schedule. Continued on ASA and Plavix for CAD, Lipitor for HLD,and Lopressor for HTN. Nephrology on board and patient continued on Sevelamer, Ursodiol, and Nephrovite. Patient's sugars controlled. Maintain normotension, normothermia, and euglycemia. Upon discharge patient to f/u with PMD within 7-[address] Julian Dejesus PGY3 <Melchor Jordan S - Last Filed: 09/02/18 19:16> Meds - Medications Medications: Current Medications Aspirin (Ecotrin) 81 mg PO DAILY [facility] Last Admin: 09/02/18 09:58 Dose: 81 mg Atorvastatin Calcium (Lipitor) 20 mg PO DIN [facility] Last Admin: 09/02/18 17:06 Dose: 20 mg Clopidogrel Bisulfate (Plavix) 75 mg PO DAILY [facility] Last Admin: 09/02/18 09:59 Dose: 75 mg Metoprolol Tartrate (Lopressor) 25 mg PO BID PRN PRN Reason: Systolic Blood Pressure Midodrine (Proamatine) 10 mg PO BID [facility] Last Admin: 09/02/18 17:06 Dose: 10 mg Mirtazapine (Remeron) 15 mg PO HS [facility] Last Admin: 09/01/18 22:30 Dose: 15 mg Pantoprazole Sodium (Protonix Ec Tab) 40 mg PO 0600 [facility] Last Admin: 09/02/18 06:01 Dose: 40 mg Sevelamer HCl (Renagel) 1,600 mg PO 0800 [facility] Last Admin: 09/02/18 09:58 Dose: 1,600 mg Sevelamer HCl (Renagel) 800 mg PO 1200 [facility] Last Admin: 09/02/18 14:03 Dose: 800 mg Tramadol HCl (Ultram) 50 mg PO Q6 PRN PRN Reason: Pain, moderate (4-7) Last Admin: 09/01/18 17:28 Dose: 50 mg Ursodiol (Actigall) 300 mg PO DAILY [facility] Last Admin: 09/02/18 09:58 Dose: 300 mg Vitamin B Complex/Vit C/Folic Acid (Nephro-Luis) 1 tab PO 0800 [facility] Last Admin: 09/02/18 09:59 Dose: 1 tab Results - Vital Signs Recent Vital Signs: Last Vital Signs Temp 99.4 F 09/02/18 14:00 Pulse 82 09/02/18 14:00 Resp 20 09/02/18 14:00 BP 138/84 09/02/18 14:00 Pulse Ox 94 L 09/02/18 14:00 - Labs Result Diagrams: 09/01/18 09:30 08/31/18 07:30 Assessment & Plan - Assessment and Plan (Free Text) Plan: Pt seen and examined by me. I have reviewed the note of the caregivers non medical and I agree with it. I have discussed the assessment and plan with the resident. I have reviewed the medications and the last labs. Pt with L arm AVG infection. She had surgery to remove the graft. I have been asked to consult and manage the HTN, DM-2 and CAD. Pt is on ASA and Plavix for CAD and will be continued. Pt is on Lipitor for dyslipidemia. She will continue with Lopressor for CAD. She is getting local wound care after her surgery. She is being followed by [facility] for her HD T/T/S. She has not pain and is eating well. She is on Sevelamer for her secondary hyperparathyroidism.
[2018-09-02 08:56] VITALS: RESP 20
[2018-09-02] MEDS: Multivitamin Vitamin B Complex (Nephro-Vite) Tab PO SCH (09:59)
[2018-09-02 14:45] VITALS: BP 138/84; PULSE 82; TEMP 99.4; O2SAT 94
--- NOTE | 2018-09-11 06:00 | PQF ---
PROVIDER RESPONSE TEXT: Mild Intermittent Asthma REVIEWER QUERY TEXT: Asthma Specificity and Type Asthma is documented in the Medical Record. Please specify the type and severity of asthma and indic ate if this is associated with exacerbation or status asthmaticus. Such as: -- Mild intermittent -- Mild persistent -- Moderate persistent -- Severe persistent -- Exercise induced bronchospasm -- Cough variant asthma -- Other, please specify The patient's Clinical Indicators include: Please see query. Thank you. Query created by: Miroslava Harrington on 09/04/2018 11:43 AM Electronically signed by: Delisa Turk 09/11/2018 5:57 AM
--- NOTE | 2018-09-11 15:28 | CP.PCM.DIS ---
Provider - Provider Date of Admission: 08/31/18 09:00 Attending physician: Connor De Leon MD Primary care physician: Yeison Mancuso MD Consults: 08/30/18 19:40 Nephrology Consult Routine Comment: Consulting Provider: Gabbi Felton Consulting Physician: Gabbi Felton Reason for Consult: ESRD; on HD TTS 08/31/18 16:01 Physician Consult Routine Comment: Consulting Provider: Gabbi Felton Consulting Physician: Gabbi Felton Reason for Consult: ESRD 08/31/18 16:12 Physician Consult Routine Comment: Consulting Provider: Yeison Mancuso Consulting Physician: Yeison Mancuso Reason for Consult: post-op medical management Time Spent in preparation of Discharge (in minutes): 45 Diagnosis - Discharge Diagnosis (1) Hemorrhage of arteriovenous fistula Status: Acute Hospital Course - Lab Results Lab Results: Micro Results 08/30/18 19:08 Other: Please Indicate Gram Stain - Final 08/30/18 19:08 Other: Please Indicate Wound Culture - Final Serratia Marcescens Most Recent Lab Values WBC 5.8 10^3/uL (4.5-11.0) 09/01/18 09:30 RBC 3.81 10^6/uL (3.5-6.1) 09/01/18 09:30 Hgb 11.2 g/dL (12.0-16.0) L 09/01/18 09:30 Hct 36.8 % (36.0-48.0) 09/01/18 09:30 MCV 96.6 fl (80.0-105.0) 09/01/18 09:30 MCH 29.4 pg (25.0-35.0) 09/01/18 09:30 MCHC 30.4 g/dl (31.0-37.0) L 09/01/18 09:30 RDW 16.3 % (11.5-14.5) H 09/01/18 09:30 Plt Count 133 10^3/uL (120.0-450.0) 09/01/18 09:30 MPV 9.6 fl (7.0-11.0) 09/01/18 09:30 Neut % (Auto) 59.6 % (50.0-68.0) 08/31/18 07:30 Lymph % (Auto) 29.8 % (22.0-35.0) 08/31/18 07:30 [place] % (Auto) 4.8 % (1.0-6.0) 08/31/18 07:30 Eos % (Auto) 5.6 % (1.5-5.0) H 08/31/18 07:30 Baso % (Auto) 0.2 % (0.0-3.0) 08/31/18 07:30 Lymph # (Auto) 1.8 (1.2-3.4) 08/31/18 07:30 [place] # (Auto) 0.3 (0.1-0.6) 08/31/18 07:30 Eos # (Auto) 0.3 (0.0-0.7) 08/31/18 07:30 Baso # (Auto) 0.01 K/mm3 (0.0-2.0) 08/31/18 07:30 Absolute Neuts (auto) 3.63 (1.4-6.5) 08/31/18 07:30 PT 11.4 SECONDS (9.4-12.5) 08/30/18 12:00 INR 1.01 08/30/18 12:00 APTT 33.4 Seconds (26.9-38.3) 08/30/18 12:00 Sodium 142 mmol/L (132-148) 08/31/18 07:30 Potassium 4.1 mmol/L (3.6-5.0) 08/31/18 07:30 Chloride 101 mmol/L (98-107) 08/31/18 07:30 Carbon Dioxide 29 mmol/L (21-33) 08/31/18 07:30 Anion Gap 16 (10-20) 08/31/18 07:30 BUN 39 mg/dL (7-21) H 08/31/18 07:30 Creatinine 7.2 mg/dl (0.7-1.2) H 08/31/18 07:30 Est GFR ( Amer) 7 08/31/18 07:30 Est GFR (Non-Af Amer) 6 08/31/18 07:30 Random Glucose 88 mg/dL (70-110) 08/31/18 07:30 Calcium 9.6 mg/dL (8.4-10.5) 08/31/18 07:30 Phosphorus 5.1 mg/dL (2.5-4.5) H 08/31/18 07:30 - Hospital Course Hospital Course: This is a DC summary for 09/02/18. 67 yo female with multiple PMH ESRD on dialysis,HTN, obesity , atrial fibrillation,with history of CVA on right MCA on Plavix, GI bleed with hemorrhagic shock s/p Left Colon resection with ileostomy came to [facility] with infected L AVG. Pt underwent surgery to remove the graft. TOlerated it well. Area is packed. Daily packing was done. Denies fever, nausea. diarrhea. Sheet Metal Helper and ID consulted Past medical history: End-stage renal disease on dialysis 3 days a week MWF, Diverticulosis, CVA, hypertension, asthma, GI bleed, Type 2 DM Past surgical history: AV fistula, L AV graft ,L hemicolectomy Allergies: No known drug allergies. Family history: Noncontributory this time Social history: No history of tobacco use, EtOH or illicit drugs Discharge Exam - Head Exam Head Exam: ATRAUMATIC, NORMAL INSPECTION, NORMOCEPHALIC - Eye Exam Eye Exam: EOMI Pupil Exam: NORMAL ACCOMODATION - Neck Exam Neck exam: Full Rom - Respiratory Exam Respiratory Exam: NORMAL BREATHING PATTERN - Cardiovascular Exam Cardiovascular Exam: REGULAR RHYTHM - GI/Abdominal Exam GI & Abdominal Exam: Unremarkable - Exam Exam: NORMAL INSPECTION - Extremities Exam Extremities exam: full ROM Additional comments: L arm has small incisions. Draining small amount of SS fluids. - Skin Skin Exam: Normal Color, Warm Discharge Plan - Discharge Medications Prescriptions: Amoxicillin/Clavulanate [Augmentin 500 MG-125 MG] 1 tab PO DAILY #5 tab - Follow Up Plan Condition: GOOD Disposition: DISCHARGED TO HOME CARE Instructions: Hemodialysis (DC), Arteriovenous Fistula for Dialysis (DC), Ble eding Precautions, End Stage Kidney Disease (DC), Dialysis Catheter (DC), Dialysis and Diet Additional Instructions: follow up with Dr. De Leon on Sunday in office tomorrow Referrals: Yeison Mancuso MD [Primary Care Provider] - Gabbi Felton MD [Staff Provider] - Connor De Leon MD [Staff Provider] -
== END 2018-09-02 20:36 | disposition home health service (06) | DRG 264 ==
LOC: SDS 11:14 → UNDOADMIN 18:32 → 5RNO 18:32 → SDS 18:32 → 5RNO 19:45 → UNDODISIN 09-02 20:36
PROVIDERS: ADMIT General Practice; ATTEND General Practice
PROC: 03PY0JZ Removal of Synthetic Substitute from Upper Artery, Open Approach (ICD-10-PCS; principal; 2018-08-30 13:00)
PROC: 5A1D70Z Performance of Urinary Filtration, Intermittent, Less than 6 Hours Per Day (ICD-10-PCS; 2018-08-31)
DX: T82.7XXA Infection and inflammatory reaction due to other cardiac and vascular devices, implants and grafts, initial encounter (principal); N18.6 End stage renal disease; I12.0 Hypertensive chronic kidney disease with stage 5 chronic kidney disease or end stage renal disease; N25.81 Secondary hyperparathyroidism of renal origin; D68.9 Coagulation defect, unspecified; L76.22 Postprocedural hemorrhage of skin and subcutaneous tissue following other procedure; T82.898D Other specified complication of vascular prosthetic devices, implants and grafts, subsequent encounter; Y83.2 Surgical operation with anastomosis, bypass or graft as the cause of abnormal reaction of the patient, or of later complication, without mention of misadventure at the time of the procedure; I48.91 Unspecified atrial fibrillation; I25.10 Atherosclerotic heart disease of native coronary artery without angina pectoris; E11.22 Type 2 diabetes mellitus with diabetic chronic kidney disease; D63.1 Anemia in chronic kidney disease; Z86.73 Personal history of transient ischemic attack (TIA), and cerebral infarction without residual deficits; K57.90 Diverticulosis of intestine, part unspecified, without perforation or abscess without bleeding; Z79.02 Long term (current) use of antithrombotics/antiplatelets; Z79.82 Long term (current) use of aspirin; Z79.899 Other long term (current) drug therapy; Z86.14 Personal history of Methicillin resistant Staphylococcus aureus infection; Z90.49 Acquired absence of other specified parts of digestive tract; Z99.2 Dependence on renal dialysis; Z91.040 Latex allergy status; Z91.048 Other nonmedicinal substance allergy status; J45.20 Mild intermittent asthma, uncomplicated